=== PATIENT | male | born 1945 | race Two or more races ===

== ENCOUNTER 2017-06-19 08:33 | Inpatient (IN) | payer OTHER ==
[~2017-06-19] VITALS: Ht 172.7 cm; Wt 70.9 kg
[2017-06-19] VITALS (16 sets, daily range): BP systolic 132–161; BP diastolic 54–93
--- NOTE | 2017-06-19 08:38 | NUR ---
BIBRA FROM HOME DT SHORTNESS OF BREATH. PATIENT RECEIVED ON BIPAP SATING 95%. PATIENT UNABLE TO TOLERATE ROOM AIR. PATIENT IS AWAKE, HOWEVER APPEARS WEAK AND IN MILD DISTRESS. PT IS AFEBRILE. GOWNED PATIENT AND CONNECTED PT TO TELE MONITOR. IV- LHAND 20 NOTED INTACT AND PATENT. MD JUAREZ PENDING
--- NOTE | 2017-06-19 08:40 | NUR ---
MD CONCEPCION AT BEDSIDE
[2017-06-19] MEDS ORDERED: FUROSEMIDE 40 MG/4 ML VIAL ONE (08:48)
[2017-06-19] MEDS ORDERED: NITROGLYCERIN PACKET 1 GM PACKET ONE (08:48)
[2017-06-19] MEDS ORDERED: ASPIRIN 325 MG TABLET ONE (08:49)
[2017-06-19] MEDS ORDERED: FUROSEMIDE 40 MG/4 ML VIAL IV ONE (09:00)
[2017-06-19] MEDS ORDERED: IPRATROPIUM NEB FS 0.5 MG/2.5 ML AMPUL.NEB NEB ONE (09:00)
[2017-06-19] MEDS ORDERED: NITROGLYCERIN PACKET 1 GM PACKET TD ONE (09:00)
[2017-06-19] MEDS ORDERED: ASPIRIN 325 MG TABLET PO ONE (09:00)
[2017-06-19] MEDS ORDERED: ALBUTEROL FS 2.5 MG/3 ML VIAL.NEB NEB ONE (09:00)
--- NOTE | 2017-06-19 09:05 | NUR ---
PT REC'D ON CPAP MASK 15L. SOB AND RESP DISTRESS NOTED. PT IS DISORIENTED. PT PLACED ON BIPAP PER MD REQUEST. VENT PLUGGED INTO RED OUTLET. ALARMS ARE SET AND AUDIBLE. PRERNAU BAG BEDSIDE. WILL CONTINUE TO MONITOR Addendum: 06/19/17 at 0907 by GEOVANY JACKSON RT Amended: Links added.
[2017-06-19 09:16] LABS: BASOPHILS % (AUTO) 0.1 % (0.0-2.0); EOSINOPHILS # (AUTO) 0.5 /CMM (0.0-0.7); EOSINOPHILS % (AUTO) 4.1 % (0.0-6.0); HEMATOCRIT 27 % (39-51); HEMOGLOBIN 8.8 g/dL (13.5-17.5); LYMPHOCYTES # (AUTO) 0.6 /CMM (0.8-4.8); MEAN CORPUSCULAR HEMOGLOBIN 30 PG (26.0-33.0); MEAN CORPUSCULAR HGB CONC 33 g/dl (31.0-36.0); MEAN CORPUSCULAR VOLUME 93 fL (80-96); MONOCYTES # (AUTO) 0.8 /CMM (0.1-1.30); NEUTROPHILS # (AUTO) 10.9 /CMM (1.8-8.9); NEUTROPHILS % (AUTO) 84.8 % (43.0-81.0); PLATELET COUNT (AUTO) 193 /CMM (150-450); RDW COEFFICIENT OF VARIATION 16.6 (11.5-15.0); RED BLOOD CELL COUNT(AUTO) 2.91 MIL/uL (4.5-6.0); WHITE BLOOD COUNT (AUTO) 12.9 K/uL (4.3-11.0)
[2017-06-19 09:29] LABS: TROPONIN I 0.138 ng/mL (0.00-0.056)
[2017-06-19] MEDS ORDERED: IPRATROPIUM NEB FS 0.5 MG/2.5 ML AMPUL.NEB ONE (09:29)
[2017-06-19] MEDS ORDERED: ALBUTEROL FS 2.5 MG/3 ML VIAL.NEB ONE (09:29)
[2017-06-19 09:32] LABS: INR 0.96 (0.87-1.13)
[2017-06-19 09:38] LABS: ALANINE AMINOTRANSFERASE 18 U/L (12-78); ALKALINE PHOSPHATASE 54 U/L (46-116); ASPARTATE AMINOTRANSFERASE 16 U/L (15-37); BILIRUBIN,DIRECT 0.2 mg/dL (0.0-0.2); BILIRUBIN,TOTAL 0.8 mg/dL (0.2-1.0); CALCIUM, SERUM 8.6 mg/dL (8.5-10.1); CARBON DIOXIDE 27 mmol/L (21-32); CHLORIDE 103 mmol/L (98-107); CREATININE 4.2 mg/dL (0.6-1.3); GLUCOSE 129 mg/dL (74-106); SODIUM SERUM 139 mmol/L (136-145); TOTAL PROTEIN, SERUM 6.9 g/dL (6.4-8.2); UREA NITROGEN, BLOOD 42 mg/dL (7-18)
[2017-06-19 09:41] LABS: POTASSIUM 2.5 mmol/L (3.5-5.1)
[2017-06-19 10:17] LABS: ABG BASE EXCESS 1.8 mmol/L; ABG PH 7.395 (7.350-7.450); ABG PO2 77.6 mmHg (75.0-100.0); AaDO2 155.9 mmHg; COHb 1.6 % (0.5-1.5); MetHb 0.1 % (0.0-1.5); O2Hb 91.4 % (94.0-97.0); SITE, ABG Right Radial; VENT MODE, BG Bipap 15/5 40% BR 12
--- NOTE | 2017-06-19 10:21 | NUR ---
Patient is resting comfortably in bed with eyes closed. Easily aroused. VSS
[2017-06-19 10:32] LABS: B-TYPE NATRIURETIC PEPTIDE 29862 PG/ML (0-125)
[2017-06-19] MEDS ORDERED: ISOS60TA4 PO (10:48)
[2017-06-19] MEDS ORDERED: FAMO20TA8 PO (10:48)
[2017-06-19] MEDS ORDERED: NIFE90TA2 PO (10:48)
[2017-06-19] MEDS ORDERED: FURO40TA5 PO (10:48)
[2017-06-19] MEDS ORDERED: CLON0.3T PO (10:48)
[2017-06-19] MEDS ORDERED: ROSU5TAB PO (10:48)
[2017-06-19] MEDS ORDERED: GABA-532 PO (10:48)
[2017-06-19] MEDS ORDERED: POTA10TA PO (10:48)
[2017-06-19] MEDS ORDERED: BENZ-13 PO (10:48)
[2017-06-19] MEDS ORDERED: CHOL50004 PO (10:48)
[2017-06-19] MEDS ORDERED: SPIR25TA4 PO (10:48)
[2017-06-19] MEDS ORDERED: ACET-73 PO (10:48)
[2017-06-19] MEDS ORDERED: ASPI-1169 PO (10:48)
[2017-06-19] MEDS ORDERED: METO25TA6 PO (10:48)
[2017-06-19] MEDS ORDERED: TERA2CAP4 PO (10:48)
[2017-06-19] MEDS: POTASSIUM CL. PREMIX PERIPHER. 50 ML IV SCH ×4 (10:50→16:01)
--- NOTE | 2017-06-19 11:13 | NUR ---
RN NOTES ADMITTED A 72 Y/O M FROM ER WITH DX OF RESPIRATORY FAILURE, TRANSPORTED VIA STRETCHER ACCOMPANIED BY RN AND TECH. PLACED PT ON O2@4LPM VIA NC. PT BREATHING APPEARS LABORED. HOB KEPT ELVATED. S/P IV LASIX, FC INSERTED TO MONITOR URINE OUTPUT. BODY CHECK DONE NOTED MULTIPLE SKIN RASHES ON UPPER AND LOWER EXTREMITIES, ABDOMEN AND BACK AREA. PHOTO TAKEN AND FILED IN CHART. PT VERBALIZED HE'S FEELING ITCHY. AT BEDSIDE, PER NERVE PROBLEMS IS CAUSING THE RASHES. WILL AWARE DR JAY ABOUT SKIN RASH. PT DENIES PAIN AT THIS TIME. ORIENTED TO UNIT AND CALL LIGHT USE, SAFETY MAINTAINED, CALL LIGHT WITHIN REACH WILL CONT TO MONITOR
--- NOTE | 2017-06-19 11:15 | NUR ---
REPORT GIVEN TO GOMEZ DUENAS FOR ICU 252.
--- NOTE | 2017-06-19 11:24 | NUR ---
EMMA EPRP CALLED AND WILL HAVE EMMA KELLER CALL DR WALKER BACK
--- NOTE | 2017-06-19 12:30 | NUR ---
RN NOTES DR PERSON AT BEDSIDE, PT WAS SEEN AND EVALUATED. AT BEDSIDE, DISCUSSED PLAN OF CARE. PER PT HAS SLEEP APNEA, PT NEEDS CPAP AT NIGHT. PER OKAY FOR CPAP HS
[2017-06-19] MEDS ORDERED: FUROSEMIDE 40 MG/4 ML VIAL IV SCH (13:00)
[2017-06-19] MEDS ORDERED: ACETAMINOPHEN 325 MG TABLET PO PRN (13:00)
[2017-06-19] MEDS ORDERED: ONDANSETRON HCL/PF 4 MG/2 ML VIAL IVP PRN (13:00)
[2017-06-19] MEDS ORDERED: Z GUARD REMEDY 2 OZ OINT TP PRN (13:00)
[2017-06-19] MEDS: NIFEdipine XL (30MG) 30 MG TAB PO SCH (13:41)
[2017-06-19] MEDS: ENOXAPARIN SODIUM 30 MG/0.3 ML DISP.SYRIN SQ SCH (13:41)
[2017-06-19] MEDS: ISOSORBIDE MONONITRATE (30MG) 30 MG TAB.SR.24H PO SCH (13:41)
[2017-06-19] MEDS: CLONIDINE HCL 0.1 MG TABLET PO SCH ×2 (13:42→17:06)
[2017-06-19] MEDS: HYDROCORTISONE 1% CREAM 28.35 GM TUBE TP SCH ×2 (16:01→17:06)
--- NOTE | 2017-06-19 16:10 | NUR ---
RN NOTES PT C/O ITCHING, NAVIN PIERRE AT BEDSIDE, SKIN SCRAPING DONE. PT PLACED ON ISOLATION R/O SCABIES
[2017-06-19] MEDS: POTASSIUM CHLORIDE 20 MEQ TAB.PRT.SR PO SCH ×4 (17:05→20:59)
[2017-06-19] MEDS: GABAPENTIN 100 MG CAPSULE PO SCH (17:05)
[2017-06-19] MEDS: FUROSEMIDE 100 MG/10 ML VIAL IV SCH ×2 (17:10→21:00)
[2017-06-19] MEDS: METOPROLOL TARTRATE 25 MG TABLET PO SCH (17:16)
[2017-06-19 18:11] LABS: THYROID STIMULATING HORMONE 0.059 uIU/mL (0.358-3.74)
--- NOTE | 2017-06-19 18:36 | NUR ---
RN NOTES PT TRANSFERRED TO [facility] FLOOR 105-1, REPORT GIVEN TO GIA DUENAS. PT VS STABLE, ON CONTACT ISOLATION FOR SCABIES.
--- NOTE | 2017-06-19 18:46 | NUR ---
GAMAL/PIG MACHINE OPERATOR HELPER NOTES RECEIVED PT FROM ICU, DX. RESPIRATORY FAILURE WITH ACUTE SYSTOLIC HEART FAILURE, AT BEDSIDE. BY DR. NAVIN JAY. AAO X 3, ON 4L O2 NC, NO SOB, RESPIRATION UNLABORED, TELEMETRY READS SR HR 64WITH BBB, DENIES ANY CHEST PAIN/DISCOMFORT. PATIENT NOTED TO HAVE RASHES BUT REFUSE BODY EVAL. PER ICU NURSE RASHES NOTED TO RT ARM, LEFT ABD, L BACK AND L THIGH AND IS ITCHING, ON HYDROCORTISONE CREAM. RT HAND G20 AND LEFT HAND G20 IV ACCESS, FLUSHES WELL, BOTH SITE CLEAR. ON KOSHER SOFT DIET, VS TAKEN WNL. UNIT ORIENTATION DONE AND USE OF CALL LIGHT, BED LOW LOCKED, SR UP X2, CONTACT ISOLATION PRECAUTION OBSERVED FOR POSSIBLE SCABIES, SKIN SCRAPINGS DONE BY DR.T CINDY JAY EARLIER. MADE COMFORTABLE, WILL ENDORSE TO NEXT SHIFT FOR JONATAN.
[2017-06-19 19:03] LABS: CALCIUM, SERUM 8.5 mg/dL (8.5-10.1); CARBON DIOXIDE 28 mmol/L (21-32); CHLORIDE 104 mmol/L (98-107); CREATININE 4.4 mg/dL (0.6-1.3); GLUCOSE 167 mg/dL (74-106); POTASSIUM 3.2 mmol/L (3.5-5.1); SODIUM SERUM 140 mmol/L (136-145); UREA NITROGEN, BLOOD 50 mg/dL (7-18)
--- NOTE | 2017-06-19 21:00 | NUR ---
RN NOTE GAVE PT LIPITOR PER ORDERS AND WAS NOTIFIED BY AFTER GIVING MEDICATION THAT PT HAS ALLERGY TO LIPITOR AND IS SUPPOSE TO TAKE CRESTOR. HAS MEDICATION ON HAND WILL SEND TO PHARMACY AND NOTIFY THEM IN THE AM. PT CHART UPDATE WITH LIPITOR ALLERGY.
[2017-06-19] MEDS: TERAZOSIN HCL 5 MG CAPSULE PO SCH (21:09)
[2017-06-19] MEDS ORDERED: PERMETHRIN 5% CRM 60 GM TUBE TP ONE ×2 (21:30→22:18)
[2017-06-19] MEDS ORDERED: ATORVASTATIN 10 MG TABLET PO SCH (22:00)
[2017-06-19 22:40] LABS: MAGNESIUM 2.4 mg/dL (1.8-2.4); PHOSPHORUS 4.4 mg/dL (2.5-4.9)
--- NOTE | 2017-06-19 23:30 | NUR ---
RN NOTE ELIMITE CREAM PLACED ON PT AND WILL NOTIFY AM RN TO GIVE BATH AT 1130 TO WASH OFF ELIMITE CREAM.
[2017-06-20] VITALS (7 sets, daily range): BP systolic 127–158; BP diastolic 57–74
--- NOTE | 2017-06-20 | NUR ---
YULISSA NOTE RECEIVED ORDERS FROM PAZ MARTIN TO PLACE SAMSON BATH. READBACK ORDERS PERFORMED AND WILL PLACE IN ORDERS. Addendum: 06/20/17 at 0445 by MARYJANE REY RN TIME WAS @ 1100 06/19/2017. Addendum: 06/20/17 at 0447 by MARYJANE REY RN TIME IS 2300 AND NOT 1100.
--- NOTE | 2017-06-20 | NUR ---
RN NOTE RECEIVED ORDERS FROM PAZ ROMO TO PLACE PT ON NOC CPAP AND TO GIVE RESTORIL 15MG ON TIME PO PER FAMILY REQUEST. READBACK ORDERS PERFORMED AND WILL PUT IN ORDERS.
--- NOTE | 2017-06-20 00:19 | NUR ---
pt was placed on CPAP of 10 PER MDS ORDERS, tolerated well. Addendum: 06/20/17 at 0020 by AMANDO NUNEZ RT Amended: Links added.
[2017-06-20] MEDS ORDERED: ALPR0.5T PO (00:33)
[2017-06-20] MEDS ORDERED: TEMAZEPAM 15 MG CAPSULE ONE (00:37)
[2017-06-20] MEDS ORDERED: TEMAZEPAM 15 MG CAPSULE PO ONE (01:00)
[2017-06-20] MEDS: FUROSEMIDE 100 MG/10 ML VIAL IV SCH ×4 (01:15→18:30)
[2017-06-20 07:01] LABS: BASOPHILS % (AUTO) 0.6 % (0.0-2.0); EOSINOPHILS # (AUTO) 0.6 /CMM (0.0-0.7); EOSINOPHILS % (AUTO) 7.2 % (0.0-6.0); HEMATOCRIT 24 % (39-51); LYMPHOCYTES # (AUTO) 1.1 /CMM (0.8-4.8); LYMPHOCYTES % (AUTO) 14.6 % (20.0-44.0); MEAN CORPUSCULAR HEMOGLOBIN 30 PG (26.0-33.0); MEAN CORPUSCULAR HGB CONC 33 g/dl (31.0-36.0); MEAN CORPUSCULAR VOLUME 92 fL (80-96); MONOCYTES # (AUTO) 0.8 /CMM (0.1-1.30); NEUTROPHILS # (AUTO) 5.1 /CMM (1.8-8.9); NEUTROPHILS % (AUTO) 66.6 % (43.0-81.0); PLATELET COUNT (AUTO) 169 /CMM (150-450); RDW COEFFICIENT OF VARIATION 16.3 (11.5-15.0); RED BLOOD CELL COUNT(AUTO) 2.63 MIL/uL (4.5-6.0); WHITE BLOOD COUNT (AUTO) 7.6 K/uL (4.3-11.0)
--- NOTE | 2017-06-20 07:03 | NUR ---
RN NOTE PT REMAINS IN NO ACUTE DISTRESS IN BED. PT DID NOT HAVE ANY SIGNIFICANT CHANGE IN CONDITION DURING SHIFT. ALL NEEDS MET, ALL ORDERS TYRONE OUT. WILL ENDORSE CARE TO AM RN FOR CONTINUITY OF CARE. Addendum: 06/20/17 at 1932 by ANDREW EDCKER RN RN NOTE 1830 LASIX WAS NOT ADMINISTERED BECAUSE PREVIOUS DOSE WAS ADMINISTERED LATE, AROUND 1600, SPOKE TO PHARMACY TO CHANGE THE LAST 3RD DOSE TO 1999. WILL ENDORSE TO SUPERVISOR LONG GOODS.
[2017-06-20 07:13] LABS: TROPONIN I 0.324 ng/mL (0.00-0.056)
[2017-06-20 07:23] LABS: ALANINE AMINOTRANSFERASE 22 U/L (12-78); ALBUMIN 2.7 g/dL (3.4-5.0); ALKALINE PHOSPHATASE 49 U/L (46-116); ASPARTATE AMINOTRANSFERASE 12 U/L (15-37); BILIRUBIN,TOTAL 0.6 mg/dL (0.2-1.0); CALCIUM, SERUM 8.5 mg/dL (8.5-10.1); CARBON DIOXIDE 29 mmol/L (21-32); CHLORIDE 107 mmol/L (98-107); CREATININE 4.6 mg/dL (0.6-1.3); GLUCOSE 133 mg/dL (74-106); MAGNESIUM 2.2 mg/dL (1.8-2.4); PHOSPHORUS 3.7 mg/dL (2.5-4.9); POTASSIUM 3.8 mmol/L (3.5-5.1); SODIUM SERUM 143 mmol/L (136-145); TOTAL PROTEIN, SERUM 6.2 g/dL (6.4-8.2); UREA NITROGEN, BLOOD 53 mg/dL (7-18)
[2017-06-20 07:33] LABS: CHOLESTEROL 102 mg/dL (<200); HDL CHOLESTEROL 45 mg/dL (40-60); LDL 52 mg/dL (0-99); THYROID STIMULATING HORMONE 0.043 uIU/mL (0.358-3.74); TRIGLYCERIDES 29 mg/dL (30-150)
[2017-06-20] MEDS: FAMOTIDINE (20 MG) 20 MG TABLET PO SCH (09:10)
[2017-06-20] MEDS: ASPIRIN 81 MG TAB.CHEW PO SCH (09:10)
[2017-06-20] MEDS: SPIRONOLACTONE 25 MG TABLET PO SCH (09:10)
[2017-06-20] MEDS: CLONIDINE HCL 0.1 MG TABLET PO SCH ×2 (09:11→16:22)
[2017-06-20] MEDS: NIFEdipine XL (30MG) 30 MG TAB PO SCH (09:11)
[2017-06-20] MEDS: ISOSORBIDE MONONITRATE (30MG) 30 MG TAB.SR.24H PO SCH (09:11)
[2017-06-20] MEDS: METOPROLOL TARTRATE 25 MG TABLET PO SCH ×2 (09:14→16:22)
[2017-06-20] MEDS: ENOXAPARIN SODIUM 30 MG/0.3 ML DISP.SYRIN SQ SCH (09:14)
[2017-06-20] MEDS: HYDROCORTISONE 1% CREAM 28.35 GM TUBE TP SCH ×2 (12:33→16:25)
[2017-06-20] MEDS ORDERED: FLUOCINONIDE 0.05% CREAM 60 GM TUBE TP SCH (16:00)
[2017-06-20] MEDS: FLUOCINONIDE 0.05% CREAM 15 GM TUBE TP SCH (17:00)
[2017-06-20 17:23] LABS: APPEARANCE,URINE CLOUDY (CLEAR); BILIRUBIN,URINE NEGATIVE (NEGATIVE); BLOOD, URINE 3+ Ery/uL (NEGATIVE); COLOR,URINE YELLOW (YELLOW); KETONES,URINE NEGATIVE (NEGATIVE); LEUKOCYTE ESTERASE ,URINE 2+ (NEGATIVE); NITRITE, URINE NEGATIVE (NEGATIVE); PROTEIN,URINE 1+ mg/dl (NEGATIVE); UGLUCOSE NEGATIVE (NEGATIVE); UROBILINOGEN,URINE 0.2 EU/dL (0.2)
[2017-06-20 17:33] LABS: CREATININE, URINE 30.4 MG/DL (30.0-125.0); URINE TOTAL PROTEIN 74.6 mg/dL (0-11.9)
[2017-06-20 17:50] LABS: BACTERIA,URINE Moderate /HPF (None Seen); RBC,URINE 21-50 /HPF (0-2); SQUAMOUS EPITHELIAL CELL,UR Moderate /HPF (None Seen); WBC,URINE 21-50 /HPF (0-3)
--- NOTE | 2017-06-20 19:00 | NUR ---
RN NOTE 1830 LASIX WAS NOT ADMINISTERED BECAUSE PREVIOUS DOSE WAS ADMINISTERED LATE, AROUND 1600, SPOKE TO PHARMACY TO CHANGE THE LAST 3RD DOSE TO 1999. WILL ENDORSE TO MANAGER CATEGORY.
[2017-06-20] MEDS: GABAPENTIN 100 MG CAPSULE PO SCH (19:09)
--- NOTE | 2017-06-20 19:30 | NUR ---
ORAL AND MAXILLOFACIAL SURGERY RESIDENT INITIAL NOTES RECEIVED PATIENT AWAKE A/OX4, ABLE TO MAKE NEEDS KNOWN. AT BEDSIDE. EDUCATED REGARDING USE OF ISOLATION PRECAUTIONS, VERBALIZED UNDERSTANDING. PATIENT DENIES PAIN OR DISCOMFORT AT THIS TIME. DENIES SOB. RESPIRATIONS EVEN AND UNLABORED WITH 4LPMO2 VIA NC. ON TELE MONITOR SR WITH PVC, BBB, INVERTED TWAVES. SKIN WARM AND DRY TO TOUCH. F/C PATENT AND INTACT. SIDE RAILS UP AND LOCKED. BED KEPT AT LOWEST POSITION. CALL LIGHT KEPT WITHIN EASY REACH. WILL CONTINUE TO MONITOR.
--- NOTE | 2017-06-20 19:47 | NUR ---
PATIENT C/O NOT HAVING A BOWEL MOVEMENT SINCE SATURDAY. INFORMED DR. JAY WITH NEW ORDERS FOR SENAKOT 2 TABS PO HS, DULCOLAX 10MG RI DAILY PRN. NOTED AND CARRIED OUT.
[2017-06-20] MEDS ORDERED: BISACODYL SUPP (10 MG) 10 MG/SUPP.RECT SUPP.RECT RC PRN (20:00)
[2017-06-20] MEDS ORDERED: FUROSEMIDE 100 MG/10 ML VIAL IV ONE (20:00)
[2017-06-20 20:12] LABS: EOSINOPHIL,URINE Few
[2017-06-20] MEDS: TERAZOSIN HCL 5 MG CAPSULE PO SCH (21:04)
[2017-06-20] MEDS ORDERED: SENNOSIDES 8.6 MG TABLET PO SCH (22:00)
[2017-06-20] MEDS ORDERED: ROSUVASTATIN 5 MG PO SCH (22:00)
[2017-06-20] MEDS ORDERED: ALPRAZOLAM 0.25 MG TABLET PO PRN (22:00)
--- NOTE | 2017-06-20 22:10 | NUR ---
COSTUME DRAPER NOTES RT AT BEDSIDE. PATIENT PLACED ON CPAP, XANAX GIVEN PER PATIENT REQUEST. WILL CONTINUE TO MONITOR.
--- NOTE | 2017-06-20 23:35 | NUR ---
SMELTER LINER NOTES PATIENT REQUEST TO HAVE CPAP REMOVED, STATES HE CANT SLEEP AT THIS TIME, UNCOMFORTABLE. PLACED BACK ON 3LPMO2 VIA NC. WILL CONTINUE TO MONITOR.
--- NOTE | 2017-06-21 | NUR ---
PATIENT AND REFUSED MIDNIGHT VITAL SIGNS, PATIENT WANTS TO GET SOME REST. EXPLAINED THE IMPORTANCE OF CHECKING VITAL SIGNS. PATIENT STILL REFUSED. PATIENT IN NO APPARENT DISTRESS. WILL CONTINUE TO MONITOR.
[2017-06-21 04:00] VITALS: BP 150/76
--- NOTE | 2017-06-21 07:25 | NUR ---
RN NOTES: PATIENT RESTING IN BED. NONLABORED BREATHING ON 2L NASAL CANNULA. DENIES PAIN. NO SOB NOTED. PATIENT AOX3. IV SITES PATENT AND INTACT. BED IN LOWEST LOCKED POSITION. CALL LIGHT WITHIN REACH. WILL CONTINUE TO MONITOR
[2017-06-21] MEDS: FUROSEMIDE 100 MG/10 ML VIAL IV SCH ×3 (07:31→15:25)
[2017-06-21 08:00] VITALS: BP 152/82
[2017-06-21 08:05] LABS: BASOPHILS % (AUTO) 0.5 % (0.0-2.0); EOSINOPHILS # (AUTO) 0.7 /CMM (0.0-0.7); EOSINOPHILS % (AUTO) 9.1 % (0.0-6.0); HEMATOCRIT 26 % (39-51); LYMPHOCYTES # (AUTO) 1.1 /CMM (0.8-4.8); LYMPHOCYTES % (AUTO) 15.3 % (20.0-44.0); MEAN CORPUSCULAR HEMOGLOBIN 31 PG (26.0-33.0); MEAN CORPUSCULAR HGB CONC 34 g/dl (31.0-36.0); MEAN CORPUSCULAR VOLUME 90 fL (80-96); MONOCYTES # (AUTO) 0.8 /CMM (0.1-1.30); MONOCYTES % (AUTO) 10.4 % (2.0-12.0); NEUTROPHILS # (AUTO) 4.7 /CMM (1.8-8.9); NEUTROPHILS % (AUTO) 64.7 % (43.0-81.0); PLATELET COUNT (AUTO) 163 /CMM (150-450); RDW COEFFICIENT OF VARIATION 15.6 (11.5-15.0); RED BLOOD CELL COUNT(AUTO) 2.92 MIL/uL (4.5-6.0); WHITE BLOOD COUNT (AUTO) 7.3 K/uL (4.3-11.0)
[2017-06-21 08:38] LABS: ALANINE AMINOTRANSFERASE 15 U/L (12-78); ALBUMIN 2.8 g/dL (3.4-5.0); ALKALINE PHOSPHATASE 49 U/L (46-116); ASPARTATE AMINOTRANSFERASE 10 U/L (15-37); BILIRUBIN,TOTAL 0.5 mg/dL (0.2-1.0); CALCIUM, SERUM 8.8 mg/dL (8.5-10.1); CARBON DIOXIDE 30 mmol/L (21-32); CHLORIDE 108 mmol/L (98-107); CREATININE 4.4 mg/dL (0.6-1.3); GLUCOSE 95 mg/dL (74-106); MAGNESIUM 2.2 mg/dL (1.8-2.4); PHOSPHORUS 4.2 mg/dL (2.5-4.9); POTASSIUM 3.4 mmol/L (3.5-5.1); SODIUM SERUM 147 mmol/L (136-145); TOTAL PROTEIN, SERUM 6.6 g/dL (6.4-8.2); UREA NITROGEN, BLOOD 52 mg/dL (7-18)
[2017-06-21 08:44] LABS: CREATINE KINASE, TOTAL 25 U/L (39-308)
[2017-06-21] MEDS: ASPIRIN 81 MG TAB.CHEW PO SCH (09:04)
[2017-06-21] MEDS: ISOSORBIDE MONONITRATE (30MG) 30 MG TAB.SR.24H PO SCH (09:05)
[2017-06-21] MEDS: SPIRONOLACTONE 25 MG TABLET PO SCH (09:06)
[2017-06-21] MEDS: METOPROLOL TARTRATE 25 MG TABLET PO SCH (09:06)
[2017-06-21] MEDS: NIFEdipine XL (30MG) 30 MG TAB PO SCH (09:07)
[2017-06-21] MEDS: FAMOTIDINE (20 MG) 20 MG TABLET PO SCH (09:08)
[2017-06-21] MEDS: ENOXAPARIN SODIUM 30 MG/0.3 ML DISP.SYRIN SQ SCH (09:12)
[2017-06-21 09:15] LABS: IRON, SERUM 33 ug/dl (50-175); TOTAL IRON BINDING CAPACITY 254 ug/dl (250-450)
--- NOTE | 2017-06-21 09:20 | NUR ---
WOUND CARE CONSULT: PT PRESENTS WITH RESOLVING RASH TO LEFT ARM AND SOME SCRATCH DE LA O ON BACK AND BUTTOCKS. RECOMMENDATIONS MADE FOR SKIN PROTECTION. PT ABLE TO TURN AND REPOSITION IN BED. CURRENT JUD SCORE IS 18. PT ON ISOFLEX LOW AIRLOSS BED. WILL SEE PRN. Addendum: 06/21/17 at 0922 by JOSIAH EL WNDNU DEFER TO MD FOR RASH.
[2017-06-21] MEDS ORDERED: POTASSIUM CHLORIDE 20 MEQ TAB.PRT.SR PO ONE (09:30)
[2017-06-21] MEDS: HYDROCORTISONE 1% CREAM 28.35 GM TUBE TP SCH (11:21)
[2017-06-21] MEDS: FLUOCINONIDE 0.05% CREAM 15 GM TUBE TP SCH (11:21)
[2017-06-21 11:24] VITALS: BP 154/69
[2017-06-21] MEDS: CLONIDINE HCL 0.1 MG TABLET PO SCH (11:24)
[2017-06-21 12:23] LABS: ABG BASE EXCESS 3.5 mmol/L; ABG OXYGEN SATURATION 91.6 % (92.0-98.5); ABG PH 7.433 (7.350-7.450); ABG PO2 69.3 mmHg (75.0-100.0); AaDO2 115.8 mmHg; COHb 1.2 % (0.5-1.5); MetHb 0.3 % (0.0-1.5); O2Hb 90.2 % (94.0-97.0); SITE, ABG Right Radial; VENT MODE, BG NASAL CANNULA
[2017-06-21] MEDS ORDERED: SOD FERRIC GLUC 125 MG in IV NS 0.9% 100 ML IV SCH (14:00)
--- NOTE | 2017-06-21 15:28 | NUR ---
RN NOTES: DR JAY ORDERED THE PATIENT TO BE DISCHARGED
--- NOTE | 2017-06-21 16:15 | NUR ---
RN NOTES: PATIENT DISCHARGED HOME PER DR NAVIN MANCILLA ORDERS. PATIENT AOX3. UPON BEING INFORMED OF LEAVING, CUETO CATHETER WAS TAKING OUT PER DR JAY'S ORDERS. PATIENT ABLE TO URINATE. VS WNL. NONLABORED BREATHING NOTED ON ROOM AIR. SPO2 AT 92-94 ON ROOM AIR. DURING SHIFT, PATIENT GIVEN SUPPOSITORY, ABLE TO HAVE A BM. PATIENT BELONGINGS GIVEN TO PATIENT. IV LINES REMOVED. PATIENT EDUCATED ON EXIST CARE. PATIENT REFUSED VACCINES WELL SKIN PICTURES STATING THAT HE HAS TO GET HOME BEFORE 5, FOR CHRISTIAN REASONS. PATIENT REFUSED FERRLECIT, H&H DISCUSSED WITH PATIENT AND BLU. VERBALIZE UNDERSTANDING OF BENEFITS AND RISKS, HOWEVER STILL REFUSED FERRECLIT. PATIENT STATED FEELING BETTER REGARDING THE ITCHING ON HIS EXTREMITIES. NO SKIN TEARS NOTED. NO BLEEDING. SIGNS OF IMPROVMENT NOTED ON SKIN. PATIENT AND LEFT BEFORE MED RECON LIST IS DONE. DISCUSSED WITH THEM TO FOLLOW UP WITH DR SUNG, INFO PROVIDED, DR NAVIN JAY INFORMED OF PATIENT'S IMMEDIATE WISH TO LEAVE WITHOUT THE LIST OF HOME MEDICATIONS. PATIENT AND ENCOURAGED TO WAIT. HOWEVER,STATED THAT THEY WERE IN A HURRY AND THAT THEY ARE AWARE OF THE HOME MEDICATIONS. UPON LEAVING. DR JAY BROUGHT A PRESCRIPTION FOR THE PATIENT. CONTACTED SECURITY HOWEVER PATIENT AND ALREADY LEFT VIA PRIVATE CAR. CONTACTED PROVIDED NUMBER ON FACE SHEET X5 BUT UNABLE TO LEAVE MESSAGE. PRECRPTION ENDORSED TO CHARGE NURSE SHANNEN WHO WILL ENDORSE TO AIRCRAFT PAINTER NURSE.
--- NOTE | 2017-06-21 16:15 | NUR ---
MS RN NOTE RECEIVED PATIENT FROM [facility] DUENAS . PER DR NAVIN MCDOWELL DISCHARGE HOME, DISCHARGE INSTRUCTING GIVEN ,HL REMOVED, NO BLEEDING, NO S\S INFECTION NOTED , PRESSURE DRESSING APPLIED, PATIENT AND HIS RUSHING TO GO HOME DONT WANT TO WAIT TILL DR NAVIN MCDOWELL WILL GIVE PX ,REWED MEDS THAT HAVING AT HOME ,INSTRUCTED HOW TO TAKE AND POSSIBLE SIDE EFFECTS , INSTRUCTED TO FOLLOW UP WITH PRIMARY CARE DOCTOR AND FOLLOW UP WITH DR SUNG MANAGER FILM,WILL BE GIVEN BY DR HOLDEN .BELONGING SIGNED , TAKEN TO LOBBY WITH STABLE CONDITION ON W\C WITH Addendum: 06/21/17 at 1712 by DOROTHEA BARRETT RN NAVIN MCDOWELL DNP GAVE PX TO TAKE HOME TO ELEAZAR DUENAS , BUT PATIENT LEFT THE HOSPITAL ,PLACED A CALL TO BY E[facility] AND LEFT A MESSAGE ABOUT PX TO DAMPER WORKER FROM HOSPITAL
[2017-06-21] MEDS ORDERED: CEPH-570 PO (16:30)
--- NOTE | 2017-06-21 17:30 | NUR ---
MS RN NOTE CALLED AGAIN TO TO INFORM THAT NAVIN MCDOWELL DNP GAVE PX TO MICROECONOMICS PROFESSOR, BUT UNABLE TO LEAVE A MESSAGE PHONE IS RINGING
[2017-06-22 11:23] LABS: PTH, INTACT 59 pg/mL (15-65)
[2017-06-26 10:13] LABS: *SPE A/G RATIO 1.4 (0.7-1.7); *SPE ALBUMIN 3.2 g/dL (2.9-4.4); *SPE ALPHA-1-GLOBULIN 0.3 g/dL (0.0-0.4); *SPE ALPHA-2-GLOBULIN 0.6 g/dL (0.4-1.0); *SPE BETA GLOBULIN 0.7 g/dL (0.7-1.3); *SPE GLOBULIN, TOTAL 2.3 g/dL (2.2-3.9); *SPE M-SPIKE Not Observed g/dL (Not Observed); *SPEGAMMA GLOBULIN 0.8 g/dL (0.4-1.8)
== END 2017-06-21 16:40 | disposition home or self-care (01) | DRG 280 ==
LOC: ER 08:34 → ICU 11:16 → TELE-TD 18:28 → TELE1 06-20 11:15 → MEDSG1 06-21 07:01
PROVIDERS: ADMIT Nurse Practitioner Acute Care; ATTEND Nurse Practitioner Acute Care
PROC: 5A09457 Assistance with Respiratory Ventilation, 24-96 Consecutive Hours, Continuous Positive Airway Pressure (ICD-10-PCS; principal; 2017-06-20)
DX: I13.0 Hypertensive heart and chronic kidney disease with heart failure and stage 1 through stage 4 chronic kidney disease, or unspecified chronic kidney disease (principal); I21.A1 Myocardial infarction type 2; N17.0 Acute kidney failure with tubular necrosis; J96.01 Acute respiratory failure with hypoxia; I50.33 Acute on chronic diastolic (congestive) heart failure; I69.951 Hemiplegia and hemiparesis following unspecified cerebrovascular disease affecting right dominant side; N18.4 Chronic kidney disease, stage 4 (severe); J44.1 Chronic obstructive pulmonary disease with (acute) exacerbation; J44.0 Chronic obstructive pulmonary disease with (acute) lower respiratory infection; N39.0 Urinary tract infection, site not specified; I11.0 Hypertensive heart disease with heart failure; Z88.5 Allergy status to narcotic agent; Z79.82 Long term (current) use of aspirin; D63.8 Anemia in other chronic diseases classified elsewhere; E03.9 Hypothyroidism, unspecified; F17.200 Nicotine dependence, unspecified, uncomplicated; E87.6 Hypokalemia; E78.5 Hyperlipidemia, unspecified; G47.33 Obstructive sleep apnea (adult) (pediatric); I25.2 Old myocardial infarction; Z91.19 Patient's noncompliance with other medical treatment and regimen; Z85.51 Personal history of malignant neoplasm of bladder; Z79.899 Other long term (current) drug therapy; N28.1 Cyst of kidney, acquired
CPT/HCPCS: 36415; 36600; 71010-TC; 76770-TC; 80048-TC; 80053-TC; 80061-TC; 80076-TC; 81000-TC; 82306; 82550-TC; 82570-TC; 82728-TC; 82803-TC; 83540-TC; 83735-TC; 83880; 83970; 84100-TC; 84155; 84155-TC; 84165; 84300-TC; 84439-TC; 84443-TC; 84484-TC; 85025-TC; 85730-TC; 87081-TC; 87086-TC; 87186-TC; 93307-TC; 94799-TC; A4606; J1650; J1940; J2916; J3480; J7030; Z7610

== ENCOUNTER 2017-10-13 09:38 | Inpatient (IN) | payer MEDICARE, BC ==
[~2017-10-13] VITALS: Ht 177.8 cm; Wt 72.6 kg
[~2017-10-13 09:38] MED LIST: ACET-73 PO; ALPR0.5T PO; ASPI-1169 PO; BENZ-13 PO; CEPH-570 PO; CHOL50004 PO; CLON0.3T PO; FAMO20TA8 PO; FURO40TA5 PO; GABA-532 PO; ISOS60TA4 PO; METO25TA6 PO; NIFE90TA2 PO; POTA10TA PO; ROSU5TAB PO; SPIR25TA6 PO; TERA2CAP4 PO
--- NOTE | 2017-10-13 09:45 | NUR ---
BBRA60 FROM HOME FOR SOB STARTED 30 MIN AGO, BS-147. PER EMS, PT WAS HYPERTENSIVE IN THE FIELD 215/110, 2 NITRO GIVEN BY EMS. PER EMS PT'S SPO2 IN FIELD WAS 89% ON RA, PT WAS PLACED ON 15L/M NR MEDICAL ATTENDANT AND SPO2 98%. PT LUNG SOUNDS DIMINISHED UPON AUSCULATION. SKIN NOTED TO BE DRY, PALE AND DUSKY. PT IS AAOX4. PT ABLE TO SPEAK 4-6 WORD SENTENCES. PT PLACED ON MONITOR AND POX, SPO2 98% ON 15L/M NR. PT SAFETY AND COMFORT MEASURES IN PLACE.
--- NOTE | 2017-10-13 09:47 | NUR ---
emt bedside for ekg
--- NOTE | 2017-10-13 09:48 | NUR ---
BEDSIDE FOR EVAL
--- NOTE | 2017-10-13 09:52 | NUR ---
BLOOD SPECIMEN SENT TO LAB
[2017-10-13] MEDS ORDERED: methylPREDNISolone SOD SUCC 125 MG/2ML VIAL ONE (09:56)
[2017-10-13] MEDS ORDERED: ASPIRIN 325 MG TABLET ONE (09:56)
[2017-10-13] MEDS ORDERED: IPRATROPIUM NEB FS 0.5 MG/2.5 ML AMPUL.NEB NEB ONE (10:00)
[2017-10-13] MEDS ORDERED: ASPIRIN 325 MG TABLET PO ONE (10:00)
[2017-10-13] MEDS ORDERED: methylPREDNISolone SOD SUCC 125 MG/2ML VIAL IV ONE (10:00)
[2017-10-13] MEDS ORDERED: ALBUTEROL FS 2.5 MG/3 ML VIAL.NEB CONTNEB ONE (10:00)
[2017-10-13] MEDS ORDERED: ALBUTEROL FS 2.5 MG/3 ML VIAL.NEB ONE (10:11)
[2017-10-13] MEDS ORDERED: IPRATROPIUM NEB FS 0.5 MG/2.5 ML AMPUL.NEB ONE (10:11)
[2017-10-13 10:15] LABS: CALCIUM, SERUM 8.9 mg/dL (8.5-10.1); CARBON DIOXIDE 28 mmol/L (21-32); CHLORIDE 103 mmol/L (98-107); CREATININE 4.5 mg/dL (0.6-1.3); GLUCOSE 167 mg/dL (74-106); POTASSIUM 3.5 mmol/L (3.5-5.1); SODIUM SERUM 141 mmol/L (136-145); UREA NITROGEN, BLOOD 46 mg/dL (7-18)
[2017-10-13 10:16] LABS: BASOPHILS # (AUTO) 0.1 /CMM (0.0-0.2); BASOPHILS % (AUTO) 0.8 % (0.0-2.0); HEMATOCRIT 33 % (39-51); HEMOGLOBIN 11.1 g/dL (13.5-17.5); LYMPHOCYTES # (AUTO) 2.6 /CMM (0.8-4.8); LYMPHOCYTES % (AUTO) 24.4 % (20.0-44.0); MEAN CORPUSCULAR HGB CONC 34 g/dl (31.0-36.0); MEAN CORPUSCULAR VOLUME 92 fL (80-96); MONOCYTES # (AUTO) 0.9 /CMM (0.1-1.30); MONOCYTES % (AUTO) 8.2 % (2.0-12.0); NEUTROPHILS # (AUTO) 6.5 /CMM (1.8-8.9); NEUTROPHILS % (AUTO) 62.6 % (43.0-81.0); PLATELET COUNT (AUTO) 171 /CMM (150-450); RDW COEFFICIENT OF VARIATION 16.3 (11.5-15.0); RED BLOOD CELL COUNT(AUTO) 3.58 MIL/uL (4.5-6.0); WHITE BLOOD COUNT (AUTO) 10.5 K/uL (4.3-11.0)
[2017-10-13 10:19] LABS: INR 0.9 (0.87-1.13)
[2017-10-13 10:23] LABS: TROPONIN I 0.027 ng/mL (0.00-0.056)
[2017-10-13 10:30] LABS: ALANINE AMINOTRANSFERASE 19 U/L (12-78); ALBUMIN 3.5 g/dL (3.4-5.0); ALKALINE PHOSPHATASE 52 U/L (46-116); ASPARTATE AMINOTRANSFERASE 12 U/L (15-37); B-TYPE NATRIURETIC PEPTIDE 21688 PG/ML (0-125); BILIRUBIN,DIRECT 0.2 mg/dL (0.0-0.2); BILIRUBIN,TOTAL 0.8 mg/dL (0.2-1.0); TOTAL PROTEIN, SERUM 7.4 g/dL (6.4-8.2)
[2017-10-13] MEDS ORDERED: FUROSEMIDE 40 MG/4 ML VIAL IV ONE (11:00)
[2017-10-13] MEDS ORDERED: TERA1CAP4 PO (11:12)
[2017-10-13] MEDS ORDERED: FUROSEMIDE 40 MG/4 ML VIAL ONE (11:22)
--- NOTE | 2017-10-13 11:53 | NUR ---
TELE [id number] NILTON
--- NOTE | 2017-10-13 12:07 | NUR ---
REPORT GIVEN TO EDWINA CALLAWAY FOR JONATAN.
--- NOTE | 2017-10-13 13:00 | NUR ---
TELE/RN OPENING NOTE PATIENT IS RECEIVED ON A GURNEY FROM ED. PATIENT ALERT AND ORIENTED X4. DENIES SOB. PATIENT ON OXYGEN AT 3L/MIN VIA NC. DENIES PAIN. PATIENT IN NO APPARENT DISTRESS. ORIENTATION TO ROOM/UNIT IS GIVEN AND THE PATIENT VERBALIZED UNDERSTANDING. BED LOW AND LOCKED. SIDE RAILS UP X2. CALL LIGHT WITHIN REACH. WILL CONTINUE TO MONITOR.
[2017-10-13] MEDS ORDERED: ALBUTEROL FS 2.5 MG/3 ML VIAL.NEB NEB PRN (13:30)
[2017-10-13] MEDS ORDERED: ACETAMINOPHEN 325 MG TABLET PO PRN (13:30)
[2017-10-13] MEDS ORDERED: MAG HYDROX/AL HYDROX/SIMETH 30 ML UDC PO PRN (13:30)
[2017-10-13] MEDS ORDERED: ONDANSETRON HCL/PF 4 MG/2 ML VIAL IVP PRN (13:30)
[2017-10-13] MEDS ORDERED: IPRATROPIUM NEB FS 0.5 MG/2.5 ML AMPUL.NEB NEB PRN (13:30)
[2017-10-13] MEDS ORDERED: MAGNESIUM HYDROXIDE 30 ML UDC PO PRN (13:30)
[2017-10-13] MEDS ORDERED: ZOLPIDEM TARTRATE 5 MG TABLET PO PRN (13:30)
[2017-10-13] MEDS ORDERED: HYDROCODONE/APAP 5/325MG 1 EACH TABLET PO PRN (13:30)
[2017-10-13] MEDS ORDERED: PANTOPRAZOLE 40 MG VIAL IV SCH (13:30)
[2017-10-13] MEDS ORDERED: Z GUARD REMEDY 2 OZ OINT TP PRN (13:30)
--- NOTE | 2017-10-13 13:30 | NUR ---
TELE/RN NOTE PER "WE ARE TRYING VEGAN DIET AT HOME." PATIENT AND THE ARE MADE AWARE THAT THE PATIENT IS ON CARDIAC DIET AT THE HOSPITAL. PATIENT AND AGREED FOR THE CARDIAC DIET AND SAID " IT`S OK, NO NEED FOR VEGAN HERE, HE IS IN THE HOSPITAL AND IT`S A HOSPITAL DIET."
--- NOTE | 2017-10-13 14:05 | NUR ---
TELE/RN NOTE PATIENT REFUSED DUE PROTONIX DESPITE EXPLAINING RISKS AND BENEFITS X3.
[2017-10-13] MEDS: IPRATROPIUM NEB FS 0.5 MG/2.5 ML AMPUL.NEB NEB SCH ×3 (14:33→22:43)
[2017-10-13] MEDS: FUROSEMIDE 40 MG TABLET PO SCH (16:51)
[2017-10-13] MEDS: METOPROLOL TARTRATE 25 MG TABLET PO SCH (16:52)
--- NOTE | 2017-10-13 17:04 | NUR ---
TELE/RN NOTE LIGHT EQUIPMENT OPERATOR SHAZIA NORTHCUAL IS MADE AWARE OF ELEVATION OF TROPONIN I (AT 1555 TROPONIN I 0.092). PER LIGHT EQUIPMENT OPERATOR HE WILL CONTACT DR GERMAIN FOR CONSULT. PATIENT ALERT AND ORIENTED X4. RESPIRATION REGULAR AND UNLABORED. DENIES SOB, DENIES PAIN. PATIENT IN NO APPARENT DISTRESS. PATIENT IS ON TELE MONITORING SHOWING SR 65. WILL CONTINUE TO MONITOR.
[2017-10-13] MEDS: CLONIDINE HCL 0.1 MG TABLET PO SCH (18:12)
--- NOTE | 2017-10-13 18:47 | NUR ---
TELE/RN CLOSING NOTE PATIENT ALERT AND ORIENTED X4. DENIES SOB. RESPIRATION REGULAR AND UNLABORED. DENIES PAIN. PATIENT ON TELE MONITOR AND SR. CONTINENT ON BOWEL AND BLADDER. BED LOW AND LOCKED. SIDE RAILS UP X2. CALL LIGHT WITHIN REACH. WILL ENDORSE TO PLASMA PROCESSOR.
--- NOTE | 2017-10-13 19:15 | NUR ---
RN INITIAL NOTES: RECEIVED REPORT FROM CM RN, PT IN BED, AWAKE, A/O X4, ON 2L VIA NC PT DENIES ANY SOB RESPIRATION EVEN AND UNLABORED. LEFT AC IV ACCESS PATENT AND FLUSHING WELL, ON HL. AT BED SIDE. URINAL WITHIN REACH. PT ON TELE MONITORING SINUS RHYTHM WITH OCCASIONAL PAC HR 63. PT FOR CONSULT WITH NURSE EMERGENCY DR SUNG IN AM, WILL BE PLACED NPO P MN IN CASE PROCEDURES OR TEST WILL BE ORDER BY CARDIO. SAFETY PRECAUTIONS FOR FALL INITIATED CALL LIGHT IN REACH, WILL CONTINUE MONITOR.
[2017-10-13 20:00] VITALS: BP 179/77
[2017-10-13 20:27] VITALS: BP 156/93
[2017-10-13 21:00] VITALS: BP 154/85
[2017-10-13] MEDS: TERAZOSIN HCL 1 MG CAPSULE PO SCH (21:05)
--- NOTE | 2017-10-13 22:58 | NUR ---
TROPONIN 0.105: LIZ KELLER SNOWMOBILE MECHANIC CURRENTLY IN THE UNIT DOING HIS ROUNDS, RELAYED RESULT OF TROPONIN 0.105, PREVIOUS RESULT DURING THE DAY WAS 0.092, INFORMED MD PT WILL HAVE CARDIO CONSULT IN AM WITH DR SUNG, NO NEW ORDERS RECEIVED
[2017-10-13] MEDS: ALPRAZOLAM 0.5 MG TABLET PO SCH (23:07)
[2017-10-13] MEDS: HEPARIN SODIUM, PORCINE 5000 UNITS/1 ML VIAL SQ SCH (23:08)
--- NOTE | 2017-10-13 23:16 | NUR ---
rn notes: reminded pt regarding nothing to eat or drink after midnight due to cardio consultation in am, pt agree
[2017-10-14] VITALS (7 sets, daily range): BP systolic 148–178; BP diastolic 74–100
[2017-10-14] MEDS: IPRATROPIUM NEB FS 0.5 MG/2.5 ML AMPUL.NEB NEB SCH ×6 (02:49→23:26)
--- NOTE | 2017-10-14 06:55 | NUR ---
rn closing notes: pt in bed, awake, remains a/o x3 on 2l o2 via nc, respiration even and unlabored, iv access remains patent and flushing well, on hl. remains on sinus rhythm with occasional pac and pvc hr 62. pt on npo for cardio consult today in case body shop technician would order test or procedures requiring fasting. vs remains stable, needs attended. safety precautions for fall remains engaged, call light in reach, will endorse to day rn for anne.
--- NOTE | 2017-10-14 07:50 | NUR ---
MANAGER STORAGE OPENING NOTE PATIENT IS ALERT AND ORIENTED X4. NO PAIN AT THIS TIME. NO SOB OR DISTRESS NOTED. CALL LIGHT WITHIN REACH. SAFETY MEASURES IMPLEMENTED. ABLE TO COMMUNICATE NEEDS. IV INTACT AND PATENT NO REDNESS OR SWELLING NOTED. TELE MONITOR-SR 60S. WILL CONTINUE TO MONITOR THROUGHOUT SHIFT
[2017-10-14 07:59] LABS: BASOPHILS % (AUTO) 0.2 % (0.0-2.0); EOSINOPHILS % (AUTO) 0.4 % (0.0-6.0); HEMATOCRIT 31 % (39-51); HEMOGLOBIN 10.5 g/dL (13.5-17.5); LYMPHOCYTES # (AUTO) 1.1 /CMM (0.8-4.8); LYMPHOCYTES % (AUTO) 9.7 % (20.0-44.0); MEAN CORPUSCULAR HGB CONC 34 g/dl (31.0-36.0); MEAN CORPUSCULAR VOLUME 92 fL (80-96); MONOCYTES # (AUTO) 0.9 /CMM (0.1-1.30); MONOCYTES % (AUTO) 7.9 % (2.0-12.0); NEUTROPHILS # (AUTO) 9.3 /CMM (1.8-8.9); NEUTROPHILS % (AUTO) 81.8 % (43.0-81.0); PLATELET COUNT (AUTO) 136 /CMM (150-450); RED BLOOD CELL COUNT(AUTO) 3.31 MIL/uL (4.5-6.0); WHITE BLOOD COUNT (AUTO) 11.3 K/uL (4.3-11.0)
[2017-10-14 08:22] LABS: CHOLESTEROL 194 mg/dL (<200); HDL CHOLESTEROL 65 mg/dL (40-60); LDL 127 mg/dL (0-99); THYROID STIMULATING HORMONE 0.518 uIU/mL (0.358-3.74); TRIGLYCERIDES 44 mg/dL (30-150)
[2017-10-14 08:25] LABS: CALCIUM, SERUM 8.7 mg/dL (8.5-10.1); CARBON DIOXIDE 28 mmol/L (21-32); CHLORIDE 103 mmol/L (98-107); CREATININE 4.4 mg/dL (0.6-1.3); GLUCOSE 96 mg/dL (74-106); MAGNESIUM 2.8 mg/dL (1.8-2.4); PHOSPHORUS 4.5 mg/dL (2.5-4.9); POTASSIUM 3.3 mmol/L (3.5-5.1); SODIUM SERUM 142 mmol/L (136-145); UREA NITROGEN, BLOOD 57 mg/dL (7-18)
[2017-10-14 08:50] LABS: B-TYPE NATRIURETIC PEPTIDE 73813 PG/ML (0-125)
[2017-10-14] MEDS: METOPROLOL TARTRATE 25 MG TABLET PO SCH ×2 (09:00→16:43)
[2017-10-14] MEDS: FUROSEMIDE 40 MG TABLET PO SCH ×2 (09:15→16:59)
[2017-10-14] MEDS: ASPIRIN 81 MG TAB.CHEW PO SCH (09:15)
[2017-10-14] MEDS: PANTOPRAZOLE 40 MG TABLET.DR PO SCH (09:15)
[2017-10-14] MEDS: ISOSORBIDE MONONITRATE (30MG) 30 MG TAB.SR.24H PO SCH (09:16)
[2017-10-14] MEDS: NIFEdipine XL (30MG) 30 MG TAB PO SCH (09:16)
[2017-10-14] MEDS: CLONIDINE HCL 0.1 MG TABLET PO SCH ×2 (09:17→16:59)
[2017-10-14] MEDS: HEPARIN SODIUM, PORCINE 5000 UNITS/1 ML VIAL SQ SCH ×2 (09:27→21:26)
[2017-10-14] MEDS ORDERED: HEPARIN SODIUM, PORCINE 5000 UNITS/1 ML VIAL SQ SCH (09:30)
[2017-10-14] MEDS: POTASSIUM CHLORIDE 20 MEQ TAB.PRT.SR PO SCH ×2 (09:51→10:56)
[2017-10-14] MEDS: SPIRONOLACTONE 25 MG TABLET PO SCH (09:51)
--- NOTE | 2017-10-14 12:00 | NUR ---
PHYTOPATHOLOGIST NOTE PATIENTS POTASSIUM-3.3. REPLACED WITH 20 MEQ. WILL CONTINUE TO MONITOR
--- NOTE | 2017-10-14 12:30 | NUR ---
ABRASIVE GRINDER NOTE PER PATIENT HAS ALLERGY TO HYDRALAZINE. ALLERGY DOCUMENTED AND INFORMED NAVIN PHARMACY AND DR. SUNG WELL.
[2017-10-14] MEDS ORDERED: hydrALAZINE HCL 50 MG TABLET PO SCH (13:00)
[2017-10-14] MEDS ORDERED: SOD FERRIC GLUC 125 MG in IV NS 0.9% 100 ML IV SCH (14:00)
[2017-10-14] MEDS ORDERED: PARO10TA86 PO (15:23)
[2017-10-14] MEDS ORDERED: PAROXETINE HCL 10 MG TABLET PO SCH (16:00)
--- NOTE | 2017-10-14 17:00 | NUR ---
TYPIST NOTE PATIENT LEFT AC IV INFILTRATED. NEW IV STARTED ON RIGHT FOREARM 22G INTACT AND PATENT NO REDNESS OR SWELLING NOTED.
--- NOTE | 2017-10-14 18:46 | NUR ---
FLIGHT INFORMATION EXPEDITER CLOSING NOTE RESTING COMFORTABLY AT THIS TIME. NO SOB OR DISTRESS NOTED. CALL LIGHT WITHIN REACH AT ALL TIMES. SAFETY MEASURES IMPLEMENTED. ALL DUE MEDICATIONS GIVEN ORDERED. ALL NURSING CARE NEEDS ATTENDED TO NEEDED. IV INTACT AND PATENT NO REDNESS OR SWELLING NOTED. ON 2L/MIN OF OXYGEN VIA NASAL CANNULA. WILL ENDORSE TO MACHINE FILLER SERVICER NURSE FOR JONAATN
--- NOTE | 2017-10-14 19:30 | NUR ---
RN NOTED RECEIVED PT AWAKE, ALERT AND ORIENTED X3, SITTING AT THE EDGE OF THE BED WITH O2 INHALATION AT 2LPM VIA NC AND TOLERATED WELL. PT HAS HEATING PAD ON HIS RIGHT THIGH AND COMPLAINING OF 10/10 PAIN ON HIS RIGHT UPPER LEG RADIATING TO HIS LOWER BACK, TYLENOL WAS OFFERED ORDERED PT REFUSED, WILL PAGED THE DOCTOR REGARDING THIS. IV ACCESS ON RIGHT FORE ARM INTACT. SAFETY MEASURES AND FALL PRECAUTION OBSERVED. PLAN OF CARE DISCUSSED WITH PT AND AT BEDSIDE, AND VERBALIZED UNDERSTANDING. WILL CONTINUE TO MONITOR PT.
--- NOTE | 2017-10-14 20:30 | NUR ---
RN NOTES SEEN BY JUSTO CARDOZA NP WITH ORDER STOOL FOR OB AND EGD BECAUSE OF H&H TRENDING DOWN. PT AND AT BEDSIDE AWARE.
--- NOTE | 2017-10-14 20:40 | NUR ---
RN NOTES SPOKE TO DR CHEATHAM, NOTIFIED HIM OF PT COMPLAINING OF 10/10 PAIN ON HIS RIGHT THIGH RADIATING TO LOWER BACK AND ELEVATED BP. DR CHEATHAM WILL COME TO SEE THE PT. WILL CONTINUE TO MONITOR.
[2017-10-14] MEDS: ALPRAZOLAM 0.5 MG TABLET PO SCH (21:26)
[2017-10-14] MEDS: TERAZOSIN HCL 1 MG CAPSULE PO SCH (21:26)
[2017-10-14] MEDS: GABAPENTIN 300 MG CAPSULE PO SCH (22:25)
--- NOTE | 2017-10-14 22:25 | NUR ---
RN NOTES PT WAS SEEN AND EXAMINED BY DR CHEATHAM, STILL COMPLAINING OF PAIN ON RIGHT LOWER BACK TO HIS RIGHT UPPER LEG. NEW ORDER RECEIVED , GABAPENTIN 300MG CAP PO TID TO BE STARTED NOW. PT AND AWARE. NOTED AND CARRIED OUT. WILL CONTINUE TO MONITOR PT.
--- NOTE | 2017-10-14 23:30 | NUR ---
RN NOTES AT BEDSIDE REFUSED FOR THE BP TO BE RECHECKED AND BREATHING TREATMENT TO BE GIVEN BECAUSE THE PT IS SLEEPING ALREADY. RISK AND BENEFITS WERE EXPLAINED BUT STRONGLY REFUSED BECAUSE PT IS RESTING ALREADY. WILL CONTINUE TO MONITOR.
[2017-10-15 02:30] VITALS: BP 193/100
[2017-10-15] MEDS ORDERED: CLONIDINE HCL 0.1 MG TABLET PO ONE (02:30)
--- NOTE | 2017-10-15 02:30 | NUR ---
RN NOTES PT AWAKE AT THIS TIME, BP CHECKED 193/100 HR 63. DENIES NAUSEA AND VOMITING, DIZZINESS OR HEADACHE. DR CHEATHAM NOTIFIED WITH ORDER TO GIVE CLONIDINE 0.1MG TAB PO X1 NOW. NOTED AND CARRIED OUT. WILL CONTINUE TO MONITOR PT.
[2017-10-15] MEDS: IPRATROPIUM NEB FS 0.5 MG/2.5 ML AMPUL.NEB NEB SCH ×3 (03:26→11:23)
[2017-10-15 03:30] VITALS: BP 147/79
--- NOTE | 2017-10-15 03:30 | NUR ---
RN NOTES PT SLEEPING COMFORTABLY IN BED, BP RECHECKED 147/79, HR 52, RR 18, O2SAT 97% AT 3LPM O2 VIA NC. WILL CONTINUE TO MONITOR PT.
--- NOTE | 2017-10-15 07:30 | NUR ---
RN NOTES PT SLEPT WELL OVERNIGHT. PAIN ON RIGHT THIGH AT TOLERABLE LEVEL. BP KEPT WNL. TELEMONITOR READS SINUS BRADYCARDIA WITH HEART RATE AT 57. ALL NEEDS ATTENDED. ENDORSED TO MORNING RN FOR CONTINUITY OF CARE.
[2017-10-15 07:37] LABS: BASOPHILS % (AUTO) 0.2 % (0.0-2.0); EOSINOPHILS % (AUTO) 3.1 % (0.0-6.0); HEMATOCRIT 31 % (39-51); HEMOGLOBIN 10.4 g/dL (13.5-17.5); LYMPHOCYTES # (AUTO) 1.6 /CMM (0.8-4.8); LYMPHOCYTES % (AUTO) 15.2 % (20.0-44.0); MEAN CORPUSCULAR HGB CONC 33 g/dl (31.0-36.0); MEAN CORPUSCULAR VOLUME 93 fL (80-96); MONOCYTES # (AUTO) 0.8 /CMM (0.1-1.30); MONOCYTES % (AUTO) 7.9 % (2.0-12.0); NEUTROPHILS # (AUTO) 7.7 /CMM (1.8-8.9); NEUTROPHILS % (AUTO) 73.6 % (43.0-81.0); PLATELET COUNT (AUTO) 158 /CMM (150-450); RDW COEFFICIENT OF VARIATION 17.1 (11.5-15.0); RED BLOOD CELL COUNT(AUTO) 3.37 MIL/uL (4.5-6.0); WHITE BLOOD COUNT (AUTO) 10.5 K/uL (4.3-11.0)
[2017-10-15 07:54] LABS: ALANINE AMINOTRANSFERASE 19 U/L (12-78); ALBUMIN 3.3 g/dL (3.4-5.0); ALKALINE PHOSPHATASE 43 U/L (46-116); ASPARTATE AMINOTRANSFERASE 13 U/L (15-37); BILIRUBIN,TOTAL 0.7 mg/dL (0.2-1.0); CALCIUM, SERUM 8.9 mg/dL (8.5-10.1); CARBON DIOXIDE 28 mmol/L (21-32); CHLORIDE 103 mmol/L (98-107); CREATININE 4.3 mg/dL (0.6-1.3); GLUCOSE 98 mg/dL (74-106); MAGNESIUM 2.7 mg/dL (1.8-2.4); PHOSPHORUS 3.4 mg/dL (2.5-4.9); SODIUM SERUM 141 mmol/L (136-145); TOTAL PROTEIN, SERUM 6.9 g/dL (6.4-8.2); UREA NITROGEN, BLOOD 61 mg/dL (7-18)
[2017-10-15 08:00] VITALS: BP 180/94
[2017-10-15 08:08] LABS: TROPONIN I 0.042 ng/mL (0.00-0.056)
[2017-10-15] MEDS: PANTOPRAZOLE 40 MG TABLET.DR PO SCH (08:45)
[2017-10-15] MEDS: GABAPENTIN 300 MG CAPSULE PO SCH (08:46)
[2017-10-15] MEDS: FUROSEMIDE 40 MG TABLET PO SCH (08:46)
[2017-10-15] MEDS: NIFEdipine XL (30MG) 30 MG TAB PO SCH (08:46)
[2017-10-15] MEDS: ASPIRIN 81 MG TAB.CHEW PO SCH (08:47)
[2017-10-15] MEDS: ISOSORBIDE MONONITRATE (30MG) 30 MG TAB.SR.24H PO SCH (08:47)
[2017-10-15] MEDS: SPIRONOLACTONE 25 MG TABLET PO SCH (08:47)
[2017-10-15] MEDS: CLONIDINE HCL 0.1 MG TABLET PO SCH (08:48)
[2017-10-15] MEDS: HEPARIN SODIUM, PORCINE 5000 UNITS/1 ML VIAL SQ SCH (08:49)
[2017-10-15] MEDS: METOPROLOL TARTRATE 25 MG TABLET PO SCH (09:00)
[2017-10-15] MEDS ORDERED: PAROXETINE HCL 20 MG TABLET PO SCH (09:00)
[2017-10-15 10:00] VITALS: BP 152/77
--- NOTE | 2017-10-15 11:24 | NUR ---
RN MS NOTES PT IN BED, ASLEEP, EASILY AROUSABLE, NOT IN DISTRESS, BREATHING PATTERN NORMAL, REFUSING BREATHING TREATMENT AT THIS TIME, PT ABLE TO WALK WITH PHYSICAL THERAPY TODAY, USING A WALKER, TOLERATED WELL, KEPT BODYWORK THERAPIST BED.
--- NOTE | 2017-10-15 14:58 | NUR ---
RN MS NOTES PT IN BED, AWAKE, ALERT AND ORIENTED, NOT IN DISTRESS, PT SEEN BY MELA HAND MOLDER AND CASTER, PT AND FAMILY WOULD LIKE TO GET DISCHARGED TODAY, DISCHARGE ORDER GIVEN, PT TO FOLLOW UP WITH HIS PRIMARY CARE PHYSICIAN AND EQUIPMENT ENGINEER, VERBALIZED UNDERSTANDING, DISCHARGE AND MEDICATION INSTRUCTIONS PROVIDED TO PT, VERBALIZED UNDERSTANDING, BELONGINGS ACCOUNTED FOR, ASSISTED TO WHEELCHAIR, ASSISTED BY CALLISTHENICS INSTRUCTOR TO HOSPITAL LOBBY, LEFT WITH FAMILY MEMBER IN STABLE CONDITION.
[2017-11-29] MEDS ORDERED: CEPH-569 PO (10:54)
== END 2017-10-15 14:45 | disposition home or self-care (01) | DRG 280 ==
LOC: ER 09:39 → TELE 12:16 → MED 10-15 09:02
PROVIDERS: ADMIT Hospitalist; ATTEND Hospitalist
DX: I11.0 Hypertensive heart disease with heart failure (principal); N17.0 Acute kidney failure with tubular necrosis; I21.A1 Myocardial infarction type 2; J96.90 Respiratory failure, unspecified, unspecified whether with hypoxia or hypercapnia; I21.4 Non-ST elevation (NSTEMI) myocardial infarction; N18.4 Chronic kidney disease, stage 4 (severe); I69.351 Hemiplegia and hemiparesis following cerebral infarction affecting right dominant side; J44.1 Chronic obstructive pulmonary disease with (acute) exacerbation; I13.0 Hypertensive heart and chronic kidney disease with heart failure and stage 1 through stage 4 chronic kidney disease, or unspecified chronic kidney disease; I50.33 Acute on chronic diastolic (congestive) heart failure; Z87.891 Personal history of nicotine dependence; Z99.81 Dependence on supplemental oxygen; Z88.5 Allergy status to narcotic agent; Z88.8 Allergy status to other drugs, medicaments and biological substances; Z79.82 Long term (current) use of aspirin; Z79.899 Other long term (current) drug therapy; D63.8 Anemia in other chronic diseases classified elsewhere; E78.5 Hyperlipidemia, unspecified; E87.6 Hypokalemia; G89.29 Other chronic pain; I16.0 Hypertensive urgency; D50.9 Iron deficiency anemia, unspecified; N40.0 Benign prostatic hyperplasia without lower urinary tract symptoms; F41.9 Anxiety disorder, unspecified; I25.2 Old myocardial infarction; I25.10 Atherosclerotic heart disease of native coronary artery without angina pectoris; Z85.51 Personal history of malignant neoplasm of bladder
CPT/HCPCS: 36415; 71045-TC; 73502; 80048-TC; 80053-TC; 80061-TC; 80076-TC; 83735-TC; 83880; 84100-TC; 84443-TC; 84484-TC; 85025-TC; 85730-TC; 87081-TC; 94799-TC; J1644; J1940; J2916; J2930; J7030; Z7610

== ENCOUNTER 2017-11-27 07:58 | Inpatient (IN) | payer MEDICARE, BC ==
[~2017-11-27] VITALS: Ht 170.2 cm; Wt 67.1 kg
[~2017-11-27 07:58] MED LIST changes: -ACET-73 PO; -BENZ-13 PO; -CEPH-570 PO; -CHOL50004 PO; -FAMO20TA8 PO; -GABA-532 PO; +PARO10TA86 PO; -POTA10TA PO; -ROSU5TAB PO; +TERA1CAP4 PO; -TERA2CAP4 PO
--- NOTE | 2017-11-27 08:05 | NUR ---
[id number] FROM HOME: C/O ABD PAIN, SOB, HYPOXIA. NITRO SPRAY x 9MG, ALBUTEROL x 5MG GIVEN IN FIELD BY EMS. ARRIVED ON SIMPLE MASK WITH 12 L OXYGEN. A/OX 4, BREATHING EVEN, BUT TACHYPNIC. IV ESTABLISHED IN FIELD ON LAC, 18G. NO DISTRESS NOTED, SAFETY AND COMFORT MEASURES IN PLACE. AWAITING MD ORDERS.
[2017-11-27] MEDS ORDERED: IPRATROPIUM NEB FS 0.5 MG/2.5 ML AMPUL.NEB ONE (08:10)
[2017-11-27] MEDS ORDERED: ALBUTEROL FS 2.5 MG/3 ML VIAL.NEB ONE (08:10)
[2017-11-27] MEDS ORDERED: methylPREDNISolone SOD SUCC 125 MG/2ML VIAL ONE (08:15)
--- NOTE | 2017-11-27 08:20 | NUR ---
PATIENT MEDICATED PER MD ORDERS, RT AT BEDSIDE FOR BREATHING TX.
--- NOTE | 2017-11-27 08:25 | NUR ---
OCCUPATIONAL HEALTH SPECIALIST AT BEDSIDE FOR BLOOD DRAW.
[2017-11-27] MEDS ORDERED: IPRATROPIUM NEB FS 0.5 MG/2.5 ML AMPUL.NEB NEB ONE (08:30)
[2017-11-27] MEDS ORDERED: ALBUTEROL FS 2.5 MG/3 ML VIAL.NEB NEB ONE (08:30)
[2017-11-27] MEDS ORDERED: methylPREDNISolone SOD SUCC 125 MG/2ML VIAL IV ONE (08:30)
[2017-11-27 08:43] LABS: BASOPHILS % (AUTO) 0.2 % (0.0-2.0); EOSINOPHILS % (AUTO) 1.5 % (0.0-6.0); HEMATOCRIT 31 % (39-51); HEMOGLOBIN 10.4 g/dL (13.5-17.5); LYMPHOCYTES # (AUTO) 1.4 /CMM (0.8-4.8); LYMPHOCYTES % (AUTO) 9.4 % (20.0-44.0); MEAN CORPUSCULAR HGB CONC 34 g/dl (31.0-36.0); MEAN CORPUSCULAR VOLUME 93 fL (80-96); MONOCYTES # (AUTO) 0.7 /CMM (0.1-1.30); MONOCYTES % (AUTO) 4.8 % (2.0-12.0); NEUTROPHILS # (AUTO) 12.8 /CMM (1.8-8.9); NEUTROPHILS % (AUTO) 84.1 % (43.0-81.0); PLATELET COUNT (AUTO) 175 /CMM (150-450); RDW COEFFICIENT OF VARIATION 15.2 (11.5-15.0); RED BLOOD CELL COUNT(AUTO) 3.31 MIL/uL (4.5-6.0); WHITE BLOOD COUNT (AUTO) 15.2 K/uL (4.3-11.0)
[2017-11-27 09:05] LABS: INR 0.92 (0.87-1.13)
[2017-11-27 09:15] LABS: TROPONIN I 0.025 ng/mL (0.00-0.056)
[2017-11-27 09:18] LABS: ALANINE AMINOTRANSFERASE 14 U/L (12-78); ALBUMIN 3.4 g/dL (3.4-5.0); ALKALINE PHOSPHATASE 47 U/L (46-116); ASPARTATE AMINOTRANSFERASE 15 U/L (15-37); B-TYPE NATRIURETIC PEPTIDE 25257 PG/ML (0-125); BILIRUBIN,DIRECT 0.2 mg/dL (0.0-0.2); BILIRUBIN,TOTAL 0.6 mg/dL (0.2-1.0); CALCIUM, SERUM 8.5 mg/dL (8.5-10.1); CARBON DIOXIDE 26 mmol/L (21-32); CHLORIDE 104 mmol/L (98-107); CREATININE 4.3 mg/dL (0.6-1.3); GLUCOSE 148 mg/dL (74-106); POTASSIUM 3.4 mmol/L (3.5-5.1); SODIUM SERUM 142 mmol/L (136-145); TOTAL PROTEIN, SERUM 7.3 g/dL (6.4-8.2); UREA NITROGEN, BLOOD 49 mg/dL (7-18)
--- NOTE | 2017-11-27 09:25 | NUR ---
URINE OBTAINED AND SENT TO LAB.
[2017-11-27] MEDS ORDERED: FUROSEMIDE 20 MG/2 ML VIAL IV ONE (09:30)
[2017-11-27] MEDS ORDERED: CEFEPIME 1 GM in IV D5W 50 ML IV ONE (09:30)
[2017-11-27] MEDS ORDERED: VANCOMYCIN 1 GM in IV D5W 250 ML IV ONE (09:30)
[2017-11-27] MEDS ORDERED: FUROSEMIDE 20 MG/2 ML VIAL ONE (09:31)
[2017-11-27 09:47] LABS: APPEARANCE,URINE CLOUDY (CLEAR); BILIRUBIN,URINE NEGATIVE (NEGATIVE); BLOOD, URINE TRACE-INTA Ery/uL (NEGATIVE); COLOR,URINE YELLOW (YELLOW); KETONES,URINE NEGATIVE (NEGATIVE); LEUKOCYTE ESTERASE ,URINE 2+ (NEGATIVE); NITRITE, URINE NEGATIVE (NEGATIVE); PH,URINE 6.5 (5.0-8.0); PROTEIN,URINE 2+ mg/dl (NEGATIVE); UGLUCOSE NEGATIVE (NEGATIVE); UROBILINOGEN,URINE 0.2 EU/dL (0.2)
[2017-11-27 09:50] LABS: BACTERIA,URINE Few /HPF (None Seen); SQUAMOUS EPITHELIAL CELL,UR Few /HPF (None Seen); WBC,URINE 81-100 /HPF (0-3)
--- NOTE | 2017-11-27 10:05 | NUR ---
SIMPLE MASK REMOVED, PLACED ON 3L OXYGEN VIA NC.
--- NOTE | 2017-11-27 11:00 | NUR ---
REPORT GIVEN TO DINA DUENAS FOR JONATAN UPON ADMISSION.
--- NOTE | 2017-11-27 11:15 | NUR ---
PATIENT TRANSPORTED TO [facility] VIA ACLS PROTOCOL. RNDINA TO PROVIDE JONATAN.
--- NOTE | 2017-11-27 11:20 | NUR ---
ARMOR SENIOR SERGEANTDRY MOLDER NOTE RECEIVED REPORT FROM DELON ASHTON RN. PATIENT SENT UP FROM EMERGENCY ROOM VIA GURNEY IN STABLE CONDITION WITH AT BEDSIDE. ALERT AND ORIENTED x4, ABLE TO COMMUNICATE NEEDS. NO PAIN AT THIS TIME. NO SOB OR DISTRESS NOTED, CURRENTLY ON 2L/MIN OF OXYGEN VIA NASAL CANNULA TOLERATING WELL AT 95%. HOME MEDICATIONS AT BEDSIDE AND TO BE SENT TO PHARMACY. MED RECON DONE. PATIENT IS FULL CODE, ALLERGIES TO OPIOIDS, ATORVASTATIN, AND HYDRALAZINE. CARDIAC-KOSHER DIET. IV ON LEFT AC INTACT AND PATENT NO REDNESS OR SWELLING NOTED. AWAITING MD ORDERS AT THIS TIME. WILL CONTINUE TO MONITOR FOR CARE THROUGHOUT SHIFT
[2017-11-27] MEDS ORDERED: Z GUARD REMEDY 2 OZ OINT TP PRN (11:30)
[2017-11-27] MEDS ORDERED: MAGNESIUM HYDROXIDE 30 ML UDC PO PRN (11:30)
[2017-11-27] MEDS ORDERED: MORPHINE SULFATE INJ 2 MG/ML DISP.SYRIN IV PRN (11:30)
[2017-11-27] MEDS ORDERED: ZOLPIDEM TARTRATE 5 MG TABLET PO PRN (11:30)
[2017-11-27] MEDS ORDERED: ACETAMINOPHEN 325 MG TABLET PO PRN (11:30)
[2017-11-27] MEDS ORDERED: ONDANSETRON HCL/PF 4 MG/2 ML VIAL IVP PRN (11:30)
[2017-11-27] MEDS ORDERED: HYDROCODONE/APAP 5/325MG 1 EACH TABLET PO PRN (11:30)
[2017-11-27] MEDS ORDERED: MAG HYDROX/AL HYDROX/SIMETH 30 ML UDC PO PRN (11:30)
[2017-11-27 12:00] VITALS: BP 147/70
[2017-11-27] MEDS ORDERED: ISOSORBIDE MONONITRATE 60 MG TAB.SR.24H PO SCH (12:00)
[2017-11-27] MEDS: SPIRONOLACTONE 25 MG TABLET PO SCH (12:08)
[2017-11-27] MEDS: CLONIDINE HCL 0.1 MG TABLET PO SCH ×2 (12:11→16:46)
--- NOTE | 2017-11-27 13:00 | NUR ---
SHUTTLE VENEERING SUPERVISOR NOTE NOTIFIED DR. BOYLE ABOUT PATIENT'S POTASSIUM-3.4 AWAITING FOR MD ORDER TO REPLACE
--- NOTE | 2017-11-27 13:01 | NUR ---
SUPERVISOR METALIZING NOTE RECEIVED CALL BACK FROM DR. BOYLE FOR POTASSIUM ORDER. POTASSIUM 40 MEQ PO x1 NOW. ORDERS NOTED AND CARRIED OUT.
--- NOTE | 2017-11-27 13:02 | NUR ---
LIDAR TECHNICIAN NOTE INFORMED DR. BOYLE ON PATIENT'S TROPONIN LEVEL 0.100 NO NEW ORDERS AT THIS TIME.
[2017-11-27] MEDS: CEFTRIAXONE 1 G in IV NS 0.9% 50 ML IV SCH (13:32)
[2017-11-27] MEDS ORDERED: POTASSIUM CHLORIDE 20 MEQ TAB.PRT.SR PO ONE (14:00)
--- NOTE | 2017-11-27 14:00 | NUR ---
[place]I PRESS OPERATOR NOTE POTASSIUM SUPPLEMENT GIVEN TO REPLACE K+-3.4
[2017-11-27 16:00] VITALS: BP 121/73
[2017-11-27] MEDS: FUROSEMIDE 40 MG/4 ML VIAL IV SCH (16:50)
[2017-11-27] MEDS: METOPROLOL TARTRATE 25 MG TABLET PO SCH (16:50)
--- NOTE | 2017-11-27 18:41 | NUR ---
CLINICAL SERVICES CONSULTANT CLOSING NOTE PATIENT IS ALERT AND ORIENTED x4. NO PAIN AT THIS TIME. NO SOB OR DISTRESS NOTED. ON 2L/MIN OF OXYGEN VIA NASAL CANNULA TOLERATING WELL AT 95%. ALL DUE MEDICATIONS GIVEN ORDERED. ALL NURSING CARE NEEDS ATTENDED TO NEEDED. ABLE TO COMMUNICATE NEEDS. IV INTACT AND PATENT NO REDNESS OR SWELLING NOTED. LABS IN THE MORNING. MD AWARE ABOUT PATIENTS TROPONIN LEVEL NO ORDERS AT THIS TIME. TELE MONITOR- SR 60S. WILL ENDORSE TO PRACTICE COORDINATOR NURSE FOR JONATAN
--- NOTE | 2017-11-27 19:20 | NUR ---
RAILROAD CAR PAINTER OPENING NOTE RECEIVED PATIENT IN BED, ALERT ORIENTED X4, ON 3L O2 VIA NC, TOLERATING WELL, IN NO APPARENT DISTRESS OR DISCOMFORT AT THIS TIME. RESPIRATIONS EVEN AND UNLABORED, DENIES SOB AND CHEST PAIN. PATIENT IS ABLE TO VERBALIZE NEEDS. USES URINAL FOR ELIMINATION, AMBULATORY. LAC 18G WITH FLUIDS RUNNING AT 3ML/HR TO KEEP THE LINE OPEN. ALL NEEDS ATTENDED, KEPT COMFORTABLE, AT BEDSIDE. SAFETY MEASURES IN PLACE, BED IN LOW LOCKED POSITION, SIDE RAILS UPX2, CALL LIGHT WITHIN EASY REACH. WILL CONTINUE TO MONITOR.
[2017-11-27 20:00] VITALS: BP 143/76
[2017-11-27] MEDS: TERAZOSIN HCL 1 MG CAPSULE PO SCH (21:36)
[2017-11-27] MEDS: ALPRAZOLAM 0.5 MG TABLET PO SCH (21:36)
[2017-11-27] MEDS: ALBUTEROL FS 2.5 MG/0.5 ML VIAL.NEB NEB PRN (23:44)
[2017-11-28] VITALS (20 sets, daily range): BP systolic 130–186; BP diastolic 53–103
[2017-11-28] MEDS: ALBUTEROL FS 2.5 MG/0.5 ML VIAL.NEB NEB PRN (01:49)
--- NOTE | 2017-11-28 01:55 | NUR ---
PATIENTS REPORTED THAT PATIENT IS IN THE BATHROOM AND HAVING ABDOMINAL PAIN AND NAUSEA. PATIENT WAS ON THE TOILET HAVING DIFFICULTY BREATHING AND HAS BEEN COUGHING TRYING TO VOMIT. PATIENT APPEARED VERY ANXIOUS, PERSPIRING, WAS ASSISTED BACK TO BED, RECONNECTED NC ON 3L O2. ENCOURAGED TO RELAX AND TAKE DEEP BREATHS, VITALS SIGNS TAKEN IMMEDIATELY. O2 SATURATION WAS AT 97%, BP ELEVATED AT 197/96, HR 105. PATIENT REPORTED PAIN AROUND THE ABDOMEN AND STOMACH AREA 10/10. STATED THAT IS THE SAME PAIN HE HAD BEFORE THEY CAME TO ER, AND SHE SAID HE HAS STOMACH ULCERS, ACID REFLUX PROBLEMS AND PAIN LIKE THIS OFTEN OCCURS WHICH IS RELIEVED WITH PEPCID. IMMEDIATELY PAGED THE ONCALL DOCTOR TO OBTAIN ORDER FOR PRN ANTIHYPERTENSIVE MEDICATION, PAIN MEDICATION. MEANWHILE WHILE WAITING FOR CALL BACK, ADMINISTERED ZOFRAN 4MG IVP PRN DOSE TO AID WITH NAUSEA. AND MAALOX 30ML PO TO AID WITH ACID REFLUX. WILL CONTINUE TO MONITOR AND CARRY OUT DOCTORS ORDER.
[2017-11-28] MEDS ORDERED: MORPHINE SULFATE INJ 2 MG/ML DISP.SYRIN ONE (02:07)
--- NOTE | 2017-11-28 02:14 | NUR ---
PT PLACED ON 100% NRB MASK DUE TO PAIN ON ABDOMEN AREA AND ANXIETY. GIVEN PRN HHN TREATMENT. SNOW PLOW OPERATOR ARE WORKING ON PT. Addendum: 11/28/17 at 0216 by LISA PISANO RT Amended: Links added.
--- NOTE | 2017-11-28 02:20 | NUR ---
SPOKE TO DR. NAVIN JAY, RECEIVED TELEPHONE ORDER FOR METOPROLOL SUCCINATE 50MG PO X1 NOW, CLONIDINE 0.1MG PO Q6HR PRN FOR BP OVER 170MMHG. MORPHINE 2MG Q4HRS PRN. MD MADE AWARE THAT PATIENT'S MEDICAL RECORD SAYS HE IS ALLERGIC TO OPIOIDS-MORPHINE, BUT PATIENT AND THE STATED HE IS NOT ALLERGIC TO MORPHINE AND HAS NEVER BEEN. PER DR'S ORDER MEDICATIONS ARE TO BE ADMINISTERED NEEDED. WILL CARRY OUT ORDERS AND CONTINUE TO MONITOR.
[2017-11-28] MEDS: CLONIDINE HCL 0.1 MG TABLET PO PRN ×2 (02:30→12:33)
[2017-11-28] MEDS ORDERED: METOPROLOL SUCCINATE 50 MG TAB.SR.24H PO ONE (02:30)
[2017-11-28] MEDS ORDERED: MORPHINE SULFATE INJ 2 MG/ML DISP.SYRIN IV PRN (02:30)
--- NOTE | 2017-11-28 02:45 | NUR ---
ORDERED MEDICATIONS ADMINISTERED FOR BP AND PAIN. PATIENT RECEIVED PRN BREATHING TX, CURRENTLY ON SIMPLE MASK RECEIVING 10L O2 TO BE TITRATED DOWN. REASSESSED, PATIENT IS STILL BREATHING WITH ACCESSORY MUSCLES, REPORTS SOB, PAIN HAS DECREASED FROM 10/10 TO 8/10. VITAL SIGNS: BP IS NOW 202/112, HR 90, O2 SAT 100%, RR: 26. HEART RATE ON REAM CUTTER IS AT SINUS RHYTHM. AT BEDSIDE MONITORING THE PATIENT AT THIS TIME.
[2017-11-28] MEDS ORDERED: LORAZEPAM INJ 2 MG/ML VIAL IV ONE (03:00)
--- NOTE | 2017-11-28 03:00 | NUR ---
PATIENT'S CONDITION HAS REMAINED WITHOUT SIGNIFICANT CHANGE. APPEARS VERY ANXIOUS WITH HEAVY BREATHS USING ABDOMINAL ACCESSORY MUSCLES. CONTACTED DR. JAY AGAIN TO OBTAIN MEDICATION FOR ANXIETY. ATIVAN 1MG IVP X1 NOW ORDERED. MEDICATION WAS ADMINISTERED IMMEDIATELY UPON VERIFICATION FROM THE PHARMACY. VITAL SIGNS ARE NOW BP: 189/88, HR: 90, O2 SAT 95% VIA SIMPLE MASK 7L/MIN O2 FLOW. RR: 27.
--- NOTE | 2017-11-28 03:15 | NUR ---
PATIENT APPEARS LESS ANXIOUS BUT IS SLIGHTLY LETHARGIC, REPORTS IMPROVEMENT IN PAIN RATING IT 7/10 AT THIS TIME. REPORTS IMPROVEMENT IN SOB. RESPIRATIONS REMAIN LABORED, USING ACCESSORY MUSCLES. BP 189/85 HR 86 O2 SAT 95% ON 7L VIA SM, RR 26. WILL CONTINUE TO MONITOR
--- NOTE | 2017-11-28 03:45 | NUR ---
BP: 196/103 HR: 84 O2 SAT 96% ON 7L VIA SM, RR:28 . PATIENT IS AWAKE SLIGHTLY LETHARGIC, RESPIRATIONS LABORED WITH ACCESSORY MUSCLE USE. REPORTS PAIN HAS NOT IMPROVED AND IS STILL AT 7/10. ORDER PLACED FOR ABGS, RESPIRATIONS AND BREATHING PATTERN HAS NOT BEEN IMPROVING. VITAL SIGNS REMAIN ABNORMAL
[2017-11-28 04:02] LABS: ABG BASE EXCESS -1.8 mmol/L; ABG PCO2 61.6 mmHg (35.0-45.0); ABG PH 7.247 (7.350-7.450); ABG PO2 74.6 mmHg (75.0-100.0); AaDO2 431.1 mmHg; COHb 0.9 % (0.5-1.5); MetHb 0.1 % (0.0-1.5); O2Hb 89.1 % (94.0-97.0); SITE, ABG Right Radial; VENT MODE, BG SM
--- NOTE | 2017-11-28 04:10 | NUR ---
ORDER FOR EKG PATIENT REPORTS PAIN AROUND THE CHEST AREA. RADIATING FROM STOMACH AND ABDOMINAL PAIN.
--- NOTE | 2017-11-28 04:12 | NUR ---
ABG RESULTS AVAILABLE: pCO2 61.6, pO2: 74.6, O2 SAT: 90, ABG pH 7.247. RESULTS WAS SENT TO DR. JAY. ORDER RECEIVED TO TRANSFER PATIENT TO ICU AND PLACE HIM ON BIPAP. WILL PREPARE THE PATIENT AND CARRY OUT ORDERS IMMEDIATELY.
--- NOTE | 2017-11-28 04:20 | NUR ---
CHARGE NURSE CONTACTED ICU FOR PATIENT TRANSFER, AWAITING FOR AVAILABLE BED.
--- NOTE | 2017-11-28 04:45 | NUR ---
PATIENT IS BEING TRANSFERRED TO ICU FLOOR ROOM 257. WILL PREPARE THE PATIENT FOR TRANSFER AND CONTINUE TO MONITOR.
--- NOTE | 2017-11-28 05:15 | NUR ---
ELECTRIC POWER LINE REPAIRERVP PRODUCT MANAGEMENT NOTES. PATIENT IS TRANSFERRED TO ICU FOLLOWING ACLS PROTOCOL WITH THE ASSISTANCE OF EVER DUENAS AND AVEL C[place]. REPORT GIVEN TO CONTENT ADMINISTRATOR APRIL AT BEDSIDE. PATIENT'S CONDITIONED REMAINED THE SAME UPON THE TRANSFER. S/S IS CONSISTENT WITH RESP DISTRESS. RESPIRATIONS LABORED WITH THE RATE OF 27-18/MIN, BP: 188/96, HR 81M O2 SAT 94% ON 7L O2 VIA SM . PATIENT IS AWAKE BUT SLIGHTLY LETHARGIC, ORIENTED X3-4. HAS DIFFICULTY TALKING DUE TO SOB. STATES PAIN HAS IMPROVED SLIGHTLY IN THE ABDOMINAL AREA 12/01. PATIENT IS DIAPHORETIC. LAC 18G IVC SL, PATENT AND INTACT, ALL THE BELONGINGS WAS CHECKED WITH THE AND TRANSFERRED WITH THE PATIENT.
--- NOTE | 2017-11-28 05:18 | NUR ---
PT REC'D FROM . PT DIAPHORETIC AND SHOWED SIGNS OF RESP DISTRESS. PT PLACED ON BIPAP PER MD REQUEST AND ABG RESULT TAKEN FROM . PT PLACED ON NOTED BIPAP SETTINGS CHARTED. MEPILEX PLACED BETWEEN MASK AND PT'S FACE, NO SKIN TEAR NOTED. BIPAP PLUGGED INTO RED OUTLET. ALARMS ARE SET AND AUDIBLE. WILL CONTINUE TO MONITOR. Addendum: 11/28/17 at 0521 by GEOVANY JACKSON RT Amended: Links added.
--- NOTE | 2017-11-28 05:50 | NUR ---
RN NOTES RECEIVED TRANSFER PT FROM [facility], ALERT ORIENTED X 2-3, DIAPHORETIC , RESP DISTRESS NOTED. DENIES PAIN AT THIS TIME. BIPAP MASK PLACED BY GEOVANY SANTOYO MD ORDERED. AFEBRILE. BLOOD PRESSURE STILL HIGH WITH SBP 180'S RECHECKED 3 X SBP 145, PT SLEEPING AT THIS TIME. TEMP 97.2 RESP 22 SATURATION 93%. KEPT PT CLEAN AND COMFORTABLE IN BED. AT BEDSIDE. WILL MONITORED PATIENT CLOSELY.
[2017-11-28 06:02] LABS: ABG OXYGEN SATURATION 87.9 % (92.0-98.5); ABG PCO2 44.1 mmHg (35.0-45.0); ABG PH 7.347 (7.350-7.450); ABG PO2 60.4 mmHg (75.0-100.0); AaDO2 101.7 mmHg; COHb 1.1 % (0.5-1.5); MetHb 0.1 % (0.0-1.5); O2Hb 86.8 % (94.0-97.0); SITE, ABG Right Radial; VENT MODE, BG Bipap 15/5 30% BR16
--- NOTE | 2017-11-28 06:26 | NUR ---
RN NOTES PT ASLEEP AT THIS TIME. WITH BIPAP MASK ON,LATEST ABG DONE AT BEDSIDE BY RT GEOVANY pH - 7.34 pCO2 44.1 pO2 60.4 HCO3 23.6. PT SLEEPING AT THIS TIME WITHOUT RESP DISTRESS. KEPT CLEAN AND DRY AND COMFORTABLE IN BED. WILL ENDORSED CONTINUITY OF CARE TO AM NURSE.
--- NOTE | 2017-11-28 07:30 | NUR ---
RN NOTE RECEIVED PT ON BIPAP, SLEEPY, AT BEDSIDE, IV IN PLACE, REFUSED MORNING LAB DRAW, STATING THAT THE PT NEEDS TO REST, WILL ATTEMPT LATER TO DRAW BLOOD. DENIES PAIN. WILL MONITOR PT CLOSELY, CALL LIGHT WITHIN REACH. BED IN LOCKED AND LOW POSITION.
--- NOTE | 2017-11-28 07:42 | NUR ---
RT NOTE: PT TAKEN OFF BIPAP, PLACED ON 2 LNC. VITALS STABLE NO DISTRESS NOTED AT THIS TIME. NURSE NOTIFIED.
[2017-11-28] MEDS: ASPIRIN 81 MG TAB.CHEW PO SCH (08:10)
[2017-11-28] MEDS: CLONIDINE HCL 0.1 MG TABLET PO SCH ×2 (08:11→16:00)
[2017-11-28] MEDS: ISOSORBIDE MONONITRATE (30MG) 30 MG TAB.SR.24H PO SCH (08:11)
[2017-11-28] MEDS: SPIRONOLACTONE 25 MG TABLET PO SCH (08:11)
[2017-11-28] MEDS: NIFEdipine XL (30MG) 30 MG TAB PO SCH (08:12)
[2017-11-28] MEDS: FUROSEMIDE 40 MG/4 ML VIAL IV SCH ×2 (08:12→16:00)
[2017-11-28] MEDS: METOPROLOL TARTRATE 25 MG TABLET PO SCH ×2 (08:17→16:00)
[2017-11-28 08:27] LABS: BASOPHILS % (AUTO) 0.1 % (0.0-2.0); EOSINOPHILS % (AUTO) 0.2 % (0.0-6.0); HEMATOCRIT 29 % (39-51); HEMOGLOBIN 9.7 g/dL (13.5-17.5); LYMPHOCYTES # (AUTO) 0.7 /CMM (0.8-4.8); MEAN CORPUSCULAR HGB CONC 34 g/dl (31.0-36.0); MEAN CORPUSCULAR VOLUME 93 fL (80-96); MONOCYTES # (AUTO) 1.2 /CMM (0.1-1.30); MONOCYTES % (AUTO) 8.1 % (2.0-12.0); NEUTROPHILS # (AUTO) 12.5 /CMM (1.8-8.9); NEUTROPHILS % (AUTO) 86.6 % (43.0-81.0); PLATELET COUNT (AUTO) 130 /CMM (150-450); RDW COEFFICIENT OF VARIATION 15.4 (11.5-15.0); RED BLOOD CELL COUNT(AUTO) 3.08 MIL/uL (4.5-6.0); WHITE BLOOD COUNT (AUTO) 14.4 K/uL (4.3-11.0)
--- NOTE | 2017-11-28 08:30 | NUR ---
RN NOTE PT REFUSED MORNING DOSE OF LOPRESSOR 12.5 MG. NOTIFIED.
[2017-11-28 08:46] LABS: CALCIUM, SERUM 8.2 mg/dL (8.5-10.1); CARBON DIOXIDE 26 mmol/L (21-32); CHLORIDE 103 mmol/L (98-107); CREATININE 5.1 mg/dL (0.6-1.3); GLUCOSE 94 mg/dL (74-106); MAGNESIUM 2.8 mg/dL (1.8-2.4); PHOSPHORUS 4.7 mg/dL (2.5-4.9); POTASSIUM 4.8 mmol/L (3.5-5.1); SODIUM SERUM 138 mmol/L (136-145); UREA NITROGEN, BLOOD 64 mg/dL (7-18)
[2017-11-28] MEDS ORDERED: hydrALAZINE HCL IV 20 MG VIAL IV PRN (09:00)
--- NOTE | 2017-11-28 09:27 | NUR ---
RN NOTE HOME MEDICINES BROUGHT BY PT TO HOSPITAL ARE GIVEN TO PT'S PER HER REQUEST AND SENT HOME.
[2017-11-28] MEDS ORDERED: MORPHINE SULFATE INJ 4 MG/ML DISP.SYRIN IV PRN (09:40)
[2017-11-28] MEDS: PAROXETINE HCL 10 MG TABLET PO SCH (09:47)
[2017-11-28 11:31] LABS: ABG BASE EXCESS -0.9 mmol/L; ABG OXYGEN SATURATION 94.1 % (92.0-98.5); ABG PCO2 43.6 mmHg (35.0-45.0); ABG PH 7.367 (7.350-7.450); ABG PO2 83.1 mmHg (75.0-100.0); AaDO2 65.1 mmHg; COHb 0.8 % (0.5-1.5); MetHb 0.1 % (0.0-1.5); O2Hb 93.3 % (94.0-97.0); SITE, ABG Left Brachial; VENT MODE, BG Nasal Cannula
[2017-11-28] MEDS: CEFTRIAXONE 1 G in IV NS 0.9% 50 ML IV SCH (12:33)
[2017-11-28] MEDS ORDERED: EPOETIN ALFA (10,000 UNIT) 10,000 UNIT/ML VIAL IV ONE (15:00)
--- NOTE | 2017-11-28 18:15 | NUR ---
RN NOTE TRANSFERRED PT TO TELEMETRY IN ROOM 114-2, PT STABLE. VS STABLE.
--- NOTE | 2017-11-28 20:00 | NUR ---
RN INITIAL NOTES RECEIVED PT IN BED. PT IS A&OX4. AT THE BEDSIDE.
[2017-11-28] MEDS: ALPRAZOLAM 0.5 MG TABLET PO SCH (21:46)
[2017-11-28] MEDS: TERAZOSIN HCL 1 MG CAPSULE PO SCH (21:47)
[2017-11-29] VITALS: BP 140/70
[2017-11-29 04:00] VITALS: BP 140/70
--- NOTE | 2017-11-29 06:18 | NUR ---
RN CLOSING NOTE RECEIVED ASLEEP, AT BEDSIDE, IV IN PLACE, REFUSED VS 000- AND 0400, STATING THAT THE PT NEEDS TO REST, DENIES PAIN. WILL MONITOR PT CLOSELY, CALL LIGHT WITHIN REACH. BED IN LOCKED AND LOW POSITION. WILL ENDORSE TO AM RN
--- NOTE | 2017-11-29 07:45 | NUR ---
RN NOTE RECEIVED PATIENT AWAKE IN BED WITH AT BEDSIDE. ALERT AND ORIENTED X3, HE IS ABLE TO MAKE THINGS KNOWN AND VERBALIZE NEEDS. PATIENT DENIES PAIN AT THIS TIME. BREATHING EVEN AND UNLABORED WITH NO DISTRESS NOTED. ON PERFORMANCE MANAGER SINUS CHERY HR OF 57. PATIENT HAS URINAL AT BEDSIDE. ALL SAFETY MEASURES DONE. BED LOW AND LOCKED POSITIONED. PLACED CALL LIGHT WITHIN REACH. WILL CONTINUE TO MONITOR
[2017-11-29 08:00] VITALS: BP_SYST 156; BP_SYST 168; BP_DIAS 77; BP_DIAS 81
[2017-11-29] MEDS: ISOSORBIDE MONONITRATE (30MG) 30 MG TAB.SR.24H PO SCH (08:25)
[2017-11-29] MEDS: NIFEdipine XL (30MG) 30 MG TAB PO SCH (08:25)
[2017-11-29] MEDS: FUROSEMIDE 40 MG/4 ML VIAL IV SCH (08:27)
[2017-11-29] MEDS: ASPIRIN 81 MG TAB.CHEW PO SCH (08:27)
[2017-11-29] MEDS: CLONIDINE HCL 0.1 MG TABLET PO SCH (08:27)
[2017-11-29] MEDS: SPIRONOLACTONE 25 MG TABLET PO SCH (08:27)
[2017-11-29] MEDS: PAROXETINE HCL 10 MG TABLET PO SCH (08:27)
[2017-11-29] MEDS: METOPROLOL TARTRATE 25 MG TABLET PO SCH (09:00)
[2017-11-29] MEDS ORDERED: CEPH-569 PO (10:54)
[2017-11-29 12:00] VITALS: BP 156/65
[2017-11-29] MEDS: CEFTRIAXONE 1 G in IV NS 0.9% 50 ML IV SCH (12:34)
--- NOTE | 2017-11-29 13:40 | NUR ---
RN NOTE 72 YEAR OLD MALE DISCHARGED TO HOME IN STABLE CONDITION. COMPLIANT WITH MEDICATIONS COOPERATIVE WITH TREATMENT PLANS. IF SYMPTOMS WORSENS INSTRUCTED PATIENT TO GO TO CLOSET ER. MEDICAL TREATMENT PLANS DEFERRED FOR CONTINUAL MONITORING. EDUCATED PATIENT ABOUT AFTER CARE PLAN AND COPIES PROVIDED. RETURNED PERSONAL BELONGINGS TO PATIENT. MEDICATION RECONCILED. PATIENT SIGNED DISCHARGE PAPERWORK. IV REMOVED CATHETER INTACT. PATIENT LEFT THE UNIT AT 1340 VIA PRIVATE CAR WITH HIS BLU MARIE.
== END 2017-11-29 13:37 | disposition home or self-care (01) | DRG 291 ==
LOC: ER 07:59 → TELE 10:55 → ICU 11-28 04:58 → TELE1 11-28 18:09 → MEDSG1 11-29 09:47
PROVIDERS: ADMIT Internal Medicine; ATTEND Internal Medicine
PROC: 5A09357 Assistance with Respiratory Ventilation, Less than 24 Consecutive Hours, Continuous Positive Airway Pressure (ICD-10-PCS; principal; 2017-11-28)
DX: I13.0 Hypertensive heart and chronic kidney disease with heart failure and stage 1 through stage 4 chronic kidney disease, or unspecified chronic kidney disease (principal); J96.01 Acute respiratory failure with hypoxia; J96.02 Acute respiratory failure with hypercapnia; I50.33 Acute on chronic diastolic (congestive) heart failure; N17.9 Acute kidney failure, unspecified; N18.4 Chronic kidney disease, stage 4 (severe); I69.354 Hemiplegia and hemiparesis following cerebral infarction affecting left non-dominant side; N39.0 Urinary tract infection, site not specified; I16.0 Hypertensive urgency; E78.5 Hyperlipidemia, unspecified; J44.9 Chronic obstructive pulmonary disease, unspecified; Z85.51 Personal history of malignant neoplasm of bladder; N40.0 Benign prostatic hyperplasia without lower urinary tract symptoms; Z88.5 Allergy status to narcotic agent; Z88.8 Allergy status to other drugs, medicaments and biological substances; Z79.82 Long term (current) use of aspirin; Z79.899 Other long term (current) drug therapy; I25.2 Old myocardial infarction; I25.10 Atherosclerotic heart disease of native coronary artery without angina pectoris; D63.8 Anemia in other chronic diseases classified elsewhere; B95.2 Enterococcus as the cause of diseases classified elsewhere; Z87.891 Personal history of nicotine dependence
CPT/HCPCS: 36415; 36600; 71045-TC; 80048-TC; 80076-TC; 81000-TC; 82803-TC; 82962-TC; 83605-TC; 83690-TC; 83735-TC; 83880; 84100-TC; 84484-TC; 85025-TC; 85730-TC; 87040-TC; 87081-TC; 87086-TC; 87186-TC; 94660; 94799-TC; 97116-TC; 97530-TC; A4216; A4606; J0692; J0696; J0885; J1940; J2060; J2270; J2405; J2930; J3370; J7050; J7060; Z7610

== ENCOUNTER 2017-12-02 12:51 | Outpatient (CLI) | payer MEDICARE, BC ==
[~2017-12-02 12:51] MED LIST changes: +CEPH-569 PO
[2017-12-02 12:58] VITALS: BP 100/53
== END 2017-12-02 23:59 | disposition home or self-care (01) ==
LOC: MSC 12:51
PROVIDERS: ATTEND Internal Medicine
DX: I13.0 Hypertensive heart and chronic kidney disease with heart failure and stage 1 through stage 4 chronic kidney disease, or unspecified chronic kidney disease (principal); N18.4 Chronic kidney disease, stage 4 (severe); I50.32 Chronic diastolic (congestive) heart failure; N39.0 Urinary tract infection, site not specified; B95.2 Enterococcus as the cause of diseases classified elsewhere; J44.9 Chronic obstructive pulmonary disease, unspecified; N40.0 Benign prostatic hyperplasia without lower urinary tract symptoms; D64.9 Anemia, unspecified; I69.351 Hemiplegia and hemiparesis following cerebral infarction affecting right dominant side; E78.5 Hyperlipidemia, unspecified; Z85.51 Personal history of malignant neoplasm of bladder; Z88.8 Allergy status to other drugs, medicaments and biological substances

== ENCOUNTER 2017-12-26 15:55 | Outpatient (CLI) | payer MEDICARE, BC ==
[~2017-12-26 15:55] MED LIST changes: +SPIR25TA4 PO; -SPIR25TA6 PO
[2017-12-26 17:29] LABS: BASOPHILS % (AUTO) 0.5 % (0.0-2.0); EOSINOPHILS % (AUTO) 2.5 % (0.0-6.0); HEMATOCRIT 33 % (39-51); HEMOGLOBIN 10.9 g/dL (13.5-17.5); LYMPHOCYTES # (AUTO) 1.3 /CMM (0.8-4.8); LYMPHOCYTES % (AUTO) 16.2 % (20.0-44.0); MEAN CORPUSCULAR HEMOGLOBIN 31 PG (26.0-33.0); MEAN CORPUSCULAR HGB CONC 33 g/dl (31.0-36.0); MEAN CORPUSCULAR VOLUME 94 fL (80-96); MONOCYTES # (AUTO) 0.9 /CMM (0.1-1.30); MONOCYTES % (AUTO) 10.9 % (2.0-12.0); NEUTROPHILS # (AUTO) 5.5 /CMM (1.8-8.9); NEUTROPHILS % (AUTO) 69.9 % (43.0-81.0); PLATELET COUNT (AUTO) 154 /CMM (150-450); RDW COEFFICIENT OF VARIATION 15.2 (11.5-15.0); RED BLOOD CELL COUNT(AUTO) 3.49 MIL/uL (4.5-6.0); WHITE BLOOD COUNT (AUTO) 7.9 K/uL (4.3-11.0)
[2017-12-26 17:54] LABS: ALANINE AMINOTRANSFERASE 11 U/L (12-78); ALBUMIN 3.4 g/dL (3.4-5.0); ALKALINE PHOSPHATASE 52 U/L (46-116); ASPARTATE AMINOTRANSFERASE 9 U/L (15-37); BILIRUBIN,DIRECT 0.1 mg/dL (0.0-0.2); BILIRUBIN,TOTAL 0.5 mg/dL (0.2-1.0); CALCIUM, SERUM 8.4 mg/dL (8.5-10.1); CARBON DIOXIDE 28 mmol/L (21-32); CHLORIDE 102 mmol/L (98-107); CREATININE 4.3 mg/dL (0.6-1.3); GLUCOSE 112 mg/dL (74-106); POTASSIUM 3.8 mmol/L (3.5-5.1); SODIUM SERUM 139 mmol/L (136-145); TOTAL PROTEIN, SERUM 7.1 g/dL (6.4-8.2); UREA NITROGEN, BLOOD 55 mg/dL (7-18)
[2017-12-26 17:56] LABS: IRON, SERUM 67 ug/dl (50-175); TOTAL IRON BINDING CAPACITY 272 ug/dl (250-450)
[2017-12-26 18:10] LABS: CHOLESTEROL 176 mg/dL (<200); FREE T4 (FREE THYROXINE) 0.87 ng/dL (0.76-1.46); HDL CHOLESTEROL 69 mg/dL (40-60); LDL 101 mg/dL (0-99); THYROID STIMULATING HORMONE 0.653 uIU/mL (0.358-3.74); TRIGLYCERIDES 45 mg/dL (30-150)
[2017-12-26 18:37] LABS: FERRITIN 87 ng/mL (8-388)
== END 2017-12-26 23:59 | disposition home or self-care (01) ==
LOC: LAB 15:55
PROVIDERS: ATTEND Internal Medicine
DX: Z00.01 Encounter for general adult medical examination with abnormal findings (principal); D64.9 Anemia, unspecified; E78.5 Hyperlipidemia, unspecified; N39.0 Urinary tract infection, site not specified
CPT/HCPCS: 36415; 80048-TC; 80061-TC; 80076-TC; 82728-TC; 83540-TC; 84439-TC; 84443-TC; 85025-TC

== ENCOUNTER 2017-12-31 13:14 | Outpatient (CLI) | payer MEDICARE, BC ==
[~2017-12-31 13:14] MED LIST changes: -SPIR25TA4 PO; +SPIR25TA6 PO
[2017-12-31 13:29] VITALS: BP 114/69
== END 2017-12-31 23:59 | disposition home or self-care (01) ==
LOC: MSC 13:14
PROVIDERS: ATTEND Internal Medicine
DX: Z09 Encounter for follow-up examination after completed treatment for conditions other than malignant neoplasm (principal); I13.0 Hypertensive heart and chronic kidney disease with heart failure and stage 1 through stage 4 chronic kidney disease, or unspecified chronic kidney disease; N18.4 Chronic kidney disease, stage 4 (severe); I50.32 Chronic diastolic (congestive) heart failure; Z87.891 Personal history of nicotine dependence; J44.9 Chronic obstructive pulmonary disease, unspecified; I69.351 Hemiplegia and hemiparesis following cerebral infarction affecting right dominant side; Z85.51 Personal history of malignant neoplasm of bladder; E78.5 Hyperlipidemia, unspecified; N40.0 Benign prostatic hyperplasia without lower urinary tract symptoms; D64.9 Anemia, unspecified

== ENCOUNTER 2018-02-06 11:17 | Outpatient (CLI) | payer MEDICARE, BC ==
[2018-02-06 12:35] LABS: APPEARANCE,URINE CLEAR (CLEAR); BILIRUBIN,URINE NEGATIVE (NEGATIVE); BLOOD, URINE TRACE-INTA Ery/uL (NEGATIVE); COLOR,URINE YELLOW (YELLOW); KETONES,URINE NEGATIVE (NEGATIVE); LEUKOCYTE ESTERASE ,URINE NEGATIVE (NEGATIVE); NITRITE, URINE NEGATIVE (NEGATIVE); PROTEIN,URINE 2+ mg/dl (NEGATIVE); UGLUCOSE NEGATIVE (NEGATIVE); UROBILINOGEN,URINE 0.2 EU/dL (0.2)
[2018-02-06 12:37] LABS: BASOPHILS # (AUTO) 0.1 /CMM (0.0-0.2); BASOPHILS % (AUTO) 0.7 % (0.0-2.0); EOSINOPHILS % (AUTO) 5.6 % (0.0-6.0); HEMATOCRIT 39 % (39-51); HEMOGLOBIN 12.5 g/dL (13.5-17.5); LYMPHOCYTES # (AUTO) 1.1 /CMM (0.8-4.8); LYMPHOCYTES % (AUTO) 14.4 % (20.0-44.0); MEAN CORPUSCULAR HEMOGLOBIN 30 PG (26.0-33.0); MEAN CORPUSCULAR HGB CONC 32 g/dl (31.0-36.0); MEAN CORPUSCULAR VOLUME 92 fL (80-96); MONOCYTES # (AUTO) 0.7 /CMM (0.1-1.30); MONOCYTES % (AUTO) 8.8 % (2.0-12.0); NEUTROPHILS # (AUTO) 5.6 /CMM (1.8-8.9); NEUTROPHILS % (AUTO) 70.5 % (43.0-81.0); PLATELET COUNT (AUTO) 150 /CMM (150-450); RED BLOOD CELL COUNT(AUTO) 4.19 MIL/uL (4.5-6.0)
[2018-02-06 12:56] LABS: ALANINE AMINOTRANSFERASE 15 U/L (12-78); ALBUMIN 3.4 g/dL (3.4-5.0); ALKALINE PHOSPHATASE 51 U/L (46-116); ASPARTATE AMINOTRANSFERASE 13 U/L (15-37); BILIRUBIN,TOTAL 0.6 mg/dL (0.2-1.0); CALCIUM, SERUM 8.5 mg/dL (8.5-10.1); CARBON DIOXIDE 30 mmol/L (21-32); CHLORIDE 102 mmol/L (98-107); GLUCOSE 101 mg/dL (74-106); SODIUM SERUM 139 mmol/L (136-145); TOTAL PROTEIN, SERUM 7.1 g/dL (6.4-8.2); UREA NITROGEN, BLOOD 38 mg/dL (7-18)
[2018-02-06 13:08] LABS: C-REACTIVE PROTEIN 0.4 mg/dL (0.0-0.9); CHOLESTEROL 175 mg/dL (<200); FREE T4 (FREE THYROXINE) 0.85 ng/dL (0.76-1.46); HDL CHOLESTEROL 69 mg/dL (40-60); LDL 97 mg/dL (0-99); PROSTATE SPECIFIC ANTIGEN SCR 0.94 ng/mL (0.00-4.00); TRIGLYCERIDES 68 mg/dL (30-150)
[2018-02-06 13:09] LABS: IRON, SERUM 79 ug/dl (50-175); TOTAL IRON BINDING CAPACITY 325 ug/dl (250-450)
[2018-02-06 13:23] LABS: BACTERIA,URINE None seen /HPF (None Seen); SQUAMOUS EPITHELIAL CELL,UR 0-2 /HPF (None Seen); WBC,URINE 0-2 /HPF (0-3)
[2018-02-07 08:14] LABS: *TESTOSTERONE, SERUM 911 ng/dL (264-916); HOMOCYSTEINE, PLASMA 19.6 umol/L (0.0-15.0); T3, FREE 2.4 pg/mL (2.0-4.4)
[2018-02-09 14:10] LABS: *TESTOSTERONE, FREE (DIRECT) 9.5 pg/mL (6.6-18.1)
== END 2018-02-06 23:59 | disposition home or self-care (01) ==
LOC: LAB 11:17
PROVIDERS: ATTEND Internal Medicine
DX: E11.9 Type 2 diabetes mellitus without complications (principal); I13.0 Hypertensive heart and chronic kidney disease with heart failure and stage 1 through stage 4 chronic kidney disease, or unspecified chronic kidney disease; N18.9 Chronic kidney disease, unspecified; I50.9 Heart failure, unspecified; E78.5 Hyperlipidemia, unspecified; D64.9 Anemia, unspecified; N39.0 Urinary tract infection, site not specified; J44.9 Chronic obstructive pulmonary disease, unspecified; N40.0 Benign prostatic hyperplasia without lower urinary tract symptoms; F41.9 Anxiety disorder, unspecified
CPT/HCPCS: 36415; 80053-TC; 80061-TC; 81000-TC; 82306; 83090; 83540-TC; 84153-TC; 84402; 84403; 84439-TC; 84443-TC; 84481; 85025-TC; 85652-TC; 86140-TC; 86431-TC; 87086-TC

== ENCOUNTER 2018-03-25 14:17 | Outpatient (CLI) | payer MEDICARE, BC ==
[2018-03-25 14:47] LABS: BASOPHILS % (AUTO) 0.2 % (0.0-2.0); EOSINOPHILS % (AUTO) 4.2 % (0.0-6.0); HEMATOCRIT 32 % (39-51); HEMOGLOBIN 10.7 g/dL (13.5-17.5); LYMPHOCYTES # (AUTO) 1.4 /CMM (0.8-4.8); MEAN CORPUSCULAR HGB CONC 33 g/dl (31.0-36.0); MEAN CORPUSCULAR VOLUME 91 fL (80-96); MONOCYTES # (AUTO) 0.8 /CMM (0.1-1.30); MONOCYTES % (AUTO) 10.4 % (2.0-12.0); NEUTROPHILS # (AUTO) 5.4 /CMM (1.8-8.9); NEUTROPHILS % (AUTO) 68.2 % (43.0-81.0); PLATELET COUNT (AUTO) 166 /CMM (150-450); RDW COEFFICIENT OF VARIATION 16.1 (11.5-15.0); RED BLOOD CELL COUNT(AUTO) 3.56 MIL/uL (4.5-6.0); WHITE BLOOD COUNT (AUTO) 7.9 K/uL (4.3-11.0)
[2018-03-25 15:05] LABS: ALANINE AMINOTRANSFERASE 13 U/L (12-78); ALBUMIN 3.3 g/dL (3.4-5.0); ALKALINE PHOSPHATASE 54 U/L (46-116); ASPARTATE AMINOTRANSFERASE 11 U/L (15-37); BILIRUBIN,TOTAL 0.5 mg/dL (0.2-1.0); CALCIUM, SERUM 8.6 mg/dL (8.5-10.1); CARBON DIOXIDE 29 mmol/L (21-32); CHLORIDE 102 mmol/L (98-107); CREATININE 4.1 mg/dL (0.6-1.3); GLUCOSE 110 mg/dL (74-106); POTASSIUM 3.5 mmol/L (3.5-5.1); SODIUM SERUM 140 mmol/L (136-145); TOTAL PROTEIN, SERUM 6.7 g/dL (6.4-8.2); UREA NITROGEN, BLOOD 42 mg/dL (7-18)
== END 2018-03-25 23:59 | disposition home or self-care (01) ==
LOC: LAB 14:17
PROVIDERS: ATTEND Internal Medicine
DX: I13.0 Hypertensive heart and chronic kidney disease with heart failure and stage 1 through stage 4 chronic kidney disease, or unspecified chronic kidney disease (principal); N18.9 Chronic kidney disease, unspecified; I50.9 Heart failure, unspecified; J44.9 Chronic obstructive pulmonary disease, unspecified; M19.90 Unspecified osteoarthritis, unspecified site; F41.9 Anxiety disorder, unspecified; F32.9 Major depressive disorder, single episode, unspecified; Z85.51 Personal history of malignant neoplasm of bladder
CPT/HCPCS: 36415; 80053-TC; 85025-TC

== ENCOUNTER 2018-07-16 11:23 | Outpatient (CLI) | payer BC, MEDICARE ==
[~2018-07-16 11:23] MED LIST changes: +CARV6.25 PO; -CEPH-569 PO; +ISOS40TA16 PO; -ISOS60TA4 PO; -METO25TA6 PO; +NITR0.4T48 SL; +ROSU5TAB PO
[2018-07-16 12:04] LABS: BASOPHILS # (AUTO) 0.1 /CMM (0.0-0.2); BASOPHILS % (AUTO) 0.7 % (0.0-2.0); EOSINOPHILS % (AUTO) 2.1 % (0.0-6.0); HEMATOCRIT 35 % (39-51); HEMOGLOBIN 11.6 g/dL (13.5-17.5); LYMPHOCYTES % (AUTO) 11.1 % (20.0-44.0); MEAN CORPUSCULAR HGB CONC 33 g/dl (31.0-36.0); MEAN CORPUSCULAR VOLUME 89 fL (80-96); MONOCYTES # (AUTO) 1.1 /CMM (0.1-1.30); MONOCYTES % (AUTO) 12.8 % (2.0-12.0); NEUTROPHILS # (AUTO) 6.5 /CMM (1.8-8.9); NEUTROPHILS % (AUTO) 73.3 % (43.0-81.0); PLATELET COUNT (AUTO) 167 /CMM (150-450); RED BLOOD CELL COUNT(AUTO) 3.95 MIL/uL (4.5-6.0); WHITE BLOOD COUNT (AUTO) 8.9 K/uL (4.3-11.0)
[2018-07-16 12:13] LABS: APPEARANCE,URINE SL CLOUDY (CLEAR); BILIRUBIN,URINE NEGATIVE (NEGATIVE); BLOOD, URINE 1+ Ery/uL (NEGATIVE); COLOR,URINE YELLOW (YELLOW); KETONES,URINE NEGATIVE (NEGATIVE); LEUKOCYTE ESTERASE ,URINE 1+ (NEGATIVE); NITRITE, URINE NEGATIVE (NEGATIVE); PROTEIN,URINE 2+ mg/dl (NEGATIVE); UGLUCOSE NEGATIVE (NEGATIVE); UROBILINOGEN,URINE 0.2 EU/dL (0.2)
[2018-07-16 12:16] LABS: BACTERIA,URINE Few /HPF (None Seen); MUCUS,URINE Few /LPF (None Seen); SQUAMOUS EPITHELIAL CELL,UR 0-2 /HPF (None Seen); URINE AMORPHOUS URATE Few /HPF (None Seen); WBC,URINE 21-50 /HPF (0-3)
[2018-07-16 12:20] LABS: ALANINE AMINOTRANSFERASE 15 U/L (12-78); ALBUMIN 3.3 g/dL (3.4-5.0); ALKALINE PHOSPHATASE 50 U/L (46-116); ASPARTATE AMINOTRANSFERASE 14 U/L (15-37); BILIRUBIN,TOTAL 0.6 mg/dL (0.2-1.0); CALCIUM, SERUM 8.7 mg/dL (8.5-10.1); CARBON DIOXIDE 26 mmol/L (21-32); CHLORIDE 103 mmol/L (98-107); CREATININE 4.7 mg/dL (0.6-1.3); GLUCOSE 107 mg/dL (74-106); SODIUM SERUM 143 mmol/L (136-145); TOTAL PROTEIN, SERUM 6.9 g/dL (6.4-8.2); UREA NITROGEN, BLOOD 61 mg/dL (7-18)
[2018-07-16 12:27] LABS: IRON, SERUM 34 ug/dl (50-175); TOTAL IRON BINDING CAPACITY 336 ug/dl (250-450)
[2018-07-16 12:34] LABS: FERRITIN 84 ng/mL (8-388); THYROID STIMULATING HORMONE 0.982 uIU/mL (0.358-3.74)
[2018-07-16 14:51] LABS: POTASSIUM 2.8 mmol/L (3.5-5.1)
[2018-07-17 08:10] LABS: T3, FREE 2.2 pg/mL (2.0-4.4)
== END 2018-07-16 23:59 | disposition home or self-care (01) ==
LOC: LAB 11:23
PROVIDERS: ATTEND Internal Medicine
DX: I12.9 Hypertensive chronic kidney disease with stage 1 through stage 4 chronic kidney disease, or unspecified chronic kidney disease (principal); N18.9 Chronic kidney disease, unspecified; D64.9 Anemia, unspecified; E78.00 Pure hypercholesterolemia, unspecified
CPT/HCPCS: 36415; 80053-TC; 81000-TC; 82306; 82728-TC; 83540-TC; 84439-TC; 84443-TC; 84481; 85025-TC; 86800; 87086-TC; 87186-TC

== ENCOUNTER 2018-07-24 20:06 | Inpatient (IN) | payer BC, MEDICARE, MEDICAID ==
[2018-07-24] VITALS (7 sets, daily range): BP systolic 161–230; BP diastolic 63–110
[~2018-07-24] VITALS: Ht 172.7 cm; Wt 61.7 kg
--- NOTE | 2018-07-24 20:06 | NUR ---
PT BIB HIS WITH A C/O SOB, TACHYPNEIC, RETRACTIONS NOTED. LUNG SOUNDS DIMINISHED WITH BILATERAL WHEEZES.
[2018-07-24] MEDS ORDERED: MORPHINE SULFATE INJ 2 MG/ML DISP.SYRIN ONE (20:11)
[2018-07-24] MEDS ORDERED: ONDANSETRON HCL/PF 4 MG/2 ML VIAL ONE (20:11)
[2018-07-24] MEDS ORDERED: NTG 50 MG/D5W250 ML BOTTL 250 ML IV STA (20:12)
[2018-07-24] MEDS ORDERED: NTG 50 MG/D5W250 ML BOTTL 250 ML IV ONE (20:12)
--- NOTE | 2018-07-24 20:16 | NUR ---
PT IS ON BIPAP WITH THE FOLLOWING SETTINGS: 20/5, RT18, FIO2 100%.
--- NOTE | 2018-07-24 20:16 | NUR ---
2ND NITRO GIVEN 227/141.
[2018-07-24] MEDS ORDERED: Magnesium 1GM/D5W 100ML PREMIX 200 ML IV ONE (20:24)
[2018-07-24 20:25] LABS: BASOPHILS # (AUTO) 0.1 /CMM (0.0-0.2); BASOPHILS % (AUTO) 0.9 % (0.0-2.0); EOSINOPHILS % (AUTO) 3.5 % (0.0-6.0); HEMATOCRIT 39 % (39-51); HEMOGLOBIN 12.5 g/dL (13.5-17.5); LYMPHOCYTES # (AUTO) 3.1 /CMM (0.8-4.8); LYMPHOCYTES % (AUTO) 20.4 % (20.0-44.0); MEAN CORPUSCULAR HGB CONC 33 g/dl (31.0-36.0); MEAN CORPUSCULAR VOLUME 89 fL (80-96); MONOCYTES # (AUTO) 2.1 /CMM (0.1-1.30); MONOCYTES % (AUTO) 13.9 % (2.0-12.0); NEUTROPHILS # (AUTO) 9.4 /CMM (1.8-8.9); NEUTROPHILS % (AUTO) 61.3 % (43.0-81.0); PLATELET COUNT (AUTO) 267 /CMM (150-450); RED BLOOD CELL COUNT(AUTO) 4.32 MIL/uL (4.5-6.0); WHITE BLOOD COUNT (AUTO) 15.3 K/uL (4.3-11.0)
[2018-07-24] MEDS ORDERED: ALBUTEROL FS 2.5 MG/3 ML VIAL.NEB NEB ONE (20:30)
[2018-07-24] MEDS ORDERED: MORPHINE SULFATE INJ 2 MG/ML DISP.SYRIN IV ONE (20:30)
[2018-07-24] MEDS ORDERED: FUROSEMIDE 40 MG/4 ML VIAL IV ONE (20:30)
[2018-07-24] MEDS ORDERED: NITROGLYCERIN 0.4 MG/TAB BOTTLE SL ONE (20:30)
[2018-07-24] MEDS ORDERED: ALBUTEROL FS 2.5 MG/3 ML VIAL.NEB CONTNEB ONE (20:30)
[2018-07-24] MEDS ORDERED: ONDANSETRON HCL/PF 4 MG/2 ML VIAL IVP ONE (20:30)
[2018-07-24 20:31] LABS: CALCIUM, SERUM 9.4 mg/dL (8.5-10.1); CARBON DIOXIDE 25 mmol/L (21-32); CHLORIDE 100 mmol/L (98-107); CREATININE 4.8 mg/dL (0.6-1.3); GLUCOSE 146 mg/dL (74-106); SODIUM SERUM 140 mmol/L (136-145); UREA NITROGEN, BLOOD 66 mg/dL (7-18)
[2018-07-24 20:33] LABS: POTASSIUM 2.8 mmol/L (3.5-5.1)
[2018-07-24] MEDS ORDERED: FUROSEMIDE 20 MG/2 ML VIAL ONE (20:35)
[2018-07-24] MEDS ORDERED: FUROSEMIDE 40 MG/4 ML VIAL ONE (20:35)
--- NOTE | 2018-07-24 20:38 | NUR ---
PT'S PMD IS TAMAR. DR. TARIQ IS AWARE.
--- NOTE | 2018-07-24 20:39 | NUR ---
PT'S TRANSITION SOCIAL WORKER IS DR. CLARKE, [facility] [place]. MAIN NUMBER IS: Addendum: 07/24/18 at 2042 by [email or web address] [facility] [place]
[2018-07-24 20:45] LABS: ALANINE AMINOTRANSFERASE 20 U/L (12-78); ALBUMIN 3.9 g/dL (3.4-5.0); ALKALINE PHOSPHATASE 60 U/L (46-116); ASPARTATE AMINOTRANSFERASE 18 U/L (15-37); B-TYPE NATRIURETIC PEPTIDE 15503 PG/ML (0-125); BILIRUBIN,DIRECT 0.2 mg/dL (0.0-0.2); BILIRUBIN,TOTAL 0.6 mg/dL (0.2-1.0); TOTAL PROTEIN, SERUM 8.4 g/dL (6.4-8.2)
[2018-07-24 20:53] LABS: MAGNESIUM 2.6 mg/dL (1.8-2.4); PHOSPHORUS 5.1 mg/dL (2.5-4.9)
[2018-07-24] MEDS: Magnesium 1GM/D5W 100ML PREMIX 100 ML IV SCH ×2 (20:57→21:30)
[2018-07-24 20:58] LABS: ABG BASE EXCESS -3.1 mmol/L; ABG OXYGEN SATURATION 97.3 % (92.0-98.5); ABG PCO2 50.1 mmHg (35.0-45.0); ABG PH 7.292 (7.350-7.450); ABG PO2 117.3 mmHg (75.0-100.0); AaDO2 545.6 mmHg; COHb 0.7 % (0.5-1.5); MetHb 0.4 % (0.0-1.5); O2Hb 96.2 % (94.0-97.0); PEEP,BG 5 cm H2O; SITE, ABG Right Femoral; VENT MODE, BG BIPAP
[2018-07-24] MEDS ORDERED: POTASSIUM CL. PREMIX PERIPHER. 200 ML ONE (21:03)
[2018-07-24] MEDS: POTASSIUM CL. PREMIX PERIPHER. 50 ML IV SCH ×3 (21:15→23:00)
--- NOTE | 2018-07-24 21:20 | NUR ---
ICU 253 ADM DX HTN CRISIS, CHF
[2018-07-24] MEDS ORDERED: CARV6.25 PO (21:30)
--- NOTE | 2018-07-24 21:30 | NUR ---
REPORT GIVEN TO YULISSA PAREKH FOR JONATAN
--- NOTE | 2018-07-24 21:40 | NUR ---
NTG DRIP AT 120MCG/MIN BP OF 177/91 H 66.
--- NOTE | 2018-07-24 21:45 | NUR ---
PT TRANSFERRED TO ICU VIA ACLS PROTOCOL
--- NOTE | 2018-07-24 22:00 | NUR ---
SOLAR DESIGN ENGINEER RCCecily PT FROM ER W/DX CHF EXACERBATION. PT A/O x4. NSR ON MONITOR. ELEVATED BP WITH NITRO DRIP AT 120 MCG/MIN. ON BIPAPL PT REQUESTING TO BE REMOVED FROM BIPAP; EXPLAINED TO PT THE NEED FOR BIPAP AT THIS TIME. PT AGREED. AT BEDSIDE STATING SHE WILL STAY ALL NIGHT; EXPLAINED TO VISITORS POLICY; AGREED TO STAY IN WAITING ROOM.
[2018-07-24] MEDS ORDERED: BUMETANIDE INJ 6 MG in IV NS 0.9% 36 ML IV ONE (23:00)
[2018-07-24] MEDS ORDERED: Z GUARD REMEDY 2 OZ OINT TP PRN (23:00)
[2018-07-24] MEDS: NIFEdipine XL (30MG) 30 MG TAB PO SCH ×2 (23:00→23:31)
[2018-07-24] MEDS ORDERED: ZOLPIDEM TARTRATE 5 MG TABLET PO PRN (23:00)
[2018-07-24] MEDS ORDERED: ENOXAPARIN SODIUM 40 MG/0.4 ML DISP.SYRIN SQ SCH (23:00)
[2018-07-24] MEDS ORDERED: PRAVASTATIN SODIUM 20 MG TABLET PO SCH (23:00)
[2018-07-24] MEDS ORDERED: BUMETANIDE INJ 0.25 MG/ML VIAL ONE ×2 (23:20)
[2018-07-24] MEDS: NTG 50 MG/D5W250 ML BOTTL 250 ML IV PRN (23:27)
[2018-07-24] MEDS: CLONIDINE HCL 0.1 MG TABLET PO SCH (23:31)
[2018-07-24] MEDS: ALPRAZOLAM 0.5 MG TABLET PO SCH (23:40)
[2018-07-24] MEDS: TERAZOSIN HCL 1 MG CAPSULE PO SCH (23:40)
[2018-07-25] VITALS (96 sets, daily range): BP systolic 105–200; BP diastolic 54–124
--- NOTE | 2018-07-25 | NUR ---
MANAGER DIESEL PT DECLINED SCDs.
[2018-07-25] MEDS: POTASSIUM CL. PREMIX PERIPHER. 50 ML IV SCH ×5 (00:03→15:01)
[2018-07-25] MEDS ORDERED: POTASSIUM CHLORIDE 20 MEQ TAB.PRT.SR PO ONE (02:30)
[2018-07-25] MEDS ORDERED: NTG 50 MG/D5W250 ML BOTTL 250 ML IV ONE (02:56)
[2018-07-25] MEDS: NTG 50 MG/D5W250 ML BOTTL 250 ML IV PRN ×2 (03:03→08:36)
[2018-07-25 05:15] LABS: CARBON DIOXIDE 26 mmol/L (21-32); CHLORIDE 100 mmol/L (98-107); GLUCOSE 116 mg/dL (74-106); SODIUM SERUM 138 mmol/L (136-145); UREA NITROGEN, BLOOD 67 mg/dL (7-18)
[2018-07-25 05:16] LABS: ALANINE AMINOTRANSFERASE 15 U/L (12-78); ALBUMIN 2.8 g/dL (3.4-5.0); ALKALINE PHOSPHATASE 34 U/L (46-116); ASPARTATE AMINOTRANSFERASE 15 U/L (15-37); BILIRUBIN,TOTAL 0.5 mg/dL (0.2-1.0); PHOSPHORUS 5.2 mg/dL (2.5-4.9); TOTAL PROTEIN, SERUM 5.7 g/dL (6.4-8.2)
[2018-07-25 05:18] LABS: CHOLESTEROL 154 mg/dL (<200); HDL CHOLESTEROL 55 mg/dL (40-60); LDL 97 mg/dL (0-99); THYROID STIMULATING HORMONE 1.172 uIU/mL (0.358-3.74); TRIGLYCERIDES 37 mg/dL (30-150)
[2018-07-25 05:26] LABS: BASOPHILS # (AUTO) 0.1 /CMM (0.0-0.2); BASOPHILS % (AUTO) 0.7 % (0.0-2.0)
[2018-07-25 05:39] LABS: EOSINOPHILS % (AUTO) 2.2 % (0.0-6.0); HEMATOCRIT 27 % (39-51); HEMOGLOBIN 9.1 g/dL (13.5-17.5); LYMPHOCYTES # (AUTO) 1.1 /CMM (0.8-4.8); LYMPHOCYTES % (AUTO) 12.3 % (20.0-44.0); MEAN CORPUSCULAR HGB CONC 33 g/dl (31.0-36.0); MEAN CORPUSCULAR VOLUME 88 fL (80-96); MONOCYTES # (AUTO) 1.3 /CMM (0.1-1.30); MONOCYTES % (AUTO) 13.5 % (2.0-12.0); NEUTROPHILS # (AUTO) 6.6 /CMM (1.8-8.9); NEUTROPHILS % (AUTO) 71.3 % (43.0-81.0); PLATELET COUNT (AUTO) 161 /CMM (150-450); RED BLOOD CELL COUNT(AUTO) 3.12 MIL/uL (4.5-6.0); WHITE BLOOD COUNT (AUTO) 9.3 K/uL (4.3-11.0)
[2018-07-25 05:43] LABS: IRON, SERUM 42 ug/dl (50-175); TOTAL IRON BINDING CAPACITY 284 ug/dl (250-450)
--- NOTE | 2018-07-25 06:53 | NUR ---
MANAGER CONSTRUCTION COMPLIANT WITH VISITING POLICY; STAYED IN WAITING ROOM OCCASIONALLY CALLING FOR UPDATES. PER PT HAS A UTI AND WAS RECEIVING ANTIBIOTIC; PER Radha JAY SEND URINE SPECIMEN TO LAB. PT REMAINS ON NITRO DRIP AT 160 MCG/MIN. CONTINUE TO MONITOR.
--- NOTE | 2018-07-25 07:30 | NUR ---
CORPORATE JOB TITLES: pt.is A/Ox3, no pain, on Bipap, FiO2 50% now, O2sat. over 96%, will get ABG, SR/SB 55-60, on Nitro gtt, 180 mcg/m now/continue titrate, SBP 184 now, was in room/updated with all above, pt.needs HD?, see new orders
--- NOTE | 2018-07-25 08:00 | NUR ---
PIECE HAND: PIVLs are good by report, blood return+ now
--- NOTE | 2018-07-25 08:05 | NUR ---
CORSETS SALESPERSON: urine culture by microbiol.order is in process by PC data
--- NOTE | 2018-07-25 08:42 | NUR ---
MATRIX INSPECTOR: notified pharmacy re Lipitor pt. allergy, Atorvastatin is in eMAR, meds change is done, Nitro gtt is 200mcg/min now/max, SBP still 170-180, pharmacy confirmed: can go up to 400mcg/min/need MD order, message for is sent, charge nurse notified. Pt. is in room, updated with pt.current condition, VS, orders, meds, POC
[2018-07-25] MEDS ORDERED: MINOXIDIL (10MG) 10 MG TABLET PO SCH (09:00)
[2018-07-25] MEDS ORDERED: PRAVASTATIN SODIUM 20 MG TABLET PO SCH (09:00)
[2018-07-25] MEDS ORDERED: ATORVASTATIN 10 MG TABLET PO SCH (09:00)
[2018-07-25] MEDS ORDERED: NITROPRUSSIDE SODIUM 50 MG in IV D5W 250 ML IV PRN (09:05)
--- NOTE | 2018-07-25 09:10 | NUR ---
RT REMOVED PT ON BIPAP AFTER ABG DRAWN, PLACED ON NC 4L TOSIN WELL
--- NOTE | 2018-07-25 09:15 | NUR ---
PET HANDLER: ordered: d/c Nitroglycerine gtt, start Nipride gtt, continue PO BP meds
[2018-07-25] MEDS: CLONIDINE HCL 0.1 MG TABLET PO SCH ×2 (09:16→16:45)
[2018-07-25] MEDS: ASPIRIN 81 MG TAB.CHEW PO SCH (09:16)
[2018-07-25] MEDS: PAROXETINE HCL 10 MG TABLET PO SCH (09:16)
[2018-07-25] MEDS: SPIRONOLACTONE 25 MG TABLET PO SCH (09:16)
--- NOTE | 2018-07-25 09:30 | NUR ---
HORTICULTURAL SPECIALTY GROWER FIELD: is in room, updated with pt.current VS, history, drips, I/O, meds, labs, O2sat.on 4L n/c, waiting ABG
--- NOTE | 2018-07-25 09:30 | NUR ---
TILE LAYER DRAINAGE: pharmacy will call to switch Nipride gtt(unavailable now) for Cardene gtt, see new orders
[2018-07-25] MEDS: NICARDIPINE IN NACL, ISO-OSM 200 ML IV PRN ×4 (09:44→19:47)
[2018-07-25 09:59] LABS: ABG BASE EXCESS -1.6 mmol/L; ABG OXYGEN SATURATION 97.7 % (92.0-98.5); ABG PCO2 44.9 mmHg (35.0-45.0); ABG PH 7.348 (7.350-7.450); ABG PO2 133.6 mmHg (75.0-100.0); AaDO2 172.4 mmHg; COHb 0.4 % (0.5-1.5); MetHb 0.5 % (0.0-1.5); O2Hb 96.8 % (94.0-97.0); SITE, ABG Left Radial; VENT MODE, BG BIPAP 20/5 50%02
--- NOTE | 2018-07-25 10:00 | NUR ---
LICENSED EMBALMER SUPERVISOR: called pharmacy to get Procardia, Minoxidil for Pyxis
--- NOTE | 2018-07-25 10:15 | NUR ---
HEALTH CLINICIAN: pt. is asking for all meds information, for diagnosis, prognosis, asking meds to thin sputum, said: pt. is started ampicillin d/t UTI, got detailed information re meds, orders, labs, orders, recommended to speak with MDs regarding Dx, prognosis, will ask for sputum thinner meds, will speak with re ampicillin to continue
--- NOTE | 2018-07-25 10:40 | NUR ---
ASSEMBLER RUBBER FOOTWEAR: is in room, updated with pt.current condition, VS, Cardene gtt, I/O, orders, labs, meds, ordered: 40 meq K+ IV/4 bags, pt. stated before: pt.is getting Ampicillin 1 cap 4 times per day (dose?) for UTI, urine culture sample was sent
[2018-07-25] MEDS: NIFEdipine XL (30MG) 30 MG TAB PO SCH (11:07)
[2018-07-25] MEDS: MINOXIDIL (2.5MG) 2.5 MG TABLET PO SCH (11:55)
--- NOTE | 2018-07-25 12:15 | NUR ---
DIGITAL ENGINEER: SR, BP 125/60 now, continue Cardene gtt 3 mg/h, ABG repeated/ updated, pt.feels better, PT was in room/hold evaluation
[2018-07-25 12:22] LABS: ABG OXYGEN SATURATION 91.8 % (92.0-98.5); ABG PCO2 46.3 mmHg (35.0-45.0); ABG PH 7.362 (7.350-7.450); ABG PO2 66.5 mmHg (75.0-100.0); COHb 1.2 % (0.5-1.5); MetHb 0.3 % (0.0-1.5); O2Hb 90.4 % (94.0-97.0); SITE, ABG Right Radial; VENT MODE, BG 4L NC
--- NOTE | 2018-07-25 14:30 | NUR ---
HEALTH COUNSELOR: got info from pt., pt.had urine culture on 07/16: Enterococcus, but started Ampicillin 500mg qid yesterday only 1 pill, waiting new SO urine culture result, sent message for to update
--- NOTE | 2018-07-25 14:36 | NUR ---
ANTIQUE CLOCK REPAIRER: ordered: continue home meds Ampicillin
[2018-07-25] MEDS: GUAIFENESIN LA 600 MG TABLET.SA PO SCH ×2 (15:01→21:08)
[2018-07-25] MEDS ORDERED: AMPI500C11 PO (15:34)
--- NOTE | 2018-07-25 16:30 | NUR ---
WASTEWATER PROJECT ENGINEER: SBP up to 150-155 now, continue titrate Cardene gtt, charge nurse and pharmacy are updated, pt.feels some burning sensation around PIVL, pt.refused for PICC, ok for midline
[2018-07-25] MEDS: AMPICILLIN 500 MG PO SCH ×2 (17:35→21:09)
[2018-07-25] MEDS: CARVEDILOL 6.25 MG TABLET PO SCH (17:35)
[2018-07-25 18:19] LABS: APPEARANCE,URINE SL CLOUDY (CLEAR); BILIRUBIN,URINE NEGATIVE (NEGATIVE); BLOOD, URINE 2+ Ery/uL (NEGATIVE); COLOR,URINE YELLOW (YELLOW); KETONES,URINE NEGATIVE (NEGATIVE); LEUKOCYTE ESTERASE ,URINE 1+ (NEGATIVE); NITRITE, URINE NEGATIVE (NEGATIVE); PROTEIN,URINE 2+ mg/dl (NEGATIVE); UGLUCOSE NEGATIVE (NEGATIVE); UROBILINOGEN,URINE 0.2 EU/dL (0.2)
--- NOTE | 2018-07-25 18:30 | NUR ---
CARBIDE TOOL DIE MAKER: pt. got again by me and charge nurse detailed report re pt.current status, meds, labs, orders, CXR, Cardene gtt, POC, nurse Dx, got MDs information to speak re Diagnosis, Prognosis, POC. pt. got Clonidine, Coreg, SBP is still 152-155, DBP 66-76, continue Cardene gtt 12.5 mg/h now, charge nurse updated, sent urine culture sample again follow new order, but PC shows "in process"
[2018-07-25 18:34] LABS: BACTERIA,URINE None seen /HPF (None Seen); CALCIUM OXALATE CRYSTALS,UR Rare /HPF (None Seen); SQUAMOUS EPITHELIAL CELL,UR Rare /HPF (None Seen)
--- NOTE | 2018-07-25 19:30 | NUR ---
IUC RN: RECEIVED PT A/O X 3. ON 4L 02 VIA NC WT NO ACUTE DISTRESS. NO C/O PAIN OR EVIDENCE OF DISCOMFORT. SR-SB ON DIRECTOR INDUSTRIAL MUSEUM WT OCCASIONAL PACs AND PVCs. NATHALIE MIDLINE INFUSING CARDENE DRIP AT 10 MG/HR FOR HYPERTENSION WT NO S/S OF IV INFILTRATION. AFEBRILE. F/C PATENT AND INTACT DRAINING YELLOW URINE TO GRAVITY. HOB AT 35 DEGREES. SAFETY PRECAUTION NOTED. CALL LIGHT KEPT WITHIN REACH.
[2018-07-25] MEDS: TERAZOSIN HCL 1 MG CAPSULE PO SCH (21:08)
[2018-07-25] MEDS: PRAVASTATIN SODIUM 20 MG TABLET PO SCH (21:08)
[2018-07-25] MEDS: ALPRAZOLAM 0.5 MG TABLET PO SCH (21:08)
[2018-07-25] MEDS ORDERED: ALPRAZOLAM 0.5 MG TABLET PO SCH (22:00)
[2018-07-25] MEDS ORDERED: TERAZOSIN HCL 1 MG CAPSULE PO SCH (22:00)
--- NOTE | 2018-07-25 23:15 | NUR ---
HANDLE FINISHER: XAVIER JACKSON HELD AT THIS TIME FOR SBP LESS THAN 110. WILL CONTINUE TO MONITOR.
[2018-07-26] VITALS (44 sets, daily range): BP systolic 101–195; BP diastolic 44–90
[2018-07-26 04:36] LABS: BASOPHILS # (AUTO) 0.1 /CMM (0.0-0.2); BASOPHILS % (AUTO) 0.7 % (0.0-2.0); EOSINOPHILS % (AUTO) 3.5 % (0.0-6.0); HEMATOCRIT 27 % (39-51); HEMOGLOBIN 8.9 g/dL (13.5-17.5); LYMPHOCYTES # (AUTO) 1.1 /CMM (0.8-4.8); LYMPHOCYTES % (AUTO) 13.9 % (20.0-44.0); MEAN CORPUSCULAR HGB CONC 33 g/dl (31.0-36.0); MEAN CORPUSCULAR VOLUME 88 fL (80-96); MONOCYTES # (AUTO) 1.1 /CMM (0.1-1.30); MONOCYTES % (AUTO) 14.6 % (2.0-12.0); NEUTROPHILS # (AUTO) 5.1 /CMM (1.8-8.9); NEUTROPHILS % (AUTO) 67.3 % (43.0-81.0); PLATELET COUNT (AUTO) 146 /CMM (150-450); RED BLOOD CELL COUNT(AUTO) 3.03 MIL/uL (4.5-6.0); WHITE BLOOD COUNT (AUTO) 7.6 K/uL (4.3-11.0)
[2018-07-26 04:53] LABS: ALANINE AMINOTRANSFERASE 17 U/L (12-78); ALBUMIN 2.7 g/dL (3.4-5.0); ALKALINE PHOSPHATASE 34 U/L (46-116); ASPARTATE AMINOTRANSFERASE 13 U/L (15-37); BILIRUBIN,TOTAL 0.6 mg/dL (0.2-1.0); CALCIUM, SERUM 7.8 mg/dL (8.5-10.1); CARBON DIOXIDE 26 mmol/L (21-32); CHLORIDE 100 mmol/L (98-107); CREATININE 5.2 mg/dL (0.6-1.3); GLUCOSE 103 mg/dL (74-106); MAGNESIUM 2.8 mg/dL (1.8-2.4); PHOSPHORUS 6.2 mg/dL (2.5-4.9); POTASSIUM 3.2 mmol/L (3.5-5.1); SODIUM SERUM 137 mmol/L (136-145); TOTAL PROTEIN, SERUM 5.7 g/dL (6.4-8.2); UREA NITROGEN, BLOOD 66 mg/dL (7-18)
--- NOTE | 2018-07-26 06:15 | NUR ---
THERAPIST SPEECH: PT DESATURATED WT 02 SAT. AT 88% WHILE IN DEEP SLEEP. PLACED ON 5L 02 VIA NC WT BUBBLE HUMIDIFIER. TOLERATED WELL AND 02 SAT GOES BACK TO 92% AND ABOVE PARTICULARLY WHEN WIDE AWAKE. REMAINED A/O X 3. REFUSED BED BATH. PARTIAL LINENS CHANGED. ALL NEEDS MET. WILL ENDORSE TO DAY SHIFT FOR CONTINUITY OF CARE.
--- NOTE | 2018-07-26 07:45 | NUR ---
SEMI AUTOMATIC SEWING MACHINE OPERATOR: pt.is A/Ox3, no pain, no c/o, O2sat. is over 96% on 4 L n/c, SR, SBP is around 140 now, Cardene gtt is off, K 3.3/will s/w , , are in room, updated, see new orders
[2018-07-26] MEDS ORDERED: POTASSIUM CHLORIDE 20 MEQ TAB.PRT.SR PO ONE (08:00)
--- NOTE | 2018-07-26 08:29 | NUR ---
STRUCTURER: little pain sensation with L.f/a PIVL NS flushing, no skin redness, no edema, removed PIVL, is in room, updated with all above, ordered: Tessalon and verify with pt.pharmacy and [facility] pharmacy Procrit order, ok for tele transfer
[2018-07-26] MEDS: NIFEdipine XL (30MG) 30 MG TAB PO SCH (08:47)
[2018-07-26] MEDS: GUAIFENESIN LA 600 MG TABLET.SA PO SCH ×2 (08:47→20:47)
[2018-07-26] MEDS: SPIRONOLACTONE 25 MG TABLET PO SCH (08:48)
[2018-07-26] MEDS: AMPICILLIN 500 MG PO SCH ×4 (08:48→20:47)
[2018-07-26] MEDS: CLONIDINE HCL 0.1 MG TABLET PO SCH ×2 (08:48→17:03)
[2018-07-26] MEDS: ASPIRIN 81 MG TAB.CHEW PO SCH (08:48)
[2018-07-26] MEDS: PAROXETINE HCL 10 MG TABLET PO SCH (08:48)
[2018-07-26] MEDS: MINOXIDIL (2.5MG) 2.5 MG TABLET PO SCH (08:49)
--- NOTE | 2018-07-26 09:45 | NUR ---
EQUINE INTERNSHIP: notified pharmacy to get Metolazone for pyxis
--- NOTE | 2018-07-26 10:01 | NUR ---
DOOR TECHNICIAN: pt. got [facility] pharmacy fax #, full report is given for YULISSA Worley
--- NOTE | 2018-07-26 10:10 | NUR ---
LENS EDGER: pt.used bedside commode (refuse for bedpan), desaturated to 88-90%, feels same anxiety, SR, RR 24-26, SBP up to 170, placed on O2mask
--- NOTE | 2018-07-26 10:26 | NUR ---
LSW: pt.is rest now, no SOB, O2sat. 98-100 on 5L O2 n/c, SR, SBP 136, ok for transfer
--- NOTE | 2018-07-26 10:45 | NUR ---
MAT PACKER NOTES PT ARRIVED ONTO THE UNIT VIA HOSPITAL BED @1045 ACCOMPANIED BY FAMILY. PT TRANSPORTED VIA ACLS PROTOCOL. PT ON 4L O2 VIA NASAL CANNULA. PT HAS A LEFT UPPER ARM MIDLINE, AND A LEFT FOREARM #18 IV, BOTH INTACT AND PATENT. PT HAS A CUETO CATHETER DRAINING WELL. PT HAS RIGHT SIDED WEAKNESS PT STATES FROM PREVIOUS CVA. PT CURRENTLY TELE MONITORED AT NSR W/PACS RATE IN THE 60S. PT VITAL SIGNS STABLE AND WITHIN NORMAL LIMITS. SAFETY PRECAUTIONS IN PLACE, BED IN LOWEST LOCKED POSITION, X2 SIDE RAILS UP AND CALL LIGHT WITHIN REACH. WILL CONTINUE TO MONITOR.
[2018-07-26] MEDS: METOLAZONE 2.5 MG TABLET PO SCH (11:15)
[2018-07-26] MEDS ORDERED: EPOE1VIA12 SQ (12:39)
[2018-07-26] MEDS: BENZONATATE 100 MG CAPSULE PO PRN (13:10)
[2018-07-26] MEDS ORDERED: ALBU2.5V38 NEB (13:21)
[2018-07-26] MEDS: ALBUTEROL FS 2.5 MG/3 ML VIAL.NEB NEB PRN ×3 (13:47→18:58)
--- NOTE | 2018-07-26 16:05 | NUR ---
RT PT ASSESSED WITH CLEAR BREATHE SOUNDS. SpO2 AT 95%, PT STATES HE FEELS OK AT THIS TIME. RN NOTIFIED AND AWARE.
[2018-07-26] MEDS: CARVEDILOL 6.25 MG TABLET PO SCH (17:03)
--- NOTE | 2018-07-26 19:00 | NUR ---
RT NOTES RT CALLED TO BEDSIDE TO CHECK PT FOR DESATTING. PT ON SIMPLE MASK AT 5L WITH 88-90% SATURATION. AT 1900 RAPID RESPONSE CALLED AND ARRIVED AT 1905. RNS JORGE NEIL, EVGENY GUAJARDO LIA AND RTS KAREN GOEL JILLIAN, MARCUS PRESENT BEDSIDE. PT SWITCHED TO NON REBREATHER AT 15L; O2 AT 94% SATURATION. ABG WAS DRAWN AT 1915. 192 PT TRANSFERRED TO ICU VIA ACLS PROTOCOL ROOM 257.
--- NOTE | 2018-07-26 19:05 | NUR ---
RT RT CALLED TO BEDSIDE FOR HHN PRN TX FOR SOB. TX STOPPED MID WAY PER ORDER. Addendum: 07/26/18 at 2056 by WEN FRANKLIN RT Amended: Links added.
[2018-07-26 19:24] LABS: ABG BASE EXCESS -5.9 mmol/L; ABG OXYGEN SATURATION 93.7 % (92.0-98.5); ABG PCO2 66.4 mmHg (35.0-45.0); ABG PH 7.165 (7.350-7.450); ABG PO2 92.5 mmHg (75.0-100.0); AaDO2 554.1 mmHg; COHb 0.7 % (0.5-1.5); MetHb 0.7 % (0.0-1.5); O2Hb 92.4 % (94.0-97.0); SITE, ABG Left Radial; VENT MODE, BG NON REBREATHER
--- NOTE | 2018-07-26 19:56 | NUR ---
MARINE FISHERIES TECHNICIAN NOTES AT 1840 PT IN BED SITTING ON THE BED; SPOUSE APPROACHED RN TO CHECK PT. RN CAME IN AND ASSESS. OXYGEN AT 5L VIA SIMPLE MASK WITH 90-92% SATURATION. SPOUSE CLAIMED RESIDENT NOT BREATHING WELL AND RT WAS PAGED AT THIS TIME, RT ARRIVED AT 1845 AND GAVE ORDERED BREATHING TREATMENT. PAGED DR ESPINOSA AT 1850; CALLED BACK AT 1705. MD MADE AWARE OF THE PT'S CURRENT VITALS AND ECG TRACING WITH NORMAL SINUS RHYTHYM AT 90S. ADVISED TO STOP BREATHING TREATMENT; RN OFFERED TO HAVE ANTIANXIETY MEDICATION, DECLINED RECOMMENDATION. AT 1900 RAPID RESPONSE CALLED AND ARRIVED AT 1905. RNS JORGE NEIL, EVGENY GUAJARDO, AMANDO PABON AND RTS KHRIS JONES MARCUS, STEELE PRESENT BEDSIDE. SWITCH TO NON REBREATHER AT 15L; O2 AT 93% SATURATION. CHECKED BS AT 191 RESULTED 158 AND ABG WAS DRAWN AT 191. 1920 PT TRANSFERRED TO ICU VIA ACLS PROTOCOL ROOM 257, TELEMONITOR NORMAL SINUS RHYTHYM. 1929 REPORT GIVEN TO ED WHARF OPERATOR. ALL BELONGINGS, MEDS SENT WITH THE PT DURING TRIP TRANSFER. 1936 FAMILY WENT TO ICU.
--- NOTE | 2018-07-26 20:09 | NUR ---
STEPDOWN NURSE NOTES RECEIVED PT FROM ICU NURSE. PT A/O X 4 , LETHARGIC. ON BIPAP SATURATING 100%. ON TELE MONITOR SR WITH BBB AND PAC. CUETO CATH DRAINING YELLOW URINE. WITH IV ACCESS NATHALIE MIDLINE AND LFA G18 , PATENT AND INTACT. WILL MONITOR PT CLOSELY.
--- NOTE | 2018-07-26 20:17 | NUR ---
EMT DISPATCHER NOTES PO MEDS NOT GIVEN. PT LETHARGIC, ON BIPAP ASPIRATION RISK. WILL MONITOR PT CLOSELY.
[2018-07-26] MEDS: PRAVASTATIN SODIUM 20 MG TABLET PO SCH (21:13)
[2018-07-26] MEDS: TERAZOSIN HCL 1 MG CAPSULE PO SCH (21:13)
[2018-07-26] MEDS: ALPRAZOLAM 0.5 MG TABLET PO SCH (21:13)
--- NOTE | 2018-07-26 22:00 | NUR ---
VOCATIONAL REHABILITATION SUPERVISOR NOTES PAGED DATABASE ADMINISTRATION ASSOCIATE OF BP 166/92. PER DR JAY. NO NEW ORDERS, UPDATE HIM IF THE BP IS ABOVE 170 SYSTOLIC
[2018-07-27] VITALS (33 sets, daily range): BP systolic 117–169; BP diastolic 53–92
--- NOTE | 2018-07-27 00:05 | NUR ---
LOADING MACHINE ADJUSTER NOTES PT REFUSING REPOSITIONING AND BEDBATH. PER PT HE JUST HAD IT A DAY AGO.
[2018-07-27 01:54] LABS: ABG BASE EXCESS -3.4 mmol/L; ABG OXYGEN SATURATION 94.1 % (92.0-98.5); ABG PCO2 40.5 mmHg (35.0-45.0); ABG PH 7.351 (7.350-7.450); ABG PO2 81.9 mmHg (75.0-100.0); COHb 0.7 % (0.5-1.5); MetHb 0.5 % (0.0-1.5); SITE, ABG Right Brachial
[2018-07-27] MEDS: ACETAMINOPHEN 325 MG TABLET PO PRN (02:13)
[2018-07-27] MEDS: ALBUTEROL FS 2.5 MG/3 ML VIAL.NEB NEB PRN (03:40)
[2018-07-27 04:37] LABS: BASOPHILS % (AUTO) 0.3 % (0.0-2.0); EOSINOPHILS % (AUTO) 1.5 % (0.0-6.0); HEMATOCRIT 28 % (39-51); HEMOGLOBIN 9.3 g/dL (13.5-17.5); LYMPHOCYTES # (AUTO) 0.7 /CMM (0.8-4.8); LYMPHOCYTES % (AUTO) 6.8 % (20.0-44.0); MEAN CORPUSCULAR HGB CONC 34 g/dl (31.0-36.0); MEAN CORPUSCULAR VOLUME 88 fL (80-96); MONOCYTES # (AUTO) 1.1 /CMM (0.1-1.30); MONOCYTES % (AUTO) 10.8 % (2.0-12.0); NEUTROPHILS # (AUTO) 7.8 /CMM (1.8-8.9); NEUTROPHILS % (AUTO) 80.6 % (43.0-81.0); PLATELET COUNT (AUTO) 151 /CMM (150-450); RED BLOOD CELL COUNT(AUTO) 3.11 MIL/uL (4.5-6.0); WHITE BLOOD COUNT (AUTO) 9.7 K/uL (4.3-11.0)
[2018-07-27 04:44] LABS: CALCIUM, SERUM 8.2 mg/dL (8.5-10.1); CARBON DIOXIDE 25 mmol/L (21-32); CHLORIDE 101 mmol/L (98-107); CREATININE 5.8 mg/dL (0.6-1.3); GLUCOSE 108 mg/dL (74-106); POTASSIUM 3.1 mmol/L (3.5-5.1); SODIUM SERUM 138 mmol/L (136-145); UREA NITROGEN, BLOOD 73 mg/dL (7-18)
[2018-07-27 04:46] LABS: IRON, SERUM 29 ug/dl (50-175); TOTAL IRON BINDING CAPACITY 312 ug/dl (250-450)
[2018-07-27 04:58] LABS: FERRITIN 74 ng/mL (8-388)
[2018-07-27] MEDS: GUAIFENESIN LA 600 MG TABLET.SA PO SCH ×2 (07:26→20:15)
--- NOTE | 2018-07-27 07:47 | NUR ---
SUPERVISOR OF GUIDANCE AND TESTING INITIAL NOTES: RECEIVED PT FROM NIGHTSHIFT NURSE IN STABLE CONDITION. PT IS A/O X4. NO SOB OR ACUTE SIGNS OF DISTRESS NOTED. BREATHING IS EVEN AND UNLABORED. PT ON BIPAP 18/5 WITH A RATE OF 16 AND AN FIO2 OF 50% AND A CURRENT 02 SAT OF 96%. HE DENIES ANY PAIN AT THIS TIME. CUETO CATHETER NOTED TO BE INTACT AND DRAINING. LEFT UPPER ARM MIDLINE AND LEFT FA PERIPHERAL IVS NOTED TO BE PATENT AND INTACT. NO REDNESS OR SIGNS OF INFILTRATION NOTED. BED IN LOW LOCKED POSITION, SIDE RIALS UP X2, CALL LIGHT WITHIN REACH. WILL CONTINUE TO MONITOR
--- NOTE | 2018-07-27 07:56 | NUR ---
BIPAP REMOVED BY RT. PT PLACED ON NC @4L/MIN. PT CURRENTLY SATING AT 94%. ABGS ORDERED PER PROTOCOL
[2018-07-27] MEDS: MINOXIDIL (2.5MG) 2.5 MG TABLET PO SCH (08:18)
[2018-07-27] MEDS: ASPIRIN 81 MG TAB.CHEW PO SCH (08:18)
[2018-07-27] MEDS: PAROXETINE HCL 10 MG TABLET PO SCH (08:18)
[2018-07-27] MEDS: NIFEdipine XL (30MG) 30 MG TAB PO SCH (08:18)
[2018-07-27] MEDS: CLONIDINE HCL 0.1 MG TABLET PO SCH ×2 (08:18→16:56)
[2018-07-27] MEDS: SPIRONOLACTONE 25 MG TABLET PO SCH (08:19)
--- NOTE | 2018-07-27 08:40 | NUR ---
PT PLACED BACK ON BIPAP (18/5, R 16, F1O2 40%) HE BEGAN TO DESAT TO MID 80S ON 4L VIA NC.
[2018-07-27] MEDS ORDERED: POTASSIUM CHLORIDE 10 MEQ TABLET.SA PO ONE ×2 (09:30→10:30)
--- NOTE | 2018-07-27 09:49 | NUR ---
PT'S AMPICILLIN DOSE DELIVERED FROM PHARMACIST. AWAITING METOLAZONE DOSE TO BE DELIVERED WELL.
[2018-07-27] MEDS: AMPICILLIN 500 MG PO SCH ×4 (10:30→20:15)
[2018-07-27 11:43] LABS: ABG BASE EXCESS -4.2 mmol/L; ABG OXYGEN SATURATION 91.3 % (92.0-98.5); ABG PCO2 37.6 mmHg (35.0-45.0); ABG PO2 67.7 mmHg (75.0-100.0); AaDO2 174.3 mmHg; COHb 0.8 % (0.5-1.5); MetHb 0.8 % (0.0-1.5); O2Hb 89.8 % (94.0-97.0); SITE, ABG Right Radial; VENT MODE, BG ST 18/5 40% rr 16
[2018-07-27] MEDS: METOLAZONE 2.5 MG TABLET PO SCH (11:50)
[2018-07-27] MEDS: BENZONATATE 100 MG CAPSULE PO PRN (11:51)
--- NOTE | 2018-07-27 12:00 | NUR ---
DIRECTORY CLERK NOTES: ABG RESULTS RESULTS OF 1200 ABG RESULTS RELAYED TO DR. PERSON. PER MD "HAVE RT TITRATE FIO2 AND REMAIN PT ON BIPAP". RT MADE AWARE. FIO2 TITRATED TO 75%.
[2018-07-27] MEDS: BENZONATATE 100 MG CAPSULE PO SCH ×2 (12:21→16:57)
[2018-07-27] MEDS: ONDANSETRON HCL/PF 4 MG/2 ML VIAL IVP PRN (12:41)
[2018-07-27] MEDS ORDERED: BUMETANIDE INJ 4 MG in IV D5W 24 ML IV ONE (13:00)
[2018-07-27] MEDS: IPRATROPIUM NEB FS 0.5 MG/2.5 ML AMPUL.NEB NEB SCH ×4 (13:25→22:42)
[2018-07-27] MEDS ORDERED: FEE PK DOSING 1 MIN EA MC ONE (13:25)
[2018-07-27 13:42] LABS: ABG BASE EXCESS -6.7 mmol/L; ABG OXYGEN SATURATION 98.5 % (92.0-98.5); ABG PCO2 37.4 mmHg (35.0-45.0); ABG PH 7.319 (7.350-7.450); ABG PO2 179.1 mmHg (75.0-100.0); AaDO2 496.5 mmHg; COHb 0.5 % (0.5-1.5); MetHb 0.6 % (0.0-1.5); O2Hb 97.4 % (94.0-97.0); SITE, ABG Left Radial; VENT MODE, BG ST 22/8 100% RR 16
[2018-07-27] MEDS: CARVEDILOL 6.25 MG TABLET PO SCH (17:02)
--- NOTE | 2018-07-27 18:45 | NUR ---
SAFETY SUPERVISOR CLOSING NOTES PT REMAINS STABLE ON BIPAP (12/02, RATE 16, FI02 75%). HE IS CURRENTLY SATING AT 98%. NO SOB OR ACUTE SIGNS OF DISTRESS NOTED. BP STABLE AT THIS TIME. AM AND PRN CARE PROVIDED. PT REPOSITIONED DIRECTED. SAFETY MEASURES IN PLACE. CUETO CATHETER REMAINS PATENT AND INTACT. PT HAD A TOTAL OF 1200CC URINE OUTPUT. SAFETY MEASURES REMAIN IN PLACE. WILL ENDORSE TO NIGHTSHIFT RN FOR JONATAN
--- NOTE | 2018-07-27 20:00 | NUR ---
ANNUAL CAMPAIGN MANAGER - NOTES - PT ON BIPAP (12/02, RATE 16, FI02 75%). HE IS CURRENTLY SATING AT 98%. NO SOB OR ACUTE SIGNS OF DISTRESS NOTED. PT IS AWAKE ALERT BP STABLE AT THIS TIME. PT REPOSITIONED DIRECTED. SAFETY MEASURES IN PLACE. CUETO CATHETER REMAINS PATENT AND INTACT WITH ADEQUATE URINE OUTPUT. SAFETY MEASURES REMAIN IN PLACE. PT AT BEDSIDE UPDATED ON PLAN OF CARE. WILL ENDORSE TO NIGHTSHIFT RN FOR JONATAN
[2018-07-27] MEDS: PRAVASTATIN SODIUM 20 MG TABLET PO SCH (21:13)
[2018-07-27] MEDS: TERAZOSIN HCL 1 MG CAPSULE PO SCH (21:13)
[2018-07-27] MEDS: ALPRAZOLAM 0.5 MG TABLET PO PRN (21:19)
[2018-07-28] VITALS (36 sets, daily range): BP systolic 96–139; BP diastolic 40–82
[2018-07-28] MEDS: IPRATROPIUM NEB FS 0.5 MG/2.5 ML AMPUL.NEB NEB SCH ×6 (03:08→23:18)
[2018-07-28 04:43] LABS: BASOPHILS % (AUTO) 0.5 % (0.0-2.0); EOSINOPHILS % (AUTO) 0.3 % (0.0-6.0); HEMATOCRIT 27 % (39-51); HEMOGLOBIN 8.9 g/dL (13.5-17.5); LYMPHOCYTES # (AUTO) 0.3 /CMM (0.8-4.8); LYMPHOCYTES % (AUTO) 3.8 % (20.0-44.0); MEAN CORPUSCULAR HGB CONC 33 g/dl (31.0-36.0); MEAN CORPUSCULAR VOLUME 89 fL (80-96); MONOCYTES # (AUTO) 1.1 /CMM (0.1-1.30); NEUTROPHILS # (AUTO) 5.9 /CMM (1.8-8.9); NEUTROPHILS % (AUTO) 80.4 % (43.0-81.0); PLATELET COUNT (AUTO) 134 /CMM (150-450); WHITE BLOOD COUNT (AUTO) 7.4 K/uL (4.3-11.0)
[2018-07-28 04:54] LABS: ALANINE AMINOTRANSFERASE 15 U/L (12-78); ALBUMIN 2.8 g/dL (3.4-5.0); ALKALINE PHOSPHATASE 30 U/L (46-116); ASPARTATE AMINOTRANSFERASE 16 U/L (15-37); BILIRUBIN,TOTAL 0.6 mg/dL (0.2-1.0); CARBON DIOXIDE 22 mmol/L (21-32); CHLORIDE 100 mmol/L (98-107); CREATININE 6.5 mg/dL (0.6-1.3); GLUCOSE 103 mg/dL (74-106); MAGNESIUM 2.8 mg/dL (1.8-2.4); PHOSPHORUS 6.9 mg/dL (2.5-4.9); POTASSIUM 3.2 mmol/L (3.5-5.1); SODIUM SERUM 137 mmol/L (136-145); TOTAL PROTEIN, SERUM 6.1 g/dL (6.4-8.2)
[2018-07-28 05:08] LABS: UREA NITROGEN, BLOOD 86 mg/dL (7-18)
[2018-07-28] MEDS: ACETAMINOPHEN 325 MG TABLET PO PRN ×2 (05:45→15:57)
--- NOTE | 2018-07-28 07:00 | NUR ---
RN NOTES RECEIVED PT ON BED , LETHARGIC, EASY TO AROUSE , ON BIPAP , O2 SAT 99%, TOLERATING CURRENT BIPAP SETTING WELL, ON TELE SR WITH PVC'S , HR IN 60'S , CUETO DRINING TO GRAVITY , L UPPER ARM MIDLINE AND L AC IV SITE G 18 CLEAN ,DRY INTACT, SR UP x3, CALL LIGHT WITHIN EASY REACH, BED LOCKED AND IN LOWEST POSITION, CONTINUE TO MONITOR .
[2018-07-28] MEDS: AMPICILLIN 500 MG PO SCH ×4 (08:08→21:27)
[2018-07-28] MEDS: GUAIFENESIN LA 600 MG TABLET.SA PO SCH ×2 (08:08→21:27)
[2018-07-28] MEDS: ASPIRIN 81 MG TAB.CHEW PO SCH (08:09)
[2018-07-28] MEDS: PAROXETINE HCL 10 MG TABLET PO SCH (08:09)
[2018-07-28] MEDS: SPIRONOLACTONE 25 MG TABLET PO SCH (08:09)
[2018-07-28] MEDS: BENZONATATE 100 MG CAPSULE PO SCH ×3 (08:10→16:00)
[2018-07-28] MEDS: METOLAZONE 2.5 MG TABLET PO SCH (08:11)
[2018-07-28] MEDS: MINOXIDIL (2.5MG) 2.5 MG TABLET PO SCH (08:13)
[2018-07-28] MEDS: NIFEdipine XL (30MG) 30 MG TAB PO SCH (08:13)
[2018-07-28] MEDS: CLONIDINE HCL 0.1 MG TABLET PO SCH ×2 (08:23→16:01)
--- NOTE | 2018-07-28 08:30 | NUR ---
RN NOTES DR SUNG AT THE BEDSIDE SPEAKING TO PT AND HIS REGARDING HD CATH INSERTION AND HEMODIALYSIS .
[2018-07-28 09:16] LABS: ABG BASE EXCESS -5.8 mmol/L; ABG PCO2 38.4 mmHg (35.0-45.0); ABG PH 7.328 (7.350-7.450); COHb 0.5 % (0.5-1.5); MetHb 0.5 % (0.0-1.5); SITE, ABG Left Radial; VENT MODE, BG BIPAP 22/8 75%
--- NOTE | 2018-07-28 09:45 | NUR ---
RN NOTES DR PERSON NOTIFIED , REGARDING ABG RESULTS , NEW ORDER RECEIVED . CONTINUE TO MONITOR .
--- NOTE | 2018-07-28 10:00 | NUR ---
RN NOTES PT AND FAMILY REFUSED AM CARE .
[2018-07-28] MEDS ORDERED: BUMETANIDE INJ 6 MG in IV D5W 36 ML IV ONE (10:30)
--- NOTE | 2018-07-28 11:00 | NUR ---
RN NOTES DR CRYSTAL AT THE BEDSIDE, EXPLAINED RISK OF WAITING TO PT AND HIS REGARDING HEMODIALYSIS.
--- NOTE | 2018-07-28 11:00 | NUR ---
RN NOTES PATIENT STATED, HE WANTS HIS TO SIGN CONSENT FOR HD CATH PLACEMENT. PT IS A/OX4 AND PT REFUSED TO SIGN THE CONSENT .
--- NOTE | 2018-07-28 11:00 | NUR ---
RN NOTES PT AND FAMILY REFUSED AM CARE .
--- NOTE | 2018-07-28 11:30 | NUR ---
RN NOTES DR CRYSTAL NOTIFED REGARDING K =3.2, NO NEW ORDER RECEIVED , CONTINUE TO MONITOR .
--- NOTE | 2018-07-28 11:37 | NUR ---
RT RECD PT ON BIPAP BAG AND MASK AT HOB, TX GIVEN TOSIN ORDERED SETTINGS ABG DRAWN DECREASED 02 50% TOSIN WELL
--- NOTE | 2018-07-28 12:00 | NUR ---
RN NOTES DR ESPINOSA AT THE BEDSIDE EXPLAINING TO PT REGARDING HOW IMPORTANT IS TO GET HD DONE SOON POSSIBLE.
--- NOTE | 2018-07-28 14:43 | NUR ---
RN NOTES PT AND FAMILY STILL REFUSING HYGIENE CARE .
--- NOTE | 2018-07-28 16:00 | NUR ---
RN NOTES T=100.8 AXILLARY, DR ESPINOSA NOTIFIED , TYLENOL 650 PO GIVEN x1, CONTINUE TO MONITOR .
--- NOTE | 2018-07-28 16:00 | NUR ---
RN NOTES PT'S STATING THAT NO PHYSICIAN HAS TALKED TO HER ABOUT HEMODIALYSIS AND HD CATH INSERTION. SHE REFUSED TO SIGN CONSENT, SHE ALSO WANTS DR ESPINOSA TO START THE PATIENT ON IV ABX BECAUSE, SHE THINKS THERE IS SOMETHING WRONG WITH THE PATIENT'S LUNG . DR ESPINOSA PAGED AND NOTIFED .
--- NOTE | 2018-07-28 16:30 | NUR ---
RN NOTES DR ESPINOSA CALLED BACK AND SPOKE TO PATIENT'S SON ON THE PHONE . STILL REFUSED TO SIGN THE CONSENT FOR HD CATH PLACEMENT . SHE WANTS MD TO START IV ABX FOR THE PATIENT'S LUNG PROBLEM .
--- NOTE | 2018-07-28 18:00 | NUR ---
RN NOTES PT STABLE, STILL ON BIPAP, STILL REFUSING TO SIGN THE CONSENT FOR HD CATH PLACEMENT . WILL ENDOSE TO EQUIPMENT SALES SPECIALIST NURSE FOR CONTINUITY OF CARE .
[2018-07-28] MEDS: CARVEDILOL 6.25 MG TABLET PO SCH (18:09)
[2018-07-28 19:04] LABS: APPEARANCE,URINE SL CLOUDY (CLEAR); BILIRUBIN,URINE NEGATIVE (NEGATIVE); BLOOD, URINE 2+ Ery/uL (NEGATIVE); COLOR,URINE YELLOW (YELLOW); KETONES,URINE NEGATIVE (NEGATIVE); LEUKOCYTE ESTERASE ,URINE 1+ (NEGATIVE); NITRITE, URINE NEGATIVE (NEGATIVE); PH,URINE 5.5 (5.0-8.0); PROTEIN,URINE 1+ mg/dl (NEGATIVE); UGLUCOSE NEGATIVE (NEGATIVE); UROBILINOGEN,URINE 0.2 EU/dL (0.2)
[2018-07-28 19:17] LABS: BACTERIA,URINE Few /HPF (None Seen); SQUAMOUS EPITHELIAL CELL,UR Rare /HPF (None Seen)
--- NOTE | 2018-07-28 20:00 | NUR ---
APPLICATION DEFENSE MANAGER - NOTES - PT ON BIPAP (12/02, RATE 16, FI02 50%). HE IS CURRENTLY SATING AT 95%. NO SOB OR ACUTE SIGNS OF DISTRESS NOTED. PT IS AWAKE ALERT BP STABLE AT THIS TIME. PT REPOSITIONED DIRECTED. SAFETY MEASURES IN PLACE. CUETO CATHETER REMAINS PATENT AND INTACT WITH ADEQUATE URINE OUTPUT. SAFETY MEASURES REMAIN IN PLACE. PT AT BEDSIDE UPDATED ON PLAN OF CARE. WILL CONTINUE TO MONITOR
--- NOTE | 2018-07-28 20:57 | NUR ---
PT RECEIVED ON BIPAP AWAKE AND ALERT. PT TOLERATING SETTINGS. MEPILEX IN PLACE AROUND THE BRIDGE OF THE NOSE. SKIN INTACT. BIPAP ALARMS SET AND AUDIBLE. WILL CONTINUE TO MONITOR. Addendum: 07/28/18 at 2057 by TOÑO MA RT Amended: Links added.
--- NOTE | 2018-07-28 21:00 | NUR ---
pt says the pt does not eat bread because he is intolerant to gluten
[2018-07-28] MEDS: TERAZOSIN HCL 1 MG CAPSULE PO SCH (21:27)
[2018-07-28] MEDS: PRAVASTATIN SODIUM 20 MG TABLET PO SCH (21:28)
[2018-07-28] MEDS: ALPRAZOLAM 0.5 MG TABLET PO PRN (21:51)
--- NOTE | 2018-07-28 22:37 | NUR ---
RIGHT FEMORAL HD CATHETER PLACED BY NAVIN JAY, 13 FR 24 CM HD CATHETER WITH PIGTAIL, TOLERATED WELL, VSS, NO BLEEDING
[2018-07-29] VITALS (60 sets, daily range): BP systolic 86–164; BP diastolic 42–90
[2018-07-29] MEDS: IPRATROPIUM NEB FS 0.5 MG/2.5 ML AMPUL.NEB NEB SCH ×6 (03:13→23:27)
[2018-07-29 04:46] LABS: BASOPHILS % (AUTO) 0.4 % (0.0-2.0); EOSINOPHILS % (AUTO) 0.1 % (0.0-6.0); HEMATOCRIT 27 % (39-51); HEMOGLOBIN 8.8 g/dL (13.5-17.5); LYMPHOCYTES # (AUTO) 0.3 /CMM (0.8-4.8); LYMPHOCYTES % (AUTO) 4.9 % (20.0-44.0); MEAN CORPUSCULAR HGB CONC 33 g/dl (31.0-36.0); MEAN CORPUSCULAR VOLUME 88 fL (80-96); MONOCYTES # (AUTO) 0.9 /CMM (0.1-1.30); MONOCYTES % (AUTO) 13.8 % (2.0-12.0); NEUTROPHILS # (AUTO) 5.4 /CMM (1.8-8.9); NEUTROPHILS % (AUTO) 80.8 % (43.0-81.0); PLATELET COUNT (AUTO) 126 /CMM (150-450); RED BLOOD CELL COUNT(AUTO) 3.02 MIL/uL (4.5-6.0); WHITE BLOOD COUNT (AUTO) 6.7 K/uL (4.3-11.0)
[2018-07-29 05:04] LABS: CALCIUM, SERUM 7.8 mg/dL (8.5-10.1); CARBON DIOXIDE 23 mmol/L (21-32); CHLORIDE 96 mmol/L (98-107); GLUCOSE 102 mg/dL (74-106); SODIUM SERUM 134 mmol/L (136-145)
[2018-07-29 05:14] LABS: UREA NITROGEN, BLOOD 109 mg/dL (7-18)
[2018-07-29 05:15] LABS: CREATININE 7.8 mg/dL (0.6-1.3)
--- NOTE | 2018-07-29 08:00 | NUR ---
PT SEEN BY DR SUNG. NO NEW ORDERS.
--- NOTE | 2018-07-29 08:00 | NUR ---
Dr Baum is here to see pt. updated on labs, no replacement. will correct by hd.
--- NOTE | 2018-07-29 08:15 | NUR ---
DR CRYSTAL PAGED TO REPORT LABS AND TO FOLLOW UP [place] HD ORDERS AND SCHEDULE.
--- NOTE | 2018-07-29 08:32 | NUR ---
AT 0705 PT NOTED TO BE IN A FIB HR 99-125. DR SUNG NOTIFIED. NO NEW ORDERS.
[2018-07-29] MEDS: ACETAMINOPHEN 325 MG TABLET PO PRN (09:22)
[2018-07-29] MEDS: SPIRONOLACTONE 25 MG TABLET PO SCH (09:23)
[2018-07-29] MEDS: PAROXETINE HCL 10 MG TABLET PO SCH (09:23)
[2018-07-29] MEDS: GUAIFENESIN LA 600 MG TABLET.SA PO SCH ×2 (09:23→20:20)
[2018-07-29] MEDS: ASPIRIN 81 MG TAB.CHEW PO SCH (09:23)
[2018-07-29] MEDS: BENZONATATE 100 MG CAPSULE PO SCH ×3 (09:27→17:44)
[2018-07-29] MEDS: AMPICILLIN 500 MG PO SCH ×4 (09:29→20:21)
--- NOTE | 2018-07-29 10:20 | NUR ---
HD initiated first time. bp meds held ok by Dr Corrales.
[2018-07-29] MEDS: MINOXIDIL (2.5MG) 2.5 MG TABLET PO SCH (12:58)
[2018-07-29] MEDS: NIFEdipine XL (30MG) 30 MG TAB PO SCH (12:58)
[2018-07-29] MEDS: METOLAZONE 2.5 MG TABLET PO SCH (12:59)
[2018-07-29] MEDS: CLONIDINE HCL 0.1 MG TABLET PO SCH ×2 (12:59→17:43)
[2018-07-29] MEDS ORDERED: EPOETIN ALFA (4000 UNIT) 4,000 UNIT/ML VIAL IV ONE (15:00)
[2018-07-29] MEDS: SOD FERRIC GLUC 125 MG in IV NS 0.9% 100 ML IV SCH (15:15)
[2018-07-29] MEDS: CARVEDILOL 6.25 MG TABLET PO SCH (17:44)
--- NOTE | 2018-07-29 18:05 | NUR ---
RT END OF THE SHIFT REPORT; PT. 73 Y OLD MALE REC. @0700 AM ON BIPAP WITH NOTED SETTINGS (IPAP/EPAP 22/8, BUR 16, FIO2 50%, PS 14) WITH NOTED SETTINGS, ALARMS ARE SET. BIPAP ON RED OUTLET, AMBU BAG AT THE BEDSIDE. EQUAL CHEST RISE NOTED. PT. AWAKE, AND RESPONSIVE, PT. TOSIN. WELL AND B/S BILATERALLY RALES, TX'S GIVEN Q4 INLINE AND TOSIN. WELL NO ADVERSE REACTION NOTED. CONTINUE TO MONITOR AND REPORT WILL PASS TO PM SHIFT. PT. OFF BIPAP FOR EATING @1240, AND TIME OFF BIPAP WAS GIVEN UNTIL @ 1400 T/O DAY TOSIN. WELL AND NO DISTRESS NOTED . Addendum: 07/29/18 at 1811 by ROMANA COON RT Amended: Links added.
--- NOTE | 2018-07-29 18:45 | NUR ---
pt sat 90-92% on curet bipap settings. diminished breath sounds on the left. Dr Vincent notified ok to get cxr and abg.
--- NOTE | 2018-07-29 19:31 | NUR ---
FRONT DESK. INITIAL ASSESSMENT. RECEIVED THE PT REST ON THE BED. AWAKE, ALERT, FOLLOW COMMANDS. 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 BIPAP ON. SETTINGS 22/8,RATE 16,FIO2 50%. SAT 98%. NO ACUTE DISTRESS NOTED. IV LT UPPER ARM PICC LINE, RT FEMORAL HD CATH. SALINE LOCK. FC PATENT. HOB ELEVATED. WILL CONTINUE TO MONITOR VITALS.
[2018-07-29 19:32] LABS: ABG OXYGEN SATURATION 62.3 % (92.0-98.5); ABG PCO2 43.9 mmHg (35.0-45.0); ABG PH 7.349 (7.350-7.450); ABG PO2 36.5 mmHg (75.0-100.0); AaDO2 270.6 mmHg; COHb 0.6 % (0.5-1.5); MetHb 0.7 % (0.0-1.5); O2Hb 61.5 % (94.0-97.0); SITE, ABG Right Radial
--- NOTE | 2018-07-29 20:06 | NUR ---
SCREEDMAN. ABG RESULT DR PERSON MADE AWARE. NO ACUTE DISTRESS NOTED. RESPIRATORY RATE IS 16. WILL CONTINUE TO MONITOR VITALS.
--- NOTE | 2018-07-29 21:39 | NUR ---
PT RECEIVED ON BIPAP AWAKE AND ALERT. PT TOLERATING SETTINGS 22/8, R 16, 50%. MEPILEX IN PLACE AROUND THE BRIDGE OF THE NOSE. BIPAP ALARMS SET AND AUDIBLE. WILL CONTINUE TO MONITOR. Addendum: 07/29/18 at 2140 by TOÑO MA RT Amended: Links added.
[2018-07-29] MEDS: TERAZOSIN HCL 1 MG CAPSULE PO SCH (22:05)
[2018-07-29] MEDS: PRAVASTATIN SODIUM 20 MG TABLET PO SCH ×2 (22:06→22:13)
--- NOTE | 2018-07-29 22:15 | NUR ---
WATER FABRICATOR OPERATOR. TAB PRAVACHOL PULLED OUT FROM [employer]. SCAND AND OPEN THE MEDS. REFUSED. TAB DISPOSED IN A PROPER CONTAINER.
[2018-07-29] MEDS: ALPRAZOLAM 0.5 MG TABLET PO PRN (22:21)
--- NOTE | 2018-07-29 23:41 | NUR ---
FIO2 INCREASED TO 60%. NOTIFIED YULISSA BARNES.
[2018-07-30] VITALS (64 sets, daily range): BP systolic 83–160; BP diastolic 48–99
--- NOTE | 2018-07-30 00:12 | NUR ---
VETERANS' COUNSELOR. SAT 88. OXYGEN 60%. INCREASED. WILL CONTINUE TO MONITOR
[2018-07-30] MEDS: IPRATROPIUM NEB FS 0.5 MG/2.5 ML AMPUL.NEB NEB SCH ×6 (03:18→23:17)
--- NOTE | 2018-07-30 03:50 | NUR ---
ENGINEERING SUPERVISOR. AM CARE,GIVEN. PT SLEPT WELL DURING SHIFT. REMAINING SAME BIPAP SETTING TOLERATED WELL. SAT 94%, NO ACUTE DISTRESS NOTED. DRUM SPRAYER SHOWING AFIB. RATE IS CONTROLLED, HOB ELEVATED. FC PATENT. TURN AND REPOSITION Q2H. WILL CONTINUE TO MONITOR VITALS.
[2018-07-30 04:23] LABS: BASOPHILS % (AUTO) 0.4 % (0.0-2.0); EOSINOPHILS % (AUTO) 0.1 % (0.0-6.0); HEMATOCRIT 27 % (39-51); HEMOGLOBIN 9.1 g/dL (13.5-17.5); LYMPHOCYTES # (AUTO) 0.6 /CMM (0.8-4.8); LYMPHOCYTES % (AUTO) 10.4 % (20.0-44.0); MEAN CORPUSCULAR HGB CONC 34 g/dl (31.0-36.0); MEAN CORPUSCULAR VOLUME 88 fL (80-96); MONOCYTES # (AUTO) 0.8 /CMM (0.1-1.30); MONOCYTES % (AUTO) 15.2 % (2.0-12.0); NEUTROPHILS % (AUTO) 73.9 % (43.0-81.0); PLATELET COUNT (AUTO) 124 /CMM (150-450); RED BLOOD CELL COUNT(AUTO) 3.09 MIL/uL (4.5-6.0); WHITE BLOOD COUNT (AUTO) 5.4 K/uL (4.3-11.0)
[2018-07-30 04:39] LABS: ALANINE AMINOTRANSFERASE 18 U/L (12-78); ALBUMIN 2.8 g/dL (3.4-5.0); ALKALINE PHOSPHATASE 31 U/L (46-116); ASPARTATE AMINOTRANSFERASE 27 U/L (15-37); BILIRUBIN,TOTAL 0.5 mg/dL (0.2-1.0); CARBON DIOXIDE 24 mmol/L (21-32); CHLORIDE 95 mmol/L (98-107); CREATININE 6.8 mg/dL (0.6-1.3); GLUCOSE 104 mg/dL (74-106); MAGNESIUM 2.7 mg/dL (1.8-2.4); PHOSPHORUS 7.3 mg/dL (2.5-4.9); SODIUM SERUM 134 mmol/L (136-145); TOTAL PROTEIN, SERUM 6.2 g/dL (6.4-8.2); UREA NITROGEN, BLOOD 98 mg/dL (7-18)
[2018-07-30 05:27] LABS: LYMPHOCYTES % (MANUAL) 10 % (16-48); MONOCYTES % (MANUAL) 17 % (0-11.0); NEUTROPHILS % (MANUAL) 73 (42-76)
[2018-07-30] MEDS: ACETAMINOPHEN 325 MG TABLET PO PRN (06:04)
--- NOTE | 2018-07-30 06:47 | NUR ---
POCKET MAKER. PT HAS FEVER 100.5. AT 0600. TYLENOL GIVEN PO PER ORDERED.
--- NOTE | 2018-07-30 06:48 | NUR ---
COLLEGE OR UNIVERSITY DEPARTMENT HEAD. MORNING BLOOD PRESSURE MEDS PT REFUSED.
--- NOTE | 2018-07-30 08:15 | NUR ---
BP meds held, pt's at bedside states "do not give bp medication due to low bp"
[2018-07-30] MEDS: NIFEdipine XL (30MG) 30 MG TAB PO SCH (09:00)
[2018-07-30] MEDS: MINOXIDIL (2.5MG) 2.5 MG TABLET PO SCH (09:00)
[2018-07-30] MEDS: CLONIDINE HCL 0.1 MG TABLET PO SCH ×2 (09:00→18:08)
[2018-07-30] MEDS: METOLAZONE 2.5 MG TABLET PO SCH (09:00)
[2018-07-30] MEDS: SEVELAMER CARBONATE 0.8 GM POWD.PACK GT SCH ×3 (09:52→18:04)
[2018-07-30] MEDS: SPIRONOLACTONE 25 MG TABLET PO SCH (09:53)
[2018-07-30] MEDS: BENZONATATE 100 MG CAPSULE PO SCH ×3 (09:53→18:05)
[2018-07-30] MEDS: GUAIFENESIN LA 600 MG TABLET.SA PO SCH ×2 (09:53→21:01)
[2018-07-30] MEDS: PAROXETINE HCL 10 MG TABLET PO SCH (09:53)
[2018-07-30] MEDS: ASPIRIN 81 MG TAB.CHEW PO SCH (09:53)
[2018-07-30] MEDS: PIPERACILLIN /TAZOBACTAM 2.25 G in IV D5W 50 ML IV SCH ×2 (09:54→18:05)
--- NOTE | 2018-07-30 10:00 | NUR ---
RT PER DR RAZA BONILLA CANCELLED
[2018-07-30] MEDS: methylPREDNISolone SOD SUCC 125 MG/2ML VIAL IV SCH ×2 (12:18→18:06)
--- NOTE | 2018-07-30 15:00 | NUR ---
HD in progress. vss. no change to bipap settings sat 95%.
--- NOTE | 2018-07-30 17:00 | NUR ---
HD completed vss. 2500 ml off.
[2018-07-30] MEDS: CARVEDILOL 6.25 MG TABLET PO SCH (18:05)
[2018-07-30] MEDS: SOD FERRIC GLUC 125 MG in IV NS 0.9% 100 ML IV SCH (18:40)
--- NOTE | 2018-07-30 19:00 | NUR ---
Pt off bipap for dinner, was not able to do abg prior to taking pt off the bipap. Dr Vincent notified. on to skip abg. new orders for bipap overnight paced in [employer]. RT and RN notified.
--- NOTE | 2018-07-30 19:00 | NUR ---
RECEIVED PT IN NO ACUTE DISTRESS IN BED. PT IS A/O X 4 AND ABLE TO MAKE NEEDS KNOWN. PT IS ON O2 VIA NC @ 8LPM AND TOLERATING WELL. PT HAS NOC BIPAP WITH SETTING @ 22/8, RATE 16 FIO2 50%. PT IS ON TELE WITH CONTROLLED AFIB ON THE MONITOR. PT NOT C/O ANY SOB, DIFFICULTY BREATHING OR PAIN AT THIS TIME. PT HAS F/C THAT IS CLEAN DRY INTACT AND PATENT WITH YELLOW URINE DRAINING. PT HAS NATHALIE MIDLINE THAT IS CLEAN DRY INACT AND PATENT WITH NS @ TKO. PT HAS LFA 18G THAT IS CLEAN DRY INTACT AND PATENT WITH SALINE LOCK. BED IN LOW LOCK POSITION WITH RIALS UP X 2. CALL LIGHT WITHIN REACH AND ALL SAFETY MEASURES ENSURED AND CARRIED OUT. WILL CONTINUE TO MONITOR PT.
--- NOTE | 2018-07-30 19:30 | NUR ---
NOTIFIED BY MIKEL DUENAS THAT DR PERSON CHANGED BIPAP SETTING OVERNIGHT AND ABG IN AM.
[2018-07-30] MEDS: TERAZOSIN HCL 1 MG CAPSULE PO SCH (21:01)
[2018-07-30] MEDS: ALPRAZOLAM 0.5 MG TABLET PO PRN (22:12)
--- NOTE | 2018-07-30 22:30 | NUR ---
PT PLACED ON BIPAP WITH NEW SETTING 15/5 RATE 16 FIO2 50%. PT TOLERATING WELL.
[2018-07-31] VITALS (32 sets, daily range): BP systolic 96–175; BP diastolic 22–117
[2018-07-31] MEDS: PIPERACILLIN /TAZOBACTAM 2.25 G in IV D5W 50 ML IV SCH ×3 (01:13→10:19)
[2018-07-31] MEDS: IPRATROPIUM NEB FS 0.5 MG/2.5 ML AMPUL.NEB NEB SCH ×6 (03:30→23:12)
[2018-07-31 06:14] LABS: BASOPHILS % (AUTO) 0.6 % (0.0-2.0); HEMATOCRIT 28 % (39-51); HEMOGLOBIN 9.5 g/dL (13.5-17.5); LYMPHOCYTES # (AUTO) 0.3 /CMM (0.8-4.8); LYMPHOCYTES % (AUTO) 9.3 % (20.0-44.0); MEAN CORPUSCULAR HGB CONC 34 g/dl (31.0-36.0); MEAN CORPUSCULAR VOLUME 87 fL (80-96); MONOCYTES # (AUTO) 0.3 /CMM (0.1-1.30); MONOCYTES % (AUTO) 9.8 % (2.0-12.0); NEUTROPHILS # (AUTO) 2.7 /CMM (1.8-8.9); NEUTROPHILS % (AUTO) 80.3 % (43.0-81.0); PLATELET COUNT (AUTO) 121 /CMM (150-450); WHITE BLOOD COUNT (AUTO) 3.4 K/uL (4.3-11.0)
[2018-07-31 06:59] LABS: ALANINE AMINOTRANSFERASE 19 U/L (12-78); ALBUMIN 2.6 g/dL (3.4-5.0); ALKALINE PHOSPHATASE 35 U/L (46-116); ASPARTATE AMINOTRANSFERASE 29 U/L (15-37); BILIRUBIN,TOTAL 0.6 mg/dL (0.2-1.0); CALCIUM, SERUM 8.2 mg/dL (8.5-10.1); CARBON DIOXIDE 29 mmol/L (21-32); CHLORIDE 97 mmol/L (98-107); CREATININE 5.4 mg/dL (0.6-1.3); GLUCOSE 171 mg/dL (74-106); MAGNESIUM 2.7 mg/dL (1.8-2.4); PHOSPHORUS 4.6 mg/dL (2.5-4.9); POTASSIUM 3.3 mmol/L (3.5-5.1); SODIUM SERUM 135 mmol/L (136-145); TOTAL PROTEIN, SERUM 6.4 g/dL (6.4-8.2); UREA NITROGEN, BLOOD 72 mg/dL (7-18)
--- NOTE | 2018-07-31 07:36 | NUR ---
PT REMAINS IN NO ACUTE DISTRESS IN BED. PT DID NOT HAVE ANY SIGNIFICANT CHANGES IN CONDITION DURING SHIFT. ALL NEEDS MET, ALL ORDERS CARRIED OUT. WILL ENDORSE CARE TO AM RN FOR CONTINUITY OF CARE.
[2018-07-31] MEDS: SEVELAMER CARBONATE 0.8 GM POWD.PACK GT SCH ×3 (07:47→17:05)
[2018-07-31] MEDS: PANTOPRAZOLE 40 MG TABLET.DR PO SCH (07:48)
[2018-07-31 08:28] LABS: ABG BASE EXCESS -1.5 mmol/L; ABG OXYGEN SATURATION 90.7 % (92.0-98.5); ABG PCO2 37.1 mmHg (35.0-45.0); ABG PH 7.407 (7.350-7.450); ABG PO2 65.3 mmHg (75.0-100.0); AaDO2 206.1 mmHg; COHb 0.6 % (0.5-1.5); MetHb 0.2 % (0.0-1.5); SITE, ABG Left Radial; VENT MODE, BG Nasal Cannula
[2018-07-31] MEDS: CLONIDINE HCL 0.1 MG TABLET PO SCH ×2 (10:12→17:04)
[2018-07-31] MEDS: SPIRONOLACTONE 25 MG TABLET PO SCH (10:13)
[2018-07-31] MEDS: GUAIFENESIN LA 600 MG TABLET.SA PO SCH ×2 (10:13→20:25)
[2018-07-31] MEDS: PAROXETINE HCL 10 MG TABLET PO SCH (10:14)
[2018-07-31] MEDS: BENZONATATE 100 MG CAPSULE PO SCH ×3 (10:14→17:05)
[2018-07-31] MEDS: ASPIRIN 81 MG TAB.CHEW PO SCH (10:14)
[2018-07-31] MEDS: MINOXIDIL (2.5MG) 2.5 MG TABLET PO SCH (10:15)
[2018-07-31] MEDS: NIFEdipine XL (30MG) 30 MG TAB PO SCH (10:16)
[2018-07-31] MEDS: METOLAZONE 2.5 MG TABLET PO SCH (10:17)
[2018-07-31] MEDS: methylPREDNISolone SOD SUCC 125 MG/2ML VIAL IV SCH ×2 (10:19→17:07)
[2018-07-31] MEDS: DOCUSATE SODIUM 100 MG CAPSULE PO SCH ×2 (12:58→17:04)
[2018-07-31] MEDS: SOD FERRIC GLUC 125 MG in IV NS 0.9% 100 ML IV SCH (15:28)
--- NOTE | 2018-07-31 18:31 | NUR ---
pt recieved awake and alert, somewhat sob just off bipap on 8 l nc/pt 02 sat 96% on this/pt seems to have a bit of drama with who tends to conrtradict pt requests when she is here/ pt otherwise had day of no drama, dialysis was done at 1336 and output 2500cc/ pt states stokes was emptied byt several times today/but outputr my shift that i witnessed was 300cc/pt intake good, pt c/o abd constipation/colace given as ordered and pt attempted to void but unsuccessfull so far/pt otherwise cooperative/denies palpitations though has freq pac/pvcs/and 02 now at 5lnc/advised pt will exercise him once he tolerates low 02 dose/mw
[2018-07-31] MEDS: CARVEDILOL 6.25 MG TABLET PO SCH (18:38)
[2018-07-31] MEDS: ALBUTEROL FS 2.5 MG/3 ML VIAL.NEB NEB PRN (20:21)
--- NOTE | 2018-07-31 20:21 | NUR ---
RT PT PLACED ON BIPAP DUE TO IWB. BIPAP SETTING NOTED. PT TOLERATING SETTING WELL. WORK OF BREATHING IMPROVED. WILL CONTINUE TO MONITOR. RN AWARE. Addendum: 07/31/18 at 2025 by ALBARO PIERCE RT Amended: Links added.
[2018-07-31] MEDS: ALPRAZOLAM 0.5 MG TABLET PO PRN (20:25)
--- NOTE | 2018-07-31 20:30 | NUR ---
RN NOTES PATIENT IS AWAKE ALERT ORIENTED X 4 VERBALIZED NEEDS. DENIES PAIN. ON O2 5LPM VIA NC SATURATION 94%. NO APPARENT RES[IRATORY DISTRESS. S/P HD TODAY PER PREV. NURSE AND TOLERATED WELL/. IV SITE ON NATHALIE MIDLINE WITH NS TKP/ WITH CUETO CATH DRAINED WITH YELLOW CLEAR COLOR URINE. KEPT OFF FROM THE FLOOR. 2014 FAMILY CAME AND REQUESTED TO PLACED THE BIPAP TO PATIENT RT AWARE EXPLAINED ABOUT THE BENEFITS OF BIPAP AND TIME FOR WEANING OFF FROM BIPA PT. AND FAMILY AWARE. KEPT PT CLEAN AND DRY. CALL LIGHT KEPT WITHIN EASY REACH. WILL CONTINUE TO MONITOR.
[2018-07-31] MEDS: PRAVASTATIN SODIUM 20 MG TABLET PO SCH (21:30)
[2018-07-31] MEDS: TERAZOSIN HCL 1 MG CAPSULE PO SCH (21:30)
[2018-08-01] VITALS (37 sets, daily range): BP systolic 96–190; BP diastolic 47–106
[2018-08-01] MEDS: PIPERACILLIN /TAZOBACTAM 2.25 G in IV D5W 50 ML IV SCH ×3 (01:49→18:05)
[2018-08-01] MEDS: IPRATROPIUM NEB FS 0.5 MG/2.5 ML AMPUL.NEB NEB SCH ×6 (02:56→23:13)
[2018-08-01 04:54] LABS: BASOPHILS % (AUTO) 0.1 % (0.0-2.0); HEMATOCRIT 30 % (39-51); LYMPHOCYTES # (AUTO) 0.5 /CMM (0.8-4.8); LYMPHOCYTES % (AUTO) 5.8 % (20.0-44.0); MEAN CORPUSCULAR HGB CONC 34 g/dl (31.0-36.0); MEAN CORPUSCULAR VOLUME 88 fL (80-96); MONOCYTES # (AUTO) 0.7 /CMM (0.1-1.30); MONOCYTES % (AUTO) 8.8 % (2.0-12.0); NEUTROPHILS # (AUTO) 6.8 /CMM (1.8-8.9); NEUTROPHILS % (AUTO) 85.3 % (43.0-81.0); PLATELET COUNT (AUTO) 134 /CMM (150-450); RED BLOOD CELL COUNT(AUTO) 3.39 MIL/uL (4.5-6.0)
[2018-08-01 05:04] LABS: CALCIUM, SERUM 8.6 mg/dL (8.5-10.1); CARBON DIOXIDE 29 mmol/L (21-32); CHLORIDE 101 mmol/L (98-107); CREATININE 4.8 mg/dL (0.6-1.3); GLUCOSE 136 mg/dL (74-106); POTASSIUM 3.7 mmol/L (3.5-5.1); SODIUM SERUM 140 mmol/L (136-145); UREA NITROGEN, BLOOD 60 mg/dL (7-18)
--- NOTE | 2018-08-01 07:24 | NUR ---
RN NOTES PATIENT REMAINED STABLE AND ASLEEP WELL . BIPAP TOLERATED WELL STARTED AT 2030 UNTIL 6 AM PER PT REQUEST WELL. NO SIGNIFICANT CHANGE OF CONDITION THROUGHOUT THE SHIFT. PT NOW IS ON O2 5LPM VIA NC SATURATION 98%. PT IS WORRIED THAT HE COULDN'T URINATE. EDUCATE PATIENT REGARDING DIALYSIS. IV SITE INTACT AND PATENT. KEPT PT CLEAN AND COMFORTABLE IN BED. ENDORSED CONTINUITY OF CARE TO AM NURSE.
--- NOTE | 2018-08-01 07:30 | NUR ---
INITIAL RECEIVED PT IN NO ACUTE DISTRESS IN BED. PT IS A/O X 4 AND ABLE TO MAKE NEEDS KNOWN. PT IS ON O2 VIA NC @ 5LPM AND TOLERATING WELL. PT OFF BIPAP WITH SETTING @ 22/8, RATE 16 FIO2 50%. PT IS ON TELE WITH CONTROLLED AFIB ON THE MONITOR. PT NO C/O ANY SOB OR DIFFICULTY BREATHING OR PAIN AT THIS TIME. PT HAS F/C THAT IS CLEAN DRY INTACT AND PATENT WITH YELLOW URINE DRAINING. PT HAS NATHALIE MIDLINE THAT IS CLEAN DRY INTACT AND PATENT WITH NS @ TKO. PT HAS LFA 18G THAT IS CLEAN DRY INTACT AND PATENT WITH SALINE LOCK. BED IN LOW LOCK POSITION WITH RIALS UP X 2. CALL LIGHT WITHIN REACH AND ALL SAFETY MEASURES ENSURED AND CARRIED OUT. WILL CONTINUE TO MONITOR PT.
[2018-08-01] MEDS: PANTOPRAZOLE 40 MG TABLET.DR PO SCH (07:41)
[2018-08-01] MEDS: SEVELAMER CARBONATE 0.8 GM POWD.PACK GT SCH ×3 (07:41→18:04)
[2018-08-01] MEDS: CLONIDINE HCL 0.1 MG TABLET PO SCH ×2 (07:51→17:09)
[2018-08-01] MEDS: methylPREDNISolone SOD SUCC 125 MG/2ML VIAL IV SCH ×2 (08:51→17:09)
[2018-08-01] MEDS: METOLAZONE 2.5 MG TABLET PO SCH (08:52)
[2018-08-01] MEDS: DOCUSATE SODIUM 100 MG CAPSULE PO SCH ×2 (08:53→17:09)
[2018-08-01] MEDS: NIFEdipine XL (30MG) 30 MG TAB PO SCH (08:53)
[2018-08-01] MEDS: BENZONATATE 100 MG CAPSULE PO SCH ×3 (08:53→17:09)
[2018-08-01] MEDS: GUAIFENESIN LA 600 MG TABLET.SA PO SCH ×2 (08:53→21:06)
[2018-08-01] MEDS: PAROXETINE HCL 10 MG TABLET PO SCH (08:54)
[2018-08-01] MEDS: MINOXIDIL (2.5MG) 2.5 MG TABLET PO SCH (08:54)
[2018-08-01] MEDS: SPIRONOLACTONE 25 MG TABLET PO SCH (08:59)
[2018-08-01] MEDS: ASPIRIN 81 MG TAB.CHEW PO SCH (09:54)
[2018-08-01] MEDS: SOD FERRIC GLUC 125 MG in IV NS 0.9% 100 ML IV SCH (14:35)
[2018-08-01] MEDS: CARVEDILOL 6.25 MG TABLET PO SCH (18:05)
--- NOTE | 2018-08-01 18:14 | NUR ---
ENDING PT REMAINS IN NO ACUTE DISTRESS IN BED. PT DID NOT HAVE ANY SIGNIFICANT CHANGES IN CONDITION DURING SHIFT. ALL NEEDS MET, ALL ORDERS CARRIED OUT. PT HAD HD TODAY 2500 ML OUT SPOUSE AND FAMILY AT BEDSIDE ALL DAY. ACTIVE RANGE OF MOTION DONE TO UPPER AND LOWER EXTREMITIES. PT ABLE UPON COMMAND TO MOVE LEGS AND ARMS WILL ENDORSE CARE TO PM RN FOR CONTINUITY OF CARE.
--- NOTE | 2018-08-01 19:30 | NUR ---
ICU/RN RECEIVED PT AWAKE,ALERT ORIENTED X3.DENIES PAIN OR DISCOMFORT.SAT.=96% ON 6LNC.DENIES SHORTNESS OF BREATH.MONITOR SHOWS AFIB,CONTROLLED RATE.
[2018-08-01] MEDS: TERAZOSIN HCL 1 MG CAPSULE PO SCH (21:06)
[2018-08-01] MEDS: ALPRAZOLAM 0.5 MG TABLET PO PRN (21:14)
[2018-08-01] MEDS: PRAVASTATIN SODIUM 20 MG TABLET PO SCH (21:18)
--- NOTE | 2018-08-01 21:25 | NUR ---
ICU/RN PLACED ON BIPAP AFTER GIVING MEDS PER PT'S REQUEST.BIPAP AT 50%,RATE 16,15/8 W/ SAT OF 96%.
[2018-08-02] VITALS (31 sets, daily range): BP systolic 93–146; BP diastolic 34–92
--- NOTE | 2018-08-02 01:00 | NUR ---
ICU/RN ATTEMPTED TO DISCONNECT SELF FROM BIPAP-FIXED.SLEEPING INTERMITTENTLY.
[2018-08-02] MEDS: PIPERACILLIN /TAZOBACTAM 2.25 G in IV D5W 50 ML IV SCH ×3 (01:53→17:00)
[2018-08-02] MEDS: IPRATROPIUM NEB FS 0.5 MG/2.5 ML AMPUL.NEB NEB SCH ×6 (02:53→23:20)
[2018-08-02 04:43] LABS: CALCIUM, SERUM 8.1 mg/dL (8.5-10.1); CARBON DIOXIDE 29 mmol/L (21-32); CHLORIDE 98 mmol/L (98-107); CREATININE 4.7 mg/dL (0.6-1.3); GLUCOSE 125 mg/dL (74-106); POTASSIUM 3.6 mmol/L (3.5-5.1); SODIUM SERUM 135 mmol/L (136-145); UREA NITROGEN, BLOOD 52 mg/dL (7-18)
--- NOTE | 2018-08-02 05:42 | NUR ---
ICU/RN. ATTEMPTED TO GET OUT OF BED,SAT ON SIDE OF BED X FEW SECONDS THEN PUT BACK TO BED. OFFERED BED BATH BUT STATES"I DON'T NEED ONE."SLEPT WELL FROM 0200 TO PRESENT.MONITOR SHOWS A-FIB CONTROLLED VENTRICULAR RESPONSE.
--- NOTE | 2018-08-02 05:45 | NUR ---
RT END OF THE SHIFT REPORT; PT. 73 Y OLD MALE REC. @1934 PM ON O2 VIA NASAL CANULA 3L/MIN @2124 PM PT, PLACED ON BIPAP PER REQUEST, FACE MASK BIPAP PLACED ON WITH NOTED SETTINGS, ALARMS ARE SET. BIPAP PLUGGED INTO RED OUTLET, AMBU BAG AT THE BEDSIDE. EQUAL CHEST RISE NOTED. PT. AWAKE AND RESPONSIVE, TOSIN. WELL INLINE TX'S GIVEN Q4 AND NO ADVERSE REACTION NOTED. PT. TOSIN. WELL AND B/S BILATERALLY RALES./DIM. CONTINUE TO MONITOR AND REPORT WILL PASS TO AM SHIFT. PT. SLEEPING AT THE MOMENT. Addendum: 08/02/18 at 0548 by ROMANA COON RT Amended: Links added.
--- NOTE | 2018-08-02 06:54 | NUR ---
ICU/RN VITAL SIGNS STABLE.REMAINS IN A-FIB.CONTINUES TO SLEEP.
--- NOTE | 2018-08-02 07:30 | NUR ---
RECEIVED PATIENT SLEEPING AWAKE TO NAME. ON BIPAP PER ORDERED SETTINGS AND SATURATING 100%. NO SOB, DIFFICULTY BREATHING NOTED. PATIENT DENIES PAIN. ALL NEEDS IN REACH. IV SITE C/D/I/P AND HD CATH SITE C/D/I. SAFETY, SKIN, ASPIRATION PRECAUTIONS IN PLACE AND WILL MONITOR. TELE CONTROLLED AFIB
[2018-08-02] MEDS: ASPIRIN 81 MG TAB.CHEW PO SCH (08:25)
[2018-08-02] MEDS: SEVELAMER CARBONATE 0.8 GM POWD.PACK GT SCH ×3 (08:25→17:00)
[2018-08-02] MEDS: PANTOPRAZOLE 40 MG TABLET.DR PO SCH (08:25)
[2018-08-02] MEDS: SPIRONOLACTONE 25 MG TABLET PO SCH (08:27)
[2018-08-02] MEDS: GUAIFENESIN LA 600 MG TABLET.SA PO SCH ×2 (08:27→21:00)
[2018-08-02] MEDS: PAROXETINE HCL 10 MG TABLET PO SCH (08:27)
[2018-08-02] MEDS: methylPREDNISolone SOD SUCC 125 MG/2ML VIAL IV SCH ×2 (08:40→16:11)
[2018-08-02] MEDS: DOCUSATE SODIUM 100 MG CAPSULE PO SCH ×2 (08:41→16:11)
[2018-08-02] MEDS: METOLAZONE 2.5 MG TABLET PO SCH (08:41)
[2018-08-02] MEDS: BENZONATATE 100 MG CAPSULE PO SCH ×3 (08:42→16:11)
[2018-08-02] MEDS: NIFEdipine XL (30MG) 30 MG TAB PO SCH (09:00)
[2018-08-02] MEDS: CLONIDINE HCL 0.1 MG TABLET PO SCH ×2 (09:00→17:01)
--- NOTE | 2018-08-02 09:10 | NUR ---
HD NURSE BILL AT BEDSIDE.
[2018-08-02] MEDS: MINOXIDIL (2.5MG) 2.5 MG TABLET PO SCH (12:54)
--- NOTE | 2018-08-02 13:04 | NUR ---
HD COMPLETED 2500ML OUT. PATIENT TOLERATED WELL. RESTING NO COMPLICATIONS.
[2018-08-02] MEDS: SOD FERRIC GLUC 125 MG in IV NS 0.9% 100 ML IV SCH (13:23)
--- NOTE | 2018-08-02 14:40 | NUR ---
NON ADMIN PROCARDIA. PATIENT BP DROPPED MORE THAN 30 POINTS SYSTOLIC AFTER ADMIN OF 1 BP MED.
[2018-08-02] MEDS: CARVEDILOL 6.25 MG TABLET PO SCH (17:02)
--- NOTE | 2018-08-02 18:48 | NUR ---
ALL DUE MEDS GIVEN AND ALL NEEDS MET. VSS. FAMILY AT BEDSIDE. PATIENT DENIES PAIN, NO SOB, DIFFICULTY BREATHING. TOLERATING NASAL CANNULA. SAFETY, SKIN, ASPIRATION PRECAUTIONS IN PLACE
--- NOTE | 2018-08-02 19:18 | NUR ---
CURATOR OF MANUSCRIPTS. INITIAL ASSESSMENT, RECEIVED THE PT REST ON THE BED. AWAKE, ALERT, FOLLOW COMMANDS. CHIP LOFT WORKER SHOWING AFIB. CONTROLLED.OXYGEN 4LVIA NASAL CANNULA. SAT 98%. NO ACUTE DISTRESS NOTED. IV RT FEMORAL HD CATH,LT UPPER ARM MID LINE. FC PATENT. HOB ELEVATED. WILL CONTINUE TO MONITOR VITALS.
--- NOTE | 2018-08-02 20:22 | NUR ---
RECEIVED PT ON NC 4L, AWAKE ALERT NO DISTRESS. PT TRANSFERRED TO 101. PT HAS NOC BIPAP ORDER. WILL CONTINUE TO MONITOR.
--- NOTE | 2018-08-02 20:29 | NUR ---
ROLL CUTTING OPERATOR. TRANSFER THE PT TO ROOM 101 .GAMAL.REPORT GIVEN TO AFSHAN. PT IS STABLE. OXYGEN 4L VIA NASAL CANNULA. SAT 97%. NO ACUTE DISTRESS NOTED.
--- NOTE | 2018-08-02 20:33 | NUR ---
GAMAL/WASTE RECLAIMER PT RECEIVED FROM ICU GAMAL TRANSFER. PT IS ALERT X3. WITH N/C SATURATION IS 95%, DENIES SOB CURRENTLY. PT PLACED ON MONITOR, DUE TO GAMAL STATUS. F/C IN PLACE DESPITE PT HAVING HD TODAY AND REMOVING 2.5 LITERS OF. CALL LIGHT WITHIN REACH, ORT TO ROOM, CALL LIGHT AND VISITING HOURS.
--- NOTE | 2018-08-02 21:20 | NUR ---
GAMAL/TRUCK AND TRANSPORT MECHANIC PT'S REFUSED TO LET WHO IS THE PT RECEIVE MUCINEX DUE TO UNABLE TO GIVEN TESOLIN PEARLS AT THE SAME TIME. EXPLAINED THAT THIS IS SCHEDULED AT 09,13,17. ALSO AT THIS TIME DID NOT GIVEN 2100 DOSE OF HYTRIN DUE TO LO0W BP OF 93/56. AND REFUSED TO ALLOW PRAVACOL. DID REQUEST THAT HAVE XANAX PM DOSE DUE TO PT GOING TO BE ON PM BIPAP. WILL CONTINUE TO MONITOR THIS PT.
[2018-08-02] MEDS: ALPRAZOLAM 0.5 MG TABLET PO PRN (21:43)
[2018-08-02] MEDS: TERAZOSIN HCL 1 MG CAPSULE PO SCH (21:44)
[2018-08-02] MEDS: PRAVASTATIN SODIUM 20 MG TABLET PO SCH (21:45)
--- NOTE | 2018-08-02 22:10 | NUR ---
GAMAL/SHIRT FOLDER RT PLACED THE NOCTURNAL BIPAP ON THIS PT. WILL CONTINUE TO MONITOR THIS PT AND HIS SATURATION.
--- NOTE | 2018-08-02 22:17 | NUR ---
RT PT PLACED ON NO BiPAP, ALARMS ARE SET AND AUDIBLE WITH BVM BY BEDSIDE. BiPAP IS PLUGGED INTO RED OUTLET. SKIN ON BRIDGE OF NOSE HAS NO REDNESS AND IS INTACT. MEPILEX ON BRIDGE OF NOSE FOR SKIN PROTECTION. NO RESPIRATORY DISTRESS NOTED AT THIS TIME. Addendum: 08/02/18 at 2221 by KEE ORONA RT Amended: Links added.
--- NOTE | 2018-08-02 22:55 | NUR ---
GAMAL/CREW TEAM MEMBER HAD HOUSE SUP. TARIQ TALK TO THE ABOUT NOT STAYING OVER NIGHT, HOWEVER HOUSE SUP SAID THAT IT'S OK BUT SHOULD THE INTERFERE WITH ANY TO CALL SECURITY. CHARGE NURSE AWARE OF THE OUTCOME.
[2018-08-03] VITALS (7 sets, daily range): BP systolic 90–161; BP diastolic 47–88
[2018-08-03] MEDS: PIPERACILLIN /TAZOBACTAM 2.25 G in IV D5W 50 ML IV SCH ×3 (01:45→17:09)
[2018-08-03] MEDS: IPRATROPIUM NEB FS 0.5 MG/2.5 ML AMPUL.NEB NEB SCH ×6 (03:29→23:30)
--- NOTE | 2018-08-03 06:15 | NUR ---
PT TAKEN OFF BIPAP. PLACED ON 4L NC. RN AFSHAN NOTIFIED.
[2018-08-03] MEDS: PANTOPRAZOLE 40 MG TABLET.DR PO SCH (06:36)
--- NOTE | 2018-08-03 06:36 | NUR ---
GAMAL/VACUUM CLEANER REPAIR PERSON PT TAKEN OFF BIPAP TO N/C, STILL AT BEDSIDE.
[2018-08-03] MEDS ORDERED: HOME MED MISCELLANEOUS PO SCH (08:00)
[2018-08-03 08:08] LABS: BASOPHILS % (AUTO) 0.2 % (0.0-2.0); HEMATOCRIT 36 % (39-51); HEMOGLOBIN 11.6 g/dL (13.5-17.5); LYMPHOCYTES # (AUTO) 0.8 /CMM (0.8-4.8); LYMPHOCYTES % (AUTO) 12.2 % (20.0-44.0); MEAN CORPUSCULAR HGB CONC 33 g/dl (31.0-36.0); MEAN CORPUSCULAR VOLUME 89 fL (80-96); MONOCYTES % (AUTO) 15.9 % (2.0-12.0); NEUTROPHILS # (AUTO) 4.7 /CMM (1.8-8.9); NEUTROPHILS % (AUTO) 71.7 % (43.0-81.0); PLATELET COUNT (AUTO) 138 /CMM (150-450); WHITE BLOOD COUNT (AUTO) 6.6 K/uL (4.3-11.0)
[2018-08-03 08:32] LABS: IRON, SERUM 45 ug/dl (50-175); TOTAL IRON BINDING CAPACITY 237 ug/dl (250-450)
[2018-08-03 08:36] LABS: CALCIUM, SERUM 8.8 mg/dL (8.5-10.1); CARBON DIOXIDE 27 mmol/L (21-32); CHLORIDE 96 mmol/L (98-107); CREATININE 5.1 mg/dL (0.6-1.3); GLUCOSE 110 mg/dL (74-106); MAGNESIUM 2.7 mg/dL (1.8-2.4); PHOSPHORUS 6.5 mg/dL (2.5-4.9); POTASSIUM 3.7 mmol/L (3.5-5.1); SODIUM SERUM 137 mmol/L (136-145); UREA NITROGEN, BLOOD 56 mg/dL (7-18)
--- NOTE | 2018-08-03 09:00 | NUR ---
HD in progress bp med held disused with DR Antoni davis to hold bp meds for now will discuss with Emergency Room Specialist on the case to review BP meds.
[2018-08-03 09:37] LABS: FERRITIN 1322 ng/mL (8-388)
[2018-08-03] MEDS: methylPREDNISolone SOD SUCC 125 MG/2ML VIAL IV SCH ×2 (09:59→17:09)
[2018-08-03] MEDS: BENZONATATE 100 MG CAPSULE PO SCH ×3 (10:00→17:09)
[2018-08-03] MEDS: GUAIFENESIN LA 600 MG TABLET.SA PO SCH ×2 (10:00→20:17)
[2018-08-03] MEDS: SPIRONOLACTONE 25 MG TABLET PO SCH (10:00)
[2018-08-03] MEDS: SEVELAMER CARBONATE 0.8 GM POWD.PACK GT SCH ×3 (10:00→17:09)
[2018-08-03] MEDS: DOCUSATE SODIUM 100 MG CAPSULE PO SCH ×2 (10:01→17:09)
[2018-08-03] MEDS: PAROXETINE HCL 10 MG TABLET PO SCH (10:01)
[2018-08-03] MEDS: ASPIRIN 81 MG TAB.CHEW PO SCH (10:01)
[2018-08-03] MEDS: METOLAZONE 2.5 MG TABLET PO SCH (16:32)
[2018-08-03] MEDS: NIFEdipine XL (30MG) 30 MG TAB PO SCH (16:34)
--- NOTE | 2018-08-03 16:35 | NUR ---
RN NOTES RECEIVED REPORT FROM YULISSA BERUMEN. PT REMAINS A/OX3. ON 02 VIA AK. HOB ELEVATED. NO RESPIRATORY DISTRESS NOTED. NO SIGNS OF PAIN NOTED. IV LINES IN PLACE. PT COMFORTABLE. AT BEDSIDE. WILL CONTINUE TO MONITOR.
[2018-08-03] MEDS: CARVEDILOL 6.25 MG TABLET PO SCH (17:11)
--- NOTE | 2018-08-03 18:30 | NUR ---
RN CLOSING NOTES NO SIGNIFICANT CHANGE NOTED. NO RESPIRATORY DISTRESS NOTED. KEPT COMFORTABLE. KEPT CLEAN AND DRY. ALL NEEDS ATTENDED AND MET. CALL LIGHT WITHIN REACH. WILL ENDORSE FOR CONTINUITY OF CARE.
[2018-08-03] MEDS: ALPRAZOLAM 0.5 MG TABLET PO PRN (20:20)
[2018-08-03] MEDS: ONDANSETRON HCL/PF 4 MG/2 ML VIAL IVP PRN (21:56)
[2018-08-03] MEDS: TERAZOSIN HCL 1 MG CAPSULE PO SCH (22:00)
[2018-08-03] MEDS: PRAVASTATIN SODIUM 20 MG TABLET PO SCH (22:00)
--- NOTE | 2018-08-03 22:00 | NUR ---
RN NOTE PATIENT IS ALERT/ORIENTED X3, IS BY BEDSIDE, REFUSED HYTRIN 1 MG AND PRAVASTATIN 20MG, EXPLAINED ALL RISKS AND BENEFITS, STILL REFUSED, CHARGE NURSE IS AWARE
--- NOTE | 2018-08-03 22:05 | NUR ---
RN NOTE PATIENT STATED THAT HE HAS BACK PAIN 04/02, SH[place], PAIN DOES NOT RADIATE, NOTHING HELPS TO RELIVE IT, IS BY BEDSIDE, NOTIFIED ROXANA AHMADI IMMEDIATELY, MIKE AHMADI GAVE AN ORDER TO GIVE MORPHINE 2MG IV Q 4 HOURS, ORDER WAS CARRIED OUT, REQUESTED TO SEE ROXANA MCKEON NOW, CHARGE NURSE IS BY BEDSIDE, CALLED AND NOTIFIED ROXANA MCKEON THAT PATIENT'S WANTS TO SEE HIM TO DISCUSS PATIENT'S CONDITION, ROXANA AHMADI CAME TO THE PATIENT'S ROOM WITHIN 5 MINUTES, ROXANA AHMADI IS BY BEDSIDE, PAIN IS NOT RELIEVED, ROXANA MCKEON GAVE AN ORDER OF DILAUDID 1 MG IV PUSH Q 6 HOURS, ORDER CARRIED OUT, AND CT SCAN OF THE ABDOMEN AND PELVIC STAT, TOOK PATIENT FOR CT SCAN WITH CHARGE NURSE AND ACCOUNT PROCESSOR, TOLERATED CT SCAN WELL, NO PAIN OR DISCOMFORT AFTER DILAUDID 1MG IV PUSH, AWAITING FOR THE RESULTS OF THE CT SCAN OF THE ABDOMEN, WILL NOTIFY BRDIGETTE MCKEON SOON RESULT IS AVAILABLE Addendum: 08/03/18 at 2332 by NATHANAEL FERRARA RN VITAL SIGNS STABLE
[2018-08-03] MEDS: MORPHINE SULFATE INJ 2 MG/ML DISP.SYRIN IV PRN (22:15)
[2018-08-03] MEDS: HYDROMORPHONE 1 MG/1 ML DISP.SYRIN IV PRN (22:31)
--- NOTE | 2018-08-03 23:30 | NUR ---
RN NOTE CALLED CT SCAN, RESULT WILL BE READY WITHIN 1 HOUR, AWAITING FOR THE RESULT
[2018-08-04] VITALS: BP 101/59
[2018-08-04] MEDS: IPRATROPIUM NEB FS 0.5 MG/2.5 ML AMPUL.NEB NEB SCH ×7 (00:17→23:15)
--- NOTE | 2018-08-04 00:30 | NUR ---
RN NOTE RECEIVED ABD/PELVIC CT SCAN RESULT, NOTIFIED ROXANA MCKEON, NEW ORDER IS GIVEN AND CARRIED OUT, IS AWARE, CHARGE NURSE IS AWARE Addendum: 08/04/18 at 0557 by NATHANAEL FERRARA RN REQUESTED TO INSERT SUPPOS. DULCOLAX LATER IN THE MORNING BECAUSE PATIENT SLEEPS COMFORTABLY, WILL OFFER IT LATER
[2018-08-04] MEDS: PIPERACILLIN /TAZOBACTAM 2.25 G in IV D5W 50 ML IV SCH ×3 (02:37→17:08)
[2018-08-04 04:00] VITALS: BP 133/90
[2018-08-04] MEDS: BISACODYL SUPP (10 MG) 10 MG/SUPP.RECT SUPP.RECT RC PRN (06:11)
--- NOTE | 2018-08-04 06:24 | NUR ---
RN NOTE PATIENT SLEPT WELL, PAIN IS WELL MANAGED WITH PAIN MEDICATION, IS BY BEDSIDE, DULCOLAX SUPPOS. WAS ADMNISTERED, AWAITING FOR BOWEL MOVEMENT, WILL ENDORSE TO AM NURSE TO FOLLOW UP, ALL SAFETY MEASURES TAKEN, WILL PROVIDE BEDSIDE REPORT TO AM NURSE
--- NOTE | 2018-08-04 07:00 | NUR ---
FOLDING MACHINE OPERATOR OPENING NOTES RECEIVED PT LYING ON BED WITH BIPAP.ON TELE HR IS 90'S WITH A FIB AND WITH PVC.NO SOB AND ACUTE DISTRESS NOTED.ON FC IS IN PLACE.HD IS ONGOING.MID LINE IS ON LEFT ARM AND HD CATH IS IN RIGHT FEMORAL,SITE IS CLEAN DRY AND INTACT.NO INFILTRATION NOTED.FAMILY IS AT BED SIDE.SAFETY IS MAINTAINED AT ALL TIMES.BED IS IN LOW POSITION AND LOCKED.CALL LIGHT IS WITHIN REACH.WILL CONTINUE TO MONITOR THE PT CLOSELY.
[2018-08-04 08:00] VITALS: BP 157/87
[2018-08-04] MEDS: HYDROMORPHONE 1 MG/1 ML DISP.SYRIN IV PRN ×2 (08:19→20:22)
[2018-08-04 08:35] LABS: CALCIUM, SERUM 9.1 mg/dL (8.5-10.1); CARBON DIOXIDE 29 mmol/L (21-32); CHLORIDE 93 mmol/L (98-107); CREATININE 3.1 mg/dL (0.6-1.3); GLUCOSE 108 mg/dL (74-106); MAGNESIUM 2.4 mg/dL (1.8-2.4); POTASSIUM 4.1 mmol/L (3.5-5.1); SODIUM SERUM 135 mmol/L (136-145); UREA NITROGEN, BLOOD 31 mg/dL (7-18)
[2018-08-04] MEDS: DOCUSATE SODIUM 100 MG CAPSULE PO SCH ×2 (09:00→09:35)
[2018-08-04 09:07] LABS: BASOPHILS # (AUTO) 0.1 /CMM (0.0-0.2); BASOPHILS % (AUTO) 0.8 % (0.0-2.0); HEMATOCRIT 44 % (39-51); HEMOGLOBIN 14.3 g/dL (13.5-17.5); LYMPHOCYTES # (AUTO) 0.9 /CMM (0.8-4.8); LYMPHOCYTES % (AUTO) 6.1 % (20.0-44.0); MEAN CORPUSCULAR HGB CONC 33 g/dl (31.0-36.0); MEAN CORPUSCULAR VOLUME 89 fL (80-96); MONOCYTES # (AUTO) 1.6 /CMM (0.1-1.30); MONOCYTES % (AUTO) 11.6 % (2.0-12.0); NEUTROPHILS # (AUTO) 11.4 /CMM (1.8-8.9); NEUTROPHILS % (AUTO) 81.5 % (43.0-81.0); PLATELET COUNT (AUTO) 244 /CMM (150-450); RED BLOOD CELL COUNT(AUTO) 4.91 MIL/uL (4.5-6.0)
[2018-08-04] MEDS: GUAIFENESIN LA 600 MG TABLET.SA PO SCH ×2 (09:35→20:24)
[2018-08-04] MEDS: BENZONATATE 100 MG CAPSULE PO SCH ×4 (09:35→17:07)
[2018-08-04] MEDS: METOLAZONE 2.5 MG TABLET PO SCH (09:35)
[2018-08-04] MEDS: NIFEdipine XL (30MG) 30 MG TAB PO SCH (09:35)
[2018-08-04] MEDS: PAROXETINE HCL 10 MG TABLET PO SCH (09:35)
[2018-08-04] MEDS: SPIRONOLACTONE 25 MG TABLET PO SCH (09:35)
[2018-08-04] MEDS: ASPIRIN 81 MG TAB.CHEW PO SCH (09:36)
[2018-08-04] MEDS: methylPREDNISolone SOD SUCC 125 MG/2ML VIAL IV SCH (09:36)
[2018-08-04] MEDS: SEVELAMER CARBONATE 0.8 GM POWD.PACK GT SCH ×4 (09:36→18:00)
[2018-08-04] MEDS: PANTOPRAZOLE 40 MG TABLET.DR PO SCH (09:36)
[2018-08-04 12:00] VITALS: BP 150/87
[2018-08-04] MEDS: NA PHOS,M-B/NA PHOS,DI-BA 1 EA ENEMA RC PRN (12:07)
[2018-08-04] MEDS: SENNOSIDES/DOCUSATE SODIUM 1 TAB TABLET PO SCH (12:20)
--- NOTE | 2018-08-04 14:17 | NUR ---
NECK BAND MAKER NOTES PT IS SLEEPING ON BED.PT REFUSED AFTERNOON MEDS.OFFERED X3,STILL REFUSED.FAMILY IS AT BEDSIDE.
--- NOTE | 2018-08-04 14:26 | NUR ---
RT PATIENTS AT BEDSIDE REFUSED HHN TX STATING PATIENT WANTS TO SLEEP. NO SOB NOTED
--- NOTE | 2018-08-04 14:45 | NUR ---
ASSEMBLY LEAD PERSON NOTES PT REPORT GIVEN TO YULISSA LATHAM FOR JONATAN.
[2018-08-04 16:00] VITALS: BP 150/87
[2018-08-04] MEDS: CARVEDILOL 6.25 MG TABLET PO SCH (17:07)
--- NOTE | 2018-08-04 18:43 | NUR ---
BOTTLE HOP CLOSING NOTES PT IN BED AWAKE AND RESTING AT MODERATE HIGH BACKREST POSITION WITH AT BEDSIDE. A/O X 3, SAME ABLE TO VERBALIZED NEED. ON 02 VIA N/C @ 4LPM, TOLERATING WELL WITH NO ACUTE RESPIRATORY DISTRESS NOTED. ON TELE-MONITORING WITH CURRENT READING OF A-FIB AND OCCASIONAL PVC'S, HR ON THE 90'S, NO C/O CARDIAC DISTRESS VOICED. CUETO IN PLACE, DRAINING SMALL AMOUNT OF CLOUDY YELLOW URINE OUTPUT TO BEDSIDE URINARY BAG. S/P HD TODAY, NO DELAYED ADVERSE REACTIONS NOTED. HD CATH ON RIGHT FEMORAL SITE IN PLACE WITH DRESSING C/D/I. MIDLINE ON NATHALIE INTACT AND PATENT. SAFETY MEASURES MAINTAINED @ ALL TIMES. BED IN LOW POSITION AND LOCKED. CALL LIGHT IS WITHIN REACH. ALL NEEDS AND CARE ATTENDED WELL. WILL ENDORSE TO SPACE ENGINEER NURSE FOR JONATAN. .
[2018-08-04 20:00] VITALS: BP 151/70
--- NOTE | 2018-08-04 20:00 | NUR ---
OPERATIONS ADMINISTRATOR OPENING NOTES RECEIVED REPORT FROM AM RN. PATIENT A/A/O X3, ABLE TO MAKE NEEDS KNOWN. BREATHING EVEN & UNLABORED W/ BIPAP ON. SATING WELL @ 100%. DENIES ANY SOB OR DIFFICULTY BREATHING. ON TELE W/ A-FIB & OCCASIONAL PVCS, HR 91. LEFT UPPER ARM MIDLINE INTACT & PATENT W/ DRESSING CDI, SALINE LOCKED. RIGHT FEMORAL HD CATH IN PLACE W/ NO REDNESS OR SWELLING NOTED. C/O OF GENERALIZED PAIN, PAIN MED TO BE GIVEN. SAFETY MEASURES IN PLACE W/ SIDE RAILS UP & BED ALARM ON. INSTRUCTED TO USE CALL LIGHT FOR ASSISTANCE. @ BEDSIDE. WILL CONTINUE TO MONITOR.
[2018-08-04] MEDS: ALPRAZOLAM 0.5 MG TABLET PO PRN (20:39)
[2018-08-04] MEDS: PRAVASTATIN SODIUM 20 MG TABLET PO SCH (22:00)
[2018-08-04] MEDS: TERAZOSIN HCL 1 MG CAPSULE PO SCH (22:00)
[2018-08-05] VITALS (7 sets, daily range): BP systolic 114–152; BP diastolic 69–84
[2018-08-05] MEDS: PIPERACILLIN /TAZOBACTAM 2.25 G in IV D5W 50 ML IV SCH ×3 (02:41→17:23)
[2018-08-05] MEDS: IPRATROPIUM NEB FS 0.5 MG/2.5 ML AMPUL.NEB NEB SCH ×6 (04:17→23:34)
[2018-08-05] MEDS: PANTOPRAZOLE 40 MG TABLET.DR PO SCH (06:59)
[2018-08-05 07:22] LABS: BASOPHILS # (AUTO) 0.1 /CMM (0.0-0.2); BASOPHILS % (AUTO) 0.5 % (0.0-2.0); EOSINOPHILS % (AUTO) 0.1 % (0.0-6.0); HEMATOCRIT 41 % (39-51); HEMOGLOBIN 13.6 g/dL (13.5-17.5); LYMPHOCYTES # (AUTO) 1.4 /CMM (0.8-4.8); LYMPHOCYTES % (AUTO) 8.1 % (20.0-44.0); MEAN CORPUSCULAR HGB CONC 33 g/dl (31.0-36.0); MEAN CORPUSCULAR VOLUME 88 fL (80-96); NEUTROPHILS # (AUTO) 13.4 /CMM (1.8-8.9); NEUTROPHILS % (AUTO) 79.3 % (43.0-81.0); PLATELET COUNT (AUTO) 251 /CMM (150-450); RED BLOOD CELL COUNT(AUTO) 4.72 MIL/uL (4.5-6.0); WHITE BLOOD COUNT (AUTO) 16.9 K/uL (4.3-11.0)
[2018-08-05 07:35] LABS: CALCIUM, SERUM 8.6 mg/dL (8.5-10.1); CARBON DIOXIDE 26 mmol/L (21-32); CHLORIDE 92 mmol/L (98-107); CREATININE 6.4 mg/dL (0.6-1.3); GLUCOSE 112 mg/dL (74-106); MAGNESIUM 2.9 mg/dL (1.8-2.4); POTASSIUM 3.9 mmol/L (3.5-5.1); SODIUM SERUM 136 mmol/L (136-145); UREA NITROGEN, BLOOD 65 mg/dL (7-18)
[2018-08-05 08:05] LABS: PHOSPHORUS 10.2 mg/dL (2.5-4.9)
--- NOTE | 2018-08-05 08:16 | NUR ---
CRITICAL LAB RECEIVED, PT.'S PHOSPHOROUS LEVELS ARE 10.2 HIGH. MD WAS NOTIFIED, AND NEW ORDERS WERE CHANGED TO PT. MEDICATION.
[2018-08-05] MEDS: PAROXETINE HCL 10 MG TABLET PO SCH (08:48)
[2018-08-05] MEDS: METOLAZONE 2.5 MG TABLET PO SCH (08:49)
--- NOTE | 2018-08-05 08:50 | NUR ---
RN NOTES PT.'S , REQUESTED TO HAVE MD CHANGE DIURETIC TO LASIX, REFUSED PT. TO TAKE SOLU-MEDROL, AND PAXIL. HD IS SCHEDULED FOR PT. TODAY, STATED THAT SHE DOES NOT WAMT PT. TO RECEIVE HEMODIALYSIS TODAY. PT.'S ALSO STATED THAT SHE HAS NOT SEEN A DOCTOR SINCE SHE WAS IN THE ER.
[2018-08-05] MEDS: ASPIRIN 81 MG TAB.CHEW PO SCH (08:54)
[2018-08-05] MEDS: GUAIFENESIN LA 600 MG TABLET.SA PO SCH ×3 (08:54→21:23)
[2018-08-05] MEDS: BENZONATATE 100 MG CAPSULE PO SCH ×3 (08:55→16:35)
[2018-08-05] MEDS: SPIRONOLACTONE 25 MG TABLET PO SCH (08:55)
[2018-08-05] MEDS: SENNOSIDES/DOCUSATE SODIUM 1 TAB TABLET PO SCH (08:55)
[2018-08-05] MEDS: NIFEdipine XL (30MG) 30 MG TAB PO SCH (09:00)
[2018-08-05] MEDS ORDERED: methylPREDNISolone SOD SUCC 125 MG/2ML VIAL IV SCH (09:00)
--- NOTE | 2018-08-05 10:33 | NUR ---
PT. WAS SEEN AND EXAMINED BY DR. CHEATHAM, AND DR. SUNG. PT. CONDITION WAS DISCUSSED AND NEW ORDERS WERE GIVEN TO REMOVE CUETO CATHETER, STOP SOLU MEDROL, ZAROXOLYN, PHYSICAL THERAPY EVALUATION, AND PT. NEEDS INCENTIVE SPIROMETER FOR RESPIRATORY THERAPY.
--- NOTE | 2018-08-05 10:57 | NUR ---
RN NOTES PT.'S STATED THAT SHE DOES NOT WANT PT. TO RECEIVE DIALYSIS TODAY BECAUSE HE NEEDS HIS STRENGTH. PT. WAS EXPLAINED THE RISKS, AND BENEFITS OF HEMODIALYSIS, PT.'S VERBALIZED UNDERSTANDING, AND DISAGREED WITH HAVING HD TODAY.
--- NOTE | 2018-08-05 11:00 | NUR ---
GAVE NEW ORDER TO COLLECT STOOL TO R/O C.DIFF. PT. WAS PLACED ON CONTACT ISOLATION. FIRST STOOL TODAY WAS FORMED AND COULD NOT BE COLLECTED.
--- NOTE | 2018-08-05 11:40 | NUR ---
CUETO CATHETER WAS REMOVED WITHOUT COMPLICATIONS. REMOVED 100 CC OF TEA COLORED, CLEAR URINE FROM CUETO CATHETER.
[2018-08-05] MEDS: PROCARDIA PO SCH (12:14)
[2018-08-05] MEDS: SEVELAMER CARBONATE 0.8 GM POWD.PACK GT SCH ×2 (13:17→18:00)
--- NOTE | 2018-08-05 14:05 | NUR ---
PT. IS BEING SEEN, AND EVALUATED FOR PHYSICAL THERAPY.
--- NOTE | 2018-08-05 14:06 | NUR ---
RN OPENING NOTES RECEIVED PT. IN BED SLEEPING, EASY TO AWAKE. PT. IS A&OX3. PT. IS ON TELE MONITOR READING, ATRIAL FIBRILLATION AT 92 BPM. BREATHING UNLABORED ON OXYGEN AT 4L/MIN VIA NASAL CANNULA.NO S/S OF ACUTE DISTRESS. IV FLUIDS RUNNING VIA LEFT UPPER ARM MIDLINE AT 3L/MIN TKO. BED IS IN LOWEST, AND LOCKED POSITION. 2 SIDE RAILS UP. INSTRUCTED PT. TO USE CALL LIGHT FOR ASSISTANCE. ALL NEEDS MET. WILL CONTINUE TO ASSESS AND MONITOR. Addendum: 08/05/18 at 1409 by ISI MCCARTY RN OPENING NOTE TIME CORRECTION FOR 8232
--- NOTE | 2018-08-05 14:10 | NUR ---
DEMONSTRATED TO PT. HOW TO USE INCENTIVE SPIROMETER. PT. WAS ABLE TO SHOW RETURN DEMONSTRATION ON TEACHING, AND VERBALIZED UNDERSTANDING.
--- NOTE | 2018-08-05 16:28 | NUR ---
DISCUSSED WITH MD ABOUT PT.'S ABDOMINAL PAIN, AND SYMPTOMS OF BURNING. PER MD NEW ORDERS WILL BE ADDED TO MEDICATION CHART LIST TO ADDRESS ABDOMINAL PAIN. PER MD PT. NEEDS TO HAVE STOOL COLLECTED FOR C.DIFF.
[2018-08-05] MEDS: SUCRALFATE 1 G TABLET PO SCH ×2 (17:22→21:23)
[2018-08-05] MEDS: CARVEDILOL 6.25 MG TABLET PO SCH (17:37)
[2018-08-05] MEDS: HYDROMORPHONE 1 MG/1 ML DISP.SYRIN IV PRN (17:46)
--- NOTE | 2018-08-05 17:57 | NUR ---
PER ID BROOM BUILDER. BLADDER SCAN PT. [id number], STRAIGHT CATHETERIZE IF BLADDER SCAN SHOWS >300 CC OF URINE.
--- NOTE | 2018-08-05 18:19 | NUR ---
PER DIALYSIS NURSE, PT. REFUSED DIALYSIS TODAY. LABOR EXPEDITER IS AWARE PT. WILL NOT RECEIVE DIALYSIS TODAY.
--- NOTE | 2018-08-05 19:15 | NUR ---
TELE/RN INITIAL NOTES RECEIVED PT IN BED, A/OX3. ON 4L O2 VIA NC, NO SOB NOTED. AFIB HR 90S ON TELE. AT BEDSIDE. WITH INTACT AND PATENT NATHALIE MIDLINE. (R) REMORAL HD CATH INTACT. HOB ELEVATED. SAFETY MEASURES IN PLACED. CALL LIGHT WITHIN EASY REACH. WILL CONT TO MONITOR
--- NOTE | 2018-08-05 19:35 | NUR ---
RN CLOSING NOTES PT. IS IN BED A&OX3, PT.'S IS AT BEDSIDE. PT. IS ON TELE MONITOR READING, ATRIAL FIBRILLATION. BREATHING UNLABORED ON OXYGEN AT 4L/MIN VIA NASAL CANNULA.NO S/S OF ACUTE DISTRESS. IV ACCESS IS INTACT AND PATENT. BED IS IN LOWEST, AND LOCKED POSITION. 2 SIDE RAILS UP. INSTRUCTED PT. TO USE CALL LIGHT FOR ASSISTANCE. ALL NEEDS MET. ENDORSED REPORT TO NURSE.
--- NOTE | 2018-08-05 20:08 | NUR ---
PT REFUSING BIPAP AT THIS TIME Addendum: 08/06/18 at 0348 by SHAUNNA PARKS RT Amended: Links added.
--- NOTE | 2018-08-05 20:30 | NUR ---
RN NOTES BLADDER SCAN DONE, URINE=52MLS. WILL CONT TO MONITOR
[2018-08-05] MEDS: PRAVASTATIN SODIUM 20 MG TABLET PO SCH ×2 (21:23→21:46)
[2018-08-05] MEDS: TERAZOSIN HCL 1 MG CAPSULE PO SCH (21:23)
[2018-08-05] MEDS: MORPHINE SULFATE INJ 2 MG/ML DISP.SYRIN IV PRN (21:37)
[2018-08-05] MEDS: ALPRAZOLAM 0.5 MG TABLET PO PRN (21:37)
[2018-08-06] VITALS: BP 150/67
[2018-08-06] MEDS: PIPERACILLIN /TAZOBACTAM 2.25 G in IV D5W 50 ML IV SCH (01:01)
[2018-08-06] MEDS: HYDROMORPHONE 1 MG/1 ML DISP.SYRIN IV PRN ×2 (01:32→07:44)
[2018-08-06] MEDS: IPRATROPIUM NEB FS 0.5 MG/2.5 ML AMPUL.NEB NEB SCH ×6 (03:34→22:59)
[2018-08-06 04:00] VITALS: BP 119/105
--- NOTE | 2018-08-06 04:45 | NUR ---
RN NOTES BLADDER SCAN DONE WITH 54ML URINE. WILL CONT TO MONITOR
[2018-08-06] MEDS: SUCRALFATE 1 G TABLET PO SCH ×5 (06:31→22:09)
[2018-08-06] MEDS: PANTOPRAZOLE 40 MG TABLET.DR PO SCH (06:31)
--- NOTE | 2018-08-06 06:49 | NUR ---
RN NOTES PT IN STABLE CONDITION. NO ACUTE CHANGES THROUGHOUT SHIFT. AT BEDSIDE. SAFETY MEASURES OBSERVED AT ALL TIMES. ENDORSED TO AM SHIFT RN FOR JONATAN
--- NOTE | 2018-08-06 07:00 | NUR ---
BUFFET RUNNER OPENING NOTES RECIEVED BEDSIDE REPORT FROM [facility]. PATIENT SLEEPING NO SIGNS OR SYMPTOMS OF RESPIRATORY DISTRESS ON 4 LTRS NASAL CANNULA NO ACUTE PAIN NOTED AT THIS TIME. AT BEDSIDE STATING THAT HER JUST NEEDS TO SLEEP AND IS REFUSING HD TODAY BECAUSE HIS STOMACH IS IN PAIN . WILL SPEAK WITH MD NATHALIE GARY # 18 SALINE LOACJ Addendum: 08/06/18 at 0756 by GERALDINE ORONA RN CONT MIDLINE SALINE LOCK FLUSHED AND PATENT. SKIN INTACT SAFETY PRECAUTIONS IN PLACE CALL LIGHT WITHIN REACH. BED IN LOW POSITION WILL CONT TO MONITOR.
[2018-08-06] MEDS: SEVELAMER CARBONATE 0.8 GM POWD.PACK GT SCH ×3 (07:44→17:14)
[2018-08-06 08:00] VITALS: BP 135/112
--- NOTE | 2018-08-06 08:07 | NUR ---
FIO2 DECREASED FROM 4 LPM O2 FLOW TO 2 LPM O2 FLOW. SPO2 POST CHANGES IS 99% - 100% PARVEEN SOUNDS CLEAR BILATERAL. Addendum: 08/06/18 at 0808 by NADIA GO RT Amended: Links added.
--- NOTE | 2018-08-06 08:55 | NUR ---
INTERNAL GRINDER SET UP OPERATOR NOTES REFUSED ALL MORNING MEDS FOR PATIENT
[2018-08-06 09:49] LABS: BASOPHILS # (AUTO) 0.1 /CMM (0.0-0.2); EOSINOPHILS % (AUTO) 0.7 % (0.0-6.0); HEMATOCRIT 42 % (39-51); HEMOGLOBIN 13.7 g/dL (13.5-17.5); LYMPHOCYTES # (AUTO) 0.7 /CMM (0.8-4.8); LYMPHOCYTES % (AUTO) 5.7 % (20.0-44.0); MEAN CORPUSCULAR HGB CONC 32 g/dl (31.0-36.0); MEAN CORPUSCULAR VOLUME 88 fL (80-96); MONOCYTES # (AUTO) 1.7 /CMM (0.1-1.30); MONOCYTES % (AUTO) 13.4 % (2.0-12.0); NEUTROPHILS # (AUTO) 10.1 /CMM (1.8-8.9); NEUTROPHILS % (AUTO) 79.2 % (43.0-81.0); PLATELET COUNT (AUTO) 236 /CMM (150-450); WHITE BLOOD COUNT (AUTO) 12.8 K/uL (4.3-11.0)
[2018-08-06 10:01] LABS: CALCIUM, SERUM 7.9 mg/dL (8.5-10.1); CARBON DIOXIDE 25 mmol/L (21-32); CHLORIDE 88 mmol/L (98-107); GLUCOSE 108 mg/dL (74-106); SODIUM SERUM 133 mmol/L (136-145)
[2018-08-06 10:08] LABS: CREATININE 8.8 mg/dL (0.6-1.3); UREA NITROGEN, BLOOD 94 mg/dL (7-18)
--- NOTE | 2018-08-06 10:30 | NUR ---
RN MS NOTES DR HOLLINS TO SEE PATIENT PER CONSULT. FAMILY STATED THEY SPOKE WITH MD. PATIENT TOOK AM MEDS REFUSING PATIENT FOR DIALYSIS
[2018-08-06] MEDS: PAROXETINE HCL 10 MG TABLET PO SCH (10:51)
[2018-08-06] MEDS: SENNOSIDES/DOCUSATE SODIUM 1 TAB TABLET PO SCH (10:51)
[2018-08-06] MEDS: GUAIFENESIN LA 600 MG TABLET.SA PO SCH ×2 (10:51→22:09)
[2018-08-06] MEDS: PROCARDIA PO SCH (10:52)
[2018-08-06] MEDS: BENZONATATE 100 MG CAPSULE PO SCH ×4 (10:53→17:14)
[2018-08-06] MEDS: SPIRONOLACTONE 25 MG TABLET PO SCH (10:56)
--- NOTE | 2018-08-06 11:50 | NUR ---
RN MS NOTES CLAIMS PATIENT IS HAVING BAD PAIN IN ABDOMEN BROUGHT MEDS IN AND PATIENT ASLEEP WITH NO S/S OF PAIN.
[2018-08-06] MEDS ORDERED: HYDROMORPHONE 1 MG/1 ML DISP.SYRIN IV PRN (12:00)
--- NOTE | 2018-08-06 12:30 | NUR ---
RN MS NOTES APPROACHED ME IN [place] AND SAID TO GIVEN STOMACH MEDS NOW THAT PATIENT IS SCREAMING IN PAIN. OBTAINED MEDS AND WENT TO ROOM WOKE PATIENT FROM A CALM SLEEP. ASKED PT IF HE WAS HAVING SO MUCH PAIN WHY HE DID NOT SAY ANYTHING TO MD. 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 HD NURSE ENTERED ROOM AND REFUSED AGAIN FOR HD STATED PT NEEDS TO SLEEP CURRENT BUN [address] ERIC ABAD.
[2018-08-06] MEDS: ONDANSETRON HCL/PF 4 MG/2 ML VIAL IVP PRN (13:18)
[2018-08-06 16:00] VITALS: BP_SYST 134; BP_SYST 139; BP_DIAS 86
--- NOTE | 2018-08-06 16:12 | NUR ---
RN MS NOTES BLADDER SCAN DONE 119 ML TOTAL NOT VALIDATED FOR [facility]O CATH
--- NOTE | 2018-08-06 16:14 | NUR ---
RN MS NOTES SON AT BEDSIDE NOT HAPPY WITH CARE STATES AFTER DILAUDID WEARS OFF THAT HE WANTS TO TAKE PATIENT AMA
[2018-08-06] MEDS: CARVEDILOL 6.25 MG TABLET PO SCH (17:14)
--- NOTE | 2018-08-06 18:19 | NUR ---
DR. CHEATHAM NOTIFIED REGARDING AMA.AND SON SIGNED AMA,DR. REYES NOTIFIED ALSO.,NURSING SUP NOTIFIED.PER SON WILL BRING PATIENT TO [facility] OR [facility].
--- NOTE | 2018-08-06 18:35 | NUR ---
RN MS NOTES PATIENTS SON CHERELLE SIGNED PAPERS FOR PATIENT TO LEAVE AMA. MIDLINE REMOVED WITH CATH INTACT. HD FEMORAL CATH LEFT IN APPROVED BY MD. SON WAITING FOR FATHER TO BE MORE ALERT AND WILL LEAVE ESCORTED BY STAFF. SON WANTS TO TAKE FATHER TO ANOTHER FACILITY TO OBTAIN CARE.
--- NOTE | 2018-08-06 19:25 | NUR ---
RN MS CLOSING NOTES REPORT GIVEN TO NOC PATIENT AND FAMILY LEAVING AMA. ALL DISCHARGE PAPERS AND FORMS SIGNED. PATIENT REFUSED PHOTOS. ENDORSED TPO NOC
[2018-08-06 20:00] VITALS: BP 146/76
--- NOTE | 2018-08-06 20:04 | NUR ---
SITE LEASING AGENT OPENING NOTES RECEIVED REPORT FROM GERALDINE DUENAS. PATIENT A/A/O X3, ABLE TO MAKE NEEDS KNOWN. BREATHING EVEN & UNLABORED TOLERATING O2 @ 4LPM VIA NC. DENIES ANY SOB OR DIFFICULTY BREATHING. RADIAL PULSES PRESENT. LEFT UPPER ARM MIDLINE DC'D. RIGHT FEMORAL HD CATH IN PLACE W/ NO REDNESS OR SWELLING NOTED. DENIES ANY PAIN OR DISCOMFORT @ THIS TIME. SAFETY MEASURES IN PLACE W/ SIDE RAILS UP & BED ALARM ON. INSTRUCTED TO USE CALL LIGHT FOR ASSISTANCE. @ BEDSIDE. AWAITING DISCHARGE.
[2018-08-06 20:44] VITALS: BP 146/76
[2018-08-06] MEDS: PRAVASTATIN SODIUM 20 MG TABLET PO SCH (22:00)
[2018-08-06] MEDS: TERAZOSIN HCL 1 MG CAPSULE PO SCH (22:09)
[2018-08-06] MEDS: ALPRAZOLAM 0.5 MG TABLET PO PRN (22:57)
--- NOTE | 2018-08-06 23:09 | NUR ---
PER PATIENT'S FAMILY REQUEST, SHE REQUESTED FOR HIM TO BE OFF BIPAP TONIGHT AND LEFT ON NASAL CANNULA. PATIENT IS COMFORTABLE WITH NO RESP DISTRESS. RN WAS NOTIFIED.
[2018-08-07] MEDS: IPRATROPIUM NEB FS 0.5 MG/2.5 ML AMPUL.NEB NEB SCH ×2 (02:35→07:35)
[2018-08-07] MEDS: NA PHOS,M-B/NA PHOS,DI-BA 1 EA ENEMA RC PRN (04:05)
[2018-08-07] MEDS: BISACODYL SUPP (10 MG) 10 MG/SUPP.RECT SUPP.RECT RC PRN (04:15)
[2018-08-07] MEDS: ONDANSETRON HCL/PF 4 MG/2 ML VIAL IVP PRN (04:42)
--- NOTE | 2018-08-07 06:08 | NUR ---
RN NOTES PATIENT HAD X1 BROWN EMESIS. ZOFRAN 4MG IV GIVEN. REFUSED VS TO BE TAKEN BECAUSE PATIENT JUST WANTS TO SLEEP. WILL CONTINUE TO MONITOR.
[2018-08-07 08:00] VITALS: BP 140/80
[2018-08-07] MEDS: SEVELAMER CARBONATE 0.8 GM POWD.PACK GT SCH (08:00)
[2018-08-07] MEDS: SENNOSIDES/DOCUSATE SODIUM 1 TAB TABLET PO SCH (09:00)
[2018-08-07] MEDS: GUAIFENESIN LA 600 MG TABLET.SA PO SCH (09:00)
[2018-08-07] MEDS: BENZONATATE 100 MG CAPSULE PO SCH (09:00)
[2018-08-07] MEDS: PAROXETINE HCL 10 MG TABLET PO SCH (09:00)
[2018-08-07] MEDS: PROCARDIA PO SCH (09:00)
[2018-08-07] MEDS: SPIRONOLACTONE 25 MG TABLET PO SCH (09:00)
--- NOTE | 2018-08-07 09:00 | NUR ---
RN NOTES PATIENT REFUSED TO TAKE SCHEDULED MEDICINE. OFFERED 3X BUT ONLY AGREED TO TAKE PROTONIX AND CARAFATE. RISK AND BENEFITS EXPLAINED.
[2018-08-07] MEDS: PANTOPRAZOLE 40 MG TABLET.DR PO SCH (09:53)
[2018-08-07] MEDS: SUCRALFATE 1 G TABLET PO SCH (09:53)
[2018-08-07] MEDS ORDERED: POLYETHYLENE GLYCOL 3350 17 GM POWD.PACK PO PRN (10:00)
--- NOTE | 2018-08-07 10:30 | NUR ---
RN NOTES SON (CHERELLE) AT BEDSIDE. HAS VERBALIZED ON WANTING PATIENT TO BE DISCHARGED. HE ASKED FOR PAPER TO BE SIGNED AND HAS VERBALIZED THAT HE IS JUST CONFIRMING WITH THE TRANSPORT TEAM IF THEY ARE ON THEIR WAY TO ASSEMBLY MACHINE SET UP MECHANIC PATIENT (TRANSPORT TEAM SET UP BY THE SON). OFFERED CASE MANAGEMENT TEAM BUR REFUSED. DR CHEATHAM- WHO IS AT THE UNIT AT THIS TIME IS INFORMED.
--- NOTE | 2018-08-07 10:53 | NUR ---
RN NOTES RECEIVED PATIENT IN BED, MOANS UNABLE TO ASSESS LOC AT THIS TIME WILL DOLATER WHEN THE PATIENT WAKES UP ( AT BEDSIDE REQUESTING TO LET HIM SLEEP MORE) BREATHING EVEN & UNLABORED, O2 @ 4LPM VIA NC. SATURATION AT 965 AT THIS TIME. RADIAL PULSES PRESENT. IV LINE ON THE R FA G20: IN PLACE AND INTACT, SALINE LOCKED. SAFETY MEASURES IN PLACE W/ SIDE RAILS UP & BED ALARM ON. INSTRUCTED TO USE CALL LIGHT FOR ASSISTANCE. @ BEDSIDE. SHEET STAINED WITH VOMITUS FROM LAST NIGHT. OFFERED TO HAVE IT CHANGE BUT REFUSE " I AM NOT CONFERN ABOUT THAT AT THIS TIME", WILL CONTINUE TO MONITOR PATIENT
--- NOTE | 2018-08-07 10:58 | NUR ---
RN NOTES PATIENT LEFT AMA, FORMED SIGNED BY SON (CHERELLE). NO PICTURES TAKEN- SKIN IS INTACT. ALL BELONGING ACCOUNTED AND WAS TAKEN BY THE SON TO HOME. DISCHARGE AND MEDICATION INSTRUCTIO WAS REFUSED BY THE SON " WE ARE LEAVING RIGHT NOW". IV LINE AND ID BAND REMOVED. HOSPITAL PACKET HANDED TO SON. PATIENT LEFT VIA GURNEY ACCOMPANIED BY SON, AND 2 EMT. Addendum: 08/07/18 at 1145 by GISSEL NOLASCO RN REFUSED CUETO CATHETER TO BE REMOVED
== END 2018-08-07 10:58 | disposition left against medical advice (07) | DRG 871 ==
LOC: ER 20:08 → ICU 21:27 → TELE 07-26 10:35 → ICU 07-26 19:20 → TELE-TD 08-02 19:55 → TELE1 08-03 10:30 → MEDSG1 08-06 10:14
PROVIDERS: ADMIT Nurse Practitioner Acute Care; ATTEND Nurse Practitioner Acute Care
PROC: 5A09557 Assistance with Respiratory Ventilation, Greater than 96 Consecutive Hours, Continuous Positive Airway Pressure (ICD-10-PCS; principal; 2018-07-24)
PROC: 05H633Z Insertion of Infusion Device into Left Subclavian Vein, Percutaneous Approach (ICD-10-PCS; 2018-07-25)
PROC: B547ZZA Ultrasonography of Left Subclavian Vein, Guidance (ICD-10-PCS; 2018-07-25)
PROC: 06HM33Z Insertion of Infusion Device into Right Femoral Vein, Percutaneous Approach (ICD-10-PCS; 2018-07-28)
PROC: B54BZZA Ultrasonography of Right Lower Extremity Veins, Guidance (ICD-10-PCS; 2018-07-28)
DX: A41.9 Sepsis, unspecified organism (principal); I50.43 Acute on chronic combined systolic (congestive) and diastolic (congestive) heart failure; J96.02 Acute respiratory failure with hypercapnia; J96.01 Acute respiratory failure with hypoxia; N17.0 Acute kidney failure with tubular necrosis; N18.6 End stage renal disease; J18.9 Pneumonia, unspecified organism; I21.A1 Myocardial infarction type 2; I42.9 Cardiomyopathy, unspecified; I13.2 Hypertensive heart and chronic kidney disease with heart failure and with stage 5 chronic kidney disease, or end stage renal disease; N39.0 Urinary tract infection, site not specified; E44.0 Moderate protein-calorie malnutrition; I69.354 Hemiplegia and hemiparesis following cerebral infarction affecting left non-dominant side; B19.10 Unspecified viral hepatitis B without hepatic coma; E66.2 Morbid (severe) obesity with alveolar hypoventilation; R64 Cachexia; N40.0 Benign prostatic hyperplasia without lower urinary tract symptoms; I16.0 Hypertensive urgency; B96.20 Unspecified Escherichia coli [E. coli] as the cause of diseases classified elsewhere; I48.91 Unspecified atrial fibrillation; I25.10 Atherosclerotic heart disease of native coronary artery without angina pectoris; E87.6 Hypokalemia; I25.2 Old myocardial infarction; Z87.891 Personal history of nicotine dependence; Z99.2 Dependence on renal dialysis; Z85.51 Personal history of malignant neoplasm of bladder; Z79.899 Other long term (current) drug therapy; Z79.82 Long term (current) use of aspirin; Z88.8 Allergy status to other drugs, medicaments and biological substances; F43.9 Reaction to severe stress, unspecified; F41.9 Anxiety disorder, unspecified; I11.0 Hypertensive heart disease with heart failure; J44.9 Chronic obstructive pulmonary disease, unspecified; B95.2 Enterococcus as the cause of diseases classified elsewhere; D35.01 Benign neoplasm of right adrenal gland; D35.02 Benign neoplasm of left adrenal gland; D64.9 Anemia, unspecified; T38.0X5A Adverse effect of glucocorticoids and synthetic analogues, initial encounter; Y92.9 Unspecified place or not applicable; K59.00 Constipation, unspecified
CPT/HCPCS: 36415; 36569; 36600; 71045-TC; 80048-TC; 80053-TC; 80061-TC; 80076-TC; 81000-TC; 82728-TC; 82803-TC; 82962-TC; 83540-TC; 83735-TC; 83880; 84100-TC; 84443-TC; 84484-TC; 84520-TC; 85025-TC; 85730-TC; 86704; 86705; 86706; 86803; 87040-TC; 87081-TC; 87086-TC; 87186-TC; 87340; 90935-TC; 94660; 94760-TC; 94761-TC; 94762-TC; 94799-TC; 97530-TC; A4216; A6402; C1750; C1751; G0378; J0885; J1170; J1940; J2270; J2405; J2543; J2916; J2930; J3475; J3480; J3490; J7030; J7050; J7060

== ENCOUNTER 2018-11-19 08:23 | Inpatient (IN) | payer BC, MEDICAID ==
[~2018-11-19] VITALS: Ht 172.7 cm; Wt 72.1 kg
[2018-11-19] VITALS (29 sets, daily range): BP systolic 101–157; BP diastolic 54–131
[~2018-11-19 08:23] MED LIST changes: +ALBU2.5V38 NEB; +AMPI500C11 PO; +EPOE1VIA12 SQ; -ISOS40TA16 PO
--- NOTE | 2018-11-19 08:29 | NUR ---
PATIENT CALLED TO TRIAGE, NOT HERE YET PER ENRIQUE IN ADMITTING
--- NOTE | 2018-11-19 08:31 | NUR ---
IPAP 18, EPAP 5, RATE 12, O2 100%, BIB RA 60 FROM HOME,WORSENING SOB, BP 200/102 ,NTG SPRAY X 3, ON CPAP UPON ARRIVAL, PER EMS REPORT PT O2 SATURATION RA WAS 60'S, EMS PLACED PT ON CPAP AND O2 SATURATION WENT UP TO 78%, TO ER BED 8, DR BERNSTEIN AT BEDSIDE, HOOKED TO MONITOR, RT AT BEDSIDE, HOOKED PT TO BIPAP MACHINE W SETTINGS OF CHANGED TO GOWN, IV PERIPHERAL LINE STARTED AT RFA 20G. Addendum: 11/19/18 at 0901 by CINDA BIB RA 60 FROM HOME,WORSENING SOB, BP 200/102 ,NTG SPRAY X 3, ON CPAP UPON ARRIVAL, PER EMS REPORT PT O2 SATURATION RA WAS 60'S, EMS PLACED PT ON CPAP AND O2 SATURATION WENT UP TO 78%, TO ER BED 8, DR BERNSTEIN AT BEDSIDE, HOOKED TO MONITOR, RT AT BEDSIDE , HOOKED PT TO BIPAP MACHINE W SETTINGS OF IPAP 18, EPAP 5, RATE 12, O2 100%, CHANGED TO GOWN, IV PERIPHERAL LINE STARTED AT RFA 20G.
[2018-11-19] MEDS ORDERED: NTG 50 MG/D5W250 ML BOTTL 250 ML IV ONE ×2 (08:32→09:00)
--- NOTE | 2018-11-19 08:40 | NUR ---
PT. PLACED INTO BIPAP ORDER DUE TO INCREASE WOB. PARAMETERS BELOW PER DR. BERNSTEIN: IPAP 18 EPAP 5 RATE 12 FIO2 100% BREATH SOUNDS FINE RALES AND CRACKLES BILATERAL. NERIS @ BEDSIDE. Addendum: 11/19/18 at 0857 by NADIA GO RT Amended: Links added.
[2018-11-19] MEDS ORDERED: LORAZEPAM INJ 2 MG/ML VIAL ONE ×2 (08:45→09:09)
[2018-11-19] MEDS ORDERED: LORAZEPAM INJ 2 MG/ML VIAL IV ONE ×2 (09:00→09:30)
[2018-11-19] MEDS ORDERED: FUROSEMIDE 40 MG/4 ML VIAL IV ONE (09:00)
[2018-11-19] MEDS ORDERED: ENALAPRILAT INJ (1.25 MG/ML) 1.25 MG/ML VIAL IV PRN (09:00)
[2018-11-19 09:01] LABS: HEMOGLOBIN 10.9 g/dL (13.5-17.5); RED BLOOD CELL COUNT(AUTO) 3.56 MIL/uL (4.5-6.0); WHITE BLOOD COUNT (AUTO) 9.5 K/uL (4.3-11.0)
[2018-11-19 09:02] LABS: BASOPHILS # (AUTO) 0.1 /CMM (0.0-0.2); BASOPHILS % (AUTO) 0.7 % (0.0-2.0); EOSINOPHILS % (AUTO) 1.8 % (0.0-6.0); HEMATOCRIT 34 % (39-51); LYMPHOCYTES # (AUTO) 1.2 /CMM (0.8-4.8); LYMPHOCYTES % (AUTO) 13.1 % (20.0-44.0); MEAN CORPUSCULAR HGB CONC 32 g/dl (31.0-36.0); MEAN CORPUSCULAR VOLUME 96 fL (80-96); MONOCYTES # (AUTO) 1.1 /CMM (0.1-1.30); MONOCYTES % (AUTO) 11.3 % (2.0-12.0); NEUTROPHILS # (AUTO) 6.9 /CMM (1.8-8.9); NEUTROPHILS % (AUTO) 73.1 % (43.0-81.0); PLATELET COUNT (AUTO) 132 /CMM (150-450)
[2018-11-19] MEDS ORDERED: ENALAPRILAT INJ (1.25 MG/ML) 1.25 MG/ML VIAL IV ONE (09:04)
[2018-11-19] MEDS ORDERED: FUROSEMIDE 40 MG/4 ML VIAL ONE (09:04)
[2018-11-19 09:23] LABS: CALCIUM, SERUM 8.7 mg/dL (8.5-10.1); CARBON DIOXIDE 25 mmol/L (21-32); CHLORIDE 101 mmol/L (98-107); CREATININE 5.3 mg/dL (0.6-1.3); GLUCOSE 164 mg/dL (74-106); POTASSIUM 3.7 mmol/L (3.5-5.1); SODIUM SERUM 139 mmol/L (136-145); UREA NITROGEN, BLOOD 77 mg/dL (7-18)
[2018-11-19 09:24] LABS: ALANINE AMINOTRANSFERASE 29 U/L (12-78); ALBUMIN 3.3 g/dL (3.4-5.0); ALKALINE PHOSPHATASE 68 U/L (46-116); ASPARTATE AMINOTRANSFERASE 18 U/L (15-37); B-TYPE NATRIURETIC PEPTIDE 25121 PG/ML (0-125); BILIRUBIN,DIRECT 0.2 mg/dL (0.0-0.2); BILIRUBIN,TOTAL 0.7 mg/dL (0.2-1.0); TOTAL PROTEIN, SERUM 7.7 g/dL (6.4-8.2)
[2018-11-19] MEDS ORDERED: PIPERACILLIN /TAZOBACTAM 3.375 G in IV D5W 50 ML IV ONE (09:30)
[2018-11-19] MEDS ORDERED: VANCOMYCIN 1 GM in IV D5W 250 ML IV ONE (09:30)
[2018-11-19] MEDS ORDERED: HYDR-4076 PO (09:34)
[2018-11-19] MEDS ORDERED: CEFU500T66 PO (09:34)
[2018-11-19] MEDS ORDERED: IPRA12.9 IH (09:34)
[2018-11-19] MEDS ORDERED: TERA1CAP11 PO (09:34)
[2018-11-19] MEDS ORDERED: UMEC1BLS IH (09:34)
[2018-11-19] MEDS ORDERED: CLON0.2T PO (09:52)
[2018-11-19] MEDS ORDERED: ALBU18HF2 IH (09:53)
[2018-11-19] MEDS ORDERED: FOLI0.8T2 PO (10:05)
[2018-11-19] MEDS ORDERED: ISOS60TA4 PO (10:05)
--- NOTE | 2018-11-19 10:21 | NUR ---
REPORT GIVEN TO DWAYNE DUENAS OF ICU
[2018-11-19 10:31] LABS: APPEARANCE,URINE Slightly Cloudy (CLEAR); BILIRUBIN,URINE Negative (NEGATIVE); BLOOD, URINE Moderate Ery/uL (NEGATIVE); COLOR,URINE Yellow (YELLOW); KETONES,URINE Negative (NEGATIVE); LEUKOCYTE ESTERASE ,URINE Small (NEGATIVE); NITRITE, URINE Negative (NEGATIVE); PH,URINE 6.5 (5.0-8.0); PROTEIN,URINE >=300 mg/dl (NEGATIVE); UGLUCOSE Negative (NEGATIVE); UROBILINOGEN,URINE 0.2 EU/dL (0.2)
[2018-11-19 10:42] LABS: BACTERIA,URINE Few /HPF (None Seen); SQUAMOUS EPITHELIAL CELL,UR Few /HPF (None Seen); WBC,URINE 81-100 /HPF (0-3)
--- NOTE | 2018-11-19 11:05 | NUR ---
pt transferred from er#8 to icu 261 with same bipap machine with no changes on parameters. bipap machine plugged into red outlet with hiltong @ bedside. Addendum: 11/19/18 at 1111 by NADIA GO RT Amended: Links added.
--- NOTE | 2018-11-19 11:10 | NUR ---
MIXER BLENDERSHOOTER'S HELPER NOTES RECEIVED PT FROM ER TO BE ADMITTED UNDER DR. JAY FOR RESPIRATORY FAILURE. MD AT BEDSIDE. PT PLACED ON BIPAP IN ER DUE TO INCREASE WOB. CURRENT BIPAP SETTINGS: IPAP 18 EPAP 5 RATE 12 FIO2 100% PT TOLERATING SETTING WELL AND SATING AT 100%. NO SOB OR ACUTE SIGNS OF DISTRESS NOTED. BREATHING IS EVEN AND UNLABORED. PT NOTED TO BE AFIB ON THE TELE MONITOR WITH A HR OF 79. HE DENIES ANY CHEST PAIN OR PALPITATIONS. PT NOTED TO BE LETHARGIC, BUT ABLE TO FOLLOW SIMPLE COMMANDS AND COMMUNICATE NEEDS. CUETO CATHETER PLACED IN ER NOTED WITH 150 CC OF CLOUDY YELLOW URINE. PERIPHERAL IVS NOTED TO PT'S LEFT AND RIGHT RA. BOTH 20G. PT CURRENTLY RECEIVING VANCO WHICH WAS STARTED IN ER AND NITRO DRIP WHICH WILL BE TITRATED OFF. PT ORIENTED TO ROOM AND USE OF CALL LIGHT. BELONGINGS [id number]. PT'S WATCH TAKEN BY PT'S . SIGNED BELONGS FORM. BED IN LOW LOCKED POSITION, SIDE RAILS UP X2, CALL LIGHT WITHIN REACH. WILL AWAIT FOR FURTHER MD ORDERS AND BEGIN ADMISSION PROCESS
--- NOTE | 2018-11-19 11:23 | NUR ---
VANCOMYCIN 1G IV END TIME: 1205
[2018-11-19] MEDS ORDERED: MORPHINE SULFATE INJ 2 MG/ML DISP.SYRIN IV PRN (12:00)
[2018-11-19] MEDS ORDERED: Z GUARD REMEDY 2 OZ OINT TP PRN (12:00)
[2018-11-19] MEDS ORDERED: ACETAMINOPHEN 325 MG TABLET PO PRN (12:00)
[2018-11-19] MEDS ORDERED: ONDANSETRON HCL/PF 4 MG/2 ML VIAL IVP PRN (12:00)
[2018-11-19] MEDS ORDERED: BUMETANIDE INJ 6 MG in IV NS 0.9% 36 ML IV ONE (12:00)
[2018-11-19] MEDS ORDERED: HEPARIN INFUSION/D5W 500 ML IV PRN (12:00)
[2018-11-19 13:19] LABS: ABG BASE EXCESS -2.6 mmol/L; ABG OXYGEN SATURATION 96.8 % (92.0-98.5); ABG PCO2 42.9 mmHg (35.0-45.0); ABG PH 7.347 (7.350-7.450); ABG PO2 106.7 mmHg (75.0-100.0); AaDO2 563.4 mmHg; COHb 0.5 % (0.5-1.5); MetHb 0.4 % (0.0-1.5); O2Hb 95.9 % (94.0-97.0); SITE, ABG Right Brachial; VENT MODE, BG IPAP 18 / EPAP 5
--- NOTE | 2018-11-19 13:50 | NUR ---
COUTIERIER NOTES: HEPARIN INFUSION PER DR JAY, PT TO BE STARED ON HEPARIN DRIP DUE NON ACS DUE TO "ATRIAL FIBRILLATION RELATION". PT'S REFUSING ADMINISTRATION OF DRIP. REFUSAL CONFIRMED WITH PATIENT. DR JAY MADE AWARE OF OT'S REFUSAL. TELEPHONE ORDER OBTAINED TO D/C MANUEL. STATES THAT HE WILL TALK TO PT'S FAMILY AT A LATER TIME
[2018-11-19] MEDS: CEFTRIAXONE 1 G in IV D5W 50 ML IV SCH (15:46)
[2018-11-19] MEDS: ALBUTEROL HALF STRENGTH 1.25 MG/3 ML VIAL.NEB NEB SCH ×2 (15:58→19:37)
[2018-11-19] MEDS: IPRATROPIUM NEB FS 0.5 MG/2.5 ML AMPUL.NEB NEB SCH ×2 (15:58→19:37)
[2018-11-19] MEDS: methylPREDNISolone SOD SUCC 125 MG/2ML VIAL IV SCH (17:09)
--- NOTE | 2018-11-19 19:00 | NUR ---
RAG CUTTING MACHINE FEEDER CLOSING NOTES PT REMAINS STABLE AND TOLERATING BIPAP SETTINGS WELL. INVASIVE LINES REMAIN PATENT AND INTACT.PT CURRENTLY RECEIVING HD. AT BEDSIDE AND REFUSING HD TREATMENT YELLING "TURN THAT MACHINE OFF, HE DOES NOT NEED IT, ONLY KEEP HIM ON FOR 1.5HR". SECURITY CALLED TO ESCORT OFF UNIT. DR REYES NOTIFIED AND STATES THAT PT MAY RECEIVE HD FOR 2HRS. TELEPHONE ORDERS ALSO OBTAINED FOR TPA 2MG TO DECLOT PT'S HD CATH. SAFETY MEASURES REMAIN IN PLACE. WILL ENDORSE TO NIGHTSHIFT RN FOR JONATAN
[2018-11-19] MEDS ORDERED: ALTEPLASE CATHFLO 2 MG/VIAL XX ONE (19:30)
--- NOTE | 2018-11-19 19:43 | NUR ---
RT NOTE PATIENT RECEIVED AWAKE/ALERT ON BIPAP MACHINE. BIPAP PLUGGED TO RED OUTLET. ALARMS ON AND AUDIBLE. MASK SECURED. TX GIVEN, NO ADVERSE REACTIONS NOTED. AMBU BAG @ BEDSIDE. NO DISTRESS NOTED. WILL CONTINUE TO MONITOR T/O SHIFT. Addendum: 11/19/18 at 1944 by QUIANA SETH RT Amended: Links added.
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
--- NOTE | 2018-11-19 20:39 | NUR ---
ICU/DISTANCE EDUCATION COORDINATOR ALSO MADE AWARE OF HOSPITAL POLICY ABOUT NO OVER NIGHT STAYING WITH THE PT AND CAN COME EVERY HOUR ON THE HOUR FOR 10 MINUTES. PER ICU POLICY AND THAT PT IS IN A CRITICAL CARE SETTINGS WITH MORE 1 TO 1 CARE AND NURSE ATTENTION TO PT WELL PT BEING ON THE MONITOR. WAS TOLD SHE COULD STAY IN THE WAITING ROOM. DR JAY IS NOT GIVING ANY ORDERS FOR A OVER NIGHT STAYING PRIVILEGES. SECURITY IS ALERTED ABOUT THIS SITUATION, WHICH THEN SECURITY RUBIA WAS PRESENT WHILE EVERYTHING WAS BEING SAID TO AND WILL BE PRESENT IF NEEDED FOR NURSE SUPPORT.
[2018-11-19] MEDS ORDERED: CLONIDINE HCL 0.2 MG TABLET PO SCH (21:00)
[2018-11-19] MEDS: CLONIDINE HCL 0.1 MG TABLET PO SCH (21:00)
[2018-11-19] MEDS: LORAZEPAM INJ 2 MG/ML VIAL IV PRN (21:40)
[2018-11-19] MEDS: TERAZOSIN HCL 1 MG CAPSULE PO SCH (22:00)
[2018-11-19] MEDS: SIMVASTATIN 40 MG TABLET PO SCH (22:00)
--- NOTE | 2018-11-19 22:25 | NUR ---
ICU/TRANSPORTATION ECONOMICS TEACHER PT IS CURRENTLY NPO DUE TO BIPAP. PT'S 2100 & 2200 MEDICATIONS OF CATAPRES0.1MG, HYTRIN 1MG, ZOCAR 40MG ALL HELD AT THIS TIME. CURRENTLY BLOOD PRESSURE IS 127/56 WITH HEART RATE OF 90'S. WILL CONTINUE TO MONITOR THIS PT AND HIS BLOOD PRESSURE. ALSO PT HAD RECEIVED ATIVAN 1MG IVP BY CHARGE NURSE WHO WAS NOTIFIED ABOUT PT'S REQUEST TO SLEEP AND MEDICATION TO AID IN THIS. WILL CONTINUE TO CLOSELY MONITOR THIS PT AND HIS BLOOD PRESSURE WELL HIS SATURATION WHILE ON BIPAP. NO ACUTE DISTRESS SEEN AT THIS TIME.
[2018-11-20] VITALS (36 sets, daily range): BP systolic 123–189; BP diastolic 57–111
[2018-11-20] MEDS: IPRATROPIUM NEB FS 0.5 MG/2.5 ML AMPUL.NEB NEB SCH ×4 (01:37→19:29)
[2018-11-20] MEDS: ALBUTEROL HALF STRENGTH 1.25 MG/3 ML VIAL.NEB NEB SCH ×4 (01:37→19:29)
--- NOTE | 2018-11-20 01:37 | NUR ---
RT NOTE PATIENT FIO2 DECREASED TO 90%. PATIENT STABLE, NO DISTRESS NOTED. SP02 @ 100%, HR 97. MASK SECURED. ALARMS ON AND AUDIBLE. NURSE, AFSHAN, NOTIFIED AND IS AWARE. WILL CONTINUE TO MONITOR.
--- NOTE | 2018-11-20 03:03 | NUR ---
RT NOTE PATIENT AWAKE/ALERT. PATIENT REMOVED FROM BIPAP AT THIS TIME. PLACED PATIENT ON SIMPLE MASK @ 8LPM. SPO2 @ 98%, HR 103. NO DISTRESS NOTED. NURSE, AFSHAN, NOTIFIED AND IS AWARE. WILL MONITOR.
--- NOTE | 2018-11-20 04:49 | NUR ---
RT NOTE PATIENT PLACED BACK ON BIPAP WITH CURRENT BIPAP SETTINGS. FI02 @ 90%. MASK SECURED WITH MEPILEX. NO DISTRESS NOTED. ALARMS ON AND AUDIBLE. PATIENT STABLE AT THIS TIME.
[2018-11-20 05:02] LABS: BASOPHILS % (AUTO) 0.3 % (0.0-2.0); EOSINOPHILS % (AUTO) 0.1 % (0.0-6.0); HEMATOCRIT 32 % (39-51); HEMOGLOBIN 10.7 g/dL (13.5-17.5); LYMPHOCYTES # (AUTO) 0.1 /CMM (0.8-4.8); LYMPHOCYTES % (AUTO) 1.7 % (20.0-44.0); MEAN CORPUSCULAR HGB CONC 34 g/dl (31.0-36.0); MEAN CORPUSCULAR VOLUME 94 fL (80-96); MONOCYTES # (AUTO) 0.2 /CMM (0.1-1.30); NEUTROPHILS # (AUTO) 7.7 /CMM (1.8-8.9); NEUTROPHILS % (AUTO) 95.9 % (43.0-81.0); PLATELET COUNT (AUTO) 92 /CMM (150-450); WHITE BLOOD COUNT (AUTO) 8.1 K/uL (4.3-11.0)
[2018-11-20 05:22] LABS: ALANINE AMINOTRANSFERASE 24 U/L (12-78); ALBUMIN 2.8 g/dL (3.4-5.0); ALKALINE PHOSPHATASE 53 U/L (46-116); ASPARTATE AMINOTRANSFERASE 18 U/L (15-37); BILIRUBIN,TOTAL 0.6 mg/dL (0.2-1.0); CALCIUM, SERUM 8.5 mg/dL (8.5-10.1); CARBON DIOXIDE 25 mmol/L (21-32); CHLORIDE 103 mmol/L (98-107); CREATININE 5.3 mg/dL (0.6-1.3); GLUCOSE 121 mg/dL (74-106); MAGNESIUM 2.4 mg/dL (1.8-2.4); PHOSPHORUS 6.3 mg/dL (2.5-4.9); POTASSIUM 3.5 mmol/L (3.5-5.1); SODIUM SERUM 142 mmol/L (136-145); TOTAL PROTEIN, SERUM 6.5 g/dL (6.4-8.2); UREA NITROGEN, BLOOD 66 mg/dL (7-18)
[2018-11-20 05:33] LABS: CHOLESTEROL 188 mg/dL (<200); HDL CHOLESTEROL 46 mg/dL (40-60); LDL 130 mg/dL (0-99); THYROID STIMULATING HORMONE 0.463 uIU/mL (0.358-3.74); TRIGLYCERIDES 55 mg/dL (30-150)
--- NOTE | 2018-11-20 06:10 | NUR ---
ICU/PHOTO EDITOR PT REFUSED HD, PT EXPLAINED WHY THIS WAS IMPORTANT HOWEVER PT REFUSED. CHARGE NURSE AWARE OF THIS.
--- NOTE | 2018-11-20 07:45 | NUR ---
ICU/HYDRAULIC TESTER RECEIVED REPORT FROM NIGHT NURSE. SEE FLOWSHEET FOR ASSESSMENT ALONG WITH SKIN ISSUES AND EACH INTERVENTIONS TO THESE. PT WAS WAS TUNED AND REPOSITIONED FOR COMFORT AND CARE. NO ACUTE DISTRESS SEEN AT THIS TIME. WILL CONTINUE TO MONITOR THIS PT. PT IS CURRENTLY ON BIPAP, SATURATION IS 99%.
--- NOTE | 2018-11-20 07:45 | NUR ---
RT NOTE: PLACED PT ON 8 L/M VIA O2 SIMPLE MASK. PT TOSIN WELL. NO ACUTE SOB NOTED @ THIS TIME. SPO2 96% HR 95. RN AFSHAN NOTIFIED AND AWARE. WILL CONTINUE TO MONITOR CLOSELY.
[2018-11-20 08:20] LABS: LYMPHOCYTES % (MANUAL) 2 % (16-48); MONOCYTES % (MANUAL) 2 % (0-11.0); NEUTROPHILS % (MANUAL) 96 (42-76)
--- NOTE | 2018-11-20 08:30 | NUR ---
ICU/AUTOMOTIVE LUBE TECHNICIAN ABG DONE WHILE OFF BIPAP AND ON SIMPLE MASK [address] PERSON AWARE WITH NO NEW ORDERS WILL CONTINUE TO CLOSELY MONITOR THIS PT.
[2018-11-20] MEDS: methylPREDNISolone SOD SUCC 125 MG/2ML VIAL IV SCH ×2 (08:48→16:53)
[2018-11-20 08:52] LABS: ABG BASE EXCESS -1.9 mmol/L; ABG OXYGEN SATURATION 93.5 % (92.0-98.5); ABG PCO2 37.1 mmHg (35.0-45.0); ABG PH 7.401 (7.350-7.450); ABG PO2 73.6 mmHg (75.0-100.0); AaDO2 241.2 mmHg; COHb 0.6 % (0.5-1.5); MetHb 0.2 % (0.0-1.5); O2Hb 92.8 % (94.0-97.0); SITE, ABG Left Brachial; VENT MODE, BG O2 SIMPLE MASK @ 8 L/M
--- NOTE | 2018-11-20 09:00 | NUR ---
ICU/SCHOOL HEALTH ASSISTANT ULTRASOUND DONE OF THE HEART SHOWS EJ OF 45%. THIS WAS PLACED INTO PT'S CHART.
--- NOTE | 2018-11-20 09:30 | NUR ---
ICU/FURNACE OPERATOR PT'S AT BEDSIDE AND HASN'T LEFT. PT'S WANTS TO KNOW WHEN THE DR'S WILL COME TO SEE HER AND TALK TO HER. MANY CALLED HAVE BEEN PLACED TO NEPHROLOGY. CHARGE NURSE MADE AWARE OF THE MANY ISSUES WITH FAMILY
--- NOTE | 2018-11-20 11:00 | NUR ---
ICU/CARBURETOR MECHANIC PRIMARY MD TO SEE FAMILY AND ANSWER QUESTIONS. THEN ASKED ABOUT HD, FAMILY SAID THAT THEY NOW WANT IT. EXPLAIN THAT I HAVE CALLED AND TEXT MD STILL AWAITING CALL BACK. MD TO TEXT AND CALL TO GET HD HERE.
[2018-11-20] MEDS: ISOSORBIDE MONONITRATE (30MG) 30 MG TAB.SR.24H PO SCH (11:12)
[2018-11-20] MEDS: ASPIRIN 81 MG TAB.CHEW PO SCH (11:12)
[2018-11-20] MEDS: PAROXETINE HCL 10 MG TABLET PO SCH (11:12)
[2018-11-20] MEDS: CLONIDINE HCL 0.1 MG TABLET PO SCH ×2 (11:13→21:11)
[2018-11-20] MEDS: NIFEdipine XL (30MG) 30 MG TAB PO SCH (11:13)
[2018-11-20] MEDS: CARVEDILOL 12.5 MG TABLET PO SCH (11:21)
--- NOTE | 2018-11-20 12:00 | NUR ---
ICU/PRINT BINDING WORKER HD WAS STATED, IS HAPPY WITH SITUATION. WILL CONTINUE TO MONITOR THIS PT AND HD.
--- NOTE | 2018-11-20 13:00 | NUR ---
ICU/TOOL PROGRAMMER ATIVAN 1MG GIVEN TO PT BY CHARGE NURSE, WHO WAS NOTIFIED ABOUT PT WAS AGITATED. WILL CONTINUE TO MONITOR THIS PT.
--- NOTE | 2018-11-20 13:00 | NUR ---
ENDORSED REPORT FROM AFSAHN DUENAS FOR CONTINUITY OF CARE. PT REMAINS IN NO ACUTE DISTRESS IN BED. PT TOLERATING SIMPLE MASK WELL. ALL VITALS WNL. WILL CONTINUE TO MONITOR PT.
[2018-11-20] MEDS: LORAZEPAM INJ 2 MG/ML VIAL IV PRN (13:22)
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
[2018-11-20] MEDS: CEFTRIAXONE 1 G in IV D5W 50 ML IV SCH (16:53)
--- NOTE | 2018-11-20 17:25 | NUR ---
RT NOTE: RECEIVED PT ON ORDERED NOTED BIPAP SETTINGS 18/5 BUR 12 @ 90% FIO2. PLACED PT ON 8 L/M VIA SIMPLE O2 MASK. ABG DONE ON OXYGEN WITH NO CRITICAL VALUES NOTED. MD SHOWN. RN NOTIFIED. TXS GIVEN ORDERED WITH NO ADVERSE REACTIONS NOTED. EMERGENCY EQUIPMENT @ BEDSIDE. @ BEDSIDE.
[2018-11-20] MEDS: GUAIFENESIN/D-METHORPHAN HB 5 ML UDC PO PRN (21:10)
[2018-11-20] MEDS: TERAZOSIN HCL 1 MG CAPSULE PO SCH (21:10)
[2018-11-20] MEDS: SIMVASTATIN 40 MG TABLET PO SCH (21:11)
--- NOTE | 2018-11-20 22:16 | NUR ---
RT NOTE PATIENT RECEIVED AWAKE/ALERT ON NASAL CANNULA. AT THIS TIME @2215 PATIENT PLACED ON BIPAP. BIPAP PLUGGED TO RED OUTLET. ALARMS ON AND AUDIBLE. MASK SECURED AND WITH MEPILEX . AMBU BAG @ BEDSIDE. NO DISTRESS NOTED. WILL CONTINUE TO MONITOR T/O SHIFT. Addendum: 11/20/18 at 8 by WEN FRANKLIN RT Amended: Links added.
[2018-11-21] VITALS (18 sets, daily range): BP systolic 129–151; BP diastolic 67–100
[2018-11-21] MEDS: ALBUTEROL HALF STRENGTH 1.25 MG/3 ML VIAL.NEB NEB SCH ×4 (01:35→20:24)
[2018-11-21] MEDS: IPRATROPIUM NEB FS 0.5 MG/2.5 ML AMPUL.NEB NEB SCH ×4 (01:35→20:24)
--- NOTE | 2018-11-21 07:00 | NUR ---
PT REMAINS IN NO ACUTE DISTRESS IN BED. PT DID NOT HAVE ANY SIGNIFICANT CHANGE IN CONDITION DURING SHIFT. ALL NEEDS MET, ALL ORDERS CARRIED OUT. PT TOLERATED NOC BIPAP WELL. PT NOW ON SIMPLE MASK AND TOLERATING WELL. WILL ENDORSE CARE TO AM RN FOR CONTINUITY OF CARE.
--- NOTE | 2018-11-21 07:51 | NUR ---
RT NOTE PT FOUND OFF BIPAP ON SIMPLE MASK. PT GIVEN BREATHING TX AND PLACED ON NC @ 3L POST TREATMENT. NO DISTRESS NOTED. PT AWAKE AND ALERT. RN NOTIFIED. Addendum: 11/21/18 at 0752 by ANNIA WALKER RT Amended: Links added.
[2018-11-21] MEDS: PAROXETINE HCL 10 MG TABLET PO SCH (08:21)
[2018-11-21] MEDS: ASPIRIN 81 MG TAB.CHEW PO SCH (08:21)
[2018-11-21] MEDS: methylPREDNISolone SOD SUCC 125 MG/2ML VIAL IV SCH ×2 (08:21→16:58)
[2018-11-21] MEDS: ISOSORBIDE MONONITRATE (30MG) 30 MG TAB.SR.24H PO SCH (08:22)
[2018-11-21] MEDS: NIFEdipine XL (30MG) 30 MG TAB PO SCH (08:22)
[2018-11-21] MEDS: CLONIDINE HCL 0.1 MG TABLET PO SCH ×2 (08:22→21:16)
[2018-11-21] MEDS: CARVEDILOL 12.5 MG TABLET PO SCH (08:23)
[2018-11-21] MEDS: GUAIFENESIN/D-METHORPHAN HB 5 ML UDC PO PRN (10:09)
[2018-11-21] MEDS: SENNOSIDES/DOCUSATE SODIUM 1 TAB TABLET PO SCH (12:16)
--- NOTE | 2018-11-21 16:30 | NUR ---
RN NOTES RECEIVED PATIENT FROM ICU. PATIENT A/ O X3, ABLE TO MAKE NEEDS KNOWN. ON NASAL CANNULA AT 3 LPM, SATING WELL. PATIENT ATTACHED TO THE MONITOR. VITAL SIGNS TAKEN AND NOTED. ORIENTED TO THE FLOOR AND USE OF CALL LIGHT. WILL CONTINUE TO MONITOR
--- NOTE | 2018-11-21 16:30 | NUR ---
RN NOTES ENDORSED PATIENT FOR CONTINUITY OF CARE. NOT ON ANY FORM OF DISTRESS. NO ACUTE CHANGES WITHIN THE SHIFT. ALL NURSING NEEDS ATTENDED AND MET. SAFETY MEASURES IN PLACE AT ALL TIMES. Addendum: 11/21/18 at 1928 by GISSEL NOLASCO RN RN CLOSING NOTES
[2018-11-21] MEDS: CEFTRIAXONE 1 G in IV D5W 50 ML IV SCH (16:58)
[2018-11-21] MEDS ORDERED: IV NS 0.9% 250 ML IV ONE (17:00)
--- NOTE | 2018-11-21 18:00 | NUR ---
RN NOTES PAGED DR. MARION TO INFORM 'S REQUEST TO PUT PATIENT ON CONTINUOUS PULSE OXIMETRY, BUT PER MD THERE IS NO NEED FOR SUCH RIGHT NOW SINCE PATIENT IS SATING WELL AND NOT ON ANY FORM OF DISTRESS
--- NOTE | 2018-11-21 19:53 | NUR ---
RN GAMAL INITIAL NOTE RECEIVED PT ON NC @ 4 L/P, AOX3, DENIES ANY PAIN, AT BEDSIDE, VERY DEMANDING PER AM RN, ALL NEEDS MET AT THIS TIME, WITH NOC BIPAP ,RR 12 FIO2 80%, AFIB W RVR ON MONITOR, HD CATH RT UPPER CHEST WALL, RFA#20G, LFA# 20G PATENT, WELL SECURED, WILL CONT' TO MONITOR.
--- NOTE | 2018-11-21 21:03 | NUR ---
RT NOTE PATIENT RECEIVED AWAKE/ALERT ON 3L NASAL CANNULA W/ HUMIDIFIER. TX GIVEN, NO ADVERSE REACTIONS NOTED. PATIENT REQUESTED TO BE PLACED ON BIPAP @ 2200. NURSE, MEERA, AWARE. PATIENT STABLE AT THIS TIME. WILL MONITOR.
[2018-11-21] MEDS: SIMVASTATIN 40 MG TABLET PO SCH (21:15)
[2018-11-21] MEDS: TERAZOSIN HCL 1 MG CAPSULE PO SCH (21:16)
--- NOTE | 2018-11-21 22:40 | NUR ---
RT NOTE PLACED PATIENT ON BIPAP AT THIS TIME. MASK SECURED. DECREASED FIO2 TO 40%. SP02 @ 100%, HR 75. NO DISTRESS NOTED AT THIS TIME. NURSE, MEERA, AWARE. WILL MONITOR. Addendum: 11/22/18 at 0004 by QUIAAN SETH RT Amended: Links added.
[2018-11-22] VITALS: BP 135/79
[2018-11-22] MEDS: IPRATROPIUM NEB FS 0.5 MG/2.5 ML AMPUL.NEB NEB SCH ×3 (02:00→13:22)
[2018-11-22] MEDS: ALBUTEROL HALF STRENGTH 1.25 MG/3 ML VIAL.NEB NEB SCH ×3 (02:00→13:22)
[2018-11-22 04:00] VITALS: BP 121/75
--- NOTE | 2018-11-22 06:33 | NUR ---
RN GAMAL CLOSING NOTE ENDORSED PT ON NC @ 4 L/P, AOX3, DENIES ANY PAIN, AT BEDSIDE, VERY DEMANDING PER AM RN, ALL NEEDS MET AT THIS TIME, PT IS UPSET ABOUT THE DOCTORS AND STATES "SHE WILL LEAVE AMA TODAY, WITH NOC BIPAP 18/,RR 12 FIO2 80%, AFIB W RVR ON MONITOR, HD CATH RT UPPER CHEST WALL, RFA#20G, LFA# 20G PATENT, WELL SECURED, WILL CONT' TO MONITOR,
--- NOTE | 2018-11-22 07:32 | NUR ---
RN NOTES RECEIVED PATIENT IN BED ASLEEP, BUT EASILY AWAKEN BY VERBAL STIMULI, A/OX3, ABLE TO MAKE NEEDS KNOWN. ON NASAL CANNULA AT 4 LPM, SATING WELL. NO SOB NOTED AT THIS TIME. PATIENT CONTROLLED AFIB ON THE MONITOR WITH HR ON THE 70'S. HEMODIALYSIS CATH ON THE THE RCW: IN PLACE, DRESSING ON C/D/I. IV ACCESS ON THE LFA G 20 AND RFA G 20: BOTH IN PLACE AND INTACT, PATENT ON FLUSHING, SAFETY MEASURES OBSERVED AND MAINTAINED. BED LOW AND LOCKED POSITION. CALL LIGHT PLACED WITHIN REACH, AT BEDSIDE, ENCOURAGE TO CALL FOR HELP AND ASSISTANCE, WILL CONTINUE TO MONITOR AND ANTICIPATE NEEDS
[2018-11-22 08:00] VITALS: BP 154/96
[2018-11-22] MEDS: SENNOSIDES/DOCUSATE SODIUM 1 TAB TABLET PO SCH (08:55)
[2018-11-22] MEDS: PAROXETINE HCL 10 MG TABLET PO SCH (08:55)
[2018-11-22] MEDS: ISOSORBIDE MONONITRATE (30MG) 30 MG TAB.SR.24H PO SCH (08:55)
[2018-11-22] MEDS: NIFEdipine XL (30MG) 30 MG TAB PO SCH (08:56)
[2018-11-22] MEDS: ASPIRIN 81 MG TAB.CHEW PO SCH (08:56)
[2018-11-22] MEDS: CLONIDINE HCL 0.1 MG TABLET PO SCH (08:56)
[2018-11-22 08:57] VITALS: BP 154/96
[2018-11-22] MEDS: CARVEDILOL 12.5 MG TABLET PO SCH (08:57)
[2018-11-22] MEDS: methylPREDNISolone SOD SUCC 125 MG/2ML VIAL IV SCH (08:57)
--- NOTE | 2018-11-22 11:00 | NUR ---
RN NOTES SEEN AND EXAMINED BY DR. MARION WITH ORDERS FOR DISCHARGE. PER , PREFERS TO BE DISCHARGE AFTER LUNCH
--- NOTE | 2018-11-22 14:00 | NUR ---
RN NOTES FACILITATED DISCHARGE ORDERS. ALL CONCERNS AND QUESTIONS ACCOMMODATED AND ADDRESSED APPROPRIATELY. VACCINATION HISTORY VERIFIED WITH THE PATIENT. SKIN ASSESSMENT AND PICTURES REFUSED BY THE . NO BELONGING RETURNED TO THE PATIENT SINCE ALL BELONGING DURING ADMISSIONS ARE BROUGHT HOME BY THE . ALL DISCHARGE AND MEDICATION INSTRUCTION GIVEN TO THE PATIENT AND THE . ALL DISCHARGE PAPER AND PRESCRIPTION HANDED DOWN TO THE .
--- NOTE | 2018-11-22 15:00 | NUR ---
RN NOTES PATIENT WHEELED OUT OF THE UNIT VIA WHEELCHAIR ACCOMPANIED BY THE . ID BAND AND IV LINES REMOVED.
== END 2018-11-22 15:00 | disposition home or self-care (01) | DRG 291 ==
LOC: ER 08:28 → ICU 10:02 → TELE-TD 11-21 16:27 → MEDSG1 11-22 11:27
PROVIDERS: ADMIT Nurse Practitioner Acute Care; ATTEND Internal Medicine
PROC: 5A09357 Assistance with Respiratory Ventilation, Less than 24 Consecutive Hours, Continuous Positive Airway Pressure (ICD-10-PCS; principal; 2018-11-19)
PROC: 5A1D70Z Performance of Urinary Filtration, Intermittent, Less than 6 Hours Per Day (ICD-10-PCS; 2018-11-19)
PROC: 5A1D70Z Performance of Urinary Filtration, Intermittent, Less than 6 Hours Per Day (ICD-10-PCS; 2018-11-20)
PROC: 5A1D70Z Performance of Urinary Filtration, Intermittent, Less than 6 Hours Per Day (ICD-10-PCS; 2018-11-21)
DX: I13.2 Hypertensive heart and chronic kidney disease with heart failure and with stage 5 chronic kidney disease, or end stage renal disease (principal); J96.01 Acute respiratory failure with hypoxia; I50.33 Acute on chronic diastolic (congestive) heart failure; N18.6 End stage renal disease; G93.41 Metabolic encephalopathy; E87.2 Acidosis; N39.0 Urinary tract infection, site not specified; Z99.2 Dependence on renal dialysis; I25.10 Atherosclerotic heart disease of native coronary artery without angina pectoris; F41.9 Anxiety disorder, unspecified; E78.5 Hyperlipidemia, unspecified; D69.6 Thrombocytopenia, unspecified; D63.8 Anemia in other chronic diseases classified elsewhere; Z91.19 Patient's noncompliance with other medical treatment and regimen; Z91.15 Patient's noncompliance with renal dialysis; Z91.14 Patient's other noncompliance with medication regimen; Z87.891 Personal history of nicotine dependence; Z87.11 Personal history of peptic ulcer disease; Z86.73 Personal history of transient ischemic attack (TIA), and cerebral infarction without residual deficits; Z85.51 Personal history of malignant neoplasm of bladder; Z79.899 Other long term (current) drug therapy; N40.0 Benign prostatic hyperplasia without lower urinary tract symptoms; Z88.8 Allergy status to other drugs, medicaments and biological substances; Z79.51 Long term (current) use of inhaled steroids; Z79.82 Long term (current) use of aspirin; I48.91 Unspecified atrial fibrillation; F39 Unspecified mood [affective] disorder; J40 Bronchitis, not specified as acute or chronic; I42.9 Cardiomyopathy, unspecified; J44.9 Chronic obstructive pulmonary disease, unspecified; K25.9 Gastric ulcer, unspecified as acute or chronic, without hemorrhage or perforation
CPT/HCPCS: 36415; 36600; 71045-TC; 80048-TC; 80053-TC; 80061-TC; 80076-TC; 81000-TC; 82803-TC; 83605-TC; 83735-TC; 83880; 84100-TC; 84443-TC; 84484-TC; 85025-TC; 85730-TC; 86706; 87040-TC; 87086-TC; 87340; 90935-TC; 93307-TC; 94760-TC; 94799-TC; 97116-TC; 97530-TC; A4216; G0378; J0696; J1644; J1940; J2060; J2543; J2930; J2997; J3370; J3490; J7050; J7060

== ENCOUNTER 2018-12-30 07:51 | Inpatient (IN) | payer BC, MEDICAID ==
[~2018-12-30] VITALS: Ht 172.7 cm; Wt 67.6 kg
[2018-12-30] VITALS (30 sets, daily range): BP systolic 138–185; BP diastolic 91–144
[~2018-12-30 07:51] MED LIST changes: +ALBU18HF2 IH; -ALBU2.5V38 NEB; -AMPI500C11 PO; +CEFU500T66 PO; +CLON0.2T PO; -CLON0.3T PO; -EPOE1VIA12 SQ; +FOLI0.8T2 PO; +HYDR-4076 PO; +IPRA12.9 IH; +ISOS60TA4 PO; +UMEC1BLS IH
[2018-12-30] MEDS ORDERED: PROPOFOL 100 ML ONE (08:00)
--- NOTE | 2018-12-30 08:00 | NUR ---
PATIENT INTUBATED, ET SIZE 7.5, 24 CM ON THE LIP.
--- NOTE | 2018-12-30 08:05 | NUR ---
DELROY. SOFT WRIST RESTRAINTS ATTACHED TO THE PATIENT TO PREVENT PATIENT FROM PULLING OUT THE TUBES AND LINES. RECEIVED ORDER FROM DR. TARIQ. PROPOFOL STARTED ON 2.21ML/HR, WILL TITRATE TO EFFECT.
--- NOTE | 2018-12-30 08:15 | NUR ---
NG-TUBE INSERTED FR 16. VERIFIED PLACEMENT BY 2 NURSES.
[2018-12-30] MEDS ORDERED: ALBUTEROL FS 2.5 MG/3 ML VIAL.NEB ONE (08:16)
[2018-12-30] MEDS ORDERED: IPRATROPIUM NEB FS 0.5 MG/2.5 ML AMPUL.NEB ONE (08:16)
[2018-12-30 08:18] LABS: BASOPHILS # (AUTO) 0.1 /CMM (0.0-0.2); BASOPHILS % (AUTO) 0.6 % (0.0-2.0); EOSINOPHILS % (AUTO) 3.7 % (0.0-6.0); HEMATOCRIT 35 % (39-51); HEMOGLOBIN 11.2 g/dL (13.5-17.5); LYMPHOCYTES # (AUTO) 1.4 /CMM (0.8-4.8); LYMPHOCYTES % (AUTO) 11.2 % (20.0-44.0); MEAN CORPUSCULAR HGB CONC 32 g/dl (31.0-36.0); MEAN CORPUSCULAR VOLUME 91 fL (80-96); MONOCYTES # (AUTO) 1.6 /CMM (0.1-1.30); MONOCYTES % (AUTO) 12.6 % (2.0-12.0); NEUTROPHILS # (AUTO) 9.1 /CMM (1.8-8.9); NEUTROPHILS % (AUTO) 71.9 % (43.0-81.0); PLATELET COUNT (AUTO) 72 /CMM (150-450); RED BLOOD CELL COUNT(AUTO) 3.82 MIL/uL (4.5-6.0); WHITE BLOOD COUNT (AUTO) 12.7 K/uL (4.3-11.0)
[2018-12-30 08:27] LABS: CARBON DIOXIDE 28 mmol/L (21-32); CHLORIDE 96 mmol/L (98-107); CREATININE 4.8 mg/dL (0.6-1.3); GLUCOSE 148 mg/dL (74-106); POTASSIUM 3.2 mmol/L (3.5-5.1); SODIUM SERUM 137 mmol/L (136-145); UREA NITROGEN, BLOOD 54 mg/dL (7-18)
[2018-12-30] MEDS ORDERED: PROPOFOL 10MG/ML 50ML 50 ML IV PRN (08:30)
[2018-12-30] MEDS ORDERED: IPRATROPIUM NEB FS 0.5 MG/2.5 ML AMPUL.NEB NEB ONE (08:30)
[2018-12-30] MEDS ORDERED: methylPREDNISolone SOD SUCC 125 MG/2ML VIAL IV ONE (08:30)
[2018-12-30] MEDS ORDERED: ETOMIDATE 2 MG/ML VIAL IV ONE (08:30)
[2018-12-30] MEDS ORDERED: ROCURONIUM BROMIDE 50 MG/5 ML IV ONE (08:30)
[2018-12-30] MEDS ORDERED: NITROGLYCERIN 0.4 MG/TAB BOTTLE ONE (08:30)
[2018-12-30] MEDS ORDERED: methylPREDNISolone SOD SUCC 125 MG/2ML VIAL ONE (08:30)
[2018-12-30] MEDS ORDERED: ALBUTEROL FS 2.5 MG/3 ML VIAL.NEB NEB ONE (08:30)
[2018-12-30] MEDS ORDERED: DILTIAZEM HCL 50 MG IV IV ONE (08:30)
[2018-12-30] MEDS ORDERED: DILTIAZEM HCL 50 MG IV ONE (08:31)
[2018-12-30 08:39] LABS: ALANINE AMINOTRANSFERASE 14 U/L (12-78); ALBUMIN 3.1 g/dL (3.4-5.0); ALKALINE PHOSPHATASE 75 U/L (46-116); ASPARTATE AMINOTRANSFERASE 18 U/L (15-37); BILIRUBIN,DIRECT 0.3 mg/dL (0.0-0.2); BILIRUBIN,TOTAL 1.1 mg/dL (0.2-1.0); TOTAL PROTEIN, SERUM 7.4 g/dL (6.4-8.2)
[2018-12-30 08:54] LABS: ABG BASE EXCESS -1.5 mmol/L; ABG OXYGEN SATURATION 88.2 % (92.0-98.5); ABG PCO2 53.9 mmHg (35.0-45.0); ABG PH 7.293 (7.350-7.450); ABG PO2 66.5 mmHg (75.0-100.0); AaDO2 592.6 mmHg; COHb 1.3 % (0.5-1.5); MetHb 0.8 % (0.0-1.5); O2Hb 86.3 % (94.0-97.0); SITE, ABG Left Brachial; VENT MODE, BG AC16 500 100% +5
[2018-12-30] MEDS ORDERED: VANCOMYCIN 1 GM in IV D5W 250 ML IV ONE (09:00)
[2018-12-30] MEDS ORDERED: PIPERACILLIN /TAZOBACTAM 3.375 G in IV D5W 50 ML IV ONE (09:00)
[2018-12-30] MEDS ORDERED: NITROGLYCERIN 0.4 MG/TAB BOTTLE SL ONE (09:00)
--- NOTE | 2018-12-30 09:07 | NUR ---
PANEL PAGED. AWAITING DR CHEATHAM'S CALL BACK.
[2018-12-30 09:13] LABS: LYMPHOCYTES % (MANUAL) 15 % (16-48); MONOCYTES % (MANUAL) 11 % (0-11.0); NEUTROPHILS % (MANUAL) 74 (42-76)
[2018-12-30 09:28] LABS: B-TYPE NATRIURETIC PEPTIDE 51167 PG/ML (0-125)
--- NOTE | 2018-12-30 10:54 | NUR ---
patient accepted by dr. jackson. Report given to AURORA DUENAS. Patient also seen by Dr. Corrales and Dr. Hernandez.
--- NOTE | 2018-12-30 11:45 | NUR ---
TRANSFERRED TO ROOM 259 VIA ACLS PROTOCOL, ASSISTED BY RTNikita HANKS.
[2018-12-30] MEDS ORDERED: ROCURONIUM BROMIDE 50 MG/5 ML ONE (11:49)
[2018-12-30] MEDS ORDERED: ETOMIDATE 2 MG/ML VIAL ONE (11:49)
--- NOTE | 2018-12-30 12:00 | NUR ---
GLASS INSERTER ADMITTING NOTES: Rec'd report from [facility] ADJUSTO WRITER OPERATOR - pt for transfer to ICU for Acute Respiratory Failure. Pt transferred via gurney accompanied by RN & oxygen equipment technician. Pt intubated & sedated. On MV via ETT, sating at 100%, noted bloody secretions from pt's mouth (per report pt bit his tongue while being intubated). Has NGT on R nare w/ coffee ground output - connected to low intermittent suction. On bilateral soft wrist restraints. Has 2 IV line access both patent & intact, NATHALIE G18 w/ Diprivan x 45 mcg infusing well & R AC G20, SL. Skin assessment done, photos taken & placed in the chart. at bedside & updated about pt condition. Belongings (underwear) given to the , no valuables noted. Safety precautions kept in place at all times w/ bed in lowest & locked pos. Call light placed w/in reach. Will cont to monitor & attend pt needs. 1204 Dr. Barros made aware that pt in ICU, awaiting for admission orders. Made him aware that pt's wanted to speak w/ him. Per MD will see pt in a bit. 1215 HD RN Julius came to do HD as ordered, however, strongly refuses despite of the health teaching & explanation done by the HD RN. 1233 Dr. Pacheco made aware that pt's is refusing HD procedure. Per MD, he will see pt. 1245 Dr. Pacheco at bedside, spoke w/ pt's son & , now both agreed to do HD. HD consent secured c/o pt's son & placed in the chart. 1310 Dr. Barros at bedside, updated about pt condition, spoke w/ pt's . Per , to start pt on Protonix 40mg IV BID & agreed to connect NGT to LIS. notified already Dr. Pickard re: GI consult. 1430 Pt's is upset, awaiting for GI MD. Dr. Pickard made aware - rec'd call from & updated about pt condition, per , okay w/ Nexium IV BID & will see pt tomorrow. 1700 HD procedure ended c/o Greta DUENAS. Pt tolerated procedure well. Per Greta, no output taken, +300mL. Addendum: 12/30/18 at 1841 by AURORA RYAN RN 0 Noticed 2 front loose teeth, might be causing the bleeding from pt's mouth. Dr. Barros made aware & ordered for surgicel x 1 dose. Will continue to monitor for further bleeding 1800 Dr. Barros made aware that pt was not seen by Dr. Pickard today. also informed that BP on high side (163/105, allergic to hydralazine), awaiting response.
[2018-12-30] MEDS: PROPOFOL 100 ML IV PRN ×3 (12:53→23:17)
[2018-12-30] MEDS ORDERED: ONDANSETRON HCL/PF 4 MG/2 ML VIAL IVP PRN (13:00)
[2018-12-30] MEDS ORDERED: ZOLPIDEM TARTRATE 5 MG TABLET PO PRN (13:00)
[2018-12-30] MEDS ORDERED: MAG HYDROX/AL HYDROX/SIMETH 30 ML UDC PO PRN (13:00)
[2018-12-30 15:35] LABS: ABG BASE EXCESS -1.7 mmol/L; ABG OXYGEN SATURATION 96.3 % (92.0-98.5); ABG PH 7.382 (7.350-7.450); ABG PO2 96.2 mmHg (75.0-100.0); AaDO2 432.2 mmHg; COHb 0.8 % (0.5-1.5); MetHb 0.4 % (0.0-1.5); O2Hb 95.1 % (94.0-97.0); PEEP,BG 5 cm H2O; SITE, ABG Right Brachial; VT, ABG 500 mL
[2018-12-30] MEDS: IPRATROPIUM NEB FS 0.5 MG/2.5 ML AMPUL.NEB NEB SCH ×3 (15:44→23:39)
[2018-12-30] MEDS: methylPREDNISolone SOD SUCC 125 MG/2ML VIAL IV SCH ×2 (16:05→22:04)
[2018-12-30] MEDS: NEXIUM 40 MG VIAL IV SCH (16:05)
[2018-12-30] MEDS: Z GUARD REMEDY 2 OZ OINT TP PRN (16:05)
[2018-12-30] MEDS ORDERED: CELLULOSE,OXIDIZED 1 EA PACK MC ONE (18:00)
--- NOTE | 2018-12-30 19:00 | NUR ---
CLOTH EXAMINER MACHINE NOTES RECEIVED PATIENT ORALLY INTUBATED,SEDATED ON PROPOFOL DRIP, RESPONDS TO DEEP PAIN, COUGHS WHEN SUCTIONED BUT FALLS BACK TO SEDATIVE STATE ,MAINTAINED ON BILATERAL SOFT WRIST RESTRAINTS TO PREVENT SELF EXTUBATION. ACTIVE BLEEDING NOTED ORALLY (? FROM THE TEETH/GUMS/TONGUE,NOT SURE) BUT SUCTIONING BLEED FROM THE ORAL CAVITY. OGT IS DRAINING COFFE GROUND MATERIAL WELL. PICC LINE ON NATHALIE WITH GOOD BLOOD RETURN, SHILEY CATHETER ON LEFT SUBCLAVIAN .COMFORT CARE DONE, WILL CLOSELY MONITOR BP ,MONITOR FOR SIGNS OF HYPOVOLEMIA DUE TO BLEEDING.
--- NOTE | 2018-12-30 19:40 | NUR ---
VEHICLE DETAILER NOTES NOTED HEART RATE GOING UP 120'S-130'S, AFIB, AND BP STILL ELEVATED 164/ 107. ALSO NOTED THAT STILL BLEEDING ORALLY( GUMS/ LOOSE TOOTH), WILL MONITOR CLOSELY IF HEART RATE SLOWS DOWN. JUST SUCTIONED PATIENT AND PATIENT SLIGHTLY AWAKENS AND COUGHS OUT AND SPITS OUT BLOOD FROM THE MOUTH.
--- NOTE | 2018-12-30 20:15 | NUR ---
HEART RATE STILL IN THE 130'S AND GOES UP HIGH 150'S, 2014 CONTACTED ( MRI SPECIALIST ), MESSAGE SENT TO HIM REGARDING SUSTAINING AFIB WITH RVR AND HIGH BP . 2026 ANSWERED ,ORDERED TO START CARDIZEM DRIP BUT NO BOLUS ,DID NOT ORDER ANYTHING FOR BP CONTROL.
[2018-12-30] MEDS: ALBUTEROL HALF STRENGTH 1.25 MG/3 ML VIAL.NEB NEB SCH ×2 (20:24→23:39)
[2018-12-30] MEDS: DILTIAZEM HCL IV 125 MG in IV NS 0.9% 100 ML IV PRN (20:57)
--- NOTE | 2018-12-30 21:00 | NUR ---
CARDIZEM DRIP STARTED AT 5 MG/HR, WILL TITRATE TO MAINTAIN RAT 110 AND BELOW. WILL CLOSELY MONITOR BP . PATIENT SEEMS A LITTLE MORE TACHYPNEIC RR-28-30 , PROPOFOL DRIP TITRATED CUP TO 45 MCK/KG/MIN.
--- NOTE | 2018-12-30 21:40 | NUR ---
BREATHING LABORED RR-28-30, DIAPHORETIC,SATURATING IN THE 80'S WITH FIO2 OF 60 %,. SUCTIONED , NO SECRETIONS FROM THE ET TUBE. RT MADE AWARE, FIO2 INCREASED TO 100 %. 2200 EVEN WITH FIO2 OF 100 % , O2 SATURATION VIA PULSE OX IS IN THE LOW 90'S( 92-93%). WILL LEEP FIO2 AT 100 %. PROPOFOL DRIP INCREASED TO 50 MCG/KG/MIN.
--- NOTE | 2018-12-30 22:20 | NUR ---
CONTACTED DR. BATES, MADE HIM AWARE ALSO OF THE PATIENT'S BLEEDING TO THE MOUTH SINCE AM, AND IF ITS OK TO CHECK CBC TONIGHT. 2230 DR. BATES ANSWERED AND ORDERED STAT CBC TO MARTHA DONE NOW.
[2018-12-30 22:55] LABS: BASOPHILS # (AUTO) 0.1 /CMM (0.0-0.2); BASOPHILS % (AUTO) 0.5 % (0.0-2.0); HEMATOCRIT 31 % (39-51); HEMOGLOBIN 10.2 g/dL (13.5-17.5); LYMPHOCYTES # (AUTO) 0.8 /CMM (0.8-4.8); LYMPHOCYTES % (AUTO) 7.6 % (20.0-44.0); MEAN CORPUSCULAR HGB CONC 32 g/dl (31.0-36.0); MEAN CORPUSCULAR VOLUME 89 fL (80-96); MONOCYTES # (AUTO) 0.3 /CMM (0.1-1.30); MONOCYTES % (AUTO) 2.8 % (2.0-12.0); NEUTROPHILS # (AUTO) 9.8 /CMM (1.8-8.9); NEUTROPHILS % (AUTO) 89.1 % (43.0-81.0); PLATELET COUNT (AUTO) 57 /CMM (150-450); RED BLOOD CELL COUNT(AUTO) 3.53 MIL/uL (4.5-6.0)
[2018-12-30 23:18] LABS: LYMPHOCYTES % (MANUAL) 5 % (16-48); MONOCYTES % (MANUAL) 2 % (0-11.0); NEUTROPHILS % (MANUAL) 93 (42-76)
[2018-12-31] VITALS (76 sets, daily range): BP systolic 130–180; BP diastolic 71–126
--- NOTE | 2018-12-31 00:30 | NUR ---
STILL BREATHING A LITTLE LABORED THOUGH LESS TACHYPNEIC,PATIENT EASILY WAKES UP ONCE PROPOFOL DRIP IS OFF EVEN JUST FEW MINUTES. INCREASED DRIP TO 55 MCG/KG/MIN.WILL CLOSELY MONITOR BP.
--- NOTE | 2018-12-31 02:00 | NUR ---
MUCH CALMER,LESS TACHYPNEIC AND LESS LABORED BREATHING,PPROPOFOL DRIP AT 55 MCK/KG/MIN. 'HEART RATE ALSO MORE CONTROLLED STARTED WEANING DOWN CARDIZEM DRIP, NOW DOWN TO 7 MG/HR.
[2018-12-31] MEDS: PROPOFOL 100 ML IV PRN ×5 (03:25→18:26)
[2018-12-31] MEDS: IPRATROPIUM NEB FS 0.5 MG/2.5 ML AMPUL.NEB NEB SCH ×6 (03:30→23:07)
[2018-12-31] MEDS: ALBUTEROL HALF STRENGTH 1.25 MG/3 ML VIAL.NEB NEB SCH ×6 (03:30→23:07)
--- NOTE | 2018-12-31 04:00 | NUR ---
HEART RATE NOW IN THE 90'S, CARDIZEM DRIP AT 5 MG/HR. O2 SATURATION NOW 98% , FIO2 DOWN TO 80 %. 0500 AM CARE DONE. BLEEDIMG FROM THE MOUTH STOPPED. 0600 O2 SATURATION 100% ,WEAN DOWN FIO2 TO 60 %.
[2018-12-31 04:54] LABS: BASOPHILS % (AUTO) 0.4 % (0.0-2.0); HEMATOCRIT 30 % (39-51); HEMOGLOBIN 9.7 g/dL (13.5-17.5); LYMPHOCYTES # (AUTO) 0.3 /CMM (0.8-4.8); LYMPHOCYTES % (AUTO) 4.3 % (20.0-44.0); MEAN CORPUSCULAR HGB CONC 33 g/dl (31.0-36.0); MEAN CORPUSCULAR VOLUME 90 fL (80-96); MONOCYTES # (AUTO) 0.2 /CMM (0.1-1.30); MONOCYTES % (AUTO) 2.9 % (2.0-12.0); NEUTROPHILS # (AUTO) 7.1 /CMM (1.8-8.9); NEUTROPHILS % (AUTO) 92.4 % (43.0-81.0); PLATELET COUNT (AUTO) 57 /CMM (150-450); WHITE BLOOD COUNT (AUTO) 7.7 K/uL (4.3-11.0)
[2018-12-31 05:18] LABS: CHOLESTEROL 161 mg/dL (<200); HDL CHOLESTEROL 36 mg/dL (40-60); LDL 109 mg/dL (0-99); TRIGLYCERIDES 83 mg/dL (30-150)
[2018-12-31 05:19] LABS: ALANINE AMINOTRANSFERASE 14 U/L (12-78); ALBUMIN 2.5 g/dL (3.4-5.0); ALKALINE PHOSPHATASE 56 U/L (46-116); ASPARTATE AMINOTRANSFERASE 32 U/L (15-37); BILIRUBIN,TOTAL 0.9 mg/dL (0.2-1.0); CALCIUM, SERUM 8.3 mg/dL (8.5-10.1); CARBON DIOXIDE 27 mmol/L (21-32); CHLORIDE 100 mmol/L (98-107); CREATININE 5.3 mg/dL (0.6-1.3); GLUCOSE 127 mg/dL (74-106); MAGNESIUM 2.2 mg/dL (1.8-2.4); PHOSPHORUS 6.2 mg/dL (2.5-4.9); POTASSIUM 3.5 mmol/L (3.5-5.1); SODIUM SERUM 139 mmol/L (136-145); UREA NITROGEN, BLOOD 64 mg/dL (7-18)
[2018-12-31 05:40] LABS: B-TYPE NATRIURETIC PEPTIDE 99093 PG/ML (0-125)
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
[2018-12-31] MEDS: methylPREDNISolone SOD SUCC 125 MG/2ML VIAL IV SCH ×3 (05:50→21:33)
[2018-12-31] MEDS ORDERED: ASPIRIN 325 MG TABLET NG ONE (06:30)
[2018-12-31] MEDS: NEXIUM 40 MG VIAL IV SCH ×2 (08:25→16:20)
[2018-12-31] MEDS ORDERED: NEXIUM 40 MG VIAL IV SCH (09:00)
[2018-12-31] MEDS ORDERED: BUMETANIDE INJ 4 MG in IV D5W 24 ML IV ONE (10:00)
[2018-12-31 10:47] LABS: LYMPHOCYTES % (MANUAL) 6 % (16-48); MONOCYTES % (MANUAL) 2 % (0-11.0); NEUTROPHILS % (MANUAL) 92 (42-76)
--- NOTE | 2018-12-31 10:50 | NUR ---
RN NOTES 0730-RECEIVED PATIENT FROM RN. PATIENT ON ETT, AC MODE OF VENTILATION. SEEN BY DR. SUNG. HE WAS INFORMED OF LAB RESULTS. PATIENT REMAINS ON DIPRIVAN DRIP AND CARDIZEM DRIP. PATIENT ON AFIB, TRIGGERS VENT, SATS NOTED. TITRATE PROPOFOL AND CARDIZEM DRIP NEEDED. 1030-DR RAMOS MADE ROUNDS, ASPIRATED NGT, MINIMAL DARK COLORED DRAIN NOTED, LABS REVIEWED WITH DR. RAMOS, HE ALSO SPOKE TO PATIENT .DR. 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 IFC INSERTED SAFELY, YELLOW COLORED URINE DRAINING, NO BLEED NOTED.
[2018-12-31] MEDS ORDERED: ALTEPLASE 100 MG/VIAL VIAL IV ONE (13:00)
[2018-12-31] MEDS ORDERED: ALTEPLASE CATHFLO 2 MG/VIAL XX ONE (13:30)
[2018-12-31] MEDS: DILTIAZEM HCL IV 125 MG in IV NS 0.9% 100 ML IV PRN (14:56)
[2018-12-31] MEDS: BISACODYL SUPP (10 MG) 10 MG/SUPP.RECT SUPP.RECT RC PRN (16:46)
--- NOTE | 2018-12-31 18:37 | NUR ---
rn notes 1430-patient son and in the room. they were informed of lab results, patient remains on diprivan and cardizem drips. patient safety maintained. family has questions and answered them ,they seem satisfied with the answer. 1630-Dr. Corrales was notified of trop results, family also notified.at one point, was refusing to have nexium given even after explaining to her, son intervend and medication was administered.alteplase was given to landen, dialysis nurse for declotting HD line. 1800- come and asks "honest opinion" on her 's situation, explained to her that every patient is different in response to hospitalization and treatments.
--- NOTE | 2018-12-31 18:44 | NUR ---
rn notes 1830-yunior, family preservation caseworker, informed me that per dialysis nurse, family() refused dialsyis because "the doctor did not come back ( to tell thet patient is for dialysis) as a courtesy. yunior spoke at length with her in the room.patient also refused planned GI procedure.Dr. Becerra( scheme technician) was notified of the situation.
--- NOTE | 2018-12-31 18:51 | NUR ---
rn notes 1630-DR MARION CALLED REGARDING ISSUE ON PATIENT NGT WITH DARK COLORED DRAIN. DR CAGLE ALSO NOTIFIED OF THE NGT STATUS.( AWAITING FOR H/H TO BE DONE). 1730-DR CAGLE ORDERED FOR EGD TOMORROW, SPOKE TO PATIENT AND SHE IS NOT AGREEING TO IT THIS TIME.
--- NOTE | 2018-12-31 19:00 | NUR ---
TICK SEWER NOTES RECEIVED PATIENT ORALLY INTUBATED ,SEDATED, ON AC MODE, + COUGH AND GAG, SLIGHTLY GRIMACE WHEN SUCTIONED VIA ET TUBE.NO MORE BLEEDING NOTED FROM THE MOUTH(WAS BLEEDING ORALLY YESTERDAY),OGT TO LIWS WITH DARK/COFFEGROUND MATERIAL DRAINING ONLY MODERATELY. ON CARDIZEM DRIP FOR HEART RATE CONTROL, PATIENT WITH ATRIAL FIBRILATION WITH EPISODES OF RVR. COMFORT CARE DONE, BACK/SKIN CHECKED ,TURNED TO SIDE, TOLERATED TURNING. AT BEDSIDE.
--- NOTE | 2018-12-31 19:25 | NUR ---
RN NOTES 1899-DR Nikita CRYSTAL( BENZOL OPERATOR) CALLED BACK AND INFORMED HIM OF PATIENT STATUS. HE ALSO SPOKE TO REGARDING PLAN OF CARE. EARLIER, PATIENT STARTED TO GET TACHYCARDIC WHEN PROPOFOL WAS TURNED FOR SEDATION VACATION, EXPLAINED TO THE SITUATION WHEN THE PATIENT IS GIVEN VACATION ( HR UP, GETS RESTLESS). REPORT GIVEN TO INCOMING RN FOR FURTHER CARE.
--- NOTE | 2018-12-31 19:30 | NUR ---
RN NOTES 1600-PATIENT COMES AND ASKS QUESTIONS TIME TO TIME TO THE POINT THAT SHE INTERFERES WITH THE CARE OF OTHER PATIENT. NEEDS TO EXPLAIN TO HER TIME TO TIME SAME TOPIC. ADVISED HER TO KEEP NOTE OF QUESTIONS SHE HAS TO ASK AT ONCE.
[2018-12-31] MEDS ORDERED: BUMETANIDE INJ 4 MG in IV NS 0.9% 24 ML IV ONE (20:00)
--- NOTE | 2018-12-31 21:11 | NUR ---
RT NOTE PT RCVD ORALLY INTUBATED 7.5 ETT @ 24CM AT LIPS ON MECHANICAL VENT WITH CHARTED SETTINGS. PT TOSIN TX WELL. SX DONE. VENT PLUGGED INTO RED OUTLET. ALARMS ARE ON AND AUDIBLE. AMBU BAG AT BEDSIDE. Addendum: 12/31/18 at 2112 by JAMESON PRECIADO RT Amended: Links added.
--- NOTE | 2018-12-31 22:00 | NUR ---
HEART RATE STILL HIGH,ACTIVELY TITRATING CARDIZEM DRIP . NOTED PATIENT TO EASILY AWAKENS ONCE PROPOFOL DRIP IS STOPPED EVEN JUST VERY BRIEFLY.WILL TITRATE PROPOFOL DRIP TO MAINTAIN RASS OF -3
--- NOTE | 2018-12-31 23:10 | NUR ---
FIO2 DECREASED TO 50%.
[2019-01-01] VITALS (82 sets, daily range): BP systolic 125–173; BP diastolic 70–112
[2019-01-01] MEDS: PROPOFOL 100 ML IV PRN ×7 (00:50→22:21)
[2019-01-01 00:58] LABS: BASOPHILS % (AUTO) 0.1 % (0.0-2.0); EOSINOPHILS % (AUTO) 1.5 % (0.0-6.0); HEMATOCRIT 28 % (39-51); HEMOGLOBIN 9.3 g/dL (13.5-17.5); LYMPHOCYTES # (AUTO) 1.9 /CMM (0.8-4.8); LYMPHOCYTES % (AUTO) 24.5 % (20.0-44.0); MEAN CORPUSCULAR HGB CONC 33 g/dl (31.0-36.0); MEAN CORPUSCULAR VOLUME 89 fL (80-96); MONOCYTES # (AUTO) 0.5 /CMM (0.1-1.30); MONOCYTES % (AUTO) 6.3 % (2.0-12.0); NEUTROPHILS # (AUTO) 5.1 /CMM (1.8-8.9); NEUTROPHILS % (AUTO) 67.6 % (43.0-81.0); PLATELET COUNT (AUTO) 77 /CMM (150-450); RED BLOOD CELL COUNT(AUTO) 3.15 MIL/uL (4.5-6.0); WHITE BLOOD COUNT (AUTO) 7.6 K/uL (4.3-11.0)
[2019-01-01 01:55] LABS: LYMPHOCYTES % (MANUAL) 4 % (16-48); MONOCYTES % (MANUAL) 4 % (0-11.0); NEUTROPHILS % (MANUAL) 92 (42-76)
[2019-01-01] MEDS: ALBUTEROL HALF STRENGTH 1.25 MG/3 ML VIAL.NEB NEB SCH ×6 (02:45→23:34)
[2019-01-01] MEDS: IPRATROPIUM NEB FS 0.5 MG/2.5 ML AMPUL.NEB NEB SCH ×6 (02:45→23:34)
--- NOTE | 2019-01-01 04:00 | NUR ---
REMAINS SEDATED AND ON CARDIZEM DRIP .NO BLEEDING NOTED EXCEPT COFFEGROUND MATERIAL FROM THE OGT.
[2019-01-01 04:44] LABS: BASOPHILS % (AUTO) 0.3 % (0.0-2.0); HEMATOCRIT 27 % (39-51); HEMOGLOBIN 8.9 g/dL (13.5-17.5); LYMPHOCYTES # (AUTO) 0.3 /CMM (0.8-4.8); LYMPHOCYTES % (AUTO) 3.7 % (20.0-44.0); MEAN CORPUSCULAR HGB CONC 33 g/dl (31.0-36.0); MEAN CORPUSCULAR VOLUME 89 fL (80-96); MONOCYTES # (AUTO) 0.3 /CMM (0.1-1.30); MONOCYTES % (AUTO) 4.6 % (2.0-12.0); NEUTROPHILS # (AUTO) 6.8 /CMM (1.8-8.9); NEUTROPHILS % (AUTO) 91.4 % (43.0-81.0); PLATELET COUNT (AUTO) 76 /CMM (150-450); RED BLOOD CELL COUNT(AUTO) 3.02 MIL/uL (4.5-6.0); WHITE BLOOD COUNT (AUTO) 7.5 K/uL (4.3-11.0)
[2019-01-01] MEDS: methylPREDNISolone SOD SUCC 125 MG/2ML VIAL IV SCH ×3 (05:03→23:28)
[2019-01-01 05:04] LABS: ALANINE AMINOTRANSFERASE 15 U/L (12-78); ALBUMIN 2.5 g/dL (3.4-5.0); ALKALINE PHOSPHATASE 49 U/L (46-116); ASPARTATE AMINOTRANSFERASE 29 U/L (15-37); BILIRUBIN,TOTAL 0.9 mg/dL (0.2-1.0); CARBON DIOXIDE 23 mmol/L (21-32); CHLORIDE 97 mmol/L (98-107); CREATININE 6.4 mg/dL (0.6-1.3); GLUCOSE 156 mg/dL (74-106); MAGNESIUM 2.6 mg/dL (1.8-2.4); POTASSIUM 3.7 mmol/L (3.5-5.1); SODIUM SERUM 137 mmol/L (136-145); TOTAL PROTEIN, SERUM 5.9 g/dL (6.4-8.2)
[2019-01-01 05:26] LABS: UREA NITROGEN, BLOOD 89 mg/dL (7-18)
[2019-01-01 05:44] LABS: LYMPHOCYTES % (MANUAL) 3 % (16-48); MONOCYTES % (MANUAL) 3 % (0-11.0); NEUTROPHILS % (MANUAL) 94 (42-76)
--- NOTE | 2019-01-01 07:00 | NUR ---
FOR EGD TODAY, CONSENT SIGNED BY . REPORT GIVE TO DAYSHIFT RN.REMAINS INTUBATED,SEDATED.
--- NOTE | 2019-01-01 07:10 | NUR ---
PHOTOGRAPHY SPOTTER INITIAL NOTES PT INTUBATED ON MECHANICAL VENT. VENT SETTINGS ASSESSED FRO ACCURACY. PT TOLERATING SETTINGS WELL. NO SOB OR ACUTE SIGNS OF DISTRESS NOTED. BREATHING EVEN AND UNLABORED. PT SEDATED ON DIPRIVAN DRIP AT 60MIC/KG/MIN. NASOGASTRIC TUBE CONNECTED TO LOW INTERMITTENT SUCTION. COFFEE GROUND GASTRIC CONTENTS NOTED. POSITIVE PLACEMENT ASSESSED VIA AUSCULTATION. F/C NOTED TO BE C/D/I AND DRAINING TO GRAVITY. LEFT UPPER ARM MIDLINE AND PERIPHERAL IV NOTED TO BE PATENT AND INTACT. NO REDNESS OR SIGNS OF INFILTRATION NOTED. PT ALSO RECEIVING CARDIZEM DRIP AT 5MG/HR TO MAINTAIN A HR BELOW 110./ PT CURRENTLY AFIB ON MONITOR WITH A CURRENT HR OF 101. WILL TRITIATE MEDICATION PT'S CONDITION PERMITS. BED IN LOW LOCKED PETITION, SIDE RAILS UP X2, BILATERAL SOFT WRIST RESTRAINTS NOTED FOR ADDED SAFETY. GOOD CAP REFILL AND PERIPHERAL PULSES ASSESSED. WILL CONTINUE TO MONITOR
[2019-01-01] MEDS: DILTIAZEM HCL IV 125 MG in IV NS 0.9% 100 ML IV PRN (07:58)
[2019-01-01] MEDS: NEXIUM 40 MG VIAL IV SCH ×2 (08:02→16:25)
[2019-01-01 08:36] LABS: ABG OXYGEN SATURATION 90.9 % (92.0-98.5); ABG PH 7.376 (7.350-7.450); ABG PO2 68.2 mmHg (75.0-100.0); AaDO2 247.8 mmHg; COHb 0.7 % (0.5-1.5); MetHb 0.5 % (0.0-1.5); O2Hb 89.8 % (94.0-97.0); PEEP,BG 5 cm H2O; SITE, ABG Right Brachial; VT, ABG 500 mL
--- NOTE | 2019-01-01 08:45 | NUR ---
TELEGRAPH REPEATER TECHNICIAN NOTES: EGD CANCELLATION DR CAGLE, ANESTHESIOLOGIST, AND OR TEAM AT BEDSIDE IN PREPARATION FOR EGD. AND PT'S SON AT BEDSIDE. CONSENT FOR EGD PROCEDURE OBTAINED FROM PT'S FROM PREVIOUS RN HOWEVER REFUSED TO SIGN CONSENT FOR ANESTHESIA. RISK AND BENEFITS OF PROCEDURE ALONG WITH ANESTHESIA EXPLAINED IN DETAIL BY BOTH MDs. ALSO MADE AWARE OF PT'S PERSISTENT AFIB AND NEED FOR ANTICOAGULATION THERAPY ONCE CLEARED BY EGD PROCEDURE. PT'S AND SON REFUSED PROCEDURE AFTER DISCUSSION. PER "I DON'T THINK THIS IS NECESSARY, AND THERE ARE TOO MANY RISKS. I ALSO DON'T WANT HIM TO RECEIVE ANY ANTICOAGULANTS". DR. SUNG NOTIFIED AND MADE AWARE OF PROCEDURE CANCELATION AND FAMILY WISHES
[2019-01-01] MEDS ORDERED: EPOETIN ALFA (10,000 UNIT) 10,000 UNIT/ML VIAL IV SCH (11:00)
[2019-01-01 13:23] LABS: OCCULT BLOOD STOOL NEGATIVE (NEGATIVE)
[2019-01-01] MEDS: SOD FERRIC GLUC 125 MG in IV NS 0.9% 100 ML IV SCH (13:51)
[2019-01-01] MEDS ORDERED: FUROSEMIDE 100 MG in IV NS 0.9% 90 ML IV ONE (17:30)
--- NOTE | 2019-01-01 18:50 | NUR ---
LETTERPRESS SETTER CLOSING NOTES PT REMAINS STABLE ON VENT. HE REMAINS SEDATED ON DIPRIVAN DRIP WHICH REMAINS AT 60MIC/KG/MIN. CARDIZEM DRIP TITRATED TO 4MG/HR. HE REMAINS AFIB ON THE MONITOR WITH A CURRENT HR OF 103. INVASIVE LINES REMAIN PATENT AND INTACT. PT AWAITING HD. VSS AT THIS TIME. ALL NEEDS ANTICIPATED FOR AND MET. DUE MEDS GIVEN ORDERED. PT REPOSITIONED AND TURNED PER PROTOCOL. PRN CARE RENDERED. WILL ENDORSE TO NIGHTSHIFT RN FOR JONATAN
--- NOTE | 2019-01-01 19:30 | NUR ---
RN NOTES RECEIVED PT ORALLY INTUBATED WITH ETT 7.5 AND 24 CM @ LIPLINE W/ VENT SETTING AC 18 TV 500 FIO2 50% ANS PEEP 5 TOLERATED WELL SATURATION 94%, NO ACUTE RESPIRATORY DISTRESS. PATIENT IS SEDATED WITH DIPRIVAN. AFIB CONTROLLED HR 100 ON TELE MONITOR. NGT PRESENT CONNECTED TO LIS WITH COFFEE GROUND COLOR OUTPUT. IV SITE ON RFA W/LASIX TO CONSUME, LFA W/ PROPOFOL @ 60 MCG/KG/MIN AND NATHALIE ML RUNNING W/ CARDIZEM DRIP @ 4 MG/HR. RIGHT SUBCLAVIAN HD CATH PRESENT ALL LINES C/D/I. KEPT PT CLEAN AND DRY. WILL CONTINUE TO MONITOR.
--- NOTE | 2019-01-01 20:06 | NUR ---
PT RCVD ORALLY INTUBATED WITH 7.5 ETT SECURED @ 24CM AT LIPS ON MECHANICAL VENT WITH NOTED SETTINGS. Q4 BREATHING TX GIVEN PER MD'S ORDERED. NO ADVERSE REACTION NOTED. SX DONE. VENT PLUGGED INTO RED OUTLET. ALARMS ARE ON AND AUDIBLE. AMBU BAG AT BEDSIDE.
--- NOTE | 2019-01-01 20:55 | NUR ---
RN NOTES DIALYSIS STARTED AT THIS TIME VS 98.2 RESP 19 HR 98 SATURATION 96% BP 153/ 89. PT IS SEDATED WITH DIPRIVAN AT BEDSIDE.
--- NOTE | 2019-01-01 23:20 | NUR ---
RN NOTES DIALYSIS DONE FOR 2 HOURS REQUESTED PER DIALYSIS NURSE, REMOVED 1.5 LITERS. VSS.
[2019-01-02] VITALS (83 sets, daily range): BP systolic 131–183; BP diastolic 74–130
[2019-01-02 00:57] LABS: BASOPHILS % (AUTO) 0.2 % (0.0-2.0); HEMATOCRIT 27 % (39-51); HEMOGLOBIN 9.2 g/dL (13.5-17.5); LYMPHOCYTES # (AUTO) 0.4 /CMM (0.8-4.8); LYMPHOCYTES % (AUTO) 4.8 % (20.0-44.0); MEAN CORPUSCULAR HGB CONC 34 g/dl (31.0-36.0); MEAN CORPUSCULAR VOLUME 88 fL (80-96); MONOCYTES # (AUTO) 0.5 /CMM (0.1-1.30); MONOCYTES % (AUTO) 6.1 % (2.0-12.0); NEUTROPHILS # (AUTO) 7.7 /CMM (1.8-8.9); NEUTROPHILS % (AUTO) 88.9 % (43.0-81.0); PLATELET COUNT (AUTO) 90 /CMM (150-450); RED BLOOD CELL COUNT(AUTO) 3.11 MIL/uL (4.5-6.0); WHITE BLOOD COUNT (AUTO) 8.6 K/uL (4.3-11.0)
[2019-01-02] MEDS: PROPOFOL 100 ML IV PRN ×7 (01:43→22:52)
[2019-01-02] MEDS: ALBUTEROL HALF STRENGTH 1.25 MG/3 ML VIAL.NEB NEB SCH ×6 (03:23→23:19)
[2019-01-02] MEDS: IPRATROPIUM NEB FS 0.5 MG/2.5 ML AMPUL.NEB NEB SCH ×6 (03:23→23:20)
--- NOTE | 2019-01-02 05:20 | NUR ---
RN NOTES PER RT PATIENT FIO2 TITRATE IT DOWN TO 40%. TOLERATED WELL SATURATION >92%
[2019-01-02] MEDS: methylPREDNISolone SOD SUCC 125 MG/2ML VIAL IV SCH ×3 (05:32→22:09)
--- NOTE | 2019-01-02 07:05 | NUR ---
DOCTOR PODIATRIC MEDICINE INITIAL NOTES PT INTUBATED ON MECHANICAL VENT. VENT SETTINGS ASSESSED For ACCURACY. PT TOLERATING SETTINGS WELL. NO SOB OR ACUTE SIGNS OF DISTRESS NOTED. BREATHING EVEN AND UNLABORED. PT SEDATED ON DIPRIVAN DRIP AT 60MIC/KG/MIN. NASOGASTRIC TUBE CONNECTED TO LOW INTERMITTENT SUCTION. COFFEE GROUND GASTRIC CONTENTS NOTED. POSITIVE PLACEMENT ASSESSED VIA AUSCULTATION. F/C NOTED TO BE C/D/I AND DRAINING TO GRAVITY. LEFT UPPER ARM MIDLINE AND PERIPHERAL IVs NOTED TO BE PATENT AND INTACT. NO REDNESS OR SIGNS OF INFILTRATION NOTED. PT CONTINUES TO RECIEVED CARDIZEM DRIP AT 5MG/HR TO MAINTAIN A HR BELOW 110. HE REMAINS AFIB ON MONITOR WITH A CURRENT HR OF 92. BED IN LOW LOCKED PETITION, SIDE RAILS UP X2, BILATERAL SOFT WRIST RESTRAINTS NOTED FOR ADDED SAFETY. GOOD CAP REFILL AND PERIPHERAL PULSES ASSESSED. WILL CONTINUE TO MONITOR
--- NOTE | 2019-01-02 07:20 | NUR ---
RN NOTES PT REMAINED SEDATED ORALLY INTUBATED ETT AND VENT SETTING TOLERATED WELL. SATURATION >92%. A-FIB CONTROLLED ON TELE MONITOR. NO SIGNIFICANT CHANGES THROUGHOUT THE SHIFT. CONTINUE WITH CARDIZEM AND PROPOFOL DRIP TITRATED ORDERED. DIALYSIS TOLERATED WELL. OGT LIS WITH ZERO OUTPUT. KEPT PT CLEAN AND DRY. ENDORSED CONTINUITY OF CARE TO AM NURSE.
--- NOTE | 2019-01-02 07:45 | NUR ---
ECHO REPORT IS DONE AWAITING FOR REPORT TO CROSS OVER TO [facility].
--- NOTE | 2019-01-02 08:00 | NUR ---
LIQUOR STORE MANAGER NOTES: MD ROUNDING (DR CRYSTAL) MD AT BEDSIDE AND UPDATED ON PT'S CONDITION. PT'S AT BEDSIDE. PLAN OF CARE DISCUSSED WITH PT'S BY MD. NO NEW ORDERS STATED AT THIS TIME
[2019-01-02] MEDS: NEXIUM 40 MG VIAL IV SCH ×2 (08:06→17:06)
--- NOTE | 2019-01-02 08:20 | NUR ---
NETWORK INTERNSHIP NOTES: MD ROUNDING (DR. SUNG) MD AT BEDSIDE AND UPDATED ON PT'S CONDITION. PT'S AND SON AT BEDSIDE. PLAN OF CARE DISCUSSED WITH BOTH PARTIES BY MD. NO NEW ORDERS AT THIS TIME
[2019-01-02] MEDS: DILTIAZEM HCL IV 125 MG in IV NS 0.9% 100 ML IV PRN ×2 (09:02→19:36)
--- NOTE | 2019-01-02 11:00 | NUR ---
CNC OPERATOR PROGRAMMER NOTES: WEANING TRAIL PT'S SON AND AT BEDSIDE. DURING THIS TIME. PROTOCOL OF WEANING TRIAL DISCUSSED IN LENGTH BY MYSELF AND RT PRIOR TO INITIATION. UPON TITRATING SEDATION MEDICATION (SEE IV SPREADSHEET FOR DETAIL TITRATION) , PT DESATURATED TO MID TO HIGH 80S, BECAME TACHYCARDIC, INCREASED WOB AND USE OF ACCESSORY MUSCLES NOTED, AND THERE WAS A NOTED INCREASE IN RR. ALTHOUGH HE OPENED HIS EYES SPONTANEOUSLY, PT WAS UNABLE TO FOLLOW SIMPLE COMMANDS ONCE PROMPTED. HE BECAME MODERATELY AGITATED AND WAS UNABLE TO SWITCH TO SIMV MODE. DR PERSON NOTIFIED BY RT OF PT'S CONDITION. TELEPHONE ORDER OBTAINED TO CONTINUE PT ON FULL AC MODE. DIPRIVAN WAS THEN TITRATED UP TO ACHIEVE A RASS OF -3. PT'S SON BECAME AGITATED PT WAS UNABLE TO BE WEANED OFF VENT. HE BECAME VERBALLY ABUSIVE AND THREATENED TO CALL THE LOCAL NEWS AT WHICH POINT HE LEFT THE ROOM AND UNIT. PT'S REMAINED AT BEDSIDE.
--- NOTE | 2019-01-02 12:00 | NUR ---
MULTIPLE KNIFE EDGE TRIMMER OPERATOR NOTES: MD CAPPS (DR PERSON) AT BEDSIDE. UPATED PT'S AND PT'S SON OF PLAN OF CARE. NO NEW ORDERS AT THIS TIME
[2019-01-02 12:12] LABS: CALCIUM, SERUM 8.1 mg/dL (8.5-10.1); CARBON DIOXIDE 23 mmol/L (21-32); CHLORIDE 95 mmol/L (98-107); CREATININE 5.8 mg/dL (0.6-1.3); GLUCOSE 138 mg/dL (74-106); POTASSIUM 3.6 mmol/L (3.5-5.1); SODIUM SERUM 136 mmol/L (136-145); UREA NITROGEN, BLOOD 78 mg/dL (7-18)
--- NOTE | 2019-01-02 14:02 | NUR ---
RESOLUTION SPECIALIST NOTES: MD ROUNDING (DR MARION) MD AT BEDSIDE AND UPDATED ON PT'S CONDITION AND RECENT LABS INCLUDING TRIGLYCERIDES AND PROCALCITONIN. VERBAL ORDERS OBTAINED TO CONTINUE DIPRIVAN DRIP. NO FURTHER ORDERS AT THIS TIME PT'S AT BEDSIDE AND UPDATED BY MD OF PT'S PLAN OF CARE AND TX
[2019-01-02] MEDS: SOD FERRIC GLUC 125 MG in IV NS 0.9% 100 ML IV SCH (14:20)
--- NOTE | 2019-01-02 15:50 | NUR ---
RT NOTES RECEIVED PT ON AC WITH ORDERS OF INITIATING WEANING, NURSE ATTEMPTED TO D/C SEDATION, BUT PT FAILED AND WENT INTO RESPIRATORY DISTRESS, DR ORDERED TO D/C WEANOING PLACED BACK ON SEDATION. TXS GIVEN ORDERED, PT STABLE.
--- NOTE | 2019-01-02 17:15 | NUR ---
TRAFFIC I MANAGER NOTES: TRANSFER F/U CALLED RECEIVED FROM VINCE RUANO IN REGARDS TO [facility] TRANSFER. PER AUTOMATION CONTROLS ENGINEER. THERE IS BED AVAILABILITY. PT'S MADE AWARE BY VINCE
--- NOTE | 2019-01-02 19:09 | NUR ---
HIGHWAY TRAFFIC CONTROL TECHNICIAN CLOSING NOTES PT REMAINS STABLE ON VENT. HE REMAINS SEDATED ON DIPRIVAN DRIP WHICH REMAINS AT 60MIC/KG/MIN. CARDIZEM DRIP TITRATED TO 10MG/HR. HE REMAINS AFIB ON THE MONITOR WITH A CURRENT HR OF 93. INVASIVE LINES REMAIN PATENT AND INTACT. PT AWAITING HD. VSS AT THIS TIME. ALL NEEDS ANTICIPATED FOR AND MET. DUE MEDS GIVEN ORDERED. PT REPOSITIONED AND TURNED PER PROTOCOL. PRN CARE RENDERED. WILL ENDORSE TO NIGHTSHIFT RN FOR JONATAN
--- NOTE | 2019-01-02 19:15 | NUR ---
FIRE SPRINKLER SERVICE TECHNICIAN NOTE PATIENT REPORT GIVEN BEDSIDE. PATIENT SEDATED AT THIS TIME MINIMALLY ABLE TO BE AROUSED PROPOFOL RUNNING AT 60 MCG. WILL TITRATE DOWN. PATIENT ON CARDIZEM DRIP. PATIENT HR IN THE 80 AFIB ON THE MONITOR RUNNING AT 10 MG/HR. IV LINES PATENT AND INTACT NO S/S OF INFECTION/ INFILTRATION. COFFEE COLORED DRAINAGE NOTED IN NG TUBE. ET TUBE PATENT AT 25 CM NOTED AND ORDERED. RN WILL CONTINUE TO MONITOR FOR CHANGES.
[2019-01-03] VITALS (70 sets, daily range): BP systolic 138–199; BP diastolic 62–114
[2019-01-03 00:25] LABS: BASOPHILS % (AUTO) 0.1 % (0.0-2.0); EOSINOPHILS % (AUTO) 0.1 % (0.0-6.0); HEMATOCRIT 30 % (39-51); HEMOGLOBIN 9.9 g/dL (13.5-17.5); LYMPHOCYTES # (AUTO) 0.5 /CMM (0.8-4.8); LYMPHOCYTES % (AUTO) 4.1 % (20.0-44.0); MEAN CORPUSCULAR HGB CONC 33 g/dl (31.0-36.0); MEAN CORPUSCULAR VOLUME 89 fL (80-96); MONOCYTES % (AUTO) 9.3 % (2.0-12.0); NEUTROPHILS # (AUTO) 9.5 /CMM (1.8-8.9); NEUTROPHILS % (AUTO) 86.4 % (43.0-81.0); PLATELET COUNT (AUTO) 124 /CMM (150-450); RED BLOOD CELL COUNT(AUTO) 3.38 MIL/uL (4.5-6.0); WHITE BLOOD COUNT (AUTO) 10.9 K/uL (4.3-11.0)
[2019-01-03 00:54] LABS: BAND % (MANUAL) 1 % (0.0-5.0); LYMPHOCYTES % (MANUAL) 4 % (16-48); NEUTROPHILS % (MANUAL) 95 (42-76)
[2019-01-03] MEDS: ALBUTEROL HALF STRENGTH 1.25 MG/3 ML VIAL.NEB NEB SCH ×6 (03:25→22:56)
[2019-01-03] MEDS: IPRATROPIUM NEB FS 0.5 MG/2.5 ML AMPUL.NEB NEB SCH ×6 (03:25→22:56)
[2019-01-03] MEDS: PROPOFOL 100 ML IV PRN ×3 (03:43→20:54)
[2019-01-03] MEDS: methylPREDNISolone SOD SUCC 125 MG/2ML VIAL IV SCH ×3 (06:14→20:13)
--- NOTE | 2019-01-03 07:34 | NUR ---
PT RECEIVED ORALLY INTUBATED ON MECHANICAL VENT W/ SETTINGS AC 18 500 60% +5. ETT SECURE, PATENT, CLEAN/DRY. VENT ALARMS CHECKED AND AUDIBLE, VENT IN RED OUTLET, AMBUBAG AT BEDSIDE. PT SX'ED AND LAVAGED PRN, MEDS GIVEN INLINE PER MD ORDER. BS EQUAL, DIMINISHED. PLAN IS TO CONTINUE CARE UNDER CURRENT MD ORDERS AND MONITOR FOR CHANGES. Addendum: 01/03/19 at 0737 by ANGLE MOCK RT Amended: Links added.
[2019-01-03] MEDS: NEXIUM 40 MG VIAL IV SCH ×2 (08:09→17:45)
[2019-01-03] MEDS ORDERED: NITROGLYCERIN 30 GM TUBE TP SCH (09:00)
--- NOTE | 2019-01-03 09:08 | NUR ---
RN NOTES 0730-RECEIVED PATIENT FROM RN. PATIENT REMAINS ORALLY INTUBATED. ON PROPOFOL DRIP THIS TIME.CARDIZEM DRIP ONGOING WELL. 0910-PATIENT SEEN BY DR. SUNG, REPORT GIVEN TO HIM. DR. MARION MADE ROUNDS, PATIENT SON SPOKE TO HIM, MD WITH ORDERS AND MD UPDATED SON OF PATIENT STATUS.PATIENT STARTED ON WEANING, MONITOR, SON AT BEDSIDE. DR REYES ALSO MADE ROUNDS AND HE SPOKE WITH PATIENT OF PLAN OF CARE.
[2019-01-03 09:38] LABS: ABG BASE EXCESS -4.8 mmol/L; ABG OXYGEN SATURATION 92.2 % (92.0-98.5); ABG PCO2 36.2 mmHg (35.0-45.0); ABG PH 7.362 (7.350-7.450); ABG PO2 75.6 mmHg (75.0-100.0); AaDO2 312.4 mmHg; COHb 0.6 % (0.5-1.5); MetHb 0.5 % (0.0-1.5); O2Hb 91.2 % (94.0-97.0); SITE, ABG Right Radial; VENT MODE, BG SIMV 4 PS15 +5 60%
--- NOTE | 2019-01-03 10:39 | NUR ---
RN NOTES 1000-REMAISN ON IMV MODE. DR. GRAY MADE ROUNDS, EXAMINED PATIENT AND SPOKE TO PATIENT .
[2019-01-03] MEDS: NEPRO 1,000 ML BOTTLE GT PRN (11:23)
[2019-01-03] MEDS: DIGOXIN INJ 0.5 MG/2 ML AMPUL IV SCH ×3 (11:29→23:31)
[2019-01-03] MEDS: ACETAMINOPHEN 325 MG TABLET PO PRN (12:52)
[2019-01-03] MEDS: BISACODYL SUPP (10 MG) 10 MG/SUPP.RECT SUPP.RECT RC PRN (13:18)
--- NOTE | 2019-01-03 15:45 | NUR ---
RN NOTES PATIENT FAMILY IN THE ROOM ALL TIMES, TREVIN HACKETT MILL ROLL OPERATOR JONAS AND SPOKE BIJAL PATIENT SON. PATIENT BP NOTED. PATIENT BACK TO AC MODE AFTER REEXAMINED BY DR WHALEN. DISCUSSED WITH FAMILY ABOUT TITRATING THE PROPOFOL DRIP. THEY WANTED PATIENT TO RESTART ON CARDIZEM BEACUSE OF BLOOD PRESSURE AND HR, THEY WERE INFORMED THAT LUMBER SCALER HAD BEEN NOITIFIED OF THE BP/HR AND WITH ORDER OF NTG DRIP, EXPLAINED TO THEM THE POSSIBLE REASON WHY PATIENT HR AND BP UP, STARTS TO STATE THAT THE NTG PASTE WAS WORKING, EXPLAINED TO HER THAT IN THE MORNING, THE PATIENT WAS ON PROPOFOL AND WAS WEANED WHEN HE WAS WEANED TO IMV AND PATIENT STARTED TO BE MORE AWAKE BY SQUEEZING MY HAND EARLIER WHEN ASKED.
[2019-01-03] MEDS: HYDROCODONE/APAP 5/325MG 1 EACH TABLET PO PRN ×2 (15:55→23:30)
[2019-01-03] MEDS: SOD FERRIC GLUC 125 MG in IV NS 0.9% 100 ML IV SCH (15:55)
[2019-01-03] MEDS ORDERED: NTG 50 MG/D5W250 ML BOTTL 250 ML IV PRN (16:00)
--- NOTE | 2019-01-03 19:14 | NUR ---
rn notes patient restarted on cardizem drip, patient and son awake.report given to rn for further care
--- NOTE | 2019-01-03 19:16 | NUR ---
rn notes 7000-patient able to squeeze my hand when asked him to do so with his left arm. patient son stated that patient has been following commands with him(son),. patient ans son states that patient had "stroke" before and the left arm is "stronger" than the right
[2019-01-03] MEDS: DILTIAZEM HCL IV 125 MG in IV D5W 100 ML IV PRN (19:59)
[2019-01-03] MEDS: NITROGLYCERIN 30 GM TUBE TP SCH (20:15)
[2019-01-04] VITALS (60 sets, daily range): BP systolic 136–198; BP diastolic 65–127
[2019-01-04] MEDS: PROPOFOL 100 ML IV PRN ×4 (01:34→21:03)
[2019-01-04] MEDS ORDERED: DILTIAZEM HCL 50 MG IV ONE (01:35)
[2019-01-04] MEDS: DILTIAZEM HCL IV 125 MG in IV D5W 100 ML IV PRN ×2 (01:46→18:57)
[2019-01-04] MEDS ORDERED: DILTIAZEM HCL 25 MG IV ONE (01:48)
[2019-01-04] MEDS: IPRATROPIUM NEB FS 0.5 MG/2.5 ML AMPUL.NEB NEB SCH ×5 (02:48→19:55)
[2019-01-04] MEDS: ALBUTEROL HALF STRENGTH 1.25 MG/3 ML VIAL.NEB NEB SCH ×5 (02:48→19:55)
[2019-01-04 04:54] LABS: BASOPHILS % (AUTO) 0.6 % (0.0-2.0); EOSINOPHILS % (AUTO) 0.2 % (0.0-6.0); HEMATOCRIT 27 % (39-51); LYMPHOCYTES # (AUTO) 0.3 /CMM (0.8-4.8); LYMPHOCYTES % (AUTO) 3.9 % (20.0-44.0); MEAN CORPUSCULAR HGB CONC 33 g/dl (31.0-36.0); MEAN CORPUSCULAR VOLUME 89 fL (80-96); MONOCYTES # (AUTO) 0.3 /CMM (0.1-1.30); MONOCYTES % (AUTO) 5.3 % (2.0-12.0); NEUTROPHILS # (AUTO) 5.9 /CMM (1.8-8.9); PLATELET COUNT (AUTO) 98 /CMM (150-450); RED BLOOD CELL COUNT(AUTO) 3.03 MIL/uL (4.5-6.0); WHITE BLOOD COUNT (AUTO) 6.5 K/uL (4.3-11.0)
[2019-01-04 04:58] LABS: CALCIUM, SERUM 7.6 mg/dL (8.5-10.1); CARBON DIOXIDE 20 mmol/L (21-32); CHLORIDE 95 mmol/L (98-107); GLUCOSE 174 mg/dL (74-106); POTASSIUM 4.9 mmol/L (3.5-5.1); SODIUM SERUM 135 mmol/L (136-145)
[2019-01-04 05:06] LABS: UREA NITROGEN, BLOOD 138 mg/dL (7-18)
[2019-01-04 05:07] LABS: CREATININE 8.2 mg/dL (0.6-1.3)
[2019-01-04] MEDS: methylPREDNISolone SOD SUCC 125 MG/2ML VIAL IV SCH ×3 (05:50→20:04)
[2019-01-04 06:14] LABS: LYMPHOCYTES % (MANUAL) 6 % (16-48); MONOCYTES % (MANUAL) 3 % (0-11.0); NEUTROPHILS % (MANUAL) 91 (42-76)
--- NOTE | 2019-01-04 06:15 | NUR ---
WEB ARCHITECT: REMAINS SEDATED ON DIPRIVAN AT 35MCG/KG/MIN. STILL ON BILAT. SOFT WRIST RESTRAINTS FOR EPISODES OF TRYING TO REACH TUBINGS. SKIN AND CIRCULATION WNL. CONTINUE ON CARDIZEM DRIP AT 10MG/HR. REMAINS A. FIB ON PLEATER. AFEBRILE. TOLERATING VENT SETTINGS ORDERED. NO SIGNIFICANT JONATAN DURING THE SHIFT. WILL CONTINUE TO MONITOR FOR ADVERSE CHANGES.
--- NOTE | 2019-01-04 07:30 | NUR ---
REC'D REPORT FROM OFFGOING NURSE PT ON DIPRIVAN DRIP SEDATION VACATION DONE FOR 10 MINS PT BECAUSE AGITATED BUCKING THE VENT DIPRIVAN WAS RESUMED AT ITS CURRENT RATE 35MCG PT IS SEDATED BUT RESPONSIVE TO TOUCH LS SL RHONCHI BILAT IS ON A VENT VIA ETTUBE VENT SETTING AC 18 TV 500 FIO2 60 PEEP5 WAS SUCT FOR SCANT AMT WHITE THIN SECRETION ORAL CARE GIVEN HOB ELEVATED AND ASP PREC MAINTAINED OVERALL APPEARANCES FAIR DOES HAVE A RT NGTUBE VIA NEPRO 1.8 @30ML/HR CK RESIDUAL ZERO BS POSITIVE IN ALL QUAD ABD SOFT SL DISTENT HAS A CUETO CATH PATENT AND DRAINING CL YELLOW URINE EVEN THROUGH HE HAS A RT SUBCLAV PERM A CATH INTACT BLE'S SL FOOTDROP NOTED IS WEARING SCD'S SL EDEMATOUS NOTED COLOR AND PULSES PRESENT IS WEARING DELROY WRIST RESTRAINT RELEASED AND CHECK PER PROTOCOL DID NOTE BUE'S ECCHYMO. IS REC'ING CARDIZEM DRIP @10ML/HR COMFORT AND SAFETY MAINTAINED WITHOUT INCIDENT
[2019-01-04] MEDS: NEXIUM 40 MG VIAL IV SCH ×2 (08:53→17:00)
[2019-01-04] MEDS: NITROGLYCERIN 30 GM TUBE TP SCH ×2 (08:54→20:04)
--- NOTE | 2019-01-04 11:00 | NUR ---
CARDIZEM DRIP D/C WILL RESUME CARDIZEM VIA NGTUBE ORDER TEACHING TO TO FAMILY AND PT
[2019-01-04] MEDS: LISINOPRIL (10MG) 10 MG TABLET PO SCH ×2 (11:15→20:04)
--- NOTE | 2019-01-04 11:45 | NUR ---
PT IS GETTING DIALYSIS AT THIS TIME
[2019-01-04] MEDS ORDERED: DILTIAZEM HCL 30 MG TABLET PO SCH (12:00)
[2019-01-04] MEDS: SOD FERRIC GLUC 125 MG in IV NS 0.9% 100 ML IV SCH (14:00)
--- NOTE | 2019-01-04 14:30 | NUR ---
DIALYSIS ENDED 3.2 LITER REMOVED PT B/P ELEVATED VOICED HER CONCERN WANTING THE PT BACK ON RONNELL JACKSON MD INFORM THEN PT STATED SHE WANTED IT PRN TEACHING GIVEN MD INFORMED
[2019-01-04] MEDS: HYDROCODONE/APAP 5/325MG 1 EACH TABLET PO PRN ×2 (14:39→23:16)
[2019-01-04] MEDS ORDERED: DILTIAZEM HCL IV 125 MG in IV D5W 100 ML IV PRN ×2 (16:00→18:00)
[2019-01-04] MEDS ORDERED: CLONIDINE HCL 0.3 MG/24H PTWK 1 EA PATCH TD SCH (17:00)
--- NOTE | 2019-01-04 17:00 | NUR ---
NEW ORDER FOR CATAPRESS B/C PT BP REMAINS ELEVATED PT DENIES ALLERGY AND STATED HE TAKES IT AT HIM
[2019-01-04] MEDS: EPOETIN ALFA (10,000 UNIT) 10,000 UNIT/ML VIAL IV SCH (17:41)
[2019-01-04] MEDS: CLONIDINE HCL 0.1 MG TABLET PO PRN ×2 (18:08→23:16)
--- NOTE | 2019-01-04 18:45 | NUR ---
CARDIZEM DRIP RESTART PT BP STARTED TO LOWER AND HR WELL COMFORT AND SAETY MAINTAINED PT WAS GIVEN A COMPLETE BEDBATH WITH SKINCARE AND MOUTHCARE ALSO PT HAD A SMALLL DK DIARRHEA STOOL
--- NOTE | 2019-01-04 19:40 | NUR ---
REPORT GIVEN TO INCOMING NURSE ALL QUESTIONS ANSWERED PT CONDITION REMAINS STABLE WITHOUT FURTHER INCIDENT
--- NOTE | 2019-01-04 22:30 | NUR ---
AUTOMOTIVE GENERAL MANAGER NOTES PATIENT NOTED WITH PERSISTENT ELEVATED BP, DESPITE THE ADMINISTRATION OF 2 SCHEDULED BP MEDS. LATEST READING 181/98. DR WISDOM MADE AWARE REGARDING ELEVATED BLOOD PRESSURE, WITH ORDER FOR METOPROLOL 5MG IV PUSH. DR WISDOM MADE AWARE THAT PATIENT IS ON CONTINUOUS CARDIZEM GTT. PER DR WISDOM, OK TO GIVE METOPROLOL IV PUSH WHILE PATIENT ON CARDIZEM GTT
[2019-01-04] MEDS: METOPROLOL TARTRATE INJ 5 MG/5 ML AMPUL IVP PRN (22:35)
[2019-01-05] VITALS (40 sets, daily range): BP systolic 115–191; BP diastolic 60–105
[2019-01-05] MEDS: NEPRO 1,000 ML BOTTLE GT PRN (01:04)
--- NOTE | 2019-01-05 01:47 | NUR ---
QUALITY ASSURANCE DIRECTOR NOTES BLOOD PRESSURE AGAIN ELEVATED, LATEST READING 174/84. SPOKE TO DR WISDOM AFTER REVIEWING HOME MEDICATION LIST. PER DR WISDOM, INCREASE DOSE OF CLONIDINE TO 0.2MG Q6H PRN, AND TO RESTART HOME MEDICATION COREG 6.25, BUT CHANGE TO Q12H, 1ST DOSE NOW. ALL ORDERS READ BACK FOP CLARIFICATION. WILL CARRY OUT ALL NEW ORDERS AND CONTINUE CLOSE MONITORING
[2019-01-05] MEDS: CARVEDILOL 6.25 MG TABLET PO SCH ×3 (01:59→20:10)
[2019-01-05] MEDS: PROPOFOL 100 ML IV PRN ×2 (02:03→07:42)
[2019-01-05] MEDS: IPRATROPIUM NEB FS 0.5 MG/2.5 ML AMPUL.NEB NEB SCH ×7 (03:34→23:21)
[2019-01-05] MEDS: ALBUTEROL HALF STRENGTH 1.25 MG/3 ML VIAL.NEB NEB SCH ×7 (03:34→23:21)
[2019-01-05 05:01] LABS: BASOPHILS % (AUTO) 0.1 % (0.0-2.0); HEMATOCRIT 29 % (39-51); HEMOGLOBIN 9.7 g/dL (13.5-17.5); LYMPHOCYTES # (AUTO) 0.2 /CMM (0.8-4.8); LYMPHOCYTES % (AUTO) 1.5 % (20.0-44.0); MEAN CORPUSCULAR HGB CONC 34 g/dl (31.0-36.0); MEAN CORPUSCULAR VOLUME 90 fL (80-96); MONOCYTES # (AUTO) 0.9 /CMM (0.1-1.30); MONOCYTES % (AUTO) 7.7 % (2.0-12.0); NEUTROPHILS % (AUTO) 90.7 % (43.0-81.0); PLATELET COUNT (AUTO) 101 /CMM (150-450); WHITE BLOOD COUNT (AUTO) 11.1 K/uL (4.3-11.0)
[2019-01-05 05:14] LABS: CALCIUM, SERUM 7.9 mg/dL (8.5-10.1); CARBON DIOXIDE 26 mmol/L (21-32); CHLORIDE 96 mmol/L (98-107); CREATININE 5.8 mg/dL (0.6-1.3); GLUCOSE 153 mg/dL (74-106); MAGNESIUM 2.8 mg/dL (1.8-2.4); POTASSIUM 4.3 mmol/L (3.5-5.1); SODIUM SERUM 136 mmol/L (136-145)
[2019-01-05 05:41] LABS: PHOSPHORUS 9.6 mg/dL (2.5-4.9); UREA NITROGEN, BLOOD 93 mg/dL (7-18)
[2019-01-05] MEDS: methylPREDNISolone SOD SUCC 125 MG/2ML VIAL IV SCH ×3 (05:51→20:08)
--- NOTE | 2019-01-05 07:15 | NUR ---
RECEIVED CARE OF PATIENT FROM RN HEIDI. PT INTUBATED WITH VENT SETTINGS PER ORDER AND TOLERATING WELL. NO S/S DISTRESS, NO SOB, DIFFICULTY BREATHING AND FLACC 0. PATIENT IV SITES C/D/I/P WITH DIPRIVAN AND CARDIZEM RUNNING PER ORDER; SEE SPREADSHEET. CUETO CATH TO GRAVITY INTACT AND PATENT; JAZMÍN CARE COMPLETED. TELE AFIB CONTROLLED. TUBE FEEDING THROUGH NGT PER ORDER WITHOUT RESIDUAL. SKIN, SAFETY, ASPIRATION PRECAUTIONS IN PLACE AND WILL MONITOR.
[2019-01-05] MEDS: Z GUARD REMEDY 2 OZ OINT TP PRN ×2 (07:43→16:00)
[2019-01-05] MEDS: NEXIUM 40 MG VIAL IV SCH ×2 (08:03→16:00)
[2019-01-05] MEDS: NITROGLYCERIN 30 GM TUBE TP SCH ×2 (08:03→20:10)
[2019-01-05] MEDS: LISINOPRIL (10MG) 10 MG TABLET PO SCH ×2 (08:03→20:09)
--- NOTE | 2019-01-05 09:07 | NUR ---
PATIENT SONS AT BEDSIDE FOR SEDATION VACATION. AT THIS TIME PATIENT TOLERATING WELL. 97% SATURATION AND FOLLOWING SIMPLE COMMANDS OF MOVING EXTREMITIES AND SQUEEZING HANDS
--- NOTE | 2019-01-05 09:17 | NUR ---
DR PERSON AT BEDSIDE. PATIENT FOLLOWING COMMANDS NODDING YES AND NO. RT ROMANA AT BEDSIDE. PER MD START WEANING TRIL SIMV RATE 4 15 40%
[2019-01-05] MEDS ORDERED: DC PROPOFOL WHEN EXTUBATED XX PRN (10:00)
[2019-01-05 10:38] LABS: ABG BASE EXCESS -2.5 mmol/L; ABG PCO2 35.9 mmHg (35.0-45.0); ABG PH 7.402 (7.350-7.450); ABG PO2 84.8 mmHg (75.0-100.0); AaDO2 159.1 mmHg; COHb 1.3 % (0.5-1.5); MetHb 0.8 % (0.0-1.5); PEEP,BG 5 cm H2O; SITE, ABG Left Radial
--- NOTE | 2019-01-05 10:48 | NUR ---
per dr valdes regarding abg. keep patient on simv until 230pm and recheck abg at that time. patient continues calm and cooperative tolerating simv. will continue to monitor
[2019-01-05] MEDS: METOPROLOL TARTRATE INJ 5 MG/5 ML AMPUL IVP PRN ×2 (13:11→23:40)
[2019-01-05] MEDS: SOD FERRIC GLUC 125 MG in IV NS 0.9% 100 ML IV SCH (13:50)
[2019-01-05 14:41] LABS: ABG BASE EXCESS -4.1 mmol/L; ABG OXYGEN SATURATION 94.8 % (92.0-98.5); ABG PH 7.383 (7.350-7.450); ABG PO2 85.7 mmHg (75.0-100.0); AaDO2 159.3 mmHg; COHb 0.9 % (0.5-1.5); MetHb 0.7 % (0.0-1.5); O2Hb 93.3 % (94.0-97.0); PEEP,BG 5 cm H2O; SITE, ABG Right Radial; VENT MODE, BG CPAP PS15
--- NOTE | 2019-01-05 15:40 | NUR ---
PT. REC. 0700 AM ON VENTY WITH NOTED AC MODE SETTINGS, ALARMS ARE SET AND FUNCTIONAL. FAMILY MEMBERS AT THE BEDSIDE,T/O DAY AND CONTINUE TO MONITOR. PT. VERY CLOSELY. AMBU BAG AT THE BEDSIDE. @0930 PLACED ON SIMV MODE PER MD ORDER @0945 PLACED ON CPAP MODE PER MD ORDER @[address] PERSON ORDER AND PLACED ON 6L/MIN O2 VIA N/C NO STRIDOR NOTED. TX'S GIVEN T/O DAY AND NO ADVERSE REACTION NOTED AND CONTINUE TO MONITOR. BIPAP AT THE BEDSIDE. BIPAP ORDER OF 20/5,12,40% A BACK UP, FAMILY AT THE BEDSIDE. AND ASKED FOR NIGHT TIME USE OF BIPAP REPORT WILL PASS TO PM SHIFT. Addendum: 01/05/19 at 1832 by ROMANA COON RT Amended: Links added.
--- NOTE | 2019-01-05 15:45 | NUR ---
PATIENT EXTUBATED PER PELLANA ORDER. PLACED ON 6L NC AND TOLERATING WELL. NO SOB OR DIFFICULTY BREATHING NOTED. PATIENT CALM AND COOPERATIVE. COUGH AND GAG REFLEXES PRESENT
--- NOTE | 2019-01-05 15:50 | NUR ---
PER DR ERYES GIVE EPOGEN TODAY
[2019-01-05] MEDS: EPOETIN ALFA (10,000 UNIT) 10,000 UNIT/ML VIAL IV SCH (15:51)
[2019-01-05] MEDS: CLONIDINE HCL 0.1 MG TABLET PO PRN ×2 (17:18→22:35)
[2019-01-05 17:27] LABS: ABG BASE EXCESS -5.6 mmol/L; ABG PCO2 37.6 mmHg (35.0-45.0); ABG PH 7.337 (7.350-7.450); ABG PO2 76.4 mmHg (75.0-100.0); AaDO2 165.6 mmHg; COHb 0.9 % (0.5-1.5); MetHb 0.6 % (0.0-1.5); O2Hb 90.6 % (94.0-97.0); SITE, ABG Right Radial; VENT MODE, BG N/C
--- NOTE | 2019-01-05 17:30 | NUR ---
NOTIFIED DR PERSON OF PATIENT UPDATED ABG S/P EXTUBATION. NO CHANGE PER MD
--- NOTE | 2019-01-05 17:52 | NUR ---
NOTIFIED DR MARION PATIENT IS C/O SEVERE ABD PAIN; PER MD ORDER STAT CT ABD/PELVIS WITHOUT CONTRAST AND ORDER BENTYL THROUGH NGT 20MG PRN Q6H Addendum: 01/05/19 at 1823 by ALEXANDRIA BORGES RN ORDER IS SCHEDULED Q6H
[2019-01-05] MEDS ORDERED: DICYCLOMINE HCL 10 MG CAPSULE PO ONE (18:00)
[2019-01-05] MEDS: DILTIAZEM HCL IV 125 MG in IV D5W 100 ML IV PRN (18:00)
--- NOTE | 2019-01-05 18:23 | NUR ---
PATIENT IS REQUESTING PAIN MEDICATION BEFORE CT SCAN TO BE COMPLETED. PENDING BENTYL MEDICATION FROM PHARMACY
--- NOTE | 2019-01-05 19:04 | NUR ---
CARE ENDORSED TO RN HEIDI FOR JONATAN. PENDING CT ABD/PELVIS. PATIENT AWAKE ALERT FOLLOWING COMMANDS. MEDICATIONS PER ORDER; SEE SPREADSHEET. CUETO CATH TO GRAVITY. IV SITES C/D/I/P. TOLERATING NASAL CANNULA NO SOB, DIFFICULTY BREATHING NO S.S ACUTE DISTRESS NOTED. SKIN, SAFETY, ASPIRATION PRECAUTIONS IN PLACE AND MONITORED THROUGHOUT THE DAY.
--- NOTE | 2019-01-05 19:15 | NUR ---
OPERATIONS INTELLIGENCE NOTES PATIENT LEFT UNIT FOR CT VIA BED ACCOMPANIED BY JOSE AND YULISSA RANGEL
--- NOTE | 2019-01-05 19:35 | NUR ---
SENIOR INSPECTOR NOTES PATIENT BACK FROM CT.
[2019-01-05] MEDS: HYDROCODONE/APAP 5/325MG 1 EACH TABLET PO PRN (21:29)
--- NOTE | 2019-01-05 22:00 | NUR ---
HEALTH EQUIPMENT SERVICER NOTES PATIENT REQUEST FOR SUPPOSITORY. ADMINISTERED ORDERED. WILL MONITOR FOR STOOL OUTPUT
[2019-01-05] MEDS: BISACODYL SUPP (10 MG) 10 MG/SUPP.RECT SUPP.RECT RC PRN (22:27)
[2019-01-05] MEDS: MAGNESIUM HYDROXIDE 30 ML UDC PO PRN ×2 (22:34→22:44)
[2019-01-05] MEDS: DICYCLOMINE HCL 10 MG CAPSULE PO SCH (23:19)
[2019-01-06] VITALS (38 sets, daily range): BP systolic 120–174; BP diastolic 61–99
--- NOTE | 2019-01-06 00:30 | NUR ---
MOISTURE METER OPERATOR NOTES CT ABDOMEN AND PELVIS RESULTS RELAYED TO DR WISDOM. MADE AWARE THAT DULCOLAX SUPP AND MOM ALREADY ADMINISTERED 2 HOURS AGO. NO NEW ORDERS RECEIVED. WILL MONITOR CLOSELY
[2019-01-06] MEDS ORDERED: NA PHOS,M-B/NA PHOS,DI-BA 1 EA ENEMA RC ONE (02:00)
--- NOTE | 2019-01-06 02:01 | NUR ---
SIGN LANGUAGE TRANSLATOR NOTES PATIENT AGAIN WITH C/O ABDOMINAL PAIN, DULCOLAX AND MOM INEFFECTIVE. DR WISDOM MADE AWARE, WITH ORDER FOR FLEET ENEMA X1 NOW. WILL ADMINISTER AND CLOSELY MONITOR
[2019-01-06] MEDS: IPRATROPIUM NEB FS 0.5 MG/2.5 ML AMPUL.NEB NEB SCH ×5 (02:43→19:51)
[2019-01-06] MEDS: ALBUTEROL HALF STRENGTH 1.25 MG/3 ML VIAL.NEB NEB SCH ×5 (02:43→19:51)
[2019-01-06] MEDS: CLONIDINE HCL 0.1 MG TABLET PO PRN (04:05)
[2019-01-06] MEDS: DICYCLOMINE HCL 10 MG CAPSULE PO SCH ×3 (05:41→17:23)
[2019-01-06] MEDS: methylPREDNISolone SOD SUCC 125 MG/2ML VIAL IV SCH ×3 (05:41→22:52)
--- NOTE | 2019-01-06 06:30 | NUR ---
NATURAL RESOURCES MANAGER CLOSING NOTES PATIENT RESTING COMFORTABLY IN BED, NO LONGER MOANING DUE TO DISCOMFORT FROM CONSTIPATION. PATIENT WITH 3 SMALL BMs SINCE FLEET ENEMA ADMINISTERED. PATIENT CONTINUES TO TOLERATE O2 VIA NC @ 5LPM. PATIENT'S AT BEDSIDE, UPDATE GIVEN REGARDING PATIENT'S RESPIRATORY STATUS AND PATIENT HAVING BM X3. WILL ENDORSE THE PATIENT TO THE AM SHIFT NURSE FOR CONTINUITY OF CARE.
[2019-01-06] MEDS: DILTIAZEM HCL IV 125 MG in IV D5W 100 ML IV PRN (07:02)
--- NOTE | 2019-01-06 07:15 | NUR ---
Pt seen & examined by Dr. Barros, updated about pt status. Per MD may order swallow eval.
--- NOTE | 2019-01-06 08:00 | NUR ---
WOUND CARE CONSULT: PT EXTUBATED 01/05/19 AND NOTED TO BE WEAK WITH CURRENT JUD SCORE OF 12. BONY SACRAL AREA NOTED. RECOMMENDATIONS MADE FOR SKIN PROTECTION. DISCUSSED WITH NURSING STAFF. FIRST STEP LOW AIRLOSS MATTRESS ON ORDER. DIETITIAN FOLLOWING PT. PT HAS NGT. ABDOMEN NOTED TO BE LARGE WITH BRUISING. PT INCONTINENT OF STOOL. CUETO CATH NOTED. WILL SEE PRN. KELLER IN AGREEMENT WITH PLAN OF CARE. Addendum: 01/06/19 at 0807 by JOSIAH EL WNDNU Amended: Links added.
--- NOTE | 2019-01-06 08:10 | NUR ---
Pt seen & examined by Dr. Vincent. Per MD, continue GTF for now, too weak to swallow. Family (/son) at bedside at this time.
[2019-01-06] MEDS: LISINOPRIL (10MG) 10 MG TABLET PO SCH ×2 (09:14→22:53)
[2019-01-06] MEDS: CARVEDILOL 6.25 MG TABLET PO SCH ×2 (09:14→22:52)
[2019-01-06] MEDS: NITROGLYCERIN 30 GM TUBE TP SCH ×2 (09:15→21:25)
[2019-01-06] MEDS: NEXIUM 40 MG VIAL IV SCH ×2 (09:15→17:28)
[2019-01-06] MEDS: Z GUARD REMEDY 2 OZ OINT TP PRN (09:16)
[2019-01-06] MEDS: ACETAMINOPHEN 325 MG TABLET PO PRN (09:16)
[2019-01-06 10:19] LABS: ABG BASE EXCESS -4.2 mmol/L; ABG PCO2 35.7 mmHg (35.0-45.0); ABG PH 7.375 (7.350-7.450); ABG PO2 71.7 mmHg (75.0-100.0); AaDO2 172.4 mmHg; COHb 0.9 % (0.5-1.5); MetHb 0.6 % (0.0-1.5); O2Hb 89.6 % (94.0-97.0); SITE, ABG Right Radial
--- NOTE | 2019-01-06 10:20 | NUR ---
Dr. Vincent made aware that pt has high gastric residual >250 w/ orders to start on Reglan 10mg IVP q8H. Son at bedside & made aware. Per son's request, if we can start pt on preparation H ointment for his hemorrhoids. Dr. Barros informed, awaiting for response. Addendum: 01/06/19 at 1037 by AURORA RYAN RN Per Dr. Barros, may start Preparation H ointment.
[2019-01-06] MEDS ORDERED: METOCLOPRAMIDE HCL 10 MG/2 ML VIAL IV SCH (10:30)
[2019-01-06] MEDS ORDERED: PHENYLEPHRINE/SHK LV/MO/PET,WH 30 GM TUBE RC PRN (11:00)
[2019-01-06] MEDS: METOCLOPRAMIDE HCL 10 MG/2 ML VIAL IV SCH ×2 (11:41→22:52)
--- NOTE | 2019-01-06 14:45 | NUR ---
Pt seen & examined by MARIO Rice. JUDICIAL ASSISTANT made aware that GTF was held since this AM as pt having high gastric residual & already started on reglan 5 mg IVP q8H. Per JUDICIAL ASSISTANT may order KUB.
--- NOTE | 2019-01-06 16:00 | NUR ---
Pt seen & examined by Dr. Todd, made him aware that pt's refused HD that was offered by [facility] HD RN early this AM.
[2019-01-06 16:08] LABS: CALCIUM, SERUM 7.6 mg/dL (8.5-10.1); CARBON DIOXIDE 25 mmol/L (21-32); CHLORIDE 97 mmol/L (98-107); GLUCOSE 135 mg/dL (74-106); POTASSIUM 4.8 mmol/L (3.5-5.1); SODIUM SERUM 138 mmol/L (136-145)
[2019-01-06 16:12] LABS: UREA NITROGEN, BLOOD 146 mg/dL (7-18)
[2019-01-06 16:46] LABS: BASOPHILS % (AUTO) 0.2 % (0.0-2.0); HEMATOCRIT 32 % (39-51); HEMOGLOBIN 10.6 g/dL (13.5-17.5); LYMPHOCYTES # (AUTO) 0.3 /CMM (0.8-4.8); LYMPHOCYTES % (AUTO) 1.7 % (20.0-44.0); MEAN CORPUSCULAR HGB CONC 33 g/dl (31.0-36.0); MEAN CORPUSCULAR VOLUME 89 fL (80-96); MONOCYTES # (AUTO) 0.7 /CMM (0.1-1.30); MONOCYTES % (AUTO) 4.3 % (2.0-12.0); NEUTROPHILS # (AUTO) 15.1 /CMM (1.8-8.9); NEUTROPHILS % (AUTO) 93.8 % (43.0-81.0); PLATELET COUNT (AUTO) 109 /CMM (150-450); RED BLOOD CELL COUNT(AUTO) 3.64 MIL/uL (4.5-6.0); WHITE BLOOD COUNT (AUTO) 16.1 K/uL (4.3-11.0)
[2019-01-06] MEDS: EPOETIN ALFA (10,000 UNIT) 10,000 UNIT/ML VIAL IV SCH (17:24)
--- NOTE | 2019-01-06 18:42 | NUR ---
CONTRACTS ANALYST CLOSING NOTES: Pt resting comfortably on his bed, not in any distress. Tolerating NC at 5lpm. Controlled Afib on monitor. NGT kept patent & intact , restarted GTF at 10 cc/hr, residual checked prior w/ 60cc gastric residuals. IV line access: RFA G20, NATHALIE G18 & NATHALIE midline, all SL, kept patent & intact w/ no s/sx of infection/infiltration noted. FC draining to yellowish UOP. Safety precaution kept in place at all times w/ bed in lowest & locked pos. Call light placed w/in reach. Family updated about pt condition & POC at all times. Per Sobeida, pt will be dialyze later after 7pm c/o Janeth. Family made aware. Per Krystal MARTIN, may start pt on lidocaine 2% jelly ointment BID PRN (apply on hemorrhoids).
--- NOTE | 2019-01-06 20:00 | NUR ---
DE ICER FINISHER AT BEDSIDE. WILL HOLD MEDICATION UNTIL HD IS COMPLETE.
--- NOTE | 2019-01-06 22:55 | NUR ---
DIALYSIS COMPLETE WITH 1 LITER OUT. PT TOLERATED PROCEDURE WELL.
[2019-01-06] MEDS: HYDROCODONE/APAP 5/325MG 1 EACH TABLET PO PRN (22:59)
[2019-01-07] VITALS (28 sets, daily range): BP systolic 132–175; BP diastolic 29–102
[2019-01-07] MEDS: DICYCLOMINE HCL 10 MG CAPSULE PO SCH ×4 (00:12→17:04)
[2019-01-07] MEDS: ACETAMINOPHEN 325 MG TABLET PO PRN ×3 (00:12→22:46)
[2019-01-07] MEDS: IPRATROPIUM NEB FS 0.5 MG/2.5 ML AMPUL.NEB NEB SCH ×7 (00:42→23:18)
[2019-01-07] MEDS: ALBUTEROL HALF STRENGTH 1.25 MG/3 ML VIAL.NEB NEB SCH ×7 (00:42→23:18)
[2019-01-07 04:55] LABS: BASOPHILS # (AUTO) 0.1 /CMM (0.0-0.2); BASOPHILS % (AUTO) 0.3 % (0.0-2.0); HEMATOCRIT 35 % (39-51); HEMOGLOBIN 11.4 g/dL (13.5-17.5); LYMPHOCYTES # (AUTO) 0.2 /CMM (0.8-4.8); LYMPHOCYTES % (AUTO) 1.2 % (20.0-44.0); MEAN CORPUSCULAR HGB CONC 32 g/dl (31.0-36.0); MEAN CORPUSCULAR VOLUME 91 fL (80-96); MONOCYTES # (AUTO) 0.8 /CMM (0.1-1.30); NEUTROPHILS # (AUTO) 19.3 /CMM (1.8-8.9); NEUTROPHILS % (AUTO) 94.5 % (43.0-81.0); PLATELET COUNT (AUTO) 112 /CMM (150-450); RED BLOOD CELL COUNT(AUTO) 3.88 MIL/uL (4.5-6.0); WHITE BLOOD COUNT (AUTO) 20.5 K/uL (4.3-11.0)
[2019-01-07] MEDS: METOCLOPRAMIDE HCL 10 MG/2 ML VIAL IV SCH ×3 (05:14→20:59)
[2019-01-07] MEDS: methylPREDNISolone SOD SUCC 125 MG/2ML VIAL IV SCH (05:14)
[2019-01-07 05:19] LABS: CALCIUM, SERUM 8.4 mg/dL (8.5-10.1); CARBON DIOXIDE 27 mmol/L (21-32); CHLORIDE 99 mmol/L (98-107); CREATININE 5.2 mg/dL (0.6-1.3); GLUCOSE 121 mg/dL (74-106); POTASSIUM 4.4 mmol/L (3.5-5.1); SODIUM SERUM 139 mmol/L (136-145)
[2019-01-07 05:31] LABS: PHOSPHORUS 8.7 mg/dL (2.5-4.9); UREA NITROGEN, BLOOD 101 mg/dL (7-18)
--- NOTE | 2019-01-07 05:54 | NUR ---
PT REC'D ON NASAL CANNULA 5L AND PLACED ON BIPAP ON NOTED SETTINGS PER MD ORDERS. NO RESP DISTRESS OR SOB NOTED. PT AWAKE AND ALERT. PT TOLERATES BIPAP WELL. MEPILEX IN PLACE, NO REDNESS OR SKIN TEAR NOTED. BIPAP PLUGGED INTO RED OUTLET. ALARMS ARE SET AND AUDIBLE. AMBU BAG BEDSIDE. WILL CONTINUE TO MONITOR. Addendum: 01/07/19 at 0556 by GEOVANY JACKSON RT Amended: Links added.
--- NOTE | 2019-01-07 06:54 | NUR ---
PT REMAINS IN NO ACUTE DISTRESS IN BED. PT DID NOT HAVE ANY SIGNIFICANT CHANGE IN CONDITION DURING SHIFT. PT TOLERATED NOCTURNAL BIPAP WELL. ALL NEEDS MET, ALL ORDERS CARRIED OUT. WILL ENDORSE CARE TO AM RN CONTINUITY OF CARE.
[2019-01-07 07:17] LABS: ABG BASE EXCESS -1.4 mmol/L; ABG OXYGEN SATURATION 90.6 % (92.0-98.5); ABG PCO2 35.7 mmHg (35.0-45.0); ABG PH 7.419 (7.350-7.450); ABG PO2 65.8 mmHg (75.0-100.0); AaDO2 120.6 mmHg; COHb 1.1 % (0.5-1.5); MetHb 0.6 % (0.0-1.5); O2Hb 89.1 % (94.0-97.0); SITE, ABG Left Radial; VENT MODE, BG Nasal Cannula
--- NOTE | 2019-01-07 07:40 | NUR ---
Pt seen & examined by Dr. Barros & updated about pt condition. Per MD, may start on Miralax via GT daily PRN.
--- NOTE | 2019-01-07 08:30 | NUR ---
Pt seen & examined by Dr. Vincent, updated about pt status. Per MD, may do bedside swallow eval & PT eval. RN did bedside swallow eval, strict aspiration precaution observed, pt tolerated well, no coughing noted while giving thin liquids & apple sauce. RN gave education to the family ( & son) re: to wait for speech therapist to do swallow eval first prior to feeding the pt, however, RN will see son or give food/drink to the pt despite of the teaching. Pt & family closely monitored. Benefits of being compliant to tx & care reinforced. RN also educated son & especially the re: strict handwashing. RN saw pt's putting cream on pt's hemorrhoids w/ bare hands & then will touch pt or give food to the pt. Educated both of them re: pt's increased risk of infection. Both verbalized understanding but still noted to be non compliant most of the time.
[2019-01-07] MEDS: NEXIUM 40 MG VIAL IV SCH ×2 (09:03→16:39)
[2019-01-07] MEDS: LISINOPRIL (10MG) 10 MG TABLET PO SCH ×2 (09:06→20:59)
[2019-01-07] MEDS: CARVEDILOL 6.25 MG TABLET PO SCH ×2 (09:06→20:59)
[2019-01-07] MEDS: NITROGLYCERIN 30 GM TUBE TP SCH ×2 (09:06→21:00)
[2019-01-07] MEDS: BISACODYL SUPP (10 MG) 10 MG/SUPP.RECT SUPP.RECT RC PRN (09:07)
[2019-01-07] MEDS: LIDOCAINE 2% JEL 5 ML TUBE TP PRN (09:07)
[2019-01-07] MEDS: Z GUARD REMEDY 2 OZ OINT TP PRN (09:07)
[2019-01-07] MEDS: POLYETHYLENE GLYCOL 3350 17 GM POWD.PACK PO PRN (09:07)
[2019-01-07] MEDS ORDERED: methylPREDNISolone SOD SUCC 40 MG/ML VIAL IV SCH (13:00)
[2019-01-07] MEDS: EPOETIN ALFA (10,000 UNIT) 10,000 UNIT/ML VIAL IV SCH (15:00)
[2019-01-07] MEDS: HYDROCODONE/APAP 5/325MG 1 EACH TABLET PO PRN ×2 (16:38→21:07)
--- NOTE | 2019-01-07 18:40 | NUR ---
MANAGER WAREHOUSE CLOSING NOTES: Pt resting comfortably on his bed, not in any distress. Tolerating NC at 2lpm. Controlled Afib on monitor. NGT removed as pt passed the swallow evaluation. IV line access: RFA G20, NATHALIE G18 & NATHALIE midline, all SL, kept patent & intact w/ no s/sx of infection/infiltration noted. FC draining to yellowish UOP. Safety precaution kept in place at all times w/ bed in lowest & locked pos. Call light placed w/in reach. at bedside. Pt positioned for comfort. Will endorse to PM RN for JONATAN.
[2019-01-07] MEDS: METOPROLOL TARTRATE INJ 5 MG/5 ML AMPUL IVP PRN (18:56)
[2019-01-07] MEDS ORDERED: POLYETHYLENE GLYCOL 3350 17 GM POWD.PACK PO PRN (19:00)
--- NOTE | 2019-01-07 23:00 | NUR ---
PT BROUGHT HEATING PAD FROM HOME AND PLACED ON PT. NOTIFIED THAT HEATING PAD MAY CAUSE HARM TO PATIENT. PT'S CONTINUE TO PLACE HEATING PAD ON PT EVEN WITH SEVERAL WARNINGS AND TEACHINGS. WILL CONTINUE TO TRY TO TEACH PT'S OF POTENTIAL HARM.
--- NOTE | 2019-01-07 23:14 | NUR ---
PT REC'D ON NASAL CANNULA 6L AND PLACED ON NOC BIPAP WITH NOTED SETTINGS PER MD ORDERS. NO RESP DISTRESS OR SOB NOTED. PT AWAKE AND ALERT. PT TOLERATES BIPAP WELL. MEPILEX IN PLACE, SKIN INTACT. BIPAP PLUGGED INTO RED OUTLET. ALARMS ARE SET AND AUDIBLE. AMBU BAG BEDSIDE. WILL CONTINUE TO MONITOR. Addendum: 01/08/19 at 0302 by PAULO CALVILLO RT PT RCVD ON 2L NC
[2019-01-08] VITALS (27 sets, daily range): BP systolic 119–191; BP diastolic 73–134
[2019-01-08] MEDS: DICYCLOMINE HCL 10 MG CAPSULE PO SCH ×3 (00:13→12:00)
--- NOTE | 2019-01-08 02:30 | NUR ---
FOUND HEATING PAD ON PT AGAIN WITH REDNESS AND WARMTH TO THE TOUCH. REEDUCATED ON POTENTIAL HARM CAUSED BY EXTENDED HEATING FROM HEATING PAD. PT'S VERBALIZED UNDERSTANDING.
[2019-01-08] MEDS: ALBUTEROL HALF STRENGTH 1.25 MG/3 ML VIAL.NEB NEB SCH ×6 (03:29→23:29)
[2019-01-08] MEDS: IPRATROPIUM NEB FS 0.5 MG/2.5 ML AMPUL.NEB NEB SCH ×6 (03:29→23:29)
[2019-01-08] MEDS: METOCLOPRAMIDE HCL 10 MG/2 ML VIAL IV SCH ×3 (05:12→21:16)
--- NOTE | 2019-01-08 06:59 | NUR ---
PT REMAINS IN NO ACUTE DISTRESS IN BED. PT DID NOT HAVE ANY SIGNIFICANT CHANGE IN CONDITION DURING SHIFT. ALL NEEDS MET, ALL ORDERS CARRIED OUT. WILL ENDORSE CARE TO AM RN FOR CONTINUITY OF CARE.
--- NOTE | 2019-01-08 08:17 | NUR ---
BRAKE REPAIRER BUS NOTE RCVD PT AWAKE AND ALERT, NO S/O DISTRESS OBSERVED, CONTROLLED AFIB ON MONITOR, TOLERATING O2 VIA NASAL CANNULA, CUETO TO GRAVITY DRAINING CLOUDY, YELLOW URINE, NATHALIE MIDLINE C/D/I/PATENT, NO S/O INFILTRATION/PHLEBITIS OBSERVED UPON FLUSHING, PERIPHERAL IV SITES LEAKING/PAINFUL WILL BE DISCONTINUED. POOR PO INTAKE AND COMPLAINS OF CONSTIPATION WILL GIVE MIRALAX AND DULCOLAX SUPPOSITORY ORDERED. WILL CONTINUE TO MONITOR PT FOR SAFETY AND COMFORT, BED IN LOW POSITION, CALL LIGHT WITHIN REACH, HEAD OF BED ELEVATED.
[2019-01-08 08:31] LABS: BASOPHILS # (AUTO) 0.1 /CMM (0.0-0.2); BASOPHILS % (AUTO) 0.3 % (0.0-2.0); EOSINOPHILS % (AUTO) 0.1 % (0.0-6.0); HEMATOCRIT 39 % (39-51); HEMOGLOBIN 12.6 g/dL (13.5-17.5); LYMPHOCYTES # (AUTO) 0.6 /CMM (0.8-4.8); MEAN CORPUSCULAR HGB CONC 32 g/dl (31.0-36.0); MEAN CORPUSCULAR VOLUME 92 fL (80-96); MONOCYTES # (AUTO) 1.1 /CMM (0.1-1.30); MONOCYTES % (AUTO) 5.7 % (2.0-12.0); NEUTROPHILS % (AUTO) 90.9 % (43.0-81.0); PLATELET COUNT (AUTO) 115 /CMM (150-450); RED BLOOD CELL COUNT(AUTO) 4.27 MIL/uL (4.5-6.0); WHITE BLOOD COUNT (AUTO) 19.8 K/uL (4.3-11.0)
[2019-01-08 08:39] LABS: CALCIUM, SERUM 8.1 mg/dL (8.5-10.1); CARBON DIOXIDE 23 mmol/L (21-32); CHLORIDE 100 mmol/L (98-107); CREATININE 6.6 mg/dL (0.6-1.3); GLUCOSE 142 mg/dL (74-106); MAGNESIUM 3.1 mg/dL (1.8-2.4); POTASSIUM 4.3 mmol/L (3.5-5.1); SODIUM SERUM 141 mmol/L (136-145)
[2019-01-08 08:40] LABS: UREA NITROGEN, BLOOD 121 mg/dL (7-18)
[2019-01-08 08:42] LABS: PHOSPHORUS 8.1 mg/dL (2.5-4.9)
[2019-01-08 08:50] LABS: ABG BASE EXCESS -3.7 mmol/L; ABG OXYGEN SATURATION 90.9 % (92.0-98.5); ABG PCO2 37.9 mmHg (35.0-45.0); ABG PH 7.365 (7.350-7.450); ABG PO2 69.1 mmHg (75.0-100.0); AaDO2 85.8 mmHg; COHb 1.1 % (0.5-1.5); MetHb 0.4 % (0.0-1.5); O2Hb 89.5 % (94.0-97.0); SITE, ABG Right Radial; VENT MODE, BG nasal cannula
[2019-01-08] MEDS: methylPREDNISolone SOD SUCC 40 MG/ML VIAL IV SCH (09:29)
[2019-01-08] MEDS: BISACODYL SUPP (10 MG) 10 MG/SUPP.RECT SUPP.RECT RC PRN (09:29)
[2019-01-08] MEDS: NEXIUM 40 MG VIAL IV SCH ×2 (09:29→16:20)
[2019-01-08] MEDS: POLYETHYLENE GLYCOL 3350 17 GM POWD.PACK PO PRN (09:29)
[2019-01-08] MEDS: LISINOPRIL (10MG) 10 MG TABLET PO SCH ×2 (09:30→21:16)
[2019-01-08] MEDS: NITROGLYCERIN 30 GM TUBE TP SCH ×2 (09:30→21:17)
[2019-01-08] MEDS: CARVEDILOL 6.25 MG TABLET PO SCH ×2 (09:30→21:16)
[2019-01-08] MEDS: SIMETHICONE 80 MG TAB.CHEW PO PRN (10:04)
[2019-01-08] MEDS: HYDROCODONE/APAP 5/325MG 1 EACH TABLET PO PRN (10:14)
--- NOTE | 2019-01-08 10:54 | NUR ---
CONCRETE ENGINEER NOTE PT REQUESTING TO GET OUT OF BED TO BSC TO HAVE BOWEL MOVEMENT, PT WAS TRANSFERRED TO BSC BY BRET TAYLOR AND PT CHIEF DEPUTY SHERIFF WITH MAXIMUM ASSIST, PT LEANING FORWARD UPON SITTING ON BSC POSING HIGH FALL RISK. PT WAS GIVEN TIME TO USE THE BSC AND TRANSFERRED BACK TO BED BY PT TEAM.
[2019-01-08] MEDS: ACETAMINOPHEN 325 MG TABLET PO PRN (11:30)
[2019-01-08] MEDS: CLONIDINE HCL 0.1 MG TABLET PO PRN (11:30)
[2019-01-08] MEDS: EPOETIN ALFA (10,000 UNIT) 10,000 UNIT/ML VIAL IV SCH (15:00)
[2019-01-08] MEDS ORDERED: BUMETANIDE INJ 4 MG in IV D5W 24 ML IV ONE (15:30)
[2019-01-08] MEDS: SEVELAMER CARBONATE 800 MG TABLET PO SCH (17:36)
--- NOTE | 2019-01-08 18:58 | NUR ---
O AND M SUPERVISOR NOTE PT TRANSFERRED TO [facility] IN STABLE CONDITION, REPORT GIVEN TO YULISSA GILLIAM AT BEDSIDE, PT TOLERATED TRANSFER WELL. PT'S FAMILY ACCOMPANIED PT. PT WAS SETTLED IN BED NO S/O DISTRESS OBSERVED. TELE MONITOR WAS CONNECTED AND BUMEX DRIP INFUSING ORDERED.
[2019-01-08] MEDS ORDERED: ALTEPLASE CATHFLO 2 MG/VIAL XX ONE (19:30)
--- NOTE | 2019-01-08 19:53 | NUR ---
TD RN NOTE: RECEIVED PT ON BED AWAKE AND ALERT WITH NO APPARENT DISTRESS NOTED. AND SON AT BEDSIDE. DENIES PAIN AND DISCOMFORT AT THIS TIME. ON 2LPM NASAL CANNULA, NO SOB NOTED. ON TELE MONITOR AFIB CONTROLLED HR 98BPM. LEFT UPPER ARM MIDLINE INTACT AND PATENT, FLUSHING WELL. KEPT CLEAN, DRY AND COMFORTABLE. CALL LIGHT PLACED WITHIN REACH. SAFETY AND FALL PRECAUTIONS OBSERVED AND MAINTAINED. WILL CONTINUE TO MONITOR PT.
--- NOTE | 2019-01-08 19:57 | NUR ---
TD RN NOTE: RIGHT UPPER CHEST HD CATH NOT WORKING PER HD NURSE. ALTEPLASE GIVEN ORDERED. HD WILL BE DONE TOMORROW PER HD NURSE. WILL CONTINUE TO MONITOR PT
--- NOTE | 2019-01-08 20:42 | NUR ---
PT REC'D ON NASAL CANNULA 2L AND PLACED ON NOC BIPAP WITH NOTED SETTINGS PER MD ORDERS. NO RESP DISTRESS OR SOB NOTED. PT AWAKE AND ALERT. PT TOLERATES BIPAP WELL. MEPILEX IN PLACE, SKIN INTACT. BIPAP PLUGGED INTO RED OUTLET. ALARMS ARE SET AND AUDIBLE. AMBU BAG BEDSIDE. WILL CONTINUE TO MONITOR.
[2019-01-08] MEDS ORDERED: NITROGLYCERIN PACKET 1 GM PACKET ONE (21:28)
[2019-01-09] VITALS: BP 163/97
--- NOTE | 2019-01-09 00:55 | NUR ---
TD RN NOTE: PATIENT TOOK OFF BIPAP, EXPLAINED RISKS AND BENEFITS WITH THE RT AT BEDSIDE BUT PT STILL REFUSED TO PUT IT BACK ON. O2 SATURATION 93% ON 2LPM NASAL CANNULA. KEPT ON INSISTING TO GIVE NORCO AND SLEEPING PILL TO THE PT, BUT PT VERBALIZED THAT HE DOESN'T NEED IT AND WILL LET US KNOW IF HE NEEDS ONE.
[2019-01-09 04:00] VITALS: BP 158/59
[2019-01-09] MEDS: ALBUTEROL HALF STRENGTH 1.25 MG/3 ML VIAL.NEB NEB SCH ×6 (04:00→23:35)
[2019-01-09] MEDS: IPRATROPIUM NEB FS 0.5 MG/2.5 ML AMPUL.NEB NEB SCH ×6 (04:00→23:35)
[2019-01-09] MEDS: METOCLOPRAMIDE HCL 10 MG/2 ML VIAL IV SCH ×3 (05:24→21:02)
--- NOTE | 2019-01-09 06:59 | NUR ---
TD RN NOTE: NO CHANGES NOTED THROUGHOUT THE SHIFT. NO APPARENT DISTRESS NOTED. AT BEDSIDE. DENIES PAIN AND DISCOMFORT AT THIS TIME. ON TELE MONITOR AFIB CONTROLLED HR 87BPM. LEFT UPPER ARM MIDLINE INTACT AND PATENT, FLUSHING WELL. CUETO CATH INTACT, DRAINED 300ML OF URINE OUTPUT. KEPT CLEAN, DRY AND COMFORTABLE. SAFETY AND FALL PRECAUTIONS OBSERVED AND MAINTAINED. WILL ENDORSE TO DAY SHIFT RN FOR CONTINUITY OF CARE.
--- NOTE | 2019-01-09 07:21 | NUR ---
RN [facility] NOTES RECEIVED PATIENT ASLEEP IN BED ABLE TO AROUSE WITH VOICE AND TOUCH. A/O X2 LETHARGIC. NO SIGNS OR SYMPTOMS OF RESPIRATORY DISTRESS SATURATING WELL ON 2 LTR. NO C/O ACUTE PAIN NOTED. AFIB CONTROLLED ON THE MONITOR. CUETO CATH DRAINING MINIMAL CLEAR YELLOW URINE. NATHALIE MIDLINE # 18 GAUGE SALINE LOCK. RIGHT CHEST HD CATH UNABLE TO USE ACCORDING TO REPORT CATH FLOW INJECTED WILL TRY AND USE TODAY FOR HD. SAFETY PRECAUTIONS IN PLACE BED IN LOW LOCKED POSITION EDUCATED TO CALL LIGHT SYSTEM CALL LIGHT WITHIN REACH. WILL CONT TO MONITOR
[2019-01-09 08:00] VITALS: BP 151/88
[2019-01-09] MEDS: CARVEDILOL 6.25 MG TABLET PO SCH ×3 (08:58→20:55)
[2019-01-09] MEDS: methylPREDNISolone SOD SUCC 40 MG/ML VIAL IV SCH (08:58)
[2019-01-09] MEDS: LISINOPRIL (10MG) 10 MG TABLET PO SCH ×3 (08:58→20:56)
[2019-01-09] MEDS: SEVELAMER CARBONATE 800 MG TABLET PO SCH ×4 (08:58→17:14)
[2019-01-09] MEDS: NITROGLYCERIN 30 GM TUBE TP SCH ×2 (09:01→21:06)
[2019-01-09] MEDS: NEXIUM 40 MG VIAL IV SCH ×2 (09:02→16:54)
--- NOTE | 2019-01-09 09:23 | NUR ---
RN [facility] NOTES REFUSED MEDS FOR PATIENT STATES PT GETS VIOLENTLY ILL JANES GANDHI AND BLAYNEIL ALL WASTED
[2019-01-09 10:37] LABS: BASOPHILS # (AUTO) 0.1 /CMM (0.0-0.2); BASOPHILS % (AUTO) 0.5 % (0.0-2.0); EOSINOPHILS % (AUTO) 0.2 % (0.0-6.0); HEMATOCRIT 39 % (39-51); HEMOGLOBIN 12.7 g/dL (13.5-17.5); LYMPHOCYTES # (AUTO) 0.8 /CMM (0.8-4.8); LYMPHOCYTES % (AUTO) 4.1 % (20.0-44.0); MEAN CORPUSCULAR HGB CONC 32 g/dl (31.0-36.0); MEAN CORPUSCULAR VOLUME 91 fL (80-96); MONOCYTES # (AUTO) 0.8 /CMM (0.1-1.30); MONOCYTES % (AUTO) 4.1 % (2.0-12.0); NEUTROPHILS # (AUTO) 17.5 /CMM (1.8-8.9); NEUTROPHILS % (AUTO) 91.1 % (43.0-81.0); PLATELET COUNT (AUTO) 109 /CMM (150-450); WHITE BLOOD COUNT (AUTO) 19.2 K/uL (4.3-11.0)
[2019-01-09 10:46] LABS: CALCIUM, SERUM 8.4 mg/dL (8.5-10.1); CARBON DIOXIDE 26 mmol/L (21-32); CHLORIDE 100 mmol/L (98-107); CREATININE 4.9 mg/dL (0.6-1.3); GLUCOSE 137 mg/dL (74-106); POTASSIUM 3.5 mmol/L (3.5-5.1); SODIUM SERUM 138 mmol/L (136-145)
[2019-01-09 11:12] LABS: BAND % (MANUAL) 2 % (0.0-5.0); LYMPHOCYTES % (MANUAL) 2 % (16-48); MONOCYTES % (MANUAL) 1 % (0-11.0); NEUTROPHILS % (MANUAL) 93 (42-76)
[2019-01-09 11:17] LABS: UREA NITROGEN, BLOOD 84 mg/dL (7-18)
[2019-01-09] MEDS: LIDOCAINE 2% JEL 5 ML TUBE TP PRN ×2 (11:37→21:05)
[2019-01-09] MEDS: HYDROCORTISONE ACETATE 25 MG/SUPP.RECT SUPP.RECT RC SCH ×2 (11:37→21:04)
--- NOTE | 2019-01-09 11:50 | NUR ---
RN [facility] NOTES LIDOCAINE AND SUPPOSITORY GIVEN PER FAMILY REQUEST
[2019-01-09] MEDS: SIMETHICONE 80 MG TAB.CHEW PO PRN ×2 (11:53→22:21)
[2019-01-09 12:00] VITALS: BP 153/79
[2019-01-09] MEDS: EPOETIN ALFA (10,000 UNIT) 10,000 UNIT/ML VIAL IV SCH (15:00)
[2019-01-09] MEDS: METOPROLOL TARTRATE INJ 5 MG/5 ML AMPUL IVP PRN ×2 (15:56→22:31)
[2019-01-09 16:00] VITALS: BP_SYST 110; BP_SYST 166; BP_DIAS 56; BP_DIAS 90
--- NOTE | 2019-01-09 17:20 | NUR ---
RN [facility] NOTES T/O OBTAINED FROM DR MARION FOR NEXIUM IVP TO CHNAGED TO PEPCID 20MG BID AND ROBITUSSIN 10 ML Q4 HR PER 'S REQUEST
[2019-01-09] MEDS ORDERED: GUAIFENESIN/D-METHORPHAN HB 5 ML UDC PO PRN (17:30)
--- NOTE | 2019-01-09 19:00 | NUR ---
RN [facility] NOTES PATIENT STABLE NO SIGNIFICANT CHANGES REPORT GIVEN TO NOC
--- NOTE | 2019-01-09 19:42 | NUR ---
RT NOTES PATIENT RECEIVED ON 2L NASAL CANNULA. AWAKE/ALERT. PATIENT REFUSED BIPAP AT THIS TIME, NURSE, ALEXY, AWARE. TX GIVEN, NO ADVERSE REACTIONS NOTED. NO SOB NOTED. WILL MONITOR.
[2019-01-09 20:00] VITALS: BP 180/95
--- NOTE | 2019-01-09 20:00 | NUR ---
RN [facility] NOTES RECEIVED PATIENT IN BED A/O X3 . NO SIGNS OR SYMPTOMS OF RESPIRATORY DISTRESS SATURATING WELL ON 2 LTR. PATIENT HAS PAIN 7/10 RECTAL AND ASKING PAIN MEDICATION. AFIB CONTROLLED ON THE MONITOR. CUETO CATH DRAINING MINIMAL CLEAR YELLOW URINE. NATHALIE MIDLINE # 18 GAUGE SALINE LOCK. RIGHT CHEST HD CATH IS IN PLACE.FAMILY MEMBERS ARE AT THE BEDSIDE AND PUT HIM UP IN THE COMMODE . PATIENT'S SB/P IS 180'S . PATIENT'S FAMILY MEMBERS HAS BEEN EDUCATED NOT TO TRY TO AMBULATE THE PATIENT DUE TO SBP BEING HIGH.PATIENT CLEANED AND REPOSITIONED, SAFETY PRECAUTIONS IN PLACE BED IN LOW LOCKED POSITION EDUCATED TO CALL LIGHT SYSTEM ,CALL LIGHT WITHIN REACH. WILL CONT TO MONITOR.
[2019-01-09] MEDS: FAMOTIDINE (20 MG) 20 MG TABLET PO SCH (20:55)
--- NOTE | 2019-01-09 20:55 | NUR ---
RN NOTES PATIENT'S B/P 180/95 HR 81 SCHEDULED COREG 6.25MG PO AND LISINOPRIL 10MG PO HAS BEEN GIVEN AT 20:55. WILL CONTINUE TO MONITOR PATIENT CLOSELY.
--- NOTE | 2019-01-09 22:30 | NUR ---
RN NOTES PATIENT'S B/P 207/111 HR 75 . MD BOYLE IS IN THE UNIT AND HE WAS NOTIFIED . METOPROLOL 5MG IVP HAS BEEN ADMINISTERED. PATIENT DOESN'T COMPLAINT OF ANY CHEST PAIN OR DISCOMFORT AT THIS TIME.WILL CONT. TO MONITOR PATIENT CLOSELY.
--- NOTE | 2019-01-09 23:30 | NUR ---
RN NOTES PATIENT'S B/P 188/114 HR 63. MD BOYLE IS AT THE UNIT AND HAS BEEN NOTIFIED. CATAPRES 0.2MG PO HAS BEEN ADMINISTERED. WILL CONTINUE TO MONITOR PATIENT CLOSELY AND RECHECK V/S IN 40MINUTE.
[2019-01-09] MEDS: CLONIDINE HCL 0.1 MG TABLET PO PRN (23:31)
[2019-01-10] VITALS: BP_SYST 179; BP_SYST 183; BP_DIAS 93; BP_DIAS 97
--- NOTE | 2019-01-10 00:03 | NUR ---
RT NOTE PATIENT REFUSES BIPAP AT THIS TIME. NURSE, JENNIFFER TRACEY. PLACED PATIENT ON 2L NASAL CANNULA. NO SOB NOTED. WILL MONITOR.
--- NOTE | 2019-01-10 00:20 | NUR ---
RN NOTES PATIENT'S B/P 179/97 HR74. NO C/O CHEST PAIN AT THIS TIME. WILL CONTINUE TO MONITOR PATIENT CLOSELY.
[2019-01-10] MEDS: IPRATROPIUM NEB FS 0.5 MG/2.5 ML AMPUL.NEB NEB SCH ×6 (03:57→22:55)
[2019-01-10] MEDS: ALBUTEROL HALF STRENGTH 1.25 MG/3 ML VIAL.NEB NEB SCH ×6 (03:57→22:55)
[2019-01-10 04:00] VITALS: BP 151/81
[2019-01-10] MEDS: METOCLOPRAMIDE HCL 10 MG/2 ML VIAL IV SCH ×3 (05:15→22:14)
--- NOTE | 2019-01-10 07:15 | NUR ---
[facility] RN OPENING NOTES RECEIVED REPORT FROM PM NURSE.PATIENT IN BED A/O X4 . LETHARGIC.TOLD THAT UNABLE TO SLEEP LAST NIGHT.NO SIGNS OR SYMPTOMS OF RESPIRATORY DISTRESS .SATURATING WELL ON O2 2L VIA NASAL CANULA . NO C/O PAIN.IV ON NATHALIE MIDLINE.SL. RIGHT CHEST HD CATH IS IN PLACE. IS AT THE BEDSIDE . SAFETY PRECAUTIONS IN PLACE BED IN LOW LOCKED POSITION ,CALL LIGHT WITHIN REACH,SRX3.BED ALARM ON. WILL CONT TO MONITOR.
[2019-01-10 08:00] VITALS: BP 155/78
[2019-01-10] MEDS: SEVELAMER CARBONATE 800 MG TABLET PO SCH ×4 (08:00→17:23)
[2019-01-10] MEDS: methylPREDNISolone SOD SUCC 40 MG/ML VIAL IV SCH (08:12)
[2019-01-10] MEDS: CARVEDILOL 6.25 MG TABLET PO SCH ×2 (08:13→22:12)
[2019-01-10] MEDS: LISINOPRIL (10MG) 10 MG TABLET PO SCH ×2 (08:14→22:13)
[2019-01-10] MEDS: NITROGLYCERIN 30 GM TUBE TP SCH ×2 (08:14→22:16)
[2019-01-10] MEDS: FAMOTIDINE (20 MG) 20 MG TABLET PO SCH ×2 (08:14→21:00)
[2019-01-10] MEDS: HYDROCORTISONE ACETATE 25 MG/SUPP.RECT SUPP.RECT RC SCH ×2 (08:25→22:13)
[2019-01-10] MEDS: LIDOCAINE 2% JEL 5 ML TUBE TP PRN (08:27)
[2019-01-10] MEDS: HYDROCODONE/APAP 5/325MG 1 EACH TABLET PO PRN ×2 (11:13→20:50)
--- NOTE | 2019-01-10 11:22 | NUR ---
[facility] RN NOTE PATIENT REQUESTED PAIN MEDICATION,OFFERED NORCO.OK TO TAKE IT.BROUGHT MEDICATION TO THE PATIENT TALKED TO THE PATIENT PATIENT DENIED THAT HE HAS PAIN .HE DONT WANT ANY PAIN MEDICATION.DISCARDED NORCO WITH WITNESS YULISSA DOVE.WILL CONTINUE TO MONITOR.
[2019-01-10 12:00] VITALS: BP_SYST 163; BP_SYST 169; BP_DIAS 71; BP_DIAS 87
[2019-01-10] MEDS: DILTIAZEM HCL 30 MG TABLET PO SCH ×3 (12:42→23:29)
--- NOTE | 2019-01-10 12:48 | NUR ---
[facility] RN NOTE WAS AT ROOM REFUSING TO GIVE MEDICATION REGLAN.PATIENT AXOX4.EXPLAINED MEDICATION INDICATION.OK TO TAKE MEDICATION.MEDICATION ADMINISTERED PER DOCTORS ORDERED.
[2019-01-10] MEDS: CLONIDINE HCL 0.1 MG TABLET PO PRN (13:58)
[2019-01-10] MEDS: EPOETIN ALFA (10,000 UNIT) 10,000 UNIT/ML VIAL IV SCH (15:00)
--- NOTE | 2019-01-10 15:15 | NUR ---
[facility] RN NOTE SEEN BY DR.SORA ALEXANDRE , REQUESTING FOR SLEEPING PILL,PATIENT HAS DIFFICULTY IN SLEEPING AT NIGHT.GOT NEW ORDER FOR MELATONIN,NOT AVAILABLE IN THE PHARMACY.OK TO GIVE AMBIEN PRN.WILL CONTINUE TO MONITOR.REQUESTING FOR PT EVAL.LEFT MESSAGE TO PT.WAITING TO CALL BACK.
[2019-01-10 16:00] VITALS: BP 162/73
--- NOTE | 2019-01-10 16:20 | NUR ---
[facility] RN NOTE CALL MADE TO ,MADE AWARE THAT PATIENT'S BP 162/73.REFUSING METOPROLOL. PER PATIENT NEED MORE DOSE OF COREG. MADE AWARE.NNO.CONTINUE TO MONITOR.AND GIVE SCHEDULED MEDS AT SCHEDULED DOSE.MADE AWARE ABOUT HOME MED RECONCILIATION.
[2019-01-10] MEDS: SIMETHICONE 80 MG TAB.CHEW PO PRN (18:33)
--- NOTE | 2019-01-10 18:55 | NUR ---
[facility] RN CLOSING NOTES PATIENT IN BED A/O X4 . LETHARGIC..NO SIGNS OR SYMPTOMS OF RESPIRATORY DISTRESS .SATURATING WELL ON O2 1L VIA NASAL CANULA. NO C/O PAIN.IV ON NATHALIE MIDLINE.SL. RIGHT CHEST HD CATH IS IN PLACE. IS AT THE BEDSIDE . SAFETY PRECAUTIONS IN PLACE BED IN LOW LOCKED POSITION ,CALL LIGHT WITHIN REACH,SRX3.BED ALARM ON. REQUESTED TO HAVE HIM ON DIALYSIS TOMORROW AFTERNOON AND PT EVAL IN AM.LEFT MESSAGE TO PT AND SPOKE TO KIRILL AT DIALYSIS.WILL ENDORSE TO PM NURSE FOR JONATAN.
--- NOTE | 2019-01-10 19:50 | NUR ---
RN [facility] NOTES RECEIVED PATIENT IN BED A/O X3 . NO SIGNS OR SYMPTOMS OF RESPIRATORY DISTRESS SATURATING WELL ON 2 LTR O2 VIA NC. PATIENT HAS PAIN 8/10 RECTAL AND ASKING PAIN MEDICATION. AFIB CONTROLLED ON THE MONITOR. CUETO CATH DRAINING CLEAR YELLOW URINE. NATHALIE MIDLINE # 18 GAUGE SALINE LOCK. RIGHT CHEST HD CATH IS IN PLACE.FAMILY MEMBERS ARE AT THE BEDSIDE AND INSTRUCTED NOT TO PUT HIM UP IN THE COMMODE . PATIENT'S SB/P IS 169 . PATIENT'S FAMILY MEMBERS HAS BEEN EDUCATED NOT TO TRY TO AMBULATE THE PATIENT DUE TO SBP BEING HIGH.PATIENT CLEANED AND REPOSITIONED, SAFETY PRECAUTIONS IN PLACE BED IN LOW LOCKED POSITION EDUCATED TO CALL LIGHT SYSTEM ,CALL LIGHT WITHIN REACH. WILL CONT TO MONITOR.
[2019-01-10 20:00] VITALS: BP 169/90
--- NOTE | 2019-01-10 22:55 | NUR ---
REPORT FROM RN THAT PT AND PT'S IS REFUSING BREATHING TREATMENTS AND THE BIPAP TONIGHT. SPOKE TO THE PERSONALLY AND SHE INFORMED ME THAT SHE WOULD CALL ME IF ANYTHING CHANGES. NOTIFIED THE RN.
[2019-01-10] MEDS: ZOLPIDEM TARTRATE 10 MG TABLET PO PRN (23:29)
[2019-01-11] VITALS (7 sets, daily range): BP systolic 113–194; BP diastolic 54–101
[2019-01-11] MEDS: CLONIDINE HCL 0.1 MG TABLET PO PRN (01:05)
[2019-01-11] MEDS: ALBUTEROL HALF STRENGTH 1.25 MG/3 ML VIAL.NEB NEB SCH ×6 (03:15→23:02)
[2019-01-11] MEDS: IPRATROPIUM NEB FS 0.5 MG/2.5 ML AMPUL.NEB NEB SCH ×6 (03:15→23:02)
[2019-01-11] MEDS: METOCLOPRAMIDE HCL 10 MG/2 ML VIAL IV SCH ×3 (05:16→21:00)
[2019-01-11] MEDS: DILTIAZEM HCL 30 MG TABLET PO SCH (05:17)
[2019-01-11] MEDS: HYDROCODONE/APAP 5/325MG 1 EACH TABLET PO PRN (05:19)
--- NOTE | 2019-01-11 07:48 | NUR ---
RN [facility] NOTES RECEIVED PATIENT AWAKE IN BED A/O X3 LETHARGIC. NO SIGNS OR SYMPTOMS OF RESPIRATORY DISTRESS SATURATING WELL ON 2 LTR. NO C/O ACUTE PAIN NOTED. AFIB CONTROLLED ON THE MONITOR. CUETO CATH DRAINING MINIMAL CLEAR YELLOW URINE. NATHALIE MIDLINE # 18 GAUGE SALINE LOCK.HD CATH DRESSING INTACT AT BEDSIDE WITH CONCERNS SAFETY PRECAUTIONS IN PLACE BED IN LOW LOCKED POSITION EDUCATED TO CALL LIGHT SYSTEM CALL LIGHT WITHIN REACH. WILL CONT TO MONITOR
[2019-01-11] MEDS: SEVELAMER CARBONATE 800 MG TABLET PO SCH ×3 (08:00→18:00)
--- NOTE | 2019-01-11 09:17 | NUR ---
Pt. refused x-ray at the moment. RN aware.
--- NOTE | 2019-01-11 09:49 | NUR ---
REFUSED MEDS AT THIS TIME SAYS PATIENT NEEDS TO SLEEP WILL TRY LATER
[2019-01-11] MEDS: METOPROLOL TARTRATE INJ 5 MG/5 ML AMPUL IVP PRN (09:57)
[2019-01-11] MEDS: NIFEdipine XL 60 MG TAB PO SCH (12:22)
[2019-01-11] MEDS: HYDROCORTISONE ACETATE 25 MG/SUPP.RECT SUPP.RECT RC SCH ×2 (12:23→21:18)
[2019-01-11] MEDS: CARVEDILOL 6.25 MG TABLET PO SCH ×2 (12:23→21:26)
[2019-01-11] MEDS: FAMOTIDINE (20 MG) 20 MG TABLET PO SCH ×2 (12:23→21:00)
[2019-01-11] MEDS: LISINOPRIL (10MG) 10 MG TABLET PO SCH ×2 (12:24→21:00)
[2019-01-11] MEDS: NITROGLYCERIN 30 GM TUBE TP SCH ×2 (12:25→21:31)
--- NOTE | 2019-01-11 13:20 | NUR ---
SPOKE WITH SON AND IN REGARDS TO REFUSAL OF MEDS AND CARE. EXPLAINED TO BOTH THAT THE IF SHE IS TO STAY IN THE ROOM SHE CANNOT INTERFERE WITH CARE SUCH BED BATHS AND BRIEF CHANGING VITALS AND MED PACE. AND SON BOTH AGREE.
--- NOTE | 2019-01-11 14:56 | NUR ---
PHARMACY CALLED IN REGARDS TO CURRENT HGB LEVEL AND ADMINISTERING EPOETIN. LABS ORDERED PRIOR TO HD WILL CONFIRM WITH MD IF MED SHOULD BE PRN
[2019-01-11 16:41] LABS: BASOPHILS % (AUTO) 0.2 % (0.0-2.0); EOSINOPHILS % (AUTO) 2.4 % (0.0-6.0); HEMATOCRIT 31 % (39-51); HEMOGLOBIN 9.8 g/dL (13.5-17.5); LYMPHOCYTES # (AUTO) 0.5 /CMM (0.8-4.8); LYMPHOCYTES % (AUTO) 3.9 % (20.0-44.0); MEAN CORPUSCULAR HGB CONC 32 g/dl (31.0-36.0); MEAN CORPUSCULAR VOLUME 92 fL (80-96); MONOCYTES # (AUTO) 0.9 /CMM (0.1-1.30); MONOCYTES % (AUTO) 7.3 % (2.0-12.0); NEUTROPHILS # (AUTO) 10.1 /CMM (1.8-8.9); NEUTROPHILS % (AUTO) 86.2 % (43.0-81.0); PLATELET COUNT (AUTO) 81 /CMM (150-450); RED BLOOD CELL COUNT(AUTO) 3.33 MIL/uL (4.5-6.0); WHITE BLOOD COUNT (AUTO) 11.7 K/uL (4.3-11.0)
[2019-01-11 16:52] LABS: CALCIUM, SERUM 7.5 mg/dL (8.5-10.1); CARBON DIOXIDE 21 mmol/L (21-32); CHLORIDE 104 mmol/L (98-107); CREATININE 7.2 mg/dL (0.6-1.3); GLUCOSE 80 mg/dL (74-106); POTASSIUM 3.7 mmol/L (3.5-5.1); SODIUM SERUM 142 mmol/L (136-145)
[2019-01-11 16:54] LABS: UREA NITROGEN, BLOOD 121 mg/dL (7-18)
[2019-01-11] MEDS: EPOETIN ALFA (10,000 UNIT) 10,000 UNIT/ML VIAL IV SCH (18:04)
[2019-01-11 19:18] LABS: EOSINOPHILS % (MANUAL) 1 % (0-4); LYMPHOCYTES % (MANUAL) 1 % (16-48); MONOCYTES % (MANUAL) 8 % (0-11.0); NEUTROPHILS % (MANUAL) 89 (42-76); REACTIVE LYMPHOCYTES 1 % (0-0)
--- NOTE | 2019-01-11 19:32 | NUR ---
RN [facility]AL NOTES NO SIGNIFICANT CHANGES THROUGHOUT SHIFT PT A/O X3 LETHARGIC. NO SIGNS OR SYMPTOMS OF RESPIRATORY DISTRESS SATURATING WELL ON 2 LTR. NO C/O ACUTE PAIN NOTED. AFIB CONTROLLED WITH PVC ON THE MONITOR. CUETO CATH DRAINING MINIMAL CLEAR YELLOW URINE. NATHALIE MIDLINE # 18 GAUGE SALINE LOCK.HD CATH DRESSING INTACT HD DONE 1500 ML/HR AT BEDSIDE WITH CONCERNS SAFETY PRECAUTIONS IN PLACE BED IN LOW LOCKED POSITION EDUCATED TO CALL LIGHT SYSTEM CALL LIGHT WITHIN REACH.
--- NOTE | 2019-01-11 20:00 | NUR ---
TD RN NOTES RECEIVED PT ON BED. A/O X 2. ON NASAL CANNULA 2LPM NO RESPIRATORY DISTRESS NOTED. ON TELE MONITOR 70, AFIB WITH RVR. CUETO CATH DRAINING YELLOW URINE. IV ACCESS ON NATHALIE MIDLINE PATENT AND INTACT. HEAD OF BED ELEVATED. SIDE RAILS UP. CALL LIGHT WITHIN REACH. BED ALARM ON. WILL CONTINUE TO MONITOR PT CLOSELY.
--- NOTE | 2019-01-11 21:41 | NUR ---
TD RN NOTES PT REFUSING BP MEDS, PT AGREES. EXPLAINED RISK AND BENEFITS X3. AGGRESSIVELY REFUSED. WILL MONITOR BP CLOSELY.
[2019-01-12] VITALS (7 sets, daily range): BP systolic 137–201; BP diastolic 65–117
--- NOTE | 2019-01-12 00:02 | NUR ---
TD RN NOTES PT ON BIPAP. RT AT BEDSIDE.
--- NOTE | 2019-01-12 00:39 | NUR ---
TD RN NOTES PT REFUSING PRN BP MEDS. BLOOD PRESSURE OF 176/92, INFORMED RISK OF STROKE AND HEART ATTACK. PT STILL REFUSED. SUPERVISOR CELL EFFICIENCY DR HECTOR. WILL MONITOR PT CLOSELY.
[2019-01-12] MEDS: ZOLPIDEM TARTRATE 10 MG TABLET PO PRN (02:17)
[2019-01-12] MEDS: IPRATROPIUM NEB FS 0.5 MG/2.5 ML AMPUL.NEB NEB SCH ×6 (02:32→23:34)
[2019-01-12] MEDS: ALBUTEROL HALF STRENGTH 1.25 MG/3 ML VIAL.NEB NEB SCH ×6 (03:32→23:34)
[2019-01-12] MEDS: METOCLOPRAMIDE HCL 10 MG/2 ML VIAL IV SCH ×3 (04:00→20:18)
--- NOTE | 2019-01-12 05:03 | NUR ---
TD RN NOTES PT SHOUTING, AGITATED. WANTS TO REMOVE CUETO CATH. EXPLAINED RISK AND BENEFITS. CN INFORMED. PT STILL WANTS TO REMOVE IT. CUETO CATH REMOVED. PT CALM AND COMFORTABLE.
--- NOTE | 2019-01-12 06:44 | NUR ---
TD RN NOTES NO ACUTE CHANGES NOTED DURING THE SHIFT. NO RESPIRATORY DISTRESS. PT , STILL REFUSES SOME MEDICATIONS, VERY UNCOOPERATIVE OF NURSING CARE. WILL ENDORSE TO THE AM NURSE FOR CONTINUITY OF CARE.
--- NOTE | 2019-01-12 07:15 | NUR ---
[facility] RN OPENING NOTES RECEIVED REPORT FROM PM NURSE.PATIENT IN BED A/O X2 .ON TELE MONITOR AFIB HR 82. LETHARGIC AND SLEEPY.PATIENT TAKEN PRN MEDS FOR SLEEPING.NO SIGNS OR SYMPTOMS OF RESPIRATORY DISTRESS .SATURATING WELL ON O2 2L VIA NASAL CANULA.NO C/O PAIN.IV ON NATHALIE MIDLINE.SL. RIGHT CHEST HD CATH IS IN PLACE. IS AT THE BEDSIDE . SAFETY PRECAUTIONS IN PLACE BED IN LOW LOCKED POSITION ,CALL LIGHT WITHIN REACH,SRX3.BED ALARM ON. WILL CONT TO MONITOR.
[2019-01-12] MEDS: CLONIDINE HCL 0.1 MG TABLET PO PRN (07:47)
[2019-01-12] MEDS: SEVELAMER CARBONATE 800 MG TABLET PO SCH ×3 (08:00→17:38)
[2019-01-12] MEDS: NITROGLYCERIN 30 GM TUBE TP SCH ×2 (08:05→20:17)
[2019-01-12] MEDS: FAMOTIDINE (20 MG) 20 MG TABLET PO SCH ×2 (08:05→20:19)
--- NOTE | 2019-01-12 08:42 | NUR ---
CARE TRANSFER NOTE TRANSFERRED CARE TO EVGENY DUENAS FOR JONATAN.
--- NOTE | 2019-01-12 08:50 | NUR ---
GAMAL RN NOTES PATIENT RECEIVED RESTING INSIDE ROOM. SLEEPING, AROUSABLE THROUGH VERBAL AND TACTILE STIMULI, PATIENT LETHARGIC. A/O X 2, NO ACUTE DISTRESS NOTED AT THIS TIME. NO C/O PAIN OR DISCOMFORT, NO FACIAL GRIMACE NOTED. LIVE GAMES DEALER IN PLACE. AFIB 60-70s. O2 IN PLACE AT 2L/MIN VIA NC. HD CATH IN PLACE. MAINTAINED ASPIRATION PRECAUTIONS. MAINTAINED SAFETY PRECAUTIONS. AT BEDSIDE. WILL CONTINUE TO MONITOR. BED LOCKED AND IN LOW POSITION. SIDE RAILS UP X 3. CALL LIGHT WITHIN EASY REACH
[2019-01-12] MEDS: NIFEdipine XL 60 MG TAB PO SCH (09:20)
[2019-01-12] MEDS: LISINOPRIL (10MG) 10 MG TABLET PO SCH ×2 (09:20→20:18)
[2019-01-12] MEDS: HYDROCORTISONE ACETATE 25 MG/SUPP.RECT SUPP.RECT RC SCH ×2 (09:20→22:17)
[2019-01-12] MEDS: CARVEDILOL 6.25 MG TABLET PO SCH ×2 (09:20→20:18)
[2019-01-12] MEDS ORDERED: CLONIDINE HCL 0.3 MG/24H PTWK 1 EA PATCH TD SCH (11:30)
--- NOTE | 2019-01-12 11:51 | NUR ---
[facility] RN NOTES PATIENT SEEN AND EXAMINED BY DR. MARION, WITH NEW ORDER FOR PSYCH CONSULT FOR PERIODS OF AGITATION, PATIENT AND AT BEDSIDE MADE AWARE AND VERBALIZED UNDERSTANDING. ORDER NOTED AND CARRIED OUT. PLACED CALL TO GPS, ON-CALL PSYCH IS DR. RILEY. PLACED CONSULT ORDER. WILL CONTINUE TO MONITOR
--- NOTE | 2019-01-12 12:00 | NUR ---
GAMAL RN NOTES CLONIDINE PATCH APPLIED ON RIGHT ARM. MEDICATION EDUCATION PROVIDED TO PATIENT AND AND VERBALIZED UNDERSTANDING. WILL CONTINUE TO MONITOR
--- NOTE | 2019-01-12 14:15 | NUR ---
GAMAL RN NOTES PATIENT SEEN BY PHYSICAL THERAPY.
[2019-01-12 15:40] LABS: HEMOGLOBIN 10.1 g/dL (13.5-17.5)
[2019-01-12] MEDS: EPOETIN ALFA (10,000 UNIT) 10,000 UNIT/ML VIAL IV SCH (17:38)
--- NOTE | 2019-01-12 19:21 | NUR ---
GAMAL RN NOTES PATIENT RESTING INSIDE ROOM. AWAKE, ALERT AND ORIENTED X 2-3, VERBALLY RESPONSIVE AND RESPONDS TO VERBAL AND TACTILE STIMULI. PATIENT MORE AWAKE THAN EARLIER DURING THIS SHIFT. NO ACUTE DISTRESS AT THIS TIME. DENIES ANY PAIN OR DISCOMFORT AT THIS TIME. BIPAP MACHINE AT BEDSIDE. AT BEDSIDE. WORK STUDY STUDENT IN PLACE, HR 86. MAINTAINED ASPIRATION PRECAUTIONS. ENDORSED TO INCOMING SHIFT FOR JONATAN. SAFETY PRECAUTIONS IN PLACE. BED LOCKED AND IN LOW POSITION. SIDE RAILS UP X 3. CALL LIGHT WITHIN EASY REACH
--- NOTE | 2019-01-12 19:30 | NUR ---
GAMAL RN NOTES PATIENT RESTING IN BED AWAKE, A/O ORIENTED TO SELF, VERBALLY RESPONSIVE AND RESPONDS TO VERBAL STIMULI, AFIB IN THE TELE MONITOR, HR IN THE 80S AT THIS TIME, BREATHING EVEN AND UNLABORED, NO SOB/NO ACUTE DISTRESS NOTED AT THIS TIME, DENIES ANY PAIN OR DISCOMFORT AT THIS TIME, AT BEDSIDE, . MAINTAINED ASPIRATION PRECAUTIONS, SAFETY PRECAUTIONS IN PLACE, BED LOCKED AND IN LOW POSITION, SIDE RAILS UP X 3, CALL LIGHT WITHIN REACH, WILL CONTINUE TO MONITOR CLOSELY.
--- NOTE | 2019-01-12 19:51 | NUR ---
GAMAL RN NOTES PATIENT RESTING IN BED AWAKE, A/O ORIENTED TO SELF, VERBALLY RESPONSIVE AND RESPONDS TO VERBAL AND TACTILE STIMULI. PATIENT MORE AWAKE THAN EARLIER DURING THIS SHIFT. NO ACUTE DISTRESS AT THIS TIME. DENIES ANY PAIN OR DISCOMFORT AT THIS TIME. BIPAP MACHINE AT BEDSIDE. AT BEDSIDE. 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 MAINTAINED ASPIRATION PRECAUTIONS. ENDORSED TO INCOMING SHIFT FOR JONATAN. SAFETY PRECAUTIONS IN PLACE. BED LOCKED AND IN LOW POSITION. SIDE RAILS UP X 3. CALL LIGHT WITHIN EASY REACH Addendum: 01/12/19 at 1954 by OBEY PATRICIO RN WRONG ENTRY
[2019-01-12] MEDS: SIMETHICONE 80 MG TAB.CHEW PO PRN (20:33)
[2019-01-12] MEDS: HYDROCODONE/APAP 5/325MG 1 EACH TABLET PO PRN (20:33)
--- NOTE | 2019-01-12 21:20 | NUR ---
RN NOTES, AFTER REASSESSMENT OF BLOOD PRESSURE AFTER ONE HR OF MEDICATION ADMINISTRATION, BLOOD PRESSURE NOTED 157/68, HR 80, WILL CONTINUE TO MONITOR CLOSELY.
--- NOTE | 2019-01-12 23:45 | NUR ---
RN NOTES, PATIENT PLACED IN BIPAP PER RT AT THIS TIME, TOLERATED WELL, NO S/S OD ANY ACUTE DISTRESS, WILL CONTINUE TO MONITOR CLOSELY.
[2019-01-13] VITALS: BP 177/76
[2019-01-13] MEDS: CLONIDINE HCL 0.1 MG TABLET PO PRN (00:27)
[2019-01-13] MEDS: IPRATROPIUM NEB FS 0.5 MG/2.5 ML AMPUL.NEB NEB SCH ×5 (03:21→19:54)
[2019-01-13] MEDS: ALBUTEROL HALF STRENGTH 1.25 MG/3 ML VIAL.NEB NEB SCH ×5 (03:21→19:54)
[2019-01-13 04:00] VITALS: BP 158/79
--- NOTE | 2019-01-13 05:26 | NUR ---
PT REC'D ON 2LNC, PT PLACED ON BIPAP @ 2343 PER MD ORDERS. PT AWAKE AND ALERT AND SHOWS NO SIGNS OF RESP DISTRESS OR SOB. NO REDNESS OR SKIN TEAR NOTED. MEPILEX IN PLACE. ALARMS ARE SET AND AUDIBLE. BIPAP PLUGGED INTO RED OUTLET. AMBU BAG BEDSIDE. WILL CONTINUE TO MONITOR. Addendum: 01/13/19 at 0528 by GEOVANY JACKSON RT Amended: Links added.
--- NOTE | 2019-01-13 05:30 | NUR ---
RN NOTES, PATIENT OFF FROM BIPAP PER RT AT THIS TIME AND SWITCHED TO NS 2LPM VIA NC WITH OPTIMAL O2 SATURATION, WILL CONTINUE TO MONITOR CLOSELY, AT BEDSIDE.
[2019-01-13] MEDS: METOCLOPRAMIDE HCL 10 MG/2 ML VIAL IV SCH ×3 (05:32→21:00)
--- NOTE | 2019-01-13 06:30 | NUR ---
GAMAL RN NOTES PATIENT IN BED AWAKE AT THIS TIME, A/O ORIENTED TO SELF, VERBALLY RESPONSIVE AND RESPONDS TO VERBAL STIMULI, CONTINUE AFIB IN THE TELE MONITOR, HR IN THE 70-80S AT THIS TIME, BREATHING EVEN AND UNLABORED, NO SOB/NO ACUTE DISTRESS NOTED AT THIS TIME, DENIES ANY PAIN OR DISCOMFORT AT THIS TIME, AT BEDSIDE, NO SIGNIFICANT CHANGE IN CONDITION DURING THE NIGHT, MAINTAINED ASPIRATION PRECAUTIONS, SAFETY PRECAUTIONS IN PLACE, BED LOCKED AND IN LOW POSITION, SIDE RAILS UP X 3, CALL LIGHT WITHIN REACH, WILL ENDORSE CONTINUITY OF CARE TO ONCOMING NURSE.
[2019-01-13 06:43] LABS: BASOPHILS # (AUTO) 0.1 /CMM (0.0-0.2); BASOPHILS % (AUTO) 0.4 % (0.0-2.0); EOSINOPHILS % (AUTO) 1.5 % (0.0-6.0); HEMATOCRIT 31 % (39-51); HEMOGLOBIN 10.2 g/dL (13.5-17.5); LYMPHOCYTES # (AUTO) 0.5 /CMM (0.8-4.8); LYMPHOCYTES % (AUTO) 3.7 % (20.0-44.0); MEAN CORPUSCULAR HGB CONC 33 g/dl (31.0-36.0); MEAN CORPUSCULAR VOLUME 93 fL (80-96); MONOCYTES # (AUTO) 1.3 /CMM (0.1-1.30); MONOCYTES % (AUTO) 9.7 % (2.0-12.0); NEUTROPHILS # (AUTO) 11.4 /CMM (1.8-8.9); NEUTROPHILS % (AUTO) 84.7 % (43.0-81.0); PLATELET COUNT (AUTO) 93 /CMM (150-450); RED BLOOD CELL COUNT(AUTO) 3.38 MIL/uL (4.5-6.0); WHITE BLOOD COUNT (AUTO) 13.5 K/uL (4.3-11.0)
--- NOTE | 2019-01-13 06:45 | NUR ---
RN NOTES, PATIENT WITH EPISODES OF HIGH BLOOD PRESSURE THROUGHOUT THE NIGHT WITH THE HIGHEST 177/76, AND THE LOWEST SBP AFTER MEDICATION ADMINISTRATION RANGING IN THE HIGH 150S. WILL ENDORSE TO ONCOMING NURSE FOR CONTINUATION OF CARE.
[2019-01-13 06:47] LABS: CALCIUM, SERUM 7.8 mg/dL (8.5-10.1); CARBON DIOXIDE 24 mmol/L (21-32); CHLORIDE 107 mmol/L (98-107); CREATININE 6.3 mg/dL (0.6-1.3); GLUCOSE 88 mg/dL (74-106); MAGNESIUM 2.4 mg/dL (1.8-2.4); PHOSPHORUS 6.4 mg/dL (2.5-4.9); POTASSIUM 3.2 mmol/L (3.5-5.1); SODIUM SERUM 146 mmol/L (136-145)
[2019-01-13 06:50] LABS: UREA NITROGEN, BLOOD 91 mg/dL (7-18)
--- NOTE | 2019-01-13 07:00 | NUR ---
GAMAL RN OPENING NOTES RECEIVED PT LYING ON BED.ALERT/ORIENTED X2,SLEEPY.ON TELE HR IS 68 WITH CONTROLLED A FIB,ON NC 2-3L O2 CONTINUOUSLY,NO SOB AND ACUTE DISTRESS NOTED.FAMILY IS AT BEDSIDE.MID LINE IS ON LEFT UA,SL AND HD CATH IS ON RIGHT CHEST WALL.SITE IS CLEAN,DRY AND INTACT.NO INFILTRATION NOTED. PT DENIES PAIN FOR NOW.BED IS IN LOW POSITION AND LOCKED,CALL LIGHT IS WITHIN REACH.WILL CONTINUE TO MONITOR THE PT CLOSELY.
--- NOTE | 2019-01-13 07:14 | NUR ---
RT MED NOTE at bedside, refused hhn tx. no resp distress noted.
[2019-01-13 08:00] VITALS: BP 168/80
[2019-01-13] MEDS: SEVELAMER CARBONATE 800 MG TABLET PO SCH ×3 (08:00→17:09)
[2019-01-13] MEDS: NIFEdipine XL 60 MG TAB PO SCH ×2 (08:53→16:45)
[2019-01-13] MEDS: FAMOTIDINE (20 MG) 20 MG TABLET PO SCH ×2 (08:53→21:00)
[2019-01-13] MEDS: CARVEDILOL 6.25 MG TABLET PO SCH ×2 (08:54→21:28)
[2019-01-13] MEDS: LISINOPRIL (10MG) 10 MG TABLET PO SCH ×2 (08:54→21:28)
[2019-01-13] MEDS: NITROGLYCERIN 30 GM TUBE TP SCH ×2 (09:01→21:42)
[2019-01-13 09:20] LABS: EOSINOPHILS % (MANUAL) 2 % (0-4); LYMPHOCYTES % (MANUAL) 6 % (16-48); MONOCYTES % (MANUAL) 6 % (0-11.0); MYELOCYTES % 1 % (0-0); NEUTROPHILS % (MANUAL) 85 (42-76)
[2019-01-13] MEDS ORDERED: PAROXETINE HCL 12.5 MG PO SCH (10:00)
--- NOTE | 2019-01-13 10:00 | NUR ---
MS RN NOTES OFFERED THE MEDICINES ANUSOL SUPPOSITORY AND PAXIL TAB,PT AND FAMILY SAID WILL GET AFTER AN HOUR.
[2019-01-13] MEDS: HYDROCORTISONE ACETATE 25 MG/SUPP.RECT SUPP.RECT RC SCH ×2 (12:37→21:30)
[2019-01-13] MEDS: PAROXETINE HCL 20 MG TABLET PO SCH (15:31)
--- NOTE | 2019-01-13 15:32 | NUR ---
MS RN NOTES OFFERED THE TAB PAXIL 20MG PO X3,EXPLAINED THE RISK AND BENEFITS X3,STILL REFUSED.
[2019-01-13 16:00] VITALS: BP 162/89
--- NOTE | 2019-01-13 16:00 | NUR ---
MS RN NOTES CALLED [facility] TO FOLLOW UP OF DELAY DELIVERING OF IV EPOETIN АННА,SAID WILL DELIVER SOON.
[2019-01-13] MEDS: EPOETIN ALFA (10,000 UNIT) 10,000 UNIT/ML VIAL IV SCH (17:09)
--- NOTE | 2019-01-13 19:12 | NUR ---
MS RN CLOSING NOTES, PATIENT'S LATEST BP 162/89. PREFERS TAKING PILLS WITH WATER AND NOT CRUSHED. PT SATURATING WELL O2 2L VIA NASAL CANULA, NO COMPLAIN OF SOB. NO C/O PAIN. AT BEDSIDE, SAFETY PRECAUTION IN PLACE, BED IN LOW LOCKED POSITION, CALL LIGHT WITHIN REACH. WILL ENDORSE TO ONCOMING NURSE FOR CONTINUATION OF CARE.
--- NOTE | 2019-01-13 20:06 | NUR ---
MS RN NOTE RECEIVED MIDSHIFT REPORT FROM OBEY. PT IN STABLE CONDITION, A&O X3, RESTING IN BED WITH AT BEDSIDE. ON NASAL CANNULA 2L, TOLERATING WELL. NO SIGNS OF SOB OR DISTRESS, NO COMPLAINTS OF PAIN. ALL CURRENT NEEDS ATTENDED TO. BED LOW, LOCKED, UPPER RAILS UP, AND CALL LIGHT WITHIN REACH. WILL CONT. TO MONITOR.
--- NOTE | 2019-01-13 20:06 | NUR ---
RN NOTES, PATIENT IN STABLE CONDITION ENDORSED TO YULISSA DURHAM FOR CONTINUATION OF CARE.
[2019-01-13 21:00] VITALS: BP 136/84
[2019-01-13] MEDS ORDERED: NITROGLYCERIN PACKET 1 GM PACKET ONE (21:40)
--- NOTE | 2019-01-13 21:43 | NUR ---
MS RN NOTE UNABLE TO FIND NITROGLYCERIN TUBE, HAD CHARGE NURSE DEANNA OVERRIDE MEDICATION FROM [facility]. MEDICATION ADMINISTERED ORDERED BY MD. WILL CONT. TO MONITOR.
--- NOTE | 2019-01-13 21:50 | NUR ---
MS RN NOTE PT REFUSED PM DOES OF REGLAN AND PEPCID. RISKS AND BENEFITS MADE AWARE. WILL CONT. TO MONITOR.
[2019-01-14] MEDS: IPRATROPIUM NEB FS 0.5 MG/2.5 ML AMPUL.NEB NEB SCH ×7 (00:01→23:20)
[2019-01-14] MEDS: ALBUTEROL HALF STRENGTH 1.25 MG/3 ML VIAL.NEB NEB SCH ×7 (00:01→23:20)
--- NOTE | 2019-01-14 04:16 | NUR ---
MS RN NOTE PT REFUSING 0500 REGLAN. RISKS AND BENEFITS MADE AWARE WITH VERBALIZATION OF UNDERSTANDING. REMAINS AT BEDSIDE AND ALSO VERBALIZES UNDERSTANDING. WILL CONT. TO MONITOR.
[2019-01-14] MEDS: METOCLOPRAMIDE HCL 10 MG/2 ML VIAL IV SCH ×3 (04:46→21:00)
[2019-01-14 05:03] VITALS: BP 139/71
--- NOTE | 2019-01-14 06:12 | NUR ---
MS RN NOTE PT IN STABLE CONDITION, A&O X3, RESTING IN BED WITH AT BEDSIDE. ON NASAL CANNULA 2L, TOLERATING WELL. NO SIGNS OF SOB OR DISTRESS, NO COMPLAINTS OF PAIN. ALL CURRENT NEEDS ATTENDED TO. BED LOW, LOCKED, UPPER RAILS UP, AND CALL LIGHT WITHIN REACH. WILL CONT. TO MONITOR AND ENDORSE TO NEXT SHIFT FOR JONATAN.
--- NOTE | 2019-01-14 07:40 | NUR ---
ms rn received on bed, awake,alert,oriented x3, not in any form of distress, respirations even and unlabored,no sob noted, lungs have bilateral ronchi's, abdomen soft,positive bowel sounds,denies pain at this time, will monitor patient's condition.
[2019-01-14 08:00] VITALS: BP 152/69
[2019-01-14] MEDS: SEVELAMER CARBONATE 800 MG TABLET PO SCH ×3 (08:00→18:00)
--- NOTE | 2019-01-14 08:00 | NUR ---
ms rn breakfast served,tolerated well, refused renagel, other meds held due to patient will have hd today.
--- NOTE | 2019-01-14 08:20 | NUR ---
saturnino rn was seen by dr. wang w/ order to be discharge today.
[2019-01-14] MEDS: NITROGLYCERIN 30 GM TUBE TP SCH ×2 (09:00→21:32)
[2019-01-14] MEDS: HYDROCORTISONE ACETATE 25 MG/SUPP.RECT SUPP.RECT RC SCH ×2 (10:00→21:28)
--- NOTE | 2019-01-14 11:20 | NUR ---
ms jeromy hd done,tolerated well.
--- NOTE | 2019-01-14 12:30 | NUR ---
ms pinzon morning meds given,tolerated well.
[2019-01-14] MEDS: PAROXETINE HCL 20 MG TABLET PO SCH (13:50)
[2019-01-14] MEDS: FAMOTIDINE (20 MG) 20 MG TABLET PO SCH ×2 (13:51→21:00)
[2019-01-14] MEDS: CARVEDILOL 6.25 MG TABLET PO SCH ×2 (13:52→21:00)
[2019-01-14] MEDS: NIFEdipine XL 60 MG TAB PO SCH ×2 (13:52→16:52)
[2019-01-14] MEDS: LISINOPRIL (10MG) 10 MG TABLET PO SCH ×2 (13:52→21:27)
[2019-01-14 14:26] LABS: HEMOGLOBIN 10.2 g/dL (13.5-17.5)
--- NOTE | 2019-01-14 16:00 | NUR ---
ms rn patient has high b/p, b/p meds given.
[2019-01-14] MEDS: EPOETIN ALFA (10,000 UNIT) 10,000 UNIT/ML VIAL IV SCH (16:07)
[2019-01-14] MEDS: CLONIDINE HCL 0.1 MG TABLET PO PRN (16:10)
--- NOTE | 2019-01-14 17:15 | NUR ---
ms rn patient's b/p still high at 189/75, ambulance left due to they cannot get him at this time, case sealer yunior aware,and dr. wang is aware.
[2019-01-14 18:00] VITALS: BP 162/90
--- NOTE | 2019-01-14 18:20 | NUR ---
ms rn checked b/p, , does not want to be discharge anymore, field case manager yunior said ok to stay for tonight.
--- NOTE | 2019-01-14 18:39 | NUR ---
ms rn on bed, no distress noted.
--- NOTE | 2019-01-14 19:00 | NUR ---
MS RN NOTES RECEIVED PT FROM BED. WITH AT BEDSIDE. A/O X 4. ON NASAL CANNULA 2LPM NO RESPIRATORY DISTRESS NOTED. IV ACCESS PATENT AND INTACT. IV ACCESS ON NATHALIE MIDLINE PATENT AND INTACT. HD ACCESS ON RCW NO BLEEDING NOTED. HEAD OF BED ELEVATED. SIDE RAILS UP. CALL LIGHT WITHIN REACH. BED ALARM ON. WILL CONTINUE TO MONITOR PT CLOSELY.
--- NOTE | 2019-01-14 19:09 | NUR ---
ms rn called exchange to let dr. wang know,pt not discharge, lisa blankenship farm operations manager, exchange private secretary Taylor will leave a message to him.
--- NOTE | 2019-01-14 19:20 | NUR ---
RT NOTE PT RECEIVED ON 2L NASAL CANNULA. AWAKE/ALERT. TX GIVEN, NO ADVERSE REACTIONS NOTED. PT REFUSED BIPAP AT THIS TIME. NURSE, JENNIFFER LUNDBERG. NO SOB NOTED AT THIS TIME. WILL MONITOR.
[2019-01-14 21:00] VITALS: BP 159/79
[2019-01-14] MEDS ORDERED: NITROGLYCERIN PACKET 1 GM PACKET ONE (21:31)
--- NOTE | 2019-01-14 21:47 | NUR ---
MS RN NOTES INFORMED DR JAY ABOUT D/C ORDER HOLD FOR NOW DUE TO HTN.
--- NOTE | 2019-01-14 22:00 | NUR ---
MS RN NOTES COREG NOTED GIVEN HR 55.
--- NOTE | 2019-01-14 23:39 | NUR ---
MS RN NOTES POTASSIUM 3.2. INFORMED DT PIERRE. NO NEW ORDERS.
--- NOTE | 2019-01-14 23:42 | NUR ---
MS RN NOTES PER PIERRE ORDER AM LABS.
[2019-01-15] MEDS: ZOLPIDEM TARTRATE 10 MG TABLET PO PRN (01:20)
--- NOTE | 2019-01-15 01:33 | NUR ---
MS RN NOTES PT REFUSED AMBIEN, PT VERY AGITATED AND ANXIOUS.
--- NOTE | 2019-01-15 02:30 | NUR ---
MS RN NOTES WASTED AMBIEN , PT REFUSED. CHARGE NURSE WITNESSED.
[2019-01-15] MEDS: ALBUTEROL HALF STRENGTH 1.25 MG/3 ML VIAL.NEB NEB SCH ×3 (03:30→11:14)
[2019-01-15] MEDS: IPRATROPIUM NEB FS 0.5 MG/2.5 ML AMPUL.NEB NEB SCH ×3 (03:30→11:14)
[2019-01-15] MEDS: METOCLOPRAMIDE HCL 10 MG/2 ML VIAL IV SCH ×2 (04:03→12:04)
[2019-01-15 05:00] VITALS: BP 113/72
--- NOTE | 2019-01-15 07:23 | NUR ---
MS RN MORNING NOTES RECEIVED PATIENT BEDSIDE REPORT FROM AM SHIFT RN. PATIENT ON BED, SLEEPING, ON NC 2L O2, NO SOB, NO ACUTE DISTRESS, FAMILY ON BEDSIDE, MID LINE IS ON LEFT, SITE IS CLEAR, DRY AND INTACT. NO INFILTRATION, BED IS LOCKED/LOW POSITION, CALL LIGHT IN REACH, HOB ELEVATED, PT TURNED AND REPOSITIONED, SKIN ASSESSMENT IS DONE, WILL CONTINUE MONITOR.
--- NOTE | 2019-01-15 07:24 | NUR ---
MS RN NOTES NO ACUTE CHANGES NOTED DURING THE SHIFT. BLOOD PRESSURE WNL. NO RESPIRATORY DISTRESS NOTED. WILL ENDORSE TO THE AM FOR CONTINUITY OF CARE.
[2019-01-15 08:00] VITALS: BP 124/54
[2019-01-15] MEDS: LISINOPRIL (10MG) 10 MG TABLET PO SCH (09:50)
[2019-01-15] MEDS: PAROXETINE HCL 20 MG TABLET PO SCH (09:50)
[2019-01-15] MEDS: NIFEdipine XL 60 MG TAB PO SCH (09:50)
[2019-01-15] MEDS: CARVEDILOL 6.25 MG TABLET PO SCH (09:51)
[2019-01-15] MEDS: FAMOTIDINE (20 MG) 20 MG TABLET PO SCH (09:51)
[2019-01-15] MEDS: SEVELAMER CARBONATE 800 MG TABLET PO SCH ×2 (10:00→12:05)
[2019-01-15] MEDS: HYDROCORTISONE ACETATE 25 MG/SUPP.RECT SUPP.RECT RC SCH (10:00)
--- NOTE | 2019-01-15 10:00 | NUR ---
MS RN NOTES PER CHARGE NURSE, IS OK NOT TO DRAW BLOOD FOR BMP TODAY AND HE MADE AWARE ABOUT THE POTASSIUM 3.2 AND NO NEW ORDERS FOR THAT PT IS A DIALYSIS PT.
[2019-01-15 10:34] VITALS: BP 124/54
[2019-01-15] MEDS: NITROGLYCERIN 30 GM TUBE TP SCH (10:34)
--- NOTE | 2019-01-15 11:48 | NUR ---
MS RN NOTES PT DISCHARGE REPORT GIVEN TO YULISSA MARTINEZ IN [facility].
--- NOTE | 2019-01-15 13:30 | NUR ---
MS LITIGATOR NOTES PT DISCHARGED TO [facility],REPORT GIVEN TO EMS STAFF.ALL THE DISCHARGE MEDICATIONS AND INSTRUCTIONS DISCUSSED WITH PT AND FAMILY.ALL THE BELONGINGS TAKEN.SKIN ASSESSMENT IS DONE AND TAKEN THE PICTURE,VITAL SIGNS CHECKED AND RECORDED.ON N 2 L O2,SATURATING WELL.NO SOB AND ACUTE DISTRESS NOTED.VERIFIED WITH YULISSA KAUFFMAN IN [facility] TO TRANSFER PT WITH BP-161/82,SAID OK TO TRANSFER.NO COMPLICATIONS NOTED.
== END 2019-01-15 14:00 | DRG 207 ==
LOC: ER 07:51 → ICU 10:59 → TELE-TD 01-08 17:59 → MEDSG1 01-13 09:29
PROVIDERS: ADMIT Internal Medicine; ATTEND Internal Medicine
PROC: 05H633Z Insertion of Infusion Device into Left Subclavian Vein, Percutaneous Approach (ICD-10-PCS; principal; 2018-12-30)
PROC: B547ZZA Ultrasonography of Left Subclavian Vein, Guidance (ICD-10-PCS; 2018-12-30)
PROC: 5A1955Z Respiratory Ventilation, Greater than 96 Consecutive Hours (ICD-10-PCS; 2018-12-30)
PROC: 0BH17EZ Insertion of Endotracheal Airway into Trachea, Via Natural or Artificial Opening (ICD-10-PCS; 2018-12-30)
PROC: 5A1D70Z Performance of Urinary Filtration, Intermittent, Less than 6 Hours Per Day (ICD-10-PCS; 2018-12-31)
DX: J96.01 Acute respiratory failure with hypoxia (principal); G93.41 Metabolic encephalopathy; I21.4 Non-ST elevation (NSTEMI) myocardial infarction; N18.6 End stage renal disease; K25.4 Chronic or unspecified gastric ulcer with hemorrhage; I50.31 Acute diastolic (congestive) heart failure; I13.2 Hypertensive heart and chronic kidney disease with heart failure and with stage 5 chronic kidney disease, or end stage renal disease; J98.11 Atelectasis; E87.2 Acidosis; J44.1 Chronic obstructive pulmonary disease with (acute) exacerbation; I42.9 Cardiomyopathy, unspecified; D62 Acute posthemorrhagic anemia; J96.02 Acute respiratory failure with hypercapnia; D69.6 Thrombocytopenia, unspecified; Z99.2 Dependence on renal dialysis; Z87.891 Personal history of nicotine dependence; J45.909 Unspecified asthma, uncomplicated; Z86.73 Personal history of transient ischemic attack (TIA), and cerebral infarction without residual deficits; Z85.51 Personal history of malignant neoplasm of bladder; Z79.899 Other long term (current) drug therapy; Z79.82 Long term (current) use of aspirin; Z88.8 Allergy status to other drugs, medicaments and biological substances; Z79.51 Long term (current) use of inhaled steroids; N40.0 Benign prostatic hyperplasia without lower urinary tract symptoms; K59.00 Constipation, unspecified; I48.91 Unspecified atrial fibrillation; I27.20 Pulmonary hypertension, unspecified; D63.8 Anemia in other chronic diseases classified elsewhere; E78.5 Hyperlipidemia, unspecified; Z91.14 Patient's other noncompliance with medication regimen; N25.0 Renal osteodystrophy; F41.1 Generalized anxiety disorder; F03.90 Unspecified dementia, unspecified severity, without behavioral disturbance, psychotic disturbance, mood disturbance, and anxiety; D35.01 Benign neoplasm of right adrenal gland; D35.02 Benign neoplasm of left adrenal gland; I70.0 Atherosclerosis of aorta; K76.89 Other specified diseases of liver
CPT/HCPCS: 31720; 36415; 36569; 36600; 71045-TC; 74018; 80048-TC; 80053-TC; 80061-TC; 80076-TC; 82272-TC; 82728-TC; 82803-TC; 83540-TC; 83605-TC; 83735-TC; 83880; 84100-TC; 84478-TC; 84484-TC; 85025-TC; 85027-TC; 85610-TC; 86706; 87040-TC; 87081-TC; 87340; 90935-TC; 92526; 92611-TC; 93307-TC; 94002-TC; 94003-TC; 94760-TC; 94762-TC; 94799-TC; 97110-TC; 97112-TC; 97530-TC; 99082-TC; G0378; J0885; J1160; J1940; J2543; J2765; J2916; J2920; J2930; J2997; J3370; J3490; J7030; J7050; J7060

== ENCOUNTER 2019-02-09 09:48 | Emergency (ER) | payer BC ==
[~2019-02-09] VITALS: Ht 172.7 cm; Wt 68.0 kg
[~2019-02-09 09:48] MED LIST changes: -ALPR0.5T PO; -ISOS60TA4 PO
[2019-02-09 10:35] LABS: BASOPHILS % (AUTO) 0.4 % (0.0-2.0); EOSINOPHILS % (AUTO) 1.6 % (0.0-6.0); HEMATOCRIT 36 % (39-51); HEMOGLOBIN 11.6 g/dL (13.5-17.5); LYMPHOCYTES # (AUTO) 0.7 /CMM (0.8-4.8); LYMPHOCYTES % (AUTO) 8.7 % (20.0-44.0); MEAN CORPUSCULAR HGB CONC 32 g/dl (31.0-36.0); MEAN CORPUSCULAR VOLUME 94 fL (80-96); MONOCYTES # (AUTO) 1.1 /CMM (0.1-1.30); MONOCYTES % (AUTO) 13.5 % (2.0-12.0); NEUTROPHILS # (AUTO) 6.1 /CMM (1.8-8.9); NEUTROPHILS % (AUTO) 75.8 % (43.0-81.0); PLATELET COUNT (AUTO) 113 /CMM (150-450); RED BLOOD CELL COUNT(AUTO) 3.86 MIL/uL (4.5-6.0)
[2019-02-09] MEDS ORDERED: ALBUTEROL FS 2.5 MG/0.5 ML VIAL.NEB ONE (10:40)
[2019-02-09] MEDS: ALBUTEROL FS 2.5 MG/0.5 ML VIAL.NEB NEB ONE (10:44)
[2019-02-09 10:47] LABS: ALANINE AMINOTRANSFERASE 37 U/L (12-78); ALBUMIN 2.9 g/dL (3.4-5.0); ALKALINE PHOSPHATASE 75 U/L (46-116); ASPARTATE AMINOTRANSFERASE 44 U/L (15-37); BILIRUBIN,DIRECT 0.2 mg/dL (0.0-0.2); BILIRUBIN,TOTAL 0.6 mg/dL (0.2-1.0); CALCIUM, SERUM 8.8 mg/dL (8.5-10.1); CARBON DIOXIDE 24 mmol/L (21-32); CHLORIDE 102 mmol/L (98-107); CREATININE 6.1 mg/dL (0.6-1.3); GLUCOSE 131 mg/dL (74-106); POTASSIUM 4.7 mmol/L (3.5-5.1); SODIUM SERUM 140 mmol/L (136-145); TOTAL PROTEIN, SERUM 6.6 g/dL (6.4-8.2)
[2019-02-09 10:48] LABS: UREA NITROGEN, BLOOD 90 mg/dL (7-18)
[2019-02-09 13:26] VITALS: BP 130/74
== END 2019-02-09 13:22 | disposition home or self-care (01) ==
LOC: ER 09:49
DX: S20.211A Contusion of right front wall of thorax, initial encounter (principal); J44.9 Chronic obstructive pulmonary disease, unspecified; I12.0 Hypertensive chronic kidney disease with stage 5 chronic kidney disease or end stage renal disease; N18.6 End stage renal disease; I48.91 Unspecified atrial fibrillation; R51 Headache; Z99.2 Dependence on renal dialysis; Z88.8 Allergy status to other drugs, medicaments and biological substances; Z79.899 Other long term (current) drug therapy; Z79.82 Long term (current) use of aspirin; W01.0XXA Fall on same level from slipping, tripping and stumbling without subsequent striking against object, initial encounter; Y93.89 Activity, other specified; Y92.89 Other specified places as the place of occurrence of the external cause; Y99.8 Other external cause status
CPT/HCPCS: 36415; 70450-TC; 71250-TC; 80048-TC; 80076-TC; 84484-TC; 85025-TC; 85730-TC; 86850-TC

== ENCOUNTER 2019-02-15 16:04 | Inpatient (IN) | payer BC ==
[2019-02-15] MEDS ORDERED: LISI-603 PO (16:26)
[2019-02-15] MEDS ORDERED: CARVEDILOL 6.25 MG TABLET ONE (16:30)
[2019-02-15] MEDS ORDERED: CLONIDINE HCL 0.1 MG TABLET PO ONE (16:30)
[2019-02-15] MEDS ORDERED: CLONIDINE HCL 0.1 MG TABLET ONE (16:30)
[2019-02-15] MEDS ORDERED: CARVEDILOL 6.25 MG TABLET PO ONE (16:30)
[2019-02-15] MEDS ORDERED: FUROSEMIDE 40 MG TABLET PO ONE (16:30)
[2019-02-15] MEDS ORDERED: NITROGLYCERIN PACKET 1 GM PACKET TD ONE (16:30)
[2019-02-15] MEDS ORDERED: NIFEdipine XL (30MG) 30 MG TAB PO ONE (16:30)
[2019-02-15] MEDS ORDERED: FUROSEMIDE 40 MG TABLET ONE (16:31)
[2019-02-15] MEDS ORDERED: FUROSEMIDE 20 MG TABLET ONE (16:31)
[2019-02-15] MEDS ORDERED: NITROGLYCERIN PACKET 1 GM PACKET ONE (16:31)
[2019-02-15] MEDS ORDERED: LABETALOL HCL IV 100MG VIAL ONE (17:08)
[2019-02-15] MEDS ORDERED: LABETALOL HCL IV 100MG VIAL IV ONE (17:30)
[2019-02-15] MEDS ORDERED: ONDANSETRON HCL/PF 4 MG/2 ML VIAL IVP PRN (18:30)
[2019-02-15] MEDS ORDERED: hydrALAZINE HCL IV 20 MG VIAL IV PRN (18:30)
[2019-02-15] MEDS ORDERED: Z GUARD REMEDY 2 OZ OINT TP PRN (18:30)
[2019-02-15] MEDS ORDERED: ACETAMINOPHEN 325 MG TABLET PO PRN (18:30)
[2019-02-15] MEDS ORDERED: MAGNESIUM HYDROXIDE 30 ML UDC PO PRN (18:30)
[2019-02-15] MEDS ORDERED: HYDROCODONE/APAP 5/325MG 1 EACH TABLET PO PRN (18:30)
[2019-02-15] MEDS ORDERED: MAG HYDROX/AL HYDROX/SIMETH 30 ML UDC PO PRN (18:30)
[2019-02-15] MEDS ORDERED: ZOLPIDEM TARTRATE 5 MG TABLET PO PRN (22:00)
[2019-02-16] MEDS: CARVEDILOL 6.25 MG TABLET PO SCH ×2 (08:23→18:00)
[2019-02-16] MEDS: PAROXETINE HCL 10 MG TABLET PO SCH (08:24)
[2019-02-16] MEDS: LISINOPRIL (20MG) 20 MG TABLET PO SCH ×2 (08:24→17:00)
[2019-02-16] MEDS: PANTOPRAZOLE 40 MG TABLET.DR PO SCH (08:24)
[2019-02-16] MEDS: ASPIRIN 81 MG TAB.CHEW PO SCH (08:24)
[2019-02-16] MEDS: NIFEdipine XL (30MG) 30 MG TAB PO SCH (08:25)
[2019-02-16] MEDS: CLONIDINE HCL 0.1 MG TABLET PO SCH (08:51)
[2019-02-16] MEDS ORDERED: CLONIDINE HCL 0.2 MG TABLET PO SCH (09:00)
[2019-02-16] MEDS: HEPARIN SODIUM, PORCINE 5000 UNITS/1 ML VIAL SQ SCH ×3 (10:00→20:15)
[2019-02-16] MEDS: CLOTRIMAZOLE 1% 15 GM TUBE TP SCH ×2 (17:03→18:31)
[2019-02-16] MEDS ORDERED: SIMETHICONE 80 MG TAB.CHEW PO PRN (18:00)
[2019-02-16] MEDS: IPRATROPIUM NEB FS 0.5 MG/2.5 ML AMPUL.NEB NEB SCH (19:58)
[2019-02-16] MEDS: ALBUTEROL FS 2.5 MG/0.5 ML VIAL.NEB NEB SCH (19:58)
[2019-02-17] MEDS: CLONIDINE HCL 0.1 MG TABLET PO SCH ×3 (00:10→21:44)
[2019-02-17] MEDS: IPRATROPIUM NEB FS 0.5 MG/2.5 ML AMPUL.NEB NEB SCH ×4 (01:11→20:03)
[2019-02-17] MEDS: ALBUTEROL FS 2.5 MG/0.5 ML VIAL.NEB NEB SCH ×4 (01:11→20:03)
[2019-02-17] MEDS: CLONIDINE HCL 0.1 MG TABLET PO PRN (04:05)
[2019-02-17] MEDS: LISINOPRIL (20MG) 20 MG TABLET PO SCH ×2 (08:33→17:00)
[2019-02-17] MEDS: NIFEdipine XL (30MG) 30 MG TAB PO SCH (08:34)
[2019-02-17] MEDS: PANTOPRAZOLE 40 MG TABLET.DR PO SCH (08:35)
[2019-02-17] MEDS: PAROXETINE HCL 10 MG TABLET PO SCH (08:35)
[2019-02-17] MEDS: ASPIRIN 81 MG TAB.CHEW PO SCH (08:35)
[2019-02-17] MEDS: CARVEDILOL 6.25 MG TABLET PO SCH ×2 (08:37→17:16)
[2019-02-17] MEDS: HEPARIN SODIUM, PORCINE 5000 UNITS/1 ML VIAL SQ SCH ×2 (08:43→21:00)
[2019-02-17] MEDS: CLOTRIMAZOLE 1% 15 GM TUBE TP SCH ×2 (08:45→18:47)
[2019-02-17] MEDS: SOD FERRIC GLUC 125 MG in IV NS 0.9% 100 ML IV SCH (17:15)
[2019-02-18] MEDS: ALBUTEROL FS 2.5 MG/0.5 ML VIAL.NEB NEB SCH ×4 (02:01→19:50)
[2019-02-18] MEDS: IPRATROPIUM NEB FS 0.5 MG/2.5 ML AMPUL.NEB NEB SCH ×4 (02:01→19:50)
[2019-02-18] MEDS: PAROXETINE HCL 10 MG TABLET PO SCH (08:40)
[2019-02-18] MEDS: PANTOPRAZOLE 40 MG TABLET.DR PO SCH (08:41)
[2019-02-18] MEDS: CARVEDILOL 6.25 MG TABLET PO SCH ×2 (08:57→17:46)
[2019-02-18] MEDS: CLONIDINE HCL 0.1 MG TABLET PO SCH ×3 (08:58→20:33)
[2019-02-18] MEDS: NIFEdipine XL (30MG) 30 MG TAB PO SCH (08:58)
[2019-02-18] MEDS: LISINOPRIL (20MG) 20 MG TABLET PO SCH ×2 (08:59→17:00)
[2019-02-18] MEDS: CLOTRIMAZOLE 1% 15 GM TUBE TP SCH ×2 (09:00→17:46)
[2019-02-18] MEDS: HEPARIN SODIUM, PORCINE 5000 UNITS/1 ML VIAL SQ SCH ×2 (09:00→20:32)
[2019-02-18] MEDS: ASPIRIN 81 MG TAB.CHEW PO SCH (09:01)
[2019-02-18] MEDS: SOD FERRIC GLUC 125 MG in IV NS 0.9% 100 ML IV SCH (13:52)
[2019-02-19] MEDS: IPRATROPIUM NEB FS 0.5 MG/2.5 ML AMPUL.NEB NEB SCH ×4 (01:03→20:04)
[2019-02-19] MEDS: ALBUTEROL FS 2.5 MG/0.5 ML VIAL.NEB NEB SCH ×4 (01:03→20:04)
[2019-02-19] MEDS: PANTOPRAZOLE 40 MG TABLET.DR PO SCH (08:34)
[2019-02-19] MEDS: CARVEDILOL 6.25 MG TABLET PO SCH ×2 (08:35→18:49)
[2019-02-19] MEDS: CLONIDINE HCL 0.1 MG TABLET PO SCH ×3 (08:37→21:02)
[2019-02-19] MEDS: PAROXETINE HCL 10 MG TABLET PO SCH (08:37)
[2019-02-19] MEDS: ASPIRIN 81 MG TAB.CHEW PO SCH (08:38)
[2019-02-19] MEDS: NIFEdipine XL (30MG) 30 MG TAB PO SCH (08:38)
[2019-02-19] MEDS: LISINOPRIL (20MG) 20 MG TABLET PO SCH ×2 (08:38→18:49)
[2019-02-19] MEDS: HEPARIN SODIUM, PORCINE 5000 UNITS/1 ML VIAL SQ SCH ×2 (08:39→21:00)
[2019-02-19] MEDS: CLOTRIMAZOLE 1% 15 GM TUBE TP SCH ×2 (08:39→18:55)
[2019-02-19] MEDS: SOD FERRIC GLUC 125 MG in IV NS 0.9% 100 ML IV SCH (14:55)
[2019-02-20] MEDS: ALBUTEROL FS 2.5 MG/0.5 ML VIAL.NEB NEB SCH ×3 (01:28→14:56)
[2019-02-20] MEDS: IPRATROPIUM NEB FS 0.5 MG/2.5 ML AMPUL.NEB NEB SCH ×3 (01:28→14:56)
[2019-02-20] MEDS: PANTOPRAZOLE 40 MG TABLET.DR PO SCH (07:45)
[2019-02-20] MEDS: CLONIDINE HCL 0.1 MG TABLET PO SCH (09:00)
[2019-02-20] MEDS: HEPARIN SODIUM, PORCINE 5000 UNITS/1 ML VIAL SQ SCH (09:00)
[2019-02-20] MEDS: CLOTRIMAZOLE 1% 15 GM TUBE TP SCH (09:00)
[2019-02-20] MEDS ORDERED: LINEZOLID 600 MG TABLET PO SCH (09:30)
[2019-02-20] MEDS: NIFEdipine XL (30MG) 30 MG TAB PO SCH (09:58)
[2019-02-20] MEDS: ASPIRIN 81 MG TAB.CHEW PO SCH (09:59)
[2019-02-20] MEDS: LISINOPRIL (20MG) 20 MG TABLET PO SCH (09:59)
[2019-02-20] MEDS: CARVEDILOL 6.25 MG TABLET PO SCH (09:59)
[2019-02-20] MEDS ORDERED: Linezolid PO (10:20)
[2019-02-20] MEDS: CLONIDINE HCL 0.1 MG TABLET PO PRN (12:11)
[2019-02-20] MEDS: SOD FERRIC GLUC 125 MG in IV NS 0.9% 100 ML IV SCH (14:00)
[2019-02-21] MEDS ORDERED: PAROXETINE HCL 10 MG TABLET PO SCH (09:00)
== END 2019-02-20 15:08 | disposition home or self-care (01) | DRG 280 ==
DX: I13.2 Hypertensive heart and chronic kidney disease with heart failure and with stage 5 chronic kidney disease, or end stage renal disease (principal); I50.33 Acute on chronic diastolic (congestive) heart failure; I21.A1 Myocardial infarction type 2; J96.01 Acute respiratory failure with hypoxia; N18.6 End stage renal disease; E44.0 Moderate protein-calorie malnutrition; N39.0 Urinary tract infection, site not specified; J98.11 Atelectasis; I16.0 Hypertensive urgency; D63.1 Anemia in chronic kidney disease; D69.6 Thrombocytopenia, unspecified; I25.10 Atherosclerotic heart disease of native coronary artery without angina pectoris; Z85.51 Personal history of malignant neoplasm of bladder; Z86.73 Personal history of transient ischemic attack (TIA), and cerebral infarction without residual deficits; E88.09 Other disorders of plasma-protein metabolism, not elsewhere classified; Z91.14 Patient's other noncompliance with medication regimen; Z87.11 Personal history of peptic ulcer disease; Z99.2 Dependence on renal dialysis; Z87.891 Personal history of nicotine dependence; Z68.22 Body mass index [BMI] 22.0-22.9, adult; J44.9 Chronic obstructive pulmonary disease, unspecified; F41.9 Anxiety disorder, unspecified; I48.91 Unspecified atrial fibrillation; B95.2 Enterococcus as the cause of diseases classified elsewhere; Z16.21 Resistance to vancomycin; N40.1 Benign prostatic hyperplasia with lower urinary tract symptoms

== ENCOUNTER 2019-03-12 07:28 | Inpatient (IN) | payer BC ==
[~2019-03-12] VITALS: Ht 172.7 cm; Wt 66.2 kg
[~2019-03-12 07:28] MED LIST changes: -CEFU500T66 PO; -HYDR-4076 PO; -IPRA12.9 IH; +LISI-603 PO; +Linezolid PO; -SPIR25TA6 PO; -TERA1CAP4 PO
--- NOTE | 2019-03-12 07:40 | NUR ---
PATIENT BIB WITH C/O SOB. AAOX4. PATIENT HAS HISTORY OF COPD. PATIENT SAYS THAT HE IS SUPPOSED TO GO TO DIALYSIS. OXYGEN SATURATION AT 95 ON ROOM AIR. 144/89BP, 72 HR. NAD. AWAITING DOCTOR FOR FURTHER EVAL. WILL CONTINUE TO MONITOR PATIENT.
--- NOTE | 2019-03-12 07:58 | NUR ---
PATIENT'S BLOOD SENT TO LAB.
[2019-03-12 08:07] LABS: BASOPHILS # (AUTO) 0.1 /CMM (0.0-0.2); BASOPHILS % (AUTO) 0.7 % (0.0-2.0); HEMATOCRIT 34 % (39-51); HEMOGLOBIN 11.2 g/dL (13.5-17.5); LYMPHOCYTES # (AUTO) 0.9 /CMM (0.8-4.8); LYMPHOCYTES % (AUTO) 11.9 % (20.0-44.0); MEAN CORPUSCULAR HGB CONC 32 g/dl (31.0-36.0); MEAN CORPUSCULAR VOLUME 93 fL (80-96); MONOCYTES # (AUTO) 0.9 /CMM (0.1-1.30); NEUTROPHILS # (AUTO) 5.5 /CMM (1.8-8.9); NEUTROPHILS % (AUTO) 70.4 % (43.0-81.0); PLATELET COUNT (AUTO) 91 /CMM (150-450); RED BLOOD CELL COUNT(AUTO) 3.72 MIL/uL (4.5-6.0); WHITE BLOOD COUNT (AUTO) 7.8 K/uL (4.3-11.0)
[2019-03-12 08:17] LABS: CALCIUM, SERUM 8.4 mg/dL (8.5-10.1); CARBON DIOXIDE 20 mmol/L (21-32); CHLORIDE 102 mmol/L (98-107); CREATININE 5.9 mg/dL (0.6-1.3); GLUCOSE 116 mg/dL (74-106); POTASSIUM 4.6 mmol/L (3.5-5.1); SODIUM SERUM 137 mmol/L (136-145)
[2019-03-12 08:19] LABS: UREA NITROGEN, BLOOD 108 mg/dL (7-18)
[2019-03-12 08:30] LABS: B-TYPE NATRIURETIC PEPTIDE 22884 PG/ML (0-125)
--- NOTE | 2019-03-12 08:51 | NUR ---
BED ASSIGNED 111-1
[2019-03-12 08:53] LABS: EOSINOPHILS % (MANUAL) 5 % (0-4); LYMPHOCYTES % (MANUAL) 9 % (16-48); MONOCYTES % (MANUAL) 11 % (0-11.0); NEUTROPHILS % (MANUAL) 75 (42-76)
--- NOTE | 2019-03-12 09:06 | NUR ---
PANEL PAGED. AWAITING ADMITTING MD CALL BACK.
--- NOTE | 2019-03-12 09:19 | NUR ---
REPORT GIVEN TO MARCELO DUENAS FOR JONATAN.
[2019-03-12] MEDS ORDERED: HYDROCODONE/APAP 5/325MG 1 EACH TABLET PO PRN (09:30)
[2019-03-12] MEDS ORDERED: ACETAMINOPHEN 325 MG TABLET PO PRN (09:30)
[2019-03-12] MEDS ORDERED: MAGNESIUM HYDROXIDE 30 ML UDC PO PRN (09:30)
[2019-03-12] MEDS ORDERED: MAG HYDROX/AL HYDROX/SIMETH 30 ML UDC PO PRN (09:30)
[2019-03-12] MEDS ORDERED: ZOLPIDEM TARTRATE 5 MG TABLET PO PRN (09:30)
[2019-03-12] MEDS ORDERED: ENOXAPARIN SODIUM 40 MG/0.4 ML DISP.SYRIN SQ SCH (09:30)
[2019-03-12] MEDS ORDERED: Z GUARD REMEDY 2 OZ OINT TP PRN (09:30)
[2019-03-12] MEDS ORDERED: ONDANSETRON HCL/PF 4 MG/2 ML VIAL IVP PRN (09:30)
--- NOTE | 2019-03-12 09:37 | NUR ---
Note joseone in EDM - 03/12/19 at 0951 by JERAMY IV removed. Catheter intact and site benign. Pressure and 4x4 applied to site. No bleeding noted.Patient discharged to home in stable condition. Written and verbal after care instructions given. Patient verbalizes understanding of instruction.
[2019-03-12] MEDS ORDERED: ASPIRIN 81 MG TAB.CHEW PO SCH (09:40)
[2019-03-12] MEDS ORDERED: NIFEdipine XL (30MG) 30 MG TAB PO SCH (09:54)
[2019-03-12] MEDS ORDERED: VIT B CMPLX 3/FA/VIT C/BIOTIN 1 TAB TABLET PO SCH (09:54)
[2019-03-12] MEDS ORDERED: NITROGLYCERIN 0.4 MG/TAB BOTTLE SL PRN (10:00)
--- NOTE | 2019-03-12 10:05 | NUR ---
MANAGER SUBWAY OPENING NOTE RECEIVED PT VIA GURNEY FROM ER, BY SIDE. INTRODUCED SELF AND PLAN OF CARE. PT IS ALERT, ORIENTED X 4, DENIES ANY PAIN AT THIS MOMENT, ON ROOM AIR, SATURATING WELL, NO SIGNS OF RESPIRATORY DISTRESS NOTED, RESPIRATIONS EASY AND UNLABORED. CONTROLLED AFIB HR 84 ON REVIEW CONSULTANT. PT REFUSED SKIN ASSESSMENT. LEFT FA IV SITE G20 INTACT, PATENT.
--- NOTE | 2019-03-12 10:06 | NUR ---
PATIENT TRANSFERRED TO ROOM 111-1 VIA ACLS PROTOCOL. NO DISTRESS NOTED. ENDORSED TO MARCELO RN.
[2019-03-12] MEDS ORDERED: ALBUTEROL FS 2.5 MG/0.5 ML VIAL.NEB NEB PRN (13:30)
--- NOTE | 2019-03-12 15:30 | NUR ---
DIALYSIS PERFORMED FORM 13:30-15:30, 700ML REMOVED
[2019-03-12 16:29] VITALS: BP 114/61
[2019-03-12] MEDS ORDERED: CARVEDILOL 12.5 MG TABLET PO SCH (17:00)
[2019-03-12] MEDS ORDERED: LISINOPRIL (20MG) 20 MG TABLET PO SCH (17:00)
--- NOTE | 2019-03-12 17:39 | NUR ---
PT LEFT UNIT VIA WHEELCHAIR IN STABLE CONDITION ACCOMPANIED BY NURSE. ALL DISCHARGE PAPERS SIGNED, BELONGINGS ACCOUNTED FOR. LEFT FOREARM IV SITE G20 REMOVED, DRESSING APPLIED.
[2019-03-12] MEDS ORDERED: CLONIDINE HCL 0.1 MG TABLET PO SCH (21:00)
[2019-03-13] MEDS ORDERED: PAROXETINE HCL 10 MG TABLET PO SCH (09:00)
[2019-03-13] MEDS ORDERED: FUROSEMIDE 40 MG TABLET PO SCH (09:00)
== END 2019-03-12 17:39 | disposition home or self-care (01) | DRG 280 ==
LOC: ER 07:31 → TELE1 09:11
PROVIDERS: ADMIT Internal Medicine; ATTEND Internal Medicine
PROC: 5A1D70Z Performance of Urinary Filtration, Intermittent, Less than 6 Hours Per Day (ICD-10-PCS; principal; 2019-03-12)
DX: I13.2 Hypertensive heart and chronic kidney disease with heart failure and with stage 5 chronic kidney disease, or end stage renal disease (principal); I50.33 Acute on chronic diastolic (congestive) heart failure; I21.A1 Myocardial infarction type 2; N18.6 End stage renal disease; J96.91 Respiratory failure, unspecified with hypoxia; E44.0 Moderate protein-calorie malnutrition; I16.0 Hypertensive urgency; D69.6 Thrombocytopenia, unspecified; D63.8 Anemia in other chronic diseases classified elsewhere; F41.9 Anxiety disorder, unspecified; Z87.891 Personal history of nicotine dependence; Z99.2 Dependence on renal dialysis; Z91.15 Patient's noncompliance with renal dialysis; Z86.73 Personal history of transient ischemic attack (TIA), and cerebral infarction without residual deficits; Z85.51 Personal history of malignant neoplasm of bladder; N40.0 Benign prostatic hyperplasia without lower urinary tract symptoms; E88.09 Other disorders of plasma-protein metabolism, not elsewhere classified; Z68.22 Body mass index [BMI] 22.0-22.9, adult; Z91.14 Patient's other noncompliance with medication regimen; J44.9 Chronic obstructive pulmonary disease, unspecified; I42.9 Cardiomyopathy, unspecified; J98.4 Other disorders of lung; Z87.11 Personal history of peptic ulcer disease
CPT/HCPCS: 36415; 71045-TC; 80048-TC; 83880; 84484-TC; 85025-TC; 85730-TC; 87081-TC; 90935-TC; G0378

== ENCOUNTER 2019-03-19 14:08 | Outpatient (CLI) | payer BC, MEDICARE ==
[2019-03-19 14:18] VITALS: BP 158/78
== END 2019-03-19 23:59 | disposition home or self-care (01) ==
LOC: MSC 14:08
PROVIDERS: ATTEND Internal Medicine
DX: I13.2 Hypertensive heart and chronic kidney disease with heart failure and with stage 5 chronic kidney disease, or end stage renal disease (principal); N18.6 End stage renal disease; I50.32 Chronic diastolic (congestive) heart failure; Z99.2 Dependence on renal dialysis; D64.9 Anemia, unspecified; N40.0 Benign prostatic hyperplasia without lower urinary tract symptoms; I69.351 Hemiplegia and hemiparesis following cerebral infarction affecting right dominant side; E78.5 Hyperlipidemia, unspecified; Z79.82 Long term (current) use of aspirin

== ENCOUNTER 2019-03-26 16:44 | Inpatient (IN) | payer BC, MEDICARE ==
[~2019-03-26] VITALS: Ht 167.6 cm; Wt 64.0 kg
--- NOTE | 2019-03-26 16:45 | NUR ---
"[id number] FRM HOME C/O SOB, ON BREATHING TREATMENT MILLING MACHINE TENDER." pt aaox4, nad noted, pt on monitor, rt and md at bedside
--- NOTE | 2019-03-26 16:57 | NUR ---
PT IS AWAKE AND FOLLOW COMMANDS CAME TO ER FOR SOB. PT. PLACED INTO BIPAP DUE TO INCREASED WOB WITH FOLLOWING SETTINGS ORDER: IPAP 15, EPAP 5, RATE 12, 28% FIO2. BREATH SOUNDS BILATERAL FINE CRACKLES ALL LUNG CONTI. NERIS @ BEDSIDE. Addendum: 03/26/19 at 1708 by NADIA GO RT Amended: Links added.
[2019-03-26] MEDS ORDERED: Magnesium 1GM/D5W 100ML PREMIX 200 ML IV ONE (17:05)
[2019-03-26] MEDS ORDERED: methylPREDNISolone SOD SUCC 125 MG/2ML VIAL ONE (17:12)
[2019-03-26] MEDS ORDERED: Magnesium 1GM/D5W 100ML PREMIX 100 ML IV ONE (17:12)
[2019-03-26] MEDS ORDERED: IPRATROPIUM NEB FS 0.5 MG/2.5 ML AMPUL.NEB ONE (17:23)
[2019-03-26] MEDS ORDERED: ALBUTEROL FS 2.5 MG/3 ML VIAL.NEB ONE (17:23)
[2019-03-26 17:24] LABS: BASOPHILS % (AUTO) 0.6 % (0.0-2.0); EOSINOPHILS % (AUTO) 6.7 % (0.0-6.0); HEMATOCRIT 33 % (39-51); HEMOGLOBIN 10.5 g/dL (13.5-17.5); LYMPHOCYTES # (AUTO) 0.7 /CMM (0.8-4.8); LYMPHOCYTES % (AUTO) 9.1 % (20.0-44.0); MEAN CORPUSCULAR HGB CONC 32 g/dl (31.0-36.0); MEAN CORPUSCULAR VOLUME 95 fL (80-96); MONOCYTES % (AUTO) 12.9 % (2.0-12.0); NEUTROPHILS # (AUTO) 5.5 /CMM (1.8-8.9); NEUTROPHILS % (AUTO) 70.7 % (43.0-81.0); PLATELET COUNT (AUTO) 114 /CMM (150-450); RED BLOOD CELL COUNT(AUTO) 3.44 MIL/uL (4.5-6.0); WHITE BLOOD COUNT (AUTO) 7.8 K/uL (4.3-11.0)
[2019-03-26] MEDS ORDERED: IPRATROPIUM NEB FS 0.5 MG/2.5 ML AMPUL.NEB NEB ONE (17:30)
[2019-03-26] MEDS ORDERED: ALBUTEROL FS 2.5 MG/3 ML VIAL.NEB NEB ONE (17:30)
[2019-03-26] MEDS ORDERED: methylPREDNISolone SOD SUCC 125 MG/2ML VIAL IV ONE (17:30)
[2019-03-26 17:41] LABS: ABG BASE EXCESS -0.3 mmol/L; ABG OXYGEN SATURATION 64.1 % (92.0-98.5); ABG PCO2 46.9 mmHg (35.0-45.0); ABG PH 7.354 (7.350-7.450); COHb 1.2 % (0.5-1.5); MetHb 0.6 % (0.0-1.5); O2Hb 62.9 % (94.0-97.0); SITE, ABG LEFT ARM
[2019-03-26 17:43] LABS: ALANINE AMINOTRANSFERASE 22 U/L (12-78); ALKALINE PHOSPHATASE 73 U/L (46-116); ASPARTATE AMINOTRANSFERASE 16 U/L (15-37); B-TYPE NATRIURETIC PEPTIDE 34064 PG/ML (0-125); BILIRUBIN,DIRECT 0.1 mg/dL (0.0-0.2); BILIRUBIN,TOTAL 0.4 mg/dL (0.2-1.0); CARBON DIOXIDE 25 mmol/L (21-32); CHLORIDE 101 mmol/L (98-107); GLUCOSE 149 mg/dL (74-106); POTASSIUM 3.7 mmol/L (3.5-5.1); SODIUM SERUM 140 mmol/L (136-145); TOTAL PROTEIN, SERUM 6.8 g/dL (6.4-8.2)
[2019-03-26 17:50] LABS: UREA NITROGEN, BLOOD 86 mg/dL (7-18)
--- NOTE | 2019-03-26 19:17 | NUR ---
[facility] PAGED
--- NOTE | 2019-03-26 19:41 | NUR ---
RECIEVED ROOM 253
--- NOTE | 2019-03-26 20:29 | NUR ---
REPORT GIVEN TO IGLESIA DUENAS FOR JONATAN; PT WILL BE TRANSPORTED ICU
--- NOTE | 2019-03-26 20:50 | NUR ---
PERSONAL INSURANCE ADVISOR RCD PT FROM ER W/DX COPD; PT IS A/O x4 ABLE TO FOLLOW COMMANDS. AFIB ON MONITOR. SKIN INTACT. PENDING ADMISSION ORDERS.
[2019-03-26 20:57] VITALS: BP 153/99
[2019-03-26 21:00] VITALS: BP 150/67
--- NOTE | 2019-03-26 21:00 | NUR ---
MANAGER CREATIVE SERVICES AT BEDSIDE; REVIEWED VISITORS POLICY WITH ; VERBALIZED UNDERSTANDING. CONTINUE TO MONITOR.
[2019-03-26] MEDS ORDERED: Z GUARD REMEDY 2 OZ OINT TP PRN (21:30)
[2019-03-26] MEDS ORDERED: MAGNESIUM HYDROXIDE 30 ML UDC PO PRN (21:30)
[2019-03-26] MEDS ORDERED: NITROGLYCERIN 0.4 MG/TAB BOTTLE SL PRN (21:30)
[2019-03-26] MEDS ORDERED: MAG HYDROX/AL HYDROX/SIMETH 30 ML UDC PO PRN (21:30)
[2019-03-26] MEDS ORDERED: ACETAMINOPHEN 325 MG TABLET PO PRN (21:30)
[2019-03-26 22:00] VITALS: BP 115/74
[2019-03-26 23:00] VITALS: BP 135/75
[2019-03-26] MEDS: IPRATROPIUM NEB FS 0.5 MG/2.5 ML AMPUL.NEB NEB SCH (23:50)
[2019-03-26] MEDS: ALBUTEROL FS 2.5 MG/0.5 ML VIAL.NEB NEB SCH (23:51)
[2019-03-27] VITALS (25 sets, daily range): BP systolic 117–168; BP diastolic 66–108
[2019-03-27 04:04] LABS: BASOPHILS % (AUTO) 0.7 % (0.0-2.0); EOSINOPHILS % (AUTO) 0.3 % (0.0-6.0); HEMATOCRIT 34 % (39-51); LYMPHOCYTES # (AUTO) 0.3 /CMM (0.8-4.8); LYMPHOCYTES % (AUTO) 5.2 % (20.0-44.0); MEAN CORPUSCULAR HGB CONC 33 g/dl (31.0-36.0); MEAN CORPUSCULAR VOLUME 94 fL (80-96); MONOCYTES # (AUTO) 0.1 /CMM (0.1-1.30); MONOCYTES % (AUTO) 1.5 % (2.0-12.0); NEUTROPHILS # (AUTO) 5.2 /CMM (1.8-8.9); NEUTROPHILS % (AUTO) 92.3 % (43.0-81.0); PLATELET COUNT (AUTO) 106 /CMM (150-450); RED BLOOD CELL COUNT(AUTO) 3.56 MIL/uL (4.5-6.0); WHITE BLOOD COUNT (AUTO) 5.6 K/uL (4.3-11.0)
[2019-03-27 04:18] LABS: CALCIUM, SERUM 8.8 mg/dL (8.5-10.1); CARBON DIOXIDE 23 mmol/L (21-32); CHLORIDE 100 mmol/L (98-107); GLUCOSE 161 mg/dL (74-106); MAGNESIUM 3.1 mg/dL (1.8-2.4); PHOSPHORUS 7.7 mg/dL (2.5-4.9); POTASSIUM 3.7 mmol/L (3.5-5.1); SODIUM SERUM 138 mmol/L (136-145)
[2019-03-27 04:21] LABS: CREATININE 8.2 mg/dL (0.6-1.3); UREA NITROGEN, BLOOD 90 mg/dL (7-18)
[2019-03-27 04:58] LABS: CHOLESTEROL 187 mg/dL (<200); HDL CHOLESTEROL 72 mg/dL (40-60); LDL 111 mg/dL (0-99); THYROID STIMULATING HORMONE 0.624 uIU/mL (0.358-3.74); TRIGLYCERIDES 26 mg/dL (30-150)
--- NOTE | 2019-03-27 06:41 | NUR ---
ELECTORATE OFFICER PT REMOVED BIPAP HR 140s SPO2 88%; AT BEDSIDE ASKING FOR ICE CHIPS.
[2019-03-27] MEDS: IPRATROPIUM NEB FS 0.5 MG/2.5 ML AMPUL.NEB NEB SCH ×3 (07:27→19:38)
[2019-03-27] MEDS: ALBUTEROL FS 2.5 MG/0.5 ML VIAL.NEB NEB SCH ×3 (07:27→19:38)
[2019-03-27] MEDS ORDERED: ALBUTEROL FS 2.5 MG/0.5 ML VIAL.NEB NEB SCH (07:35)
[2019-03-27] MEDS ORDERED: IPRATROPIUM NEB FS 0.5 MG/2.5 ML AMPUL.NEB NEB SCH (07:35)
[2019-03-27] MEDS ORDERED: CLONIDINE HCL 0.1 MG TABLET PO SCH (09:00)
[2019-03-27] MEDS: LISINOPRIL (20MG) 20 MG TABLET PO SCH ×3 (09:00→21:07)
[2019-03-27] MEDS: ANORO ELLIPTA INH SCH (11:21)
[2019-03-27] MEDS: ASPIRIN 81 MG TAB.CHEW PO SCH (11:22)
[2019-03-27] MEDS: PAROXETINE HCL 10 MG TABLET PO SCH (11:22)
[2019-03-27] MEDS: VIT B CMPLX 3/FA/VIT C/BIOTIN 1 TAB TABLET PO SCH (11:22)
[2019-03-27] MEDS: methylPREDNISolone SOD SUCC 40 MG/ML VIAL IV SCH ×3 (11:22→16:10)
--- NOTE | 2019-03-27 12:14 | NUR ---
RN NOTE 0715:Received patient resting, A/Ox3. On Bipap, per report, previous shift just tried placing him off Bipap but he had episode of desaturation, will do another trial later. PIV intact. RCW Permacath intact. Able to use urinals. 0800: S/E by Dr. Johnson, no new order at this time. 0830: S/E by Dr. Pacheco, awaiting HD nurse today. 0900: at bedside, per she will provide Crestor and Ellipta given to pharmacy. Patient wanted to hold meds until after HD. 1100: HD ongoing, tolerated at this time. Rendered nursing swallow eval, tolerated water, informed MD, obtained order for diet. 1200: No new significant changes noted at this time. Will continue to monitor.
[2019-03-27] MEDS ORDERED: LEVOFLOXACIN (500MG) 500 MG TABLET PO ONE (13:00)
[2019-03-27] MEDS: NIFEdipine XL (30MG) 30 MG TAB PO SCH (13:43)
[2019-03-27] MEDS: CARVEDILOL 6.25 MG TABLET PO SCH ×2 (13:44→16:10)
[2019-03-27] MEDS: FUROSEMIDE 40 MG TABLET PO SCH (13:46)
[2019-03-27] MEDS: ISOSORBIDE MONONITRATE (30MG) 30 MG TAB.SR.24H PO SCH (16:10)
--- NOTE | 2019-03-27 18:39 | NUR ---
RN NOTE No any significant changes noted. Remained off Bipap. No any respiratory distress noted. Tolerated 2 LPM of O2 via NC. Diet tolerated.
[2019-03-27] MEDS: GUAIFENESIN 300 MG/15 ML UDC PO PRN (18:54)
--- NOTE | 2019-03-27 19:00 | NUR ---
Received patient,awake,alert, converses,coherent and appropriate,with O2 via NC @ 3 L/min,not in any acute respiratory distress,breathing regular and non labored.Slightly diminished breathsounds but clear.comfort care done,needs attended.
--- NOTE | 2019-03-27 19:45 | NUR ---
Readmitted <30days with respiratory failure due to COPD/fluid overload on home O2. Met with patient and at bedside. Patient lives locally with in a two story home, has 5steps to entrance and flight stairs to second floor. Patient ambulates with assistive device and provides assistance with adl's. Has adequate DME: home O2, walker, wheelchair and commode. He is currently on service with [facility] [phone]. He receives hemodialysis every MWF 4am at [facility] [phone]. provides transportation to HD. requesting referral to [facility] but has no available schedule. Current dc plan is to return home once discharge. Addendum: 03/27/19 at 1946 by BLANCA FOSTER RN Amended: Links added.
--- NOTE | 2019-03-27 22:00 | NUR ---
Remains stable,no SOB . at bedside. 2300 Asleep,remains stable.
[2019-03-28] VITALS (20 sets, daily range): BP systolic 113–159; BP diastolic 64–100
--- NOTE | 2019-03-28 | NUR ---
Stable,not in any distress,tolerating O2 via NC 3L/min.
--- NOTE | 2019-03-28 04:00 | NUR ---
Stable, AM care done,slight SOB on exertion and when HOB flat.Still with O2 via NC,desaturates when O2 is off.
[2019-03-28] MEDS: GUAIFENESIN 300 MG/15 ML UDC PO PRN ×2 (05:49→21:50)
--- NOTE | 2019-03-28 07:00 | NUR ---
Report given to Diego DUENAS, patient stable. as per Dr. Corrales ,may transfer to Tele, and wants to start Eliquis if ok with GI,endorsed to Diego to follow up with GI.
[2019-03-28] MEDS: IPRATROPIUM NEB FS 0.5 MG/2.5 ML AMPUL.NEB NEB SCH ×3 (07:35→20:17)
[2019-03-28] MEDS: ALBUTEROL FS 2.5 MG/0.5 ML VIAL.NEB NEB SCH ×3 (07:35→20:16)
--- NOTE | 2019-03-28 08:00 | NUR ---
RN INITIAL NOTE PATIENT IN BED, AWAKE AND ALERT. ON 3L NC, SATING WELL AT 95%. NO COMPLAINS OF ANY DISTRESS NOR PAIN AT THIS TIME. HAS LEFT WRIST #20 SALINE LOCKED. AND A PERMA CATH ON RIGHT CHEST. VSS. OK TO TRANSFER TO TELE WHEN STABLE PER DR SUNG. BED LOCKED AND IN LOWEST POSITION. CALL LIGHT WITHIN REACH. WILL CONTINUE TO MONITOR PATIENT CLOSELY
[2019-03-28] MEDS: VIT B CMPLX 3/FA/VIT C/BIOTIN 1 TAB TABLET PO SCH (08:13)
[2019-03-28] MEDS: NIFEdipine XL (30MG) 30 MG TAB PO SCH (08:13)
[2019-03-28] MEDS: FUROSEMIDE 40 MG TABLET PO SCH (08:14)
[2019-03-28] MEDS: ISOSORBIDE MONONITRATE (30MG) 30 MG TAB.SR.24H PO SCH (08:14)
[2019-03-28] MEDS: ASPIRIN 81 MG TAB.CHEW PO SCH (08:15)
[2019-03-28] MEDS: PAROXETINE HCL 10 MG TABLET PO SCH (08:15)
[2019-03-28] MEDS: methylPREDNISolone SOD SUCC 40 MG/ML VIAL IV SCH ×3 (08:15→16:55)
[2019-03-28] MEDS: CRESTOR 10 MG PO SCH (08:15)
[2019-03-28] MEDS: LISINOPRIL (20MG) 20 MG TABLET PO SCH ×2 (08:15→20:59)
[2019-03-28] MEDS: CARVEDILOL 6.25 MG TABLET PO SCH ×2 (08:15→16:56)
[2019-03-28] MEDS: ANORO ELLIPTA INH SCH (08:29)
[2019-03-28] MEDS ORDERED: BUMETANIDE INJ 4 MG in IV D5W 24 ML IV ONE (10:00)
--- NOTE | 2019-03-28 12:43 | NUR ---
RN NOTE PATIENT AND REFUSING DIALYSIS TODAY. DIALYSIS NURSE AND MD AWARE. DIALYSIS SCHEDULED FOR TOMORROW. OK TO TRANSFER TO [facility] PER MD. ROOM #105. WILL TRANSFER PATIENT SOON BED IS READY.
--- NOTE | 2019-03-28 14:00 | NUR ---
pt transferred to [facility], ACLS followed, v/s stable, no pain.
--- NOTE | 2019-03-28 14:00 | NUR ---
EYEGLASS FITTER NOTE PATIENT TRANSFERRED FROM ICU. PT A/OX4. NO SIGN OF ACUTE RESPIRATORY/CARDIAC DISTRESS OR SOB AT THIS TIME. ON TELE MONITOR CONTROLLED AFIB HR 92. SKIN INTACT. LEFT WRIST IV #20, BUMEX RUNNING 5 ML/HR. RIGHT CHEST PREMATURE HD CATH, DRESSING INTACT. ON NC 3L SATURATING 98%, ALL VS STABLE. SAFETY MEASURES IN PLACE. BED LOCKED AND LOW, SIDE RAILS UPX3, CALL LIGHT WITHIN REACH. URINAL AND BEDSIDE COMMODE AT BEDSIDE. HIS AT BEDSIDE. INSTRUCTED TO USE CALL LIGHT IF HE NEEDS ANY HELP. WILL CONT' TO MONITOR CLOSELY.
--- NOTE | 2019-03-28 18:20 | NUR ---
SSIS ARCHITECT NOTE VTE SCORE 5. DVT PUMP ORDER PLACED AND CALLED CENTRAL LINE.
--- NOTE | 2019-03-28 18:49 | NUR ---
CERTIFIED PHLEBOTOMIST NOTE PT AWAKE, SITTING AT BED COMFORTABLY. NO SIGN OF RESPIRATORY/CARDIAC DISTRESS OR SOB AT THIS TIME. ON TELE MONITOR CONTROLLED AFIB, HR 92 AND SATURATING 100%. NO ACUTE CHANGE DURING THE SHIFT. IS AT BEDSIDE. SAFETY MEASURES IN PLACE. BED LOW NAD LOCKED, SIDE RAILS UPX3, BED ALARM ON, CALL LIGHT WITHIN REACH. WILL ENDORSE TO PM NURSE FOR JONATAN.
--- NOTE | 2019-03-28 19:00 | NUR ---
RECIEVED ALERT AND ORIENTATED GOOD EYE CONTACT. AT THE BEDSIDE INVOLVED IN HIS CARE. PULSE OC ON SATS 99% 3LITERS SKIN WARN AND DRY
[2019-03-28] MEDS: ONDANSETRON HCL/PF 4 MG/2 ML VIAL IVP PRN (22:31)
[2019-03-28] MEDS: HYDROCODONE/APAP 5/325MG 1 EACH TABLET PO PRN (22:48)
[2019-03-29 04:00] VITALS: BP 168/91
[2019-03-29] MEDS: ONDANSETRON HCL/PF 4 MG/2 ML VIAL IVP PRN (04:13)
[2019-03-29] MEDS: HYDROCODONE/APAP 5/325MG 1 EACH TABLET PO PRN (05:14)
--- NOTE | 2019-03-29 05:16 | NUR ---
RN NOTES: C/O ABD PAIN THRU THE NIGHT CAUSING NAUSEA AND EMESIS X2 RELIEVED WITH ZOFRAN AND NORCO. LAST DOSE GIVEN OF NORCO @ 0500. HE HAD A GOOD BM LAST NIGHT ON THE BSC. AT THE BEDSIDE THRU THE NIGHT SHE IS ASSISTING IN HIS CARE. REMAINS ON TELE MONITOR SR ON THE MONITOR. NO SOB THRU THE NIGHT. WHEN DRINKING FLUID ASP PRECAUTIONS TAKEN
[2019-03-29] MEDS: IPRATROPIUM NEB FS 0.5 MG/2.5 ML AMPUL.NEB NEB SCH ×3 (07:50→19:18)
[2019-03-29] MEDS: ALBUTEROL FS 2.5 MG/0.5 ML VIAL.NEB NEB SCH ×3 (07:50→19:18)
[2019-03-29 08:00] VITALS: BP 154/83
--- NOTE | 2019-03-29 08:00 | NUR ---
MS1/RN AM SHIFT INITIAL NOTES RECEIVED PT IN BED, AWAKE WITH AT BEDSIDE. PT A/O X 4, COMPLAINT OF ABDOMINAL DISCOMFORT (WILL REFER TO PRIMARY MD). ON 3L O2 VIA N/C SATURATING @ 95%, RESPIRATIONS EVEN AND UNLABORED, IV SITE FLUSHED PATENT WITH NO S/S OF INFECTION, SL. PT IS SCHEDULED FOR DIALYSIS TX TODAY. NO ACUTE ADVERSE CHANGE OF CONDITION NOTED, SCHEDULED AM MEDS TO BE GIVEN. CL WITHIN REACHED AND SAFETY MAINTAINED. ON GOING MONITORING.
[2019-03-29 08:01] LABS: BASOPHILS % (AUTO) 0.2 % (0.0-2.0); HEMATOCRIT 38 % (39-51); HEMOGLOBIN 12.4 g/dL (13.5-17.5); LYMPHOCYTES # (AUTO) 0.9 /CMM (0.8-4.8); LYMPHOCYTES % (AUTO) 7.7 % (20.0-44.0); MEAN CORPUSCULAR HGB CONC 32 g/dl (31.0-36.0); MEAN CORPUSCULAR VOLUME 93 fL (80-96); MONOCYTES # (AUTO) 1.4 /CMM (0.1-1.30); MONOCYTES % (AUTO) 11.3 % (2.0-12.0); NEUTROPHILS # (AUTO) 9.8 /CMM (1.8-8.9); NEUTROPHILS % (AUTO) 80.8 % (43.0-81.0); PLATELET COUNT (AUTO) 120 /CMM (150-450); RED BLOOD CELL COUNT(AUTO) 4.09 MIL/uL (4.5-6.0); WHITE BLOOD COUNT (AUTO) 12.1 K/uL (4.3-11.0)
[2019-03-29 08:13] LABS: CALCIUM, SERUM 8.8 mg/dL (8.5-10.1); CARBON DIOXIDE 23 mmol/L (21-32); CHLORIDE 95 mmol/L (98-107); CREATININE 6.8 mg/dL (0.6-1.3); GLUCOSE 109 mg/dL (74-106); MAGNESIUM 2.9 mg/dL (1.8-2.4); POTASSIUM 4.2 mmol/L (3.5-5.1); SODIUM SERUM 134 mmol/L (136-145)
[2019-03-29 08:25] LABS: PHOSPHORUS 8.2 mg/dL (2.5-4.9)
[2019-03-29 08:26] LABS: UREA NITROGEN, BLOOD 107 mg/dL (7-18)
[2019-03-29] MEDS: methylPREDNISolone SOD SUCC 40 MG/ML VIAL IV SCH (08:55)
[2019-03-29] MEDS: VIT B CMPLX 3/FA/VIT C/BIOTIN 1 TAB TABLET PO SCH (08:55)
[2019-03-29] MEDS: ANORO ELLIPTA INH SCH (08:55)
[2019-03-29] MEDS: LISINOPRIL (20MG) 20 MG TABLET PO SCH ×2 (08:56→20:47)
[2019-03-29] MEDS: NIFEdipine XL (30MG) 30 MG TAB PO SCH (08:56)
[2019-03-29] MEDS: FUROSEMIDE 40 MG TABLET PO SCH (08:56)
[2019-03-29] MEDS: CARVEDILOL 6.25 MG TABLET PO SCH ×2 (08:57→18:01)
[2019-03-29] MEDS: ISOSORBIDE MONONITRATE (30MG) 30 MG TAB.SR.24H PO SCH (08:57)
[2019-03-29] MEDS: ASPIRIN 81 MG TAB.CHEW PO SCH (08:57)
[2019-03-29] MEDS: PAROXETINE HCL 10 MG TABLET PO SCH (08:58)
[2019-03-29] MEDS ORDERED: methylPREDNISolone SOD SUCC 40 MG/ML VIAL IV SCH ×2 (11:30→21:00)
[2019-03-29] MEDS ORDERED: LEVOFLOXACIN (250MG) 250 MG TABLET PO SCH (13:00)
--- NOTE | 2019-03-29 13:14 | NUR ---
MS1/RN ROUNDS - DR. CRYSTAL UPDATED PT'S CONDITION. PT SEEN & EXAMINED BY DR. CRYSTAL, WITH ORDERS RECEIVED FOR US OF ABDOMEN D/T PAIN AND HD TX TOMORROW. ORDERS NOTED.
[2019-03-29 16:00] VITALS: BP 133/85
[2019-03-29 16:01] VITALS: BP 133/85
--- NOTE | 2019-03-29 17:30 | NUR ---
MS1/RN FOLLOW-UP HOME MEDS (CRESTOR) SPOKE TO PT'S TO BRING CRESTOR MEDICATION FOR PHARMACY DISPENSING, PER WILL BRING WHEN SHE GOES HOME.
--- NOTE | 2019-03-29 19:12 | NUR ---
MS1/RN AM SHIFT END NOTES ALL NEEDS MET. NO ACUTE CHANGE OF CONDITION NOTED DURING THE SHIFT. PT ENDORSED TO PM NURSE TO CONTINUE CARE. CL WITHIN REACHED AND SAFETY MAINTAINED. Addendum: 03/29/19 at 1913 by MANNY JULIO RN ADDENDUM: ALSO ENDORSED TO PM NURSE COLLECT STOOL FOR OB.
--- NOTE | 2019-03-29 19:30 | NUR ---
MS RN OPENING NOTE RECEIVED PATIENT A/OX1 PATIEN ASLEEP NO DISCOMFORT AT THE MOMENT. ON ROOM AIR WITH NO SIGNS OF SOB. PATIENT ON RESTRAINTS PULSE PALPABLE. ALL SAFETY PRECAUTIONS APPLIED WILL CONTINUE TO MONITOR PATIENT.
[2019-03-29 20:00] VITALS: BP 123/71
--- NOTE | 2019-03-29 21:19 | NUR ---
TRANSFER OF CARE 2118 RECEIVED PATIENT FROM YULISSA STUART, AT 2118. PATIENT CURRENTLY AWAK, RESTING COMFORTABLY IN BED. FAMILY MEMBER AT BED SIDE. NO SIGNS OF RESPIRATORY DISTRESS. PATIENT DENIES SHORTNESS OF BREATH. VITAL SIGNS FOR 1999: TEMP- 97.8 F VIA PO, HR 58, RESPIRATIONS 18, O2 SAT 96% VIA NC AT 2 LPM TOLERATING WELL, BP 123/71, PAIN SCALE AT 5/10. I ASKED PATIENT AND FAMILY MEMBER AT BED SIDE IF HE NEEDS ANY PAIN MEDICATION OR ANYTHING AT THIS TIME, PATIENT SAID NO AT THIS TIME. IV SITE LEFT WRIST #20G, INTACT AND PATENT, FLUSHING WELL, NO S/S OF INFECTION/INFILTRATION. NOTED. SAFETY PRECAUTIONS IMPLEMENTED; CALL LIGHT WITHIN REACH, BED LOWEST POSITION, BED LOCKED, SIDE RAILS UP X2. WILL CONTINUE TO MONITOR.
[2019-03-30] VITALS: BP 129/78
[2019-03-30 04:11] VITALS: BP 134/76
--- NOTE | 2019-03-30 06:58 | NUR ---
RN CLOSING NOTES PATIENT CURRENTLY ASLEEP, RESTING COMFORTABLY IN BED, EASILY AROUSABLE TO VOICE. FAMILY MEMBER AT BED SIDE. NO SIGNS OF RESPIRATORY DISTRESS. NO SHORTNESS OF BREATH NOTED. IV SITE REMAINS INTACT AND PATENT, FLUSHING WELL, NO S/S OF INFECTION/INFILTRATION NOTED. ALL NEEDS MET. NO ACUTE CHANGE OF CONDITION NOTED DURING THE SHIFT. NO BOWEL MOVEMENT DURING MY SHIFT, NO COLLECTION OF STOOL FOR OB. WILL LET MORNING NURSE KNOW. ALL NEEDS MET AT THIS TIME. PATIENT KEPT CLEAN, DRY, AND COMFORTABLE. NO COMPLAINTS OF PAIN OR DISCOMFORT AT THIS TIME. VITALS STABLE. FAMILY MEMBER SLEPT IN CHAIR, NEAR BED SIDE. PATIENT HIMSELF SLEPT VERY WELL. SAFETY PRECAUTIONS IMPLEMENTED; CALL LIGHT WITHIN REACH, BED LOWEST POSITION, BED LOCKED, SIDE RAILS UP X2. WILL CONTINUE TO MONITOR. WILL ENDORSE TO DAYSHIFT NURSE FOR CONTINUITY OF CARE.
[2019-03-30 07:02] LABS: BASOPHILS % (AUTO) 0.1 % (0.0-2.0); EOSINOPHILS % (AUTO) 0.1 % (0.0-6.0); HEMATOCRIT 38 % (39-51); HEMOGLOBIN 12.5 g/dL (13.5-17.5); LYMPHOCYTES # (AUTO) 1.1 /CMM (0.8-4.8); LYMPHOCYTES % (AUTO) 10.9 % (20.0-44.0); MEAN CORPUSCULAR HGB CONC 33 g/dl (31.0-36.0); MEAN CORPUSCULAR VOLUME 94 fL (80-96); MONOCYTES # (AUTO) 1.4 /CMM (0.1-1.30); MONOCYTES % (AUTO) 14.3 % (2.0-12.0); NEUTROPHILS # (AUTO) 7.3 /CMM (1.8-8.9); NEUTROPHILS % (AUTO) 74.6 % (43.0-81.0); PLATELET COUNT (AUTO) 117 /CMM (150-450); RED BLOOD CELL COUNT(AUTO) 4.04 MIL/uL (4.5-6.0); WHITE BLOOD COUNT (AUTO) 9.8 K/uL (4.3-11.0)
[2019-03-30 07:13] LABS: CALCIUM, SERUM 8.5 mg/dL (8.5-10.1); CARBON DIOXIDE 26 mmol/L (21-32); CHLORIDE 99 mmol/L (98-107); CREATININE 6.7 mg/dL (0.6-1.3); GLUCOSE 93 mg/dL (74-106); MAGNESIUM 2.7 mg/dL (1.8-2.4); POTASSIUM 3.6 mmol/L (3.5-5.1); SODIUM SERUM 138 mmol/L (136-145)
[2019-03-30 07:14] LABS: PHOSPHORUS 8.3 mg/dL (2.5-4.9); UREA NITROGEN, BLOOD 101 mg/dL (7-18)
[2019-03-30 07:29] LABS: IRON, SERUM 73 ug/dl (50-175); TOTAL IRON BINDING CAPACITY 182 ug/dl (250-450)
--- NOTE | 2019-03-30 07:44 | NUR ---
RN OPENING NOTES REPORT RECEIVED FROM TUBER MACHINE OPERATOR HELPER RN. PT IS ASLEEP IN BED WITH AT BEDSIDE. BED IS LOCKED AND IN LOWEST POSITION WITH CALL LIGHT IN PLACE. PT HAS EQUAL CHEST RISE AND FALL BILATERALLY. NO APPARENT DISTRESS NOTED AT PRESENT TIME. WILL CONTINUE TO MONITOR.
[2019-03-30 08:00] VITALS: BP 161/96
[2019-03-30 08:02] LABS: FERRITIN 626 ng/mL (8-388)
[2019-03-30] MEDS: IPRATROPIUM NEB FS 0.5 MG/2.5 ML AMPUL.NEB NEB SCH ×2 (08:09→13:48)
[2019-03-30] MEDS: ALBUTEROL FS 2.5 MG/0.5 ML VIAL.NEB NEB SCH ×2 (08:09→13:48)
[2019-03-30] MEDS: ISOSORBIDE MONONITRATE (30MG) 30 MG TAB.SR.24H PO SCH (08:34)
[2019-03-30] MEDS: VIT B CMPLX 3/FA/VIT C/BIOTIN 1 TAB TABLET PO SCH (08:34)
[2019-03-30] MEDS: PAROXETINE HCL 10 MG TABLET PO SCH (08:34)
[2019-03-30 08:35] VITALS: BP 161/91
[2019-03-30] MEDS: CARVEDILOL 6.25 MG TABLET PO SCH (08:35)
[2019-03-30] MEDS: LISINOPRIL (20MG) 20 MG TABLET PO SCH (08:35)
[2019-03-30] MEDS: NIFEdipine XL (30MG) 30 MG TAB PO SCH (08:35)
[2019-03-30] MEDS: ASPIRIN 81 MG TAB.CHEW PO SCH (08:35)
[2019-03-30] MEDS: FUROSEMIDE 40 MG TABLET PO SCH (08:36)
[2019-03-30] MEDS: CRESTOR 10 MG PO SCH (09:00)
[2019-03-30] MEDS ORDERED: methylPREDNISolone SOD SUCC 40 MG/ML VIAL IV SCH (09:00)
[2019-03-30] MEDS ORDERED: PRED50TA PO ×2 (10:15→10:17)
[2019-03-30] MEDS ORDERED: Levofloxacin (250MG) PO ×2 (10:15→10:56)
[2019-03-30] MEDS: ANORO ELLIPTA INH SCH (11:18)
--- NOTE | 2019-03-30 15:42 | NUR ---
RN D/C NOTES PT RECEIVED DIALYSIS STATED HE WANTS TO GO HOME. EXITCARE PACKET GIVEN TO EMT'. EXITCARE EDUCATION DONE WITH PATIENT AND PATIENT . PRESCRIPTION GIVEN TO . PT REFUSED PHOTOS STATES THEY ALREADY TOOK THEM AND HE WOULD LIKE TO GO HOME. IV REMOVED BY CHARGE NURSE. PT TAKEN HOME BY AMBULANCE. ALL QUESTIONS ANSWERED AND PT TAKEN OUT OF UNIT BY JONH.
[2019-03-31 11:07] LABS: HIV SCRN 4G wRFX Non Reactive (Non Reactive)
== END 2019-03-30 15:06 | disposition home or self-care (01) | DRG 280 ==
LOC: ER 16:47 → ICU 19:55 → TELE-TD 03-28 13:51 → TELE1 03-28 14:08 → MEDSG1 03-29 09:13
PROVIDERS: ADMIT Nurse Practitioner Acute Care; ATTEND Nurse Practitioner Acute Care
PROC: 5A09357 Assistance with Respiratory Ventilation, Less than 24 Consecutive Hours, Continuous Positive Airway Pressure (ICD-10-PCS; principal; 2019-03-26)
PROC: 5A1D70Z Performance of Urinary Filtration, Intermittent, Less than 6 Hours Per Day (ICD-10-PCS; 2019-03-27)
DX: I13.2 Hypertensive heart and chronic kidney disease with heart failure and with stage 5 chronic kidney disease, or end stage renal disease (principal); I21.4 Non-ST elevation (NSTEMI) myocardial infarction; I50.23 Acute on chronic systolic (congestive) heart failure; J96.01 Acute respiratory failure with hypoxia; N18.6 End stage renal disease; J44.1 Chronic obstructive pulmonary disease with (acute) exacerbation; D68.59 Other primary thrombophilia; J98.11 Atelectasis; E44.0 Moderate protein-calorie malnutrition; I42.9 Cardiomyopathy, unspecified; Z91.15 Patient's noncompliance with renal dialysis; Z99.2 Dependence on renal dialysis; Z87.891 Personal history of nicotine dependence; Z86.73 Personal history of transient ischemic attack (TIA), and cerebral infarction without residual deficits; Z85.51 Personal history of malignant neoplasm of bladder; Z79.899 Other long term (current) drug therapy; N40.0 Benign prostatic hyperplasia without lower urinary tract symptoms; F41.9 Anxiety disorder, unspecified; E78.5 Hyperlipidemia, unspecified; E11.22 Type 2 diabetes mellitus with diabetic chronic kidney disease; D63.8 Anemia in other chronic diseases classified elsewhere; D69.6 Thrombocytopenia, unspecified; Z88.8 Allergy status to other drugs, medicaments and biological substances; Z79.51 Long term (current) use of inhaled steroids; Z79.82 Long term (current) use of aspirin; I27.20 Pulmonary hypertension, unspecified; I48.91 Unspecified atrial fibrillation; I70.0 Atherosclerosis of aorta
CPT/HCPCS: 36415; 36600; 71045-TC; 76700-TC; 80048-TC; 80061-TC; 80076-TC; 82728-TC; 82803-TC; 83540-TC; 83735-TC; 83880; 84100-TC; 84443-TC; 84484-TC; 85025-TC; 86706; 87081-TC; 87340; 90935-TC; 94760-TC; 94799-TC; G0378; J2405; J2920; J2930; J3475; J3490; J7060

== ENCOUNTER 2019-04-02 14:07 | Outpatient (CLI) | payer BC ==
[~2019-04-02 14:07] MED LIST changes: +Levofloxacin (250MG) PO; -Linezolid PO; +PRED50TA PO
[2019-04-02 16:30] VITALS: BP 119/73
== END 2019-04-02 23:59 | disposition home or self-care (01) ==
LOC: MSC 14:07
PROVIDERS: ATTEND Internal Medicine
DX: J44.1 Chronic obstructive pulmonary disease with (acute) exacerbation (principal); Z99.81 Dependence on supplemental oxygen; I13.2 Hypertensive heart and chronic kidney disease with heart failure and with stage 5 chronic kidney disease, or end stage renal disease; N18.6 End stage renal disease; I50.32 Chronic diastolic (congestive) heart failure; Z99.2 Dependence on renal dialysis; N39.0 Urinary tract infection, site not specified; B95.2 Enterococcus as the cause of diseases classified elsewhere; N40.0 Benign prostatic hyperplasia without lower urinary tract symptoms; D64.9 Anemia, unspecified; I69.351 Hemiplegia and hemiparesis following cerebral infarction affecting right dominant side; E78.5 Hyperlipidemia, unspecified; Z79.82 Long term (current) use of aspirin; Z79.899 Other long term (current) drug therapy

== ENCOUNTER 2019-04-02 14:51 | Outpatient (CLI) | payer BC ==
[2019-04-03 07:07] LABS: HIV SCRN 4G wRFX Non Reactive (Non Reactive)
== END 2019-04-02 23:59 | disposition home or self-care (01) ==
LOC: LAB 14:51
PROVIDERS: ATTEND Internal Medicine
DX: J44.1 Chronic obstructive pulmonary disease with (acute) exacerbation (principal)
CPT/HCPCS: 36415

== ENCOUNTER 2019-05-11 11:35 | Inpatient (IN) | payer BC ==
[~2019-05-11] VITALS: Ht 167.6 cm; Wt 69.9 kg
--- NOTE | 2019-05-11 11:43 | NUR ---
BIB FOR WEAKNESS, MISSED DIALYSIS TODAY AT 0500, LAST DIALYSIS 05/08/19, ALSO C/O LOWER BACK PAIN. TO ER BED 10, HOOKED TO MONITOR, PLACED ON O2 VIA NASAL CANNULA AT 2LPM, CHANGED TO HOSP GOWN, DR HERNANDEZ AT BEDSIDE
--- NOTE | 2019-05-11 11:46 | NUR ---
CALLED [facility], PAGED PHOTO CHECKER
--- NOTE | 2019-05-11 11:52 | NUR ---
PARAFFINER AT BEDSIDE
[2019-05-11 11:54] LABS: BASOPHILS # (AUTO) 0.1 /CMM (0.0-0.2); BASOPHILS % (AUTO) 0.4 % (0.0-2.0); EOSINOPHILS % (AUTO) 0.8 % (0.0-6.0); HEMATOCRIT 26 % (39-51); HEMOGLOBIN 8.3 g/dL (13.5-17.5); LYMPHOCYTES # (AUTO) 0.9 /CMM (0.8-4.8); LYMPHOCYTES % (AUTO) 6.2 % (20.0-44.0); MEAN CORPUSCULAR HGB CONC 32 g/dl (31.0-36.0); MEAN CORPUSCULAR VOLUME 96 fL (80-96); MONOCYTES # (AUTO) 1.3 /CMM (0.1-1.30); MONOCYTES % (AUTO) 8.5 % (2.0-12.0); NEUTROPHILS # (AUTO) 12.6 /CMM (1.8-8.9); NEUTROPHILS % (AUTO) 84.1 % (43.0-81.0); PLATELET COUNT (AUTO) 128 /CMM (150-450)
--- NOTE | 2019-05-11 11:58 | NUR ---
RESTAURANT LINE SERVER AT BEDSIDE
[2019-05-11 12:09] LABS: CARBON DIOXIDE 22 mmol/L (21-32); CHLORIDE 99 mmol/L (98-107); GLUCOSE 120 mg/dL (74-106); POTASSIUM 4.3 mmol/L (3.5-5.1); SODIUM SERUM 138 mmol/L (136-145)
[2019-05-11 12:16] LABS: CREATININE 10.4 mg/dL (0.6-1.3); UREA NITROGEN, BLOOD 81 mg/dL (7-18)
--- NOTE | 2019-05-11 12:27 | NUR ---
CALLED [facility], PAGED REYMUNDO
[2019-05-11] MEDS ORDERED: CEFTRIAXONE 1GM BAG (ER ONLY) 50 ML IV ONE (12:30)
[2019-05-11] MEDS ORDERED: VANCOMYCIN 1 GM in IV D5W 250 ML IV ONE (12:30)
--- NOTE | 2019-05-11 12:37 | NUR ---
CALLED NURSING SUP FOR BED
[2019-05-11 12:44] LABS: LYMPHOCYTES % (MANUAL) 11 % (16-48); METAMYELOCYTES % 1 % (0-0); MONOCYTES % (MANUAL) 6 % (0-11.0); NEUTROPHILS % (MANUAL) 82 (42-76)
--- NOTE | 2019-05-11 12:52 | NUR ---
PAGED ORTHO FILLING LAYER UP ED RODRIGUEZ
[2019-05-11] MEDS ORDERED: Z GUARD REMEDY 2 OZ OINT TP PRN (13:00)
[2019-05-11] MEDS ORDERED: ONDANSETRON HCL/PF 4 MG/2 ML VIAL IVP PRN (13:00)
[2019-05-11] MEDS ORDERED: HYDROCODONE/APAP 5/325MG 1 EACH TABLET PO PRN (13:00)
[2019-05-11] MEDS ORDERED: NITROGLYCERIN 0.4 MG/TAB BOTTLE SL PRN (13:00)
[2019-05-11] MEDS ORDERED: ACETAMINOPHEN 325 MG TABLET PO PRN (13:00)
[2019-05-11] MEDS ORDERED: ZOLPIDEM TARTRATE 5 MG TABLET PO PRN (13:00)
[2019-05-11] MEDS ORDERED: MORPHINE SULFATE INJ 2 MG/ML DISP.SYRIN ONE (13:09)
--- NOTE | 2019-05-11 13:12 | NUR ---
PA REYMUNDO AT BEDSIDE
--- NOTE | 2019-05-11 13:25 | NUR ---
REPORT GIVEN TO LISETH OF TELE UNIT
[2019-05-11] MEDS ORDERED: FEE PK DOSING 1 MIN EA MC ONE (13:32)
[2019-05-11 13:51] VITALS: BP 155/106
--- NOTE | 2019-05-11 13:51 | NUR ---
REAL ESTATE TRANSACTION COORDINATOR NOTE RECEIVED REPORT BY Dave IN ER. RECEIVED PATIENT A/OX4, ARRIVED IN [facility] WITH NO SIGN OF DISTRESS AT THIS TIME. PATIENT ON TELE MONITOR AFIB HR 75. PATIENT NON AMBULATORY, TRANSFERRED FROM [facility] TO BED BY TWO NURSES. ON 2L NC, SATURATING 100%. HOB ELEVATED. NO COMPLAIN OF CHEST PAIN OR SOB AT THIS TIME. RIGHT SIDE WEAKNESS NOTED. ACCORDING TO PATIENT HE HAD STROKE 2 YEARS AGO AND AFTER THAT HE IS HAVING RIGHT SIDED WEAKNESS. RIGHT CHEST PERMACATH, DRESSING INTACT. IV LEFT AC #18 VANCOMYCIN RUNNING @ 250 ML/HR. BUE HAS MULTIPLE DISCOLORATION AND BRUISING. LUNGS ARE CLEAR WITH DIMINISHED SOUND ON BOTH LOWER LOBES. AT BEDSIDE. ACCORDING TO PATIENT HAD PERIANAL ABSCESS REMOVAL ON 05/05/2019 AT [facility] AND AFTER THAT PATIENT HAS DIARRHEA. STOOL SAMPLE TO BE COLLECTED. PATIENT HAS DRESSING ON LEFT SHOULDER THREE INCISION NOTED ON LEFT SHOULDER, SKIN INTACT. ACCORDING TO , PATIENT HAD MRI ON Saturday05/08/2019 AT [facility] AND HE HAS THREE ROTATOR CUFF TEAR, AND SOME FLUID TAKEN OUT. PATIENT HAS DIAPER, COMPLAINS OF PERIANAL PAIN. PAIN MEDICATION TO BE GIVEN. WHEELCHAIR AT BEDSIDE. ALL SAFETY MEASURE IN PLACE. BED LOW AND LOCKED. SIDE RAILS UPX2, CALL LIGHT IN REACH. WILL CONT TO MONITOR.
[2019-05-11] MEDS ORDERED: VANCOMYCIN 500 MG in IV D5W 100 ML IV PRN (14:00)
[2019-05-11] MEDS ORDERED: CRESTOR 5 MG PO SCH ×3 (14:00→22:00)
[2019-05-11] MEDS ORDERED: CRESTOR 10 MG PO SCH (14:15)
--- NOTE | 2019-05-11 14:35 | NUR ---
HEMODIALYSES NURSE AT BEDSIDE.
[2019-05-11] MEDS ORDERED: EPOETIN ALFA (10,000 UNIT) 10,000 UNIT/ML VIAL IV ONE (15:30)
--- NOTE | 2019-05-11 15:36 | NUR ---
ACCORDING TO CHARGE NURSE BLU, SINCE PATIENT HAS GOT LAXATIVE AND ENEMA 3 DAYS AGO FOR PERIANAL ABSCESS REMOVAL THERE IS NO NEED TO COLLECT DIARRHEA SAMPLE FOR C-DIFF SCREENING.
[2019-05-11 16:00] VITALS: BP 148/71
--- NOTE | 2019-05-11 16:30 | NUR ---
HD: 2 L OUT.
[2019-05-11 16:42] LABS: BILIRUBIN,DIRECT 0.2 mg/dL (0.0-0.2); BILIRUBIN,TOTAL 0.6 mg/dL (0.2-1.0)
[2019-05-11] MEDS ORDERED: LISINOPRIL (20MG) 20 MG TABLET PO SCH (17:00)
[2019-05-11] MEDS ORDERED: CARVEDILOL 6.25 MG TABLET PO SCH (17:00)
[2019-05-11 17:44] VITALS: BP 148/71
--- NOTE | 2019-05-11 18:30 | NUR ---
PATIENT AND INSISTED TO LEAVE. SAID: ''WE ARE NOT STAYING THE NIGHT, YOU JUST WANT TO CHARGE OUR INSURANCE. HE JUST NEEDED TO GET DIALYSIS." NURSE EXPLAINED HER THAT PER DR. REYES PATIENT NEEDS TO GET DAILY HEMODIALYSIS. ALSO EXPLAINED TO THEM THAT TROPONIN AND BNP IS HIGH AND DR. DWYER HAVE HIM TO BE SEEN BY HYDRAULIC PRESS SERVICER TOMORROW. THEY STILL INSISTED TO LEAVE. SAID: "HIS BNP AND TROPONIN HAS BEEN ALWAYS HIGH, NOTHING HAPPEN TO HIM AND IF ANYTHING HAPPENS THAT IS WHAT IT IS." RISK FACTORS OF LEAVING THE HOSPITALS EXPLAINED BUT THEY STILL WANTED TO LEAVE AND THE SAID:" I'LL BRING HIM TOMORROW FOR HEMODIALYSIS." CHARGE NURSE BLU MADE AWARE. EXPLAINED TO THEM THAT THEY CANNOT JUST DISCHARGE TONIGHT AND READMITTED TOMORROW FOR HEMODIALYSIS. PATIENT'S SAID:' "WE WEILL GO TO THE CENTER THAT WE ALWAYS GO FOR HEMODIALYSIS" AND SAID WE ARE LEAVING ANYWAY. THEY LEAVE AMA. NURSING CLAIM EXAMINER AND ER MADE AWARE BY CHARGE NURSE HURT.
[2019-05-11] MEDS ORDERED: CLONIDINE HCL 0.1 MG TABLET PO SCH (21:00)
[2019-05-12] MEDS ORDERED: FUROSEMIDE 20 MG TABLET PO SCH (09:00)
[2019-05-12] MEDS ORDERED: NIFEdipine XL (30MG) 30 MG TAB PO SCH (09:00)
[2019-05-12] MEDS ORDERED: VIT B CMPLX 3/FA/VIT C/BIOTIN 1 TAB TABLET PO SCH (09:00)
[2019-05-12] MEDS ORDERED: ASPIRIN 81 MG TAB.CHEW PO SCH (09:00)
[2019-05-12] MEDS ORDERED: PAROXETINE HCL 10 MG TABLET PO SCH (09:00)
[2019-05-12] MEDS ORDERED: FLUTICASONE/VILANTEROL 1 EACH BLST.W.DEV IH SCH (09:00)
[2019-05-12] MEDS ORDERED: CEFTRIAXONE 1 G in IV D5W 50 ML IV SCH (12:00)
[2019-06-20] MEDS ORDERED: ALPR0.5T PO (11:14)
[2019-06-21] MEDS ORDERED: HYDR25SU RC (11:47)
[2019-06-29] MEDS ORDERED: NITR12SP7 TL (11:17)
== END 2019-05-11 18:30 | disposition home or self-care (01) | DRG 871 ==
LOC: ER 11:37 → TELE1 13:18
PROVIDERS: ADMIT Hospitalist; ATTEND Hospitalist
PROC: 5A1D70Z Performance of Urinary Filtration, Intermittent, Less than 6 Hours Per Day (ICD-10-PCS; principal; 2019-05-11)
DX: A41.9 Sepsis, unspecified organism (principal); N18.6 End stage renal disease; I21.A1 Myocardial infarction type 2; I50.23 Acute on chronic systolic (congestive) heart failure; I13.2 Hypertensive heart and chronic kidney disease with heart failure and with stage 5 chronic kidney disease, or end stage renal disease; J90 Pleural effusion, not elsewhere classified; I69.351 Hemiplegia and hemiparesis following cerebral infarction affecting right dominant side; Z99.2 Dependence on renal dialysis; Z85.51 Personal history of malignant neoplasm of bladder; Z87.891 Personal history of nicotine dependence; Z79.899 Other long term (current) drug therapy; N40.0 Benign prostatic hyperplasia without lower urinary tract symptoms; F41.9 Anxiety disorder, unspecified; I25.10 Atherosclerotic heart disease of native coronary artery without angina pectoris; I48.91 Unspecified atrial fibrillation; J44.9 Chronic obstructive pulmonary disease, unspecified; Z88.8 Allergy status to other drugs, medicaments and biological substances; Z79.51 Long term (current) use of inhaled steroids; Z79.82 Long term (current) use of aspirin; E78.5 Hyperlipidemia, unspecified; Z98.890 Other specified postprocedural states; D64.9 Anemia, unspecified
CPT/HCPCS: 36415; 71045-TC; 80048-TC; 82247-TC; 82248-TC; 83605-TC; 83880; 84484-TC; 85025-TC; 85730-TC; 87040-TC; 87081-TC; 90935-TC; 93307-TC; G0378; J0696; J0885; J2270; J3370; J7060

== ENCOUNTER 2019-06-10 09:12 | Inpatient (IN) | payer BC ==
[~2019-06-10] VITALS: Ht 175.3 cm; Wt 72.6 kg
[~2019-06-10 09:12] MED LIST changes: -Levofloxacin (250MG) PO
--- NOTE | 2019-06-10 09:19 | NUR ---
BIBRA 60 FROM HOME, C/O SOB, 90% ON ROOM AIR, 97% ON 3LPM VIA NC, ALBUTEROL 5MG GIVEN BY EMS ON SCENE, +NAUSEA AND VOMITING. TO ER BED 5, HOOKED TO MONITOR, CHANGED TO HOSPITAL GOWN, PROVIDED W WARM BLANKET , PATIENT AOX4 . NOTED W WHEEZING. PER , PATIENT WAS NOT ABLE TO HAVE DIALYSIS LAST 06/08 AND 06/10. DR XIE AT BEDSIDE.
[2019-06-10] MEDS ORDERED: predniSONE 20 MG TABLET PO ONE (09:30)
[2019-06-10] MEDS ORDERED: IPRATROPIUM NEB FS 0.5 MG/2.5 ML AMPUL.NEB NEB ONE (09:30)
[2019-06-10] MEDS ORDERED: ALBUTEROL FS 2.5 MG/3 ML VIAL.NEB NEB ONE (09:30)
[2019-06-10] MEDS ORDERED: ALBUTEROL FS 2.5 MG/3 ML VIAL.NEB ONE (09:36)
[2019-06-10] MEDS ORDERED: IPRATROPIUM NEB FS 0.5 MG/2.5 ML AMPUL.NEB ONE (09:36)
--- NOTE | 2019-06-10 09:50 | NUR ---
RT AT BEDSIDE FOR BREATHING TREATMENT
[2019-06-10 09:56] LABS: BASOPHILS % (AUTO) 0.8 % (0.0-2.0); EOSINOPHILS % (AUTO) 0.9 % (0.0-6.0); HEMATOCRIT 27 % (39-51); HEMOGLOBIN 8.7 g/dL (13.5-17.5); LYMPHOCYTES # (AUTO) 0.9 /CMM (0.8-4.8); LYMPHOCYTES % (AUTO) 17.8 % (20.0-44.0); MEAN CORPUSCULAR HGB CONC 32 g/dl (31.0-36.0); MEAN CORPUSCULAR VOLUME 96 fL (80-96); NEUTROPHILS # (AUTO) 3.2 /CMM (1.8-8.9); NEUTROPHILS % (AUTO) 61.5 % (43.0-81.0); PLATELET COUNT (AUTO) 138 /CMM (150-450); RED BLOOD CELL COUNT(AUTO) 2.83 MIL/uL (4.5-6.0); WHITE BLOOD COUNT (AUTO) 5.2 K/uL (4.3-11.0)
--- NOTE | 2019-06-10 10:00 | NUR ---
NEW AUTOS DELIVERY DRIVER AT BEDSIDE FOR XRAY.
[2019-06-10] MEDS ORDERED: APIX5TAB PO (10:03)
[2019-06-10] MEDS ORDERED: TERA5CAP4 PO (10:03)
[2019-06-10] MEDS ORDERED: MIDO10TA PO (10:03)
[2019-06-10] MEDS ORDERED: ISOS60TA4 PO (10:03)
[2019-06-10 10:05] LABS: CALCIUM, SERUM 7.9 mg/dL (8.5-10.1); CARBON DIOXIDE 23 mmol/L (21-32); CHLORIDE 102 mmol/L (98-107); CREATININE 7.3 mg/dL (0.6-1.3); GLUCOSE 105 mg/dL (74-106); POTASSIUM 5.1 mmol/L (3.5-5.1); SODIUM SERUM 136 mmol/L (136-145); UREA NITROGEN, BLOOD 71 mg/dL (7-18)
[2019-06-10] MEDS ORDERED: ALBU2.5V38 IH (10:05)
[2019-06-10] MEDS ORDERED: predniSONE 20 MG TABLET ONE (10:05)
[2019-06-10 10:17] LABS: ALANINE AMINOTRANSFERASE 15 U/L (12-78); ALBUMIN 1.8 g/dL (3.4-5.0); ALKALINE PHOSPHATASE 65 U/L (46-116); ASPARTATE AMINOTRANSFERASE 17 U/L (15-37); BILIRUBIN,DIRECT 0.2 mg/dL (0.0-0.2); TOTAL PROTEIN, SERUM 6.4 g/dL (6.4-8.2)
[2019-06-10 10:37] LABS: B-TYPE NATRIURETIC PEPTIDE 115557 PG/ML (0-125)
--- NOTE | 2019-06-10 10:48 | NUR ---
PAGED EPIC OLIVIER KING.
--- NOTE | 2019-06-10 10:49 | NUR ---
CALLED NURSING SUP FOR TELE BED.
[2019-06-10] MEDS ORDERED: FUROSEMIDE 40 MG/4 ML VIAL IV ONE (11:30)
[2019-06-10] MEDS ORDERED: FUROSEMIDE 40 MG/4 ML VIAL ONE (11:33)
--- NOTE | 2019-06-10 11:38 | NUR ---
REPORT GIVEN TO SIMÓN OF TELE UNIT
[2019-06-10] MEDS ORDERED: MAGNESIUM HYDROXIDE 30 ML UDC PO PRN (12:00)
[2019-06-10] MEDS ORDERED: NITROGLYCERIN 0.4 MG/TAB BOTTLE SL PRN (12:00)
[2019-06-10] MEDS ORDERED: ALBUTEROL SULFATE INH 18 GM HFA.AER.AD IH PRN (12:00)
[2019-06-10] MEDS ORDERED: ZOLPIDEM TARTRATE 5 MG TABLET PO PRN (12:00)
[2019-06-10] MEDS ORDERED: ACETAMINOPHEN 325 MG TABLET PO PRN (12:00)
[2019-06-10] MEDS ORDERED: Z GUARD REMEDY 2 OZ OINT TP PRN (12:00)
[2019-06-10] MEDS ORDERED: MAG HYDROX/AL HYDROX/SIMETH 30 ML UDC PO PRN (12:00)
[2019-06-10] MEDS ORDERED: ONDANSETRON HCL/PF 4 MG/2 ML VIAL IVP PRN (12:00)
[2019-06-10] MEDS ORDERED: MIDODRINE HCL (5MG) 5 MG TABLET PO PRN (12:00)
[2019-06-10] MEDS ORDERED: AZITHROMYCIN 250 MG TABLET PO ONE (12:30)
[2019-06-10] MEDS: IPRATROPIUM NEB FS 0.5 MG/2.5 ML AMPUL.NEB NEB SCH ×3 (13:00→22:36)
[2019-06-10] MEDS: ALBUTEROL FS 2.5 MG/3 ML VIAL.NEB NEB SCH ×3 (13:00→22:36)
[2019-06-10] MEDS: ISOSORBIDE MONONITRATE (30MG) 30 MG TAB.SR.24H PO SCH (15:47)
[2019-06-10 15:49] VITALS: BP 162/89
[2019-06-10 16:00] VITALS: BP 152/89
--- NOTE | 2019-06-10 18:16 | NUR ---
RN OPENING NOTES RECEIVED PATIENT FROM ED VIA JONH. HE IS ZOX3, LETHARGIC, VERBAL, AND UNSTEADY GAIT. HE IS ON 3L OF OXYGEN VIA NC, TOLERATING WELL. EYES ARE PERRLA. UPPER LUNG CONTI ARE CLEAR BILATERALLY. SKIN IS NOT INTACT, BRUISING IS PRESENT ON BILATERAL ARMS AND RIGHT HAND. PT HAD A RECTAL FISSURE WITH A DRAIN IN PLACE, HAS SEROSANGIOUS DRAINAGE. PT ALSO HAS SACRAL REDNESS, WOUND CONSULT HAS BEEN ORDERED, ABDOMEN IS SOFT AND NON DISTENDED, BOWEL SOUNDS ARE ACTIVE. IV SITE ON LEFT EJ, PATENT AND INTACT. PT AT BEDSIDE. DR. ESPINOSA MADE AWARE OF PT ARRIVAL. SAFETY MEASURES HAVE BEEN IMPLEMENTED, CALL LIGHT IS WITHIN REACH, SIDE RAILS UP X2, WILL CONTINUE TO MONITOR FOR ANY CHANGES. Addendum: 06/10/19 at 1824 by PEGGY HODGES RN WRONG TIME DOCUMENTED, 1400
--- NOTE | 2019-06-10 18:24 | NUR ---
RN NOTES PATIENT HAS REMOVED EJ IV LINE ON ACCIDENT, PT IS HARDSTICK, WAITING FOR MIDLINE INSERTION, NURSING USER EXPERIENCE DESIGNER AWARE.
--- NOTE | 2019-06-10 18:24 | NUR ---
RN NOTES PATIENTS IS REFUSING THE HEPATITS TITER, STATES "I DO NOT WANT ANYMORE BLOOD DRAWN, HE DOESNT HAVE HEPATITIS" WILL CONTINUE TO MONITOR FOR ANY CHANGES.
--- NOTE | 2019-06-10 19:21 | NUR ---
RN CLOSING NOTES PATIENT IS RESTING COMFORTABLY IN BED AT THIS TIME, CURRENTLY BEING DIALYZED. PT'S FAMILY VERY PARTICULAR ABOUT CARE PROVIDED TO PATIENT. NO ACUTE CHANGES OCCURRED THROUGHOUT THE DAY, VITAL SIGNS ARE STABLE, PT NEEDS HAVE BEEN MET. SAFETY MEASURES HAVE BEEN IMPLEMENTED, SIDE RAILS UP X2, BED IS IN LOWEST AND LOCKED POSITION, PT HAS BEEN ENDORSED TO NIGHTSHIFT RN FOR CONTINUITY OF CARE.
--- NOTE | 2019-06-10 19:22 | NUR ---
RN OPENING NOTES 1914 RECEIVED PATIENT AWAKE, DIALYSIS CURRENTLY BEING DONE. DIALYSIS NURSE AND FAMILY AT BED SIDE. PATIENT A/O X 3. NOTED ON O2 3LPM VIA NC, TOLERATING WELL. NO SIGNS OF RESPIRATORY DISTRESS. NO SHORTNESS OF BREATH NOTED, BREATHING EVEN AND UNLABORED. JEWEL MIDLINE INTACT AND PATENT, NO SIGNS OF INFECTION/INFILTRATION, S/L, FLUSHED. NO COMPLAINTS OF PAIN OR DISCOMFORT AT THIS TIME. PATIENT IS ADVOCATING FOR HER REGARDING HIS CARE. SAFETY PRECAUTIONS IMPLEMENTED; CALL LIGHT WITHIN REACH, BED LOCKED, BED LOWEST POSITION, BILATERAL UPPER SIDE RAILS UP. WILL CONTINUE TO MONITOR PATIENT.
[2019-06-10 20:00] VITALS: BP 154/74
[2019-06-10] MEDS: APIXABAN 5 MG TABLET PO SCH (20:00)
[2019-06-10] MEDS: CARVEDILOL 6.25 MG TABLET PO SCH (20:28)
--- NOTE | 2019-06-10 20:34 | NUR ---
RN NOTES 2033 PATIENT REQUESTED COREG TO BE GIVEN FOR HIGH BP. PATIENT REFUSED ELIQUIS. BOTH MEDS WERE NOT GIVEN EARLIER 1699 DUE TO DIALYSIS PER DAY SHIFT NURSE.
--- NOTE | 2019-06-10 21:07 | NUR ---
RN NOTES 2106 AND PATIENT REFUSES TO HAVE BED SHEETS FULLY CHANGED, ONLY PARTIAL REARRANGEMENT OF PILLOWS AND COVERS ACCEPTED. JENNIFER, CRISTOFER, AND I EDUCATED AND PATIENT THAT FULL CHANGE SHOULD BE DONE. AND PATIENTS INSISTS ON REFUSING. JENNIFER [place], AND MYSELF BOTH WERE IN THE ROOM. ONLY REPOSITIONING EVERY 2 HOURS IS ACCEPTABLE TO THEM. AND PATIENT ALSO REFUSES TO BE CHANGED, AT THIS TIME. UNABLE TO ASSESS PATIENT SKIN AT THIS TIME DUE TO REFUSAL OF CARE FROM AND PATIENT.
[2019-06-11 01:54] VITALS: BP 114/68
--- NOTE | 2019-06-11 01:54 | NUR ---
RN NOTES 0154 PATIENT TALKING AND MOANING IN HIS SLEEP. ASKS TO TAKE VITALS. VITALS TAKEN, STABLE. I ASKED PATIENT IF HE WANTS PAIN MEDICATION BUT PATIENT DENIES PAIN OR DISCOMFORT. PATIENT SATURATING WELL AT 98% VIA NC 3LPM O2. BREATHING EVEN AND UNLABORED. NO SHORTNESS OF BREATH NOTED. OFFERED A SLEEPING MEDICATION TO PATIENT BUT PATIENT REFUSED. WILL CONTINUE TO MONITOR.
--- NOTE | 2019-06-11 02:03 | NUR ---
RN NOTES 0203 PATIENT AND REFUSES TO HAVE BED SHEETS CHANGED AT THIS TIME. ONLY ACCEPTS REPOSITIONING EVERY 2 HOURS, WITH PARTIAL REARRANGEMENT OF PILLOWS AND SHEETS. INSISTS ON HAVING SHEETS CHANGED AT HER REQUEST. CRISTOFER RODRIGUEZ, AND MYSELF EDUCATED PATIENT ON IMPORTANCE OF FULLY CHANGING THE SHEETS. AND PATIENT ALSO REFUSES TO BE CHANGED, AT THIS TIME. UNABLE TO ASSESS PATIENT SKIN AT THIS TIME DUE TO REFUSAL OF CARE FROM AND PATIENT.
[2019-06-11] MEDS: IPRATROPIUM NEB FS 0.5 MG/2.5 ML AMPUL.NEB NEB SCH ×6 (02:45→23:30)
[2019-06-11] MEDS: ALBUTEROL FS 2.5 MG/3 ML VIAL.NEB NEB SCH ×6 (02:45→23:30)
--- NOTE | 2019-06-11 03:04 | NUR ---
RN NOTES 0304 AND PATIENT REFUSING BREATHING TREATMENTS SCHEDULED STATED BY RTMARY.
[2019-06-11] MEDS: HYDROCODONE/APAP 5/325MG 1 EACH TABLET PO PRN (04:19)
--- NOTE | 2019-06-11 04:19 | NUR ---
RN NOTES 1590 PATIENT STATING HE HAS PAIN 7/10 BACK. REQUESTING PAIN MEDICATION. OFFERED NORCO AND EDUCATED PATIENT AND ABOUT THE RISKS OF TAKING NORCO. ALSO EXPLAINED THAT WE SHOULD TAKE VITALS PRIOR TO ADMINISTRATION TO MONITOR, REFUSES. AND PATIENT UNDERSTANDS THE RISKS AND AGREES PATIENT TO TAKING NORCO. WILL CONTINUE TO MONITOR.
--- NOTE | 2019-06-11 05:33 | NUR ---
RN NOTES 0533 AM LABS ARE NEEDED TO BE DRAWN AT THIS TIME. WILL NOT LET CHEO, FROM LAB, DRAW BLOOD FROM PATIENT. WILL NOT LET ME DRAW BLOOD FROM HIS MIDLINE. INSISTS THAT WE SHOULD NOT TAKE BLOOD FROM PATIENT. PER CHEO, FROM LAB, SOMEONE WILL REATTEMPT TO GET BLOOD FOR LAB.
--- NOTE | 2019-06-11 06:11 | NUR ---
RN NOTES PATIENT'S AGREED TO HAVE US DRAW BLOOD FROM THE PATIENT. ABLE TO GET BLOOD VIA MIDLINE FOR CHEO, FROM LAB.
[2019-06-11 06:40] LABS: BASOPHILS % (AUTO) 0.2 % (0.0-2.0); HEMATOCRIT 22 % (39-51); HEMOGLOBIN 7.3 g/dL (13.5-17.5); LYMPHOCYTES # (AUTO) 0.7 /CMM (0.8-4.8); MEAN CORPUSCULAR HGB CONC 33 g/dl (31.0-36.0); MEAN CORPUSCULAR VOLUME 95 fL (80-96); MONOCYTES # (AUTO) 0.8 /CMM (0.1-1.30); MONOCYTES % (AUTO) 13.6 % (2.0-12.0); NEUTROPHILS # (AUTO) 4.3 /CMM (1.8-8.9); NEUTROPHILS % (AUTO) 74.2 % (43.0-81.0); PLATELET COUNT (AUTO) 132 /CMM (150-450); RED BLOOD CELL COUNT(AUTO) 2.34 MIL/uL (4.5-6.0); WHITE BLOOD COUNT (AUTO) 5.8 K/uL (4.3-11.0)
--- NOTE | 2019-06-11 06:53 | NUR ---
RN CLOSING NOTES PATIENT IS CURRENTLY RESTING IN BED, EASILY AWAKENED THROUGHOUT THE SHIFT. PATIENT HAD ON AND OFF SLEEP, TALKING AND MOANING TO HIMSELF. NO SIGNS OF RESPIRATORY DISTRESS. NO SHORTNESS OF BREATH NOTED, BREATHING EVEN AND UNLABORED. PATIENT'S FAMILY AT BED SIDE THROUGHOUT THE NIGHT, VERY INVOLVED IN PATIENT'S CARE. PATIENT FAMILY AND PATIENT REFUSED CARE SUCH FULLY CHANGING THE BED SHEETS AND CLEANING THE PATIENT. ONLY AND PATIENT AGREED TO HAVE PATIENT REPOSITIONED EVERY 2 HOURS/PRN AND PARTIALLY REARRANGE THE SHEETS AND PILLOWS, MYSELF AND CRISTOFER RODRIGUEZ, WITNESSED AND LISTENED TO THESE DEMANDS. WE INFORMED AND PATIENT HAS TO BE CHANGED, BUT AND PATIENT INSISTS ON REFUSING THROUGHOUT. PATIENT STABLE. SAFETY PRECAUTIONS IMPLEMENTED; CALL LIGHT WITHIN REACH, BED LOWEST POSITION, BED LOCKED, BILATERAL UPPER SIDE RAILS UP. WILL CONTINUE TO MONITOR FOR NOW, THEN WILL ENDORSE TO DAY SHIFT NURSE FOR CONTINUITY OF CARE.
--- NOTE | 2019-06-11 07:10 | NUR ---
MS RN NOTES RECEIVED PATIENT IN BED A/O X4. AT BED SIDE. PATIENT IS HAVING SNACKS. RU MIDLINE #18 PATENT FLUSHED WITH NORMAL SALINE WELL. BED AT THE LOWEST POSITION LOCKED, CALL LIGHT WITHIN REACH. WILL CONTINUE TO MONITOR.
[2019-06-11 07:12] LABS: CALCIUM, SERUM 7.4 mg/dL (8.5-10.1); CARBON DIOXIDE 24 mmol/L (21-32); CHLORIDE 107 mmol/L (98-107); CREATININE 5.7 mg/dL (0.6-1.3); GLUCOSE 137 mg/dL (74-106); MAGNESIUM 2.6 mg/dL (1.8-2.4); PHOSPHORUS 5.1 mg/dL (2.5-4.9); POTASSIUM 4.2 mmol/L (3.5-5.1); SODIUM SERUM 142 mmol/L (136-145); UREA NITROGEN, BLOOD 48 mg/dL (7-18)
[2019-06-11 07:15] LABS: CHOLESTEROL 76 mg/dL (<200); HDL CHOLESTEROL 31 mg/dL (40-60); LDL 44 mg/dL (0-99); TRIGLYCERIDES 36 mg/dL (30-150)
[2019-06-11 08:00] VITALS: BP 118/73
[2019-06-11] MEDS: AZITHROMYCIN 250 MG TABLET PO SCH ×3 (09:00→11:12)
[2019-06-11] MEDS: ASPIRIN 81 MG TAB.CHEW PO SCH ×2 (09:00→11:12)
[2019-06-11] MEDS: NIFEdipine XL (30MG) 30 MG TAB PO SCH (09:00)
[2019-06-11] MEDS: VIT B CMPLX 3/FA/VIT C/BIOTIN 1 TAB TABLET PO SCH (09:42)
[2019-06-11] MEDS: FUROSEMIDE 40 MG TABLET PO SCH (09:43)
--- NOTE | 2019-06-11 09:45 | NUR ---
MS RN NOTES PATIENT STATED THAT HE CANT TAKE ALL MEDS AT THE SAME TIME.
[2019-06-11] MEDS: CARVEDILOL 6.25 MG TABLET PO SCH ×2 (09:46→17:46)
[2019-06-11] MEDS: ISOSORBIDE MONONITRATE (30MG) 30 MG TAB.SR.24H PO SCH (09:47)
[2019-06-11] MEDS: methylPREDNISolone SOD SUCC 40 MG/ML VIAL IV SCH (09:53)
[2019-06-11] MEDS: APIXABAN 5 MG TABLET PO SCH ×2 (10:51→17:00)
--- NOTE | 2019-06-11 10:57 | NUR ---
MS RN NOTES PER DR GHANSHYAM RIDER TO GIVE ELIQUIS AND ASPIRIN. PATIENT REFUSED ASPIRIN , PROCARDIA AND AZITHROMYCIN.
--- NOTE | 2019-06-11 11:00 | NUR ---
MS RN NOTES PATIENT AGREED TO TAKE HIS MEDICATION IN THE MORNING. ASPIRIN AND AZITHROMYCIN.
[2019-06-11 16:00] VITALS: BP 130/78
[2019-06-11] MEDS: NEPRO VAN 237 ML CAN PO SCH ×2 (17:46→17:52)
--- NOTE | 2019-06-11 17:49 | NUR ---
MS RN NOTES ELIQUIS NOT ADMINISTERED DUE TO BLOOD IN THE BOWL MOVEMENT.
--- NOTE | 2019-06-11 19:45 | NUR ---
MS RN NOTES RECEIVED ON BED A/ X2-3, BREATHING NON LABORED,O2 IN USED AT 3L/NC TO KEEP O2 SAT ABOVE 90%.WITH JEWEL MIDLINE FOR MEDS. AT BEDSIDE.BAO DISCOMFORTS AT THE MOMENT.CALL LIGHT IN REACH,NEEDS ANTICIPATED.
[2019-06-11 20:00] VITALS: BP 150/84
--- NOTE | 2019-06-11 20:15 | NUR ---
MS RN NOTES INFORMED DR JOYA ABOUT THE BLOODY BOWEL MOVEMENT. DR ABAD.
--- NOTE | 2019-06-11 20:16 | NUR ---
MS RN NOTES PATIENT IN BED. NO SOB OR DISCOMFORT REPORTED BY PATIENT. ALL NEEDS ATTENDED. ENDORSED TO PACKAGING SALES CONSULTANT NURSE FOR JONATAN.
--- NOTE | 2019-06-11 22:00 | NUR ---
MS RN NOTES HAD RECTAL FISSURE/FISTULA TWO WEEKS AGO AT [facility] ,SLIGHT BLEEDING NOTED,DRAINS IN PLACE
[2019-06-12] VITALS: BP 126/70
[2019-06-12] MEDS: ALBUTEROL FS 2.5 MG/3 ML VIAL.NEB NEB SCH ×6 (03:30→23:44)
[2019-06-12] MEDS: IPRATROPIUM NEB FS 0.5 MG/2.5 ML AMPUL.NEB NEB SCH ×6 (03:30→23:43)
[2019-06-12 06:00] VITALS: BP 130/76
--- NOTE | 2019-06-12 06:45 | NUR ---
MS RN NOTES.NO SIGNIFICANT CHANGE IN STATUS,SLEPT WELL, AT BEDSIDE.[facility] JONATAN.
[2019-06-12 07:16] LABS: BASOPHILS # (AUTO) 0.1 /CMM (0.0-0.2); EOSINOPHILS % (AUTO) 0.1 % (0.0-6.0); HEMATOCRIT 24 % (39-51); HEMOGLOBIN 7.8 g/dL (13.5-17.5); LYMPHOCYTES # (AUTO) 0.9 /CMM (0.8-4.8); LYMPHOCYTES % (AUTO) 12.4 % (20.0-44.0); MEAN CORPUSCULAR HGB CONC 33 g/dl (31.0-36.0); MEAN CORPUSCULAR VOLUME 96 fL (80-96); MONOCYTES % (AUTO) 14.4 % (2.0-12.0); NEUTROPHILS % (AUTO) 72.1 % (43.0-81.0); PLATELET COUNT (AUTO) 165 /CMM (150-450); WHITE BLOOD COUNT (AUTO) 6.9 K/uL (4.3-11.0)
[2019-06-12 07:38] LABS: CALCIUM, SERUM 7.6 mg/dL (8.5-10.1); CARBON DIOXIDE 23 mmol/L (21-32); CHLORIDE 104 mmol/L (98-107); CREATININE 6.5 mg/dL (0.6-1.3); GLUCOSE 121 mg/dL (74-106); POTASSIUM 4.4 mmol/L (3.5-5.1); SODIUM SERUM 141 mmol/L (136-145); UREA NITROGEN, BLOOD 60 mg/dL (7-18)
[2019-06-12 08:00] VITALS: BP_SYST 145; BP_SYST 148; BP_DIAS 104; BP_DIAS 89
[2019-06-12] MEDS: NEPRO VAN 237 ML CAN PO SCH ×2 (08:00→17:00)
--- NOTE | 2019-06-12 09:22 | NUR ---
WOUND CARE CONSULT: PT HAVING DIALYSIS AT THIS TIME AND WAS NOT TURNED FOR SKIN ASSESSMENT. DEFER TO MD/SURGEON FOR RECTAL DRAIN. RECOMMENDATIONS MADE FOR SKIN PROTECTION. DISCUSSED WITH NURSING STAFF. WILL SEE PRN.
--- NOTE | 2019-06-12 09:43 | NUR ---
alert, oriented, and able to feed self, fed him instead. Per patient's report, on HD since jul, still urinates once daily. On HD at this time. demanded to see lab results today, and insists patient have blood transfusion. Advised her to wait for the physician to see the patient, first. all po meds HELD until HD completed
[2019-06-12] MEDS: AZITHROMYCIN 250 MG TABLET PO SCH (10:11)
[2019-06-12] MEDS: ASPIRIN 81 MG TAB.CHEW PO SCH (10:11)
[2019-06-12] MEDS: methylPREDNISolone SOD SUCC 40 MG/ML VIAL IV SCH (10:11)
[2019-06-12] MEDS: NIFEdipine XL (30MG) 30 MG TAB PO SCH (10:13)
[2019-06-12] MEDS: APIXABAN 5 MG TABLET PO SCH ×2 (10:14→17:00)
[2019-06-12] MEDS: VIT B CMPLX 3/FA/VIT C/BIOTIN 1 TAB TABLET PO SCH (10:14)
[2019-06-12] MEDS: CARVEDILOL 6.25 MG TABLET PO SCH ×2 (10:15→17:00)
[2019-06-12] MEDS: ISOSORBIDE MONONITRATE (30MG) 30 MG TAB.SR.24H PO SCH (10:19)
[2019-06-12] MEDS: FUROSEMIDE 40 MG TABLET PO SCH (10:20)
--- NOTE | 2019-06-12 10:43 | NUR ---
WOUND CARE: PT SEEN FOR SKIN ASSESSMENT AND NOTED TO HAVE KY DRAIN TO ANAL OPENING AND RT BUTTOCK, PRESENT ON ADMISSION. SMALL AMOUNT OF SEROSANGUINOUS/BROWN DRAINAGE NOTED. RECOMMEND SURGICAL CONSULT. PMD AWARE OF RECOMMENDATION. RECOMMENDATIONS MADE FOR SKIN PROTECTION AND DISCUSSED WITH NURSING STAFF. WILL SEE PRN.
--- NOTE | 2019-06-12 10:48 | NUR ---
completed HD after 2hrs, 1.5liters out. alert, oriented, and no complaint. checked anal area, [place] as drain, mucuous serosanguinous drainage on diaper, other than that, no open areas noted on the area, together with wound care. needs turn and reposition at least every 4hrs, also participates in the care
--- NOTE | 2019-06-12 12:26 | NUR ---
seen both by attending and nephro, brought to the attending's attention about patient's H & H, insists patient have blood transfusion, with hgb 7.8, per attending, " not in transfusion range of admission", no new orders from nephro. made aware
[2019-06-12 16:00] VITALS: BP 177/89
--- NOTE | 2019-06-12 17:38 | NUR ---
at the bedside, and patient's advocate. per 's report, " did not see either the attending or intervention teacher", and she wants to get updated on her 's condition. I explained both already saw the patient, AND no new orders written. Not satified with the drs's services, adamantly insists to sign AMA for . Asked whether author can call either attending or intervention teacher for her to talk, declined the offer. explained how AMA worked, ignored ; called ambulance self, and " willing to pay for services. signed the AMA form, and ready to go when ambulance arrives. JEWEL midline out, personal belongings returned. Patient discharged to home with , by ambulance
--- NOTE | 2019-06-12 18:24 | NUR ---
Now cancelled the ama, she called the ambulance herself for cancellation. Charge nurse made aware.
[2019-06-12 20:00] VITALS: BP 131/85
--- NOTE | 2019-06-12 20:00 | NUR ---
MS RN NOTES RECEIVED PATIENT ASLEEP IN BED WITH NO DISTRESS NOTED. CALL LIGHT WITHIN REACH. AT BEDSIDE. RUC P.CATH INTACT WITH NO BLEEDING OR SWELLING NOTED. NO C/O PAIN OR DISCOMFORT. BED IN LOW LOCK SETTING. ROOM FREE OF CLUTTER AND BELONGINGS KEPT NEAR BEDSIDE. WILL CONTINUE TO MONITOR.
[2019-06-12] MEDS: HYDROCODONE/APAP 5/325MG 1 EACH TABLET PO PRN (22:41)
[2019-06-13] MEDS: IPRATROPIUM NEB FS 0.5 MG/2.5 ML AMPUL.NEB NEB SCH ×4 (03:30→15:30)
[2019-06-13] MEDS: ALBUTEROL FS 2.5 MG/3 ML VIAL.NEB NEB SCH ×4 (03:30→15:30)
--- NOTE | 2019-06-13 06:17 | NUR ---
MS YULISSA NOTES RECEIVED PATIENT ASLEEP IN BED WITH NO DISTRESS NOTED. CALL LIGHT WITHIN REACH. AT BEDSIDE. NO C/O FURTHER PAIN OR DISCOMFORT. PERIPHERAL LINE INTACT AND PATENT. BED IN LOW LOCK SETTING. ROOM FREE OF CLUTTER AND BELONGINGS KEPT NEAR BEDSIDE. BED. WILL CONTINUE TO MONITOR. Addendum: 06/13/19 at 0720 by RAMONA BARRERA RN ERROR
--- NOTE | 2019-06-13 07:20 | NUR ---
MS RN NOTES RECEIVED PATIENT ASLEEP IN BED WITH NO DISTRESS NOTED. CALL LIGHT WITHIN REACH. AT BEDSIDE. NO C/O FURTHER PAIN OR DISCOMFORT. KY DRAIN INTACT. BED IN LOW LOCK SETTING. ROOM FREE OF CLUTTER AND BELONGINGS KEPT NEAR BEDSIDE. BED. WILL CONTINUE TO MONITOR.
[2019-06-13 07:40] LABS: BASOPHILS % (AUTO) 0.1 % (0.0-2.0); HEMATOCRIT 23 % (39-51); HEMOGLOBIN 7.5 g/dL (13.5-17.5); LYMPHOCYTES # (AUTO) 0.7 /CMM (0.8-4.8); LYMPHOCYTES % (AUTO) 10.3 % (20.0-44.0); MEAN CORPUSCULAR HGB CONC 32 g/dl (31.0-36.0); MEAN CORPUSCULAR VOLUME 97 fL (80-96); MONOCYTES # (AUTO) 1.1 /CMM (0.1-1.30); MONOCYTES % (AUTO) 15.2 % (2.0-12.0); NEUTROPHILS # (AUTO) 5.2 /CMM (1.8-8.9); NEUTROPHILS % (AUTO) 74.4 % (43.0-81.0); PLATELET COUNT (AUTO) 187 /CMM (150-450)
[2019-06-13 07:44] LABS: CALCIUM, SERUM 7.8 mg/dL (8.5-10.1); CARBON DIOXIDE 25 mmol/L (21-32); CHLORIDE 106 mmol/L (98-107); GLUCOSE 140 mg/dL (74-106); POTASSIUM 3.7 mmol/L (3.5-5.1); SODIUM SERUM 143 mmol/L (136-145)
--- NOTE | 2019-06-13 07:52 | NUR ---
RN MS NOTES PT IN BED, ASLEEP, NO SIGN OF PAIN OR DISTRESS, CALL LIGHT WITHIN REACH, AT BEDSIDE.
[2019-06-13 07:55] LABS: CREATININE 5.3 mg/dL (0.6-1.3); UREA NITROGEN, BLOOD 54 mg/dL (7-18)
[2019-06-13] MEDS: VIT B CMPLX 3/FA/VIT C/BIOTIN 1 TAB TABLET PO SCH (08:28)
[2019-06-13] MEDS: ASPIRIN 81 MG TAB.CHEW PO SCH (08:28)
[2019-06-13] MEDS: AZITHROMYCIN 250 MG TABLET PO SCH (08:28)
[2019-06-13] MEDS: NEPRO VAN 237 ML CAN PO SCH ×2 (08:33→16:24)
[2019-06-13] MEDS: methylPREDNISolone SOD SUCC 40 MG/ML VIAL IV SCH (08:50)
[2019-06-13] MEDS: ISOSORBIDE MONONITRATE (30MG) 30 MG TAB.SR.24H PO SCH (08:51)
[2019-06-13] MEDS: FUROSEMIDE 40 MG TABLET PO SCH (08:51)
[2019-06-13] MEDS: NIFEdipine XL (30MG) 30 MG TAB PO SCH (08:51)
[2019-06-13] MEDS: APIXABAN 5 MG TABLET PO SCH ×2 (08:51→17:00)
[2019-06-13] MEDS: CARVEDILOL 6.25 MG TABLET PO SCH ×2 (08:51→16:24)
--- NOTE | 2019-06-13 08:52 | NUR ---
RN MS NOTES BP MEDS AND LASIX HELD, PT FOR POSSIBLE DIALYSIS TODAY, BP WNL, SOLUMEDROL NOT ADMIN, PT'S FAMILY REFUSES IV START.
[2019-06-13 09:57] LABS: BAND % (MANUAL) 1 % (0.0-5.0); EOSINOPHILS % (MANUAL) 1 % (0-4); LYMPHOCYTES % (MANUAL) 7 % (16-48); MONOCYTES % (MANUAL) 14 % (0-11.0); NEUTROPHILS % (MANUAL) 77 (42-76)
--- NOTE | 2019-06-13 11:01 | NUR ---
RN MS NOTES PT IN BED, DIALYSIS ONGOING, SEEN BY DR. FRANCISCA MD AWARE OF PT AND 'S ATTEMPT TO LEAVE AMA, TOLERATING PROCEDURE WELL, ALSO SEEN BY PHYSICAL THERAPIST, KEPT WARM AND COMFORTABLE IN BED.
[2019-06-13 16:00] VITALS: BP 161/75
[2019-06-13] MEDS ORDERED: ALBUMIN 25% 12.5 GM in PREMIX 1 EA IV ONE (16:00)
[2019-06-13 16:24] VITALS: BP 161/75
--- NOTE | 2019-06-13 17:09 | NUR ---
RN MS NOTES ELIQUIS NOT GIVEN, LOW H/H, NO S/S OF BLEEDING.
--- NOTE | 2019-06-13 17:42 | NUR ---
RN MS NOTES PT IN BED, AWAKE, ALERT AND ORIENTED, DENIES PAIN, NOT IN DISTRESS, SEEN BY DR. ALEXANDRE EARLIER, CLEARED FOR D/C, PT COMPLETED DIALYSIS TODAY, TOLERATED WELL, DISCHARGE ORDER GIVEN BY DR. ESPINOSA, PT TO GO HOME WITH , DISCHARGE AND MEDICATION AND FOLLOW UP INSTRUCTIONS PROVIDED TO PT AND , VERBALIZED UNDERSTANDING, SKIN ASSESSMENT DONE, BELONGINGS ACCOUNTED FOR, PICKED UP BY 2 AMBULANCE PERSONNEL, LEFT VIA GUERNEY IN STABLE CONDITION.
== END 2019-06-13 17:40 | disposition home or self-care (01) | DRG 291 ==
LOC: ER 09:13 → TELE1 11:47 → MEDSG1 12:43
PROVIDERS: ADMIT Family Medicine; ATTEND Family Medicine
PROC: 5A1D70Z Performance of Urinary Filtration, Intermittent, Less than 6 Hours Per Day (ICD-10-PCS; principal; 2019-06-10)
PROC: 05H933Z Insertion of Infusion Device into Right Brachial Vein, Percutaneous Approach (ICD-10-PCS; principal; 2019-06-10)
DX: I13.2 Hypertensive heart and chronic kidney disease with heart failure and with stage 5 chronic kidney disease, or end stage renal disease (principal); N18.6 End stage renal disease; E43 Unspecified severe protein-calorie malnutrition; I50.33 Acute on chronic diastolic (congestive) heart failure; J44.1 Chronic obstructive pulmonary disease with (acute) exacerbation; J90 Pleural effusion, not elsewhere classified; I48.91 Unspecified atrial fibrillation; Z86.73 Personal history of transient ischemic attack (TIA), and cerebral infarction without residual deficits; Z99.2 Dependence on renal dialysis; Z85.51 Personal history of malignant neoplasm of bladder; N40.0 Benign prostatic hyperplasia without lower urinary tract symptoms; E88.09 Other disorders of plasma-protein metabolism, not elsewhere classified; D63.8 Anemia in other chronic diseases classified elsewhere; Z99.81 Dependence on supplemental oxygen; Z91.19 Patient's noncompliance with other medical treatment and regimen; Z87.891 Personal history of nicotine dependence; Z79.899 Other long term (current) drug therapy; Z79.82 Long term (current) use of aspirin; Z79.01 Long term (current) use of anticoagulants; F41.9 Anxiety disorder, unspecified; Z88.8 Allergy status to other drugs, medicaments and biological substances; Z79.51 Long term (current) use of inhaled steroids
CPT/HCPCS: 36415; 71045-TC; 80048-TC; 80061-TC; 80076-TC; 82962-TC; 83735-TC; 83880; 84100-TC; 84484-TC; 85025-TC; 86706; 87081-TC; 87340; 90935-TC; 94799-TC; 97116-TC; 97530-TC; A4216; G0378; J1940; J2920; J7030; P9047

== ENCOUNTER 2019-06-14 04:28 | Inpatient (IN) | payer BC ==
[~2019-06-14] VITALS: Ht 170.2 cm; Wt 72.1 kg
[2019-06-14] VITALS (31 sets, daily range): BP systolic 93–166; BP diastolic 45–90
[~2019-06-14 04:28] MED LIST changes: +ALBU2.5V38 IH; +APIX5TAB PO; -CLON0.2T PO; +ISOS60TA4 PO; -LISI-603 PO; +MIDO10TA PO; -PARO10TA86 PO; -PRED50TA PO; -ROSU5TAB PO; +TERA5CAP4 PO; -UMEC1BLS IH
--- NOTE | 2019-06-14 04:30 | NUR ---
PT BIBRA C/O SOB SINCE 399. PT DYSPNIC AND TACHYNPIC. RESPIRATIONS LABORED. PT TALKING IN ONE TO TWO WORD SENTENCES. PT PLACED ON CPAP ENROUTE TO ER. PT AXO4. PT PUT ON THE BIOMEDICAL PHOTOGRAPHER AND PULSE OX.
--- NOTE | 2019-06-14 04:30 | NUR ---
ER MD AND RT AT BEDSIDE.
[2019-06-14] MEDS ORDERED: NTG 50 MG/D5W250 ML BOTTL 250 ML IV ONE ×2 (04:33→05:00)
[2019-06-14 04:44] LABS: BASOPHILS # (AUTO) 0.1 /CMM (0.0-0.2); BASOPHILS % (AUTO) 0.6 % (0.0-2.0); EOSINOPHILS % (AUTO) 0.4 % (0.0-6.0); HEMATOCRIT 28 % (39-51); HEMOGLOBIN 8.8 g/dL (13.5-17.5); LYMPHOCYTES # (AUTO) 1.4 /CMM (0.8-4.8); MEAN CORPUSCULAR HGB CONC 32 g/dl (31.0-36.0); MEAN CORPUSCULAR VOLUME 97 fL (80-96); MONOCYTES # (AUTO) 1.6 /CMM (0.1-1.30); MONOCYTES % (AUTO) 18.9 % (2.0-12.0); NEUTROPHILS # (AUTO) 5.3 /CMM (1.8-8.9); NEUTROPHILS % (AUTO) 63.1 % (43.0-81.0); PLATELET COUNT (AUTO) 282 /CMM (150-450); RED BLOOD CELL COUNT(AUTO) 2.87 MIL/uL (4.5-6.0); WHITE BLOOD COUNT (AUTO) 8.5 K/uL (4.3-11.0)
--- NOTE | 2019-06-14 04:52 | NUR ---
PT PLACE ON BIPAP, FIO2 100% IPAP 15, EPAP 5, RATE 16.
[2019-06-14 04:57] LABS: CALCIUM, SERUM 8.4 mg/dL (8.5-10.1); CARBON DIOXIDE 28 mmol/L (21-32); CHLORIDE 104 mmol/L (98-107); CREATININE 4.5 mg/dL (0.6-1.3); GLUCOSE 98 mg/dL (74-106); POTASSIUM 4.3 mmol/L (3.5-5.1); SODIUM SERUM 141 mmol/L (136-145); UREA NITROGEN, BLOOD 45 mg/dL (7-18)
[2019-06-14 05:08] LABS: LYMPHOCYTES % (MANUAL) 18 % (16-48); MONOCYTES % (MANUAL) 13 % (0-11.0); NEUTROPHILS % (MANUAL) 69 (42-76)
[2019-06-14 05:10] LABS: ALANINE AMINOTRANSFERASE 30 U/L (12-78); ALBUMIN 2.2 g/dL (3.4-5.0); ALKALINE PHOSPHATASE 71 U/L (46-116); ASPARTATE AMINOTRANSFERASE 25 U/L (15-37); B-TYPE NATRIURETIC PEPTIDE 42710 PG/ML (0-125); BILIRUBIN,DIRECT 0.2 mg/dL (0.0-0.2); BILIRUBIN,TOTAL 0.7 mg/dL (0.2-1.0); TOTAL PROTEIN, SERUM 7.2 g/dL (6.4-8.2)
--- NOTE | 2019-06-14 05:33 | NUR ---
PT TOLERATING BIPAP WELL, PT SATURATION 100%. FAMILY AT BEDSIDE.
[2019-06-14 05:35] LABS: ABG BASE EXCESS 0.4 mmol/L; ABG OXYGEN SATURATION 99.7 % (92.0-98.5); ABG PCO2 35.2 mmHg (35.0-45.0); ABG PH 7.455 (7.350-7.450); ABG PO2 403.6 mmHg (75.0-100.0); AaDO2 274.2 mmHg; COHb 1.8 % (0.5-1.5); MetHb 0.1 % (0.0-1.5); O2Hb 97.8 % (94.0-97.0); PEEP,BG 5 cm H2O; SITE, ABG Right Radial; VENT MODE, BG ST
--- NOTE | 2019-06-14 05:48 | NUR ---
REPORT GIVEN TO HODA DUENAS FOR JONATAN.
[2019-06-14] MEDS ORDERED: MAGNESIUM HYDROXIDE 30 ML UDC PO PRN (06:00)
[2019-06-14] MEDS ORDERED: Z GUARD REMEDY 2 OZ OINT TP PRN (06:00)
[2019-06-14] MEDS ORDERED: ZOLPIDEM TARTRATE 5 MG TABLET PO PRN (06:00)
[2019-06-14] MEDS ORDERED: NITROGLYCERIN 0.4 MG/TAB BOTTLE SL PRN (06:00)
[2019-06-14] MEDS ORDERED: ONDANSETRON HCL/PF 4 MG/2 ML VIAL IVP PRN (06:00)
[2019-06-14] MEDS ORDERED: MAG HYDROX/AL HYDROX/SIMETH 30 ML UDC PO PRN (06:00)
[2019-06-14] MEDS ORDERED: ACETAMINOPHEN 325 MG TABLET PO PRN (06:00)
--- NOTE | 2019-06-14 06:00 | NUR ---
RECEIVED PATIENT FROM ER .WHO PRESENTED TO ER EARLY AM TO SOB.PATIENTWAS JUST DISCHARGED HOME YESTERDAY (06/13/19).PATIENT AWAKE,ALERT,CONVERSES,COHERENT AND APPROPRIATE,NOT IN ANY ACUTE RESPIRATORY DISTRESS, ON BIPAP15/5,FIO2 100%,RATE =16. SAUTRATING 100 % ,PATIENT TOLERATING WELL.ON NITROGLYCERINE DRIP @ 100 MCG/MIN (STARTED IN ER FOR sa=245/104),DENIES ANY CHEST PAIN. Pitts CATH INSERTED IN ER WITH CLEAR YELLOW DRAINAGE. DIALYSIS CATHETER @ RIGHT UPPER CHEST(LAST hd 06/13/19).
[2019-06-14] MEDS ORDERED: FUROSEMIDE 20 MG/2 ML VIAL IV ONE (07:00)
--- NOTE | 2019-06-14 07:30 | NUR ---
PAINTING TRADES WORKER INITIAL NOTE RECEIVED PATIENT ASLEEP, AROUSABLE, DENIES PAIN OR DISCOMFORT. NO RESPIRATORY DISTRESS NOTED AT THIS TIME. ON BIPAP RATE 16, 15/5 FIO2 60%. ON TELE MONITOR AFIB CONTROLLED WITH PVCS, AND INVERTED TWAVE. F/C PATENT, INTACT, DRAINING BY GRAVITY. HOB ELEVATED. SIDE RAILS UP AND LOCKED. BED KEPT LOWEST POSITION. CALL LIGHT KEPT WITHIN EASY REACH. WILL CONTINUE TO MONITOR.
[2019-06-14] MEDS: ALBUTEROL HALF STRENGTH 1.25 MG/3 ML VIAL.NEB NEB SCH ×4 (08:06→20:25)
[2019-06-14] MEDS ORDERED: MIDODRINE HCL (5MG) 5 MG TABLET PO PRN (09:00)
[2019-06-14] MEDS: VIT B CMPLX 3/FA/VIT C/BIOTIN 1 TAB TABLET PO SCH (09:44)
[2019-06-14] MEDS: CARVEDILOL 6.25 MG TABLET PO SCH ×3 (09:45→18:07)
[2019-06-14] MEDS: ISOSORBIDE MONONITRATE (30MG) 30 MG TAB.SR.24H PO SCH (09:45)
[2019-06-14] MEDS: APIXABAN 5 MG TABLET PO SCH ×2 (09:45→18:05)
[2019-06-14] MEDS: ASPIRIN 81 MG TAB.CHEW PO SCH (09:46)
[2019-06-14] MEDS: NIFEdipine XL (30MG) 30 MG TAB PO SCH (09:46)
[2019-06-14] MEDS ORDERED: NEPRO VAN 237 ML CAN PO PRN (14:00)
--- NOTE | 2019-06-14 14:08 | NUR ---
TITLE CURATOR NOTE INFORMED DR. ESPINOSA REGARDING CONCERN OF LEFT ARM. PER , PATIENTS LAST VISIT WITH [facility], THEY HAD TOLD HER PATIENT HAS BLOOD CLOT ON LEFT ARM. DR. ESPINOSA MADE AWARE, PATIENT ON ELIQUIS. NNO AT THIS TIME. PER SON PATIENT DRINKS NEPRO SUPPLEMENT TWICE A DAY, MD MADE AWARE, WITH ORDERS NOTED. WILL CONTINUE TO MONITOR.
--- NOTE | 2019-06-14 15:30 | NUR ---
agricultural produce washer note patient c/o of burning sensation at stokes catheter site. patient requested to have stokes catheter removed. stokes catheter removed with no complications. will continue to monitor.
--- NOTE | 2019-06-14 15:49 | NUR ---
curriculum counselor note spoke with jessica mejía to receive consent for dialysis. per jessica davis to dialyze patient Addendum: 06/14/19 at 1553 by MARIANN BROWN RN dialysis nurse at bedside
[2019-06-14] MEDS: FUROSEMIDE 40 MG/4 ML VIAL IV SCH ×2 (17:00→18:06)
--- NOTE | 2019-06-14 17:55 | NUR ---
UNIX MANAGER NOTE PATIENT COMPLETED DIALYSIS 1.5L OUT. WILL CONTINUE TO MONITOR.
--- NOTE | 2019-06-14 17:56 | NUR ---
PARTS WASHER NOTE 0930: BIPAP REMOVED AND PLACED ON 3LPMO2 VIA NC. ATE 50% OF BREAKFAST. WILL CONTINUE TO MONITOR. 1233: PATIENT REQUESTED TO BE PLACED BACK ON BIPAP, STATES HE HAS SOB. WILL CONTINUE TO MONITOR.
--- NOTE | 2019-06-14 19:35 | NUR ---
RN NOTES RECEIVED PATIENT WITH BIPAP RATE 16 AND 15/5 TOLERATED WELL SATURATION 96%. ON TELE MONITOR REVEALS A- FIB CONTROLLED WITH INVERTED T WAVE . PATIENT IS AOX3 ABLE TO VERBALIZED NEEDS. DENIES PAIN OR CHEST PAIN OR SOB. IV SITE ON LAC G 18 HL INTACT AND PATENT AND RIGHT SUBCLAVIAN HD CATH DRESSING INTACT. AFEBRILE. VSS KEPT PT CLEAN AND DRY. CALL LIGHT KEPT WITHIN EASY REACH. WILL CONTINUE TO MONITOR.
--- NOTE | 2019-06-14 20:07 | NUR ---
VOLLEYBALL REFEREE CLOSING NOTE PATIENT SLEEPING COMFORTABLY WITH BIPAP ON. NO RESPIRATORY DISTRESS NOTED. KEPT CLEAN AND DRY. HOB ELEVATED. SIDE RAILS UP AND LOCKED. BED KEPT AT LOWEST POSITION. CALL LIGHT KEPT WITHIN EASY REACH. CONTINUITY OF CARE ENDORSED TO PM NURSE.
--- NOTE | 2019-06-14 20:45 | NUR ---
RN NOTES PATIENT BIPAP REMOVED PER HE WILL DRINK HIS NEPHRO. RT REMOVED BIPAP AND TOLERATED WELL SATURATION 95% WILL PUT BIPAP BACK PATIENT TOLERANCE AND REQUESTED
[2019-06-15] VITALS (42 sets, daily range): BP systolic 104–157; BP diastolic 51–87
--- NOTE | 2019-06-15 01:30 | NUR ---
RN NOTES BIPAP OFF AGAIN PT REQUESTED. PLACED ON NC @ 3LPM . WILL CLOSELY MONITOR
[2019-06-15 04:47] LABS: BASOPHILS % (AUTO) 0.3 % (0.0-2.0); EOSINOPHILS % (AUTO) 0.7 % (0.0-6.0); HEMATOCRIT 22 % (39-51); LYMPHOCYTES # (AUTO) 0.9 /CMM (0.8-4.8); LYMPHOCYTES % (AUTO) 19.5 % (20.0-44.0); MEAN CORPUSCULAR HGB CONC 32 g/dl (31.0-36.0); MEAN CORPUSCULAR VOLUME 96 fL (80-96); MONOCYTES # (AUTO) 0.9 /CMM (0.1-1.30); MONOCYTES % (AUTO) 19.5 % (2.0-12.0); NEUTROPHILS # (AUTO) 2.9 /CMM (1.8-8.9); PLATELET COUNT (AUTO) 215 /CMM (150-450); RED BLOOD CELL COUNT(AUTO) 2.25 MIL/uL (4.5-6.0); WHITE BLOOD COUNT (AUTO) 4.8 K/uL (4.3-11.0)
[2019-06-15 05:12] LABS: CALCIUM, SERUM 7.4 mg/dL (8.5-10.1); CARBON DIOXIDE 25 mmol/L (21-32); CHLORIDE 105 mmol/L (98-107); CREATININE 5.3 mg/dL (0.6-1.3); GLUCOSE 99 mg/dL (74-106); MAGNESIUM 2.2 mg/dL (1.8-2.4); PHOSPHORUS 4.4 mg/dL (2.5-4.9); POTASSIUM 4.3 mmol/L (3.5-5.1); SODIUM SERUM 140 mmol/L (136-145); UREA NITROGEN, BLOOD 58 mg/dL (7-18)
[2019-06-15 05:14] LABS: CHOLESTEROL 88 mg/dL (<200); HDL CHOLESTEROL 35 mg/dL (40-60); LDL 49 mg/dL (0-99); TRIGLYCERIDES 46 mg/dL (30-150)
[2019-06-15 05:38] LABS: B-TYPE NATRIURETIC PEPTIDE 93991 PG/ML (0-125)
[2019-06-15 06:45] LABS: LYMPHOCYTES % (MANUAL) 19 % (16-48); MONOCYTES % (MANUAL) 10 % (0-11.0); NEUTROPHILS % (MANUAL) 71 (42-76)
--- NOTE | 2019-06-15 06:58 | NUR ---
RN NOTES 0600 AM - PATIENT IS AWAKE CAME AND INFORMED PATIENT AND REGARDING HEMOGLOBIN 7.O SPOKE AND REPORTED TO DR. YBARRA WITH NEW ORDER TO GIVE 1 UNIT PRBC SPOKE WITH GRACE (SON) VIA PHONE WELL AND GET THE CONSENT FOR BLOOD TRANSFUSION , PER PATIENT TO LET THE SIGN THE CONSENT. PATIENT IS IN STABLE CONDITION, NO ACTIVE BLEEDING NOTED. SATURATION REMAINED >95% EVEN WITH NC. REQUESTED TO PLACED BIPAP ON FOR ABOUT 1 HOUR OR HOUR AND HALF. RT PLACED BIPAP. KEPT PT CLEAN AND DRY BMX2. NO SIGNIFICANT JONATAN THROUGHOUT THE SHIFT. ENDORSED CONTINUITY OF CARE TO AM NURSE. PER GRACE(SON) AND TO CHANGE MD TO DR. CHEATHAM. AM CHARGE NURSE AWARE
--- NOTE | 2019-06-15 07:30 | NUR ---
agricultural adviser initial note received patient on bipap, alert and oriented. denies pain or discomfort. no distress noted. on tele monitor afib controlled with inverted twave. hob elevated. side rails up and locked. bed kept at lowest position. call light kept within easy reach. will continue to monitor.
[2019-06-15] MEDS: ALBUTEROL HALF STRENGTH 1.25 MG/3 ML VIAL.NEB NEB SCH ×4 (07:51→19:57)
--- NOTE | 2019-06-15 08:00 | NUR ---
curriculum assistant note patient placed on nc to eat breakfast, and requested to be placed back on bipap after breakfast. per patient he felt sob. will continue to monitor.
[2019-06-15] MEDS: APIXABAN 5 MG TABLET PO SCH (09:28)
[2019-06-15] MEDS: ASPIRIN 81 MG TAB.CHEW PO SCH (09:29)
[2019-06-15] MEDS: VIT B CMPLX 3/FA/VIT C/BIOTIN 1 TAB TABLET PO SCH (09:30)
[2019-06-15] MEDS: CARVEDILOL 6.25 MG TABLET PO SCH ×2 (09:31→17:12)
[2019-06-15] MEDS: FUROSEMIDE 40 MG/4 ML VIAL IV SCH (09:31)
[2019-06-15] MEDS: NIFEdipine XL (30MG) 30 MG TAB PO SCH (09:39)
[2019-06-15] MEDS: ISOSORBIDE MONONITRATE (30MG) 30 MG TAB.SR.24H PO SCH (09:39)
--- NOTE | 2019-06-15 09:49 | NUR ---
HOG COOLER NOTE PATIENT RESTING COMFORTABLY ON 3LPM NC. NO DISTRESS AT THIS TIME. RECEIVED CALL FROM DIALYSIS NURSE, INFORMED HIM REGARDING REQUEST TO ONLY HAVE DIALYSIS FOR ONE HOUR. AGREED TO HAVE DIALYSIS. REQUESTED FOR CHEST XRAY. DR. PERSON INFORMED, WITH ORDERS NOTED. WILL CONTINUE TO MONITOR.
--- NOTE | 2019-06-15 10:21 | NUR ---
horticultural therapist note seen and examined by dr sexton expressed to MD she does not want dr sexton to care for her . MD aware, no other MD will take patient at this time. informed MD regarding patient with little to no urine output. with orders to dc lasix. will continue to monitor.
--- NOTE | 2019-06-15 10:41 | NUR ---
TRUST AND ESTATES PARALEGAL NOTE PATIENT REQUESTED BIPAP C/O SOB AND REQUESTED TO SIT ON THE EDGE OF THE BED. SAT AT EDGE OF BED FOR 10MINS AND LAYED BACK DOWN. WILL CONTINUE TO MONITOR.
--- NOTE | 2019-06-15 11:03 | NUR ---
FINANCIAL ADVISER NOTE DIALYSIS NURSE WITH ONGOING DIALYSIS, BLOOD TRANSFUSION STARTED. WILL CONTINUE TO MONITOR.
--- NOTE | 2019-06-15 11:17 | NUR ---
NO BLOOD TRANSFUSION REACTION AFTER 15MINS OF BLOOD TRANSFUSION.
--- NOTE | 2019-06-15 11:46 | NUR ---
SHOPPING INVESTIGATOR NOTE DIALYSIS COMPLETED, TOLERATED WELL. 1LITER TAKEN OUT
--- NOTE | 2019-06-15 12:41 | NUR ---
HAULING CONTRACTOR NOTE PATIENT ATE FOOD FROM HOME. 50%, THEN WANTED TO PLACE BACK ON BIPAP. RESTING COMFORTABLY AT THIS TIME. WILL CONTINUE TO MONITOR.
--- NOTE | 2019-06-15 15:11 | NUR ---
PUNCH BOX TENDER NOTE SLEEPING COMFORTABLY AT THIS TIME ON 3LPM NC. WILL CONTINUE TO MONITOR.
[2019-06-15] MEDS: IPRATROPIUM NEB FS 0.5 MG/2.5 ML AMPUL.NEB NEB SCH ×2 (16:00→19:57)
--- NOTE | 2019-06-15 17:00 | NUR ---
LIFE SKILLS SPECIALIST NOTE PATIENT C/O ABDOMINAL PAIN, TENDER TO TOUCH, NOTED WITH RIGHT ARM SWELLING, AND PINK STOOL. WITH NEW ORDERS RECEIVED NOTED. WILL CONTINUE TO MONITOR.
[2019-06-15] MEDS: methylPREDNISolone SOD SUCC 125 MG/2ML VIAL IV SCH (17:12)
[2019-06-15 17:34] LABS: HEMOGLOBIN 8.4 g/dL (13.5-17.5)
--- NOTE | 2019-06-15 19:08 | NUR ---
TIN TIE MACHINE OPERATOR AUTOMATIC CLOSING NOTE ALL NEEDS ANTICIPATED AND MET. PATIENT SLEEPING AND RESTING COMFORTABLY AT THIS TIME. ON BIPAP PER REQUEST, TOLERATING WELL. NO DISTRESS NOTED AT THIS TIME. ALL DUE MEDS GIVEN . KEPT CLEAN AND DRY. TURNED AND REPOSITIONED. HOB ELEVATED. SIDE RAILS UP AND LOCKED. BED KEPT AT LOWEST POSITION. CALL LIGHT KEPT WITHIN EASY REACH. CONTINUITY OF CARE ENDORSED TO PM NURSE.
--- NOTE | 2019-06-15 20:00 | NUR ---
CONSULTING SOLUTION DIRECTOR NOTES PATIENT TAKEN OF BIPAP PER REQUEST, PLACED ON O2 VIA NC @ 3LPM, TOLERATING WELL, SPO2 96%. WILL CONTINUE TO CLOSELY MONITOR
--- NOTE | 2019-06-15 20:30 | NUR ---
TRANSFORMATION ANALYST NOTES PATIENT WITH COMPLAINT "I CAN'T BREATH, I NEED THE BIPAP." CURRENTLY ON O2 VIA NC @ 3LPM, SPO2 96%. NO CHANGE IN BREATH SOUNDS UPON AUSCULTATION. NO ACUTE DISTRESS NOTED. EXPLAINED TO PATIENT THAT HIS SPO2 IS WITHIN NORMAL LIMITS WHILE ON O2 VIA NC, NURSE EXPLAINED THAT THERE IS NO NEED FOR BIPAP AT THIS TIME. PATIENT VERBALIZED UNDERSTANDING. COACHING PROVIDED REGARDING DEEP BREATHING EXERCISES AND RELAXATION TECHNIQUES. PATIENT REMAINS ON O2 VIA NC @ 3LPM, TOLERATING WELL. WILL MONITOR CLOSELY
[2019-06-16] VITALS (30 sets, daily range): BP systolic 101–157; BP diastolic 49–81
[2019-06-16] MEDS: IPRATROPIUM NEB FS 0.5 MG/2.5 ML AMPUL.NEB NEB SCH ×7 (00:12→23:26)
[2019-06-16 04:18] LABS: BASOPHILS % (AUTO) 0.2 % (0.0-2.0); HEMATOCRIT 24 % (39-51); HEMOGLOBIN 7.8 g/dL (13.5-17.5); LYMPHOCYTES # (AUTO) 0.5 /CMM (0.8-4.8); LYMPHOCYTES % (AUTO) 13.2 % (20.0-44.0); MEAN CORPUSCULAR HGB CONC 33 g/dl (31.0-36.0); MEAN CORPUSCULAR VOLUME 94 fL (80-96); MONOCYTES # (AUTO) 0.3 /CMM (0.1-1.30); MONOCYTES % (AUTO) 7.5 % (2.0-12.0); NEUTROPHILS # (AUTO) 3.2 /CMM (1.8-8.9); NEUTROPHILS % (AUTO) 79.1 % (43.0-81.0); PLATELET COUNT (AUTO) 181 /CMM (150-450); WHITE BLOOD COUNT (AUTO) 4.1 K/uL (4.3-11.0)
[2019-06-16 04:27] LABS: CALCIUM, SERUM 7.9 mg/dL (8.5-10.1); CARBON DIOXIDE 26 mmol/L (21-32); CHLORIDE 104 mmol/L (98-107); CREATININE 5.2 mg/dL (0.6-1.3); GLUCOSE 191 mg/dL (74-106); SODIUM SERUM 139 mmol/L (136-145); UREA NITROGEN, BLOOD 60 mg/dL (7-18)
[2019-06-16] MEDS: ALBUTEROL FS 2.5 MG/3 ML VIAL.NEB IH PRN (06:07)
--- NOTE | 2019-06-16 06:50 | NUR ---
1464 BEDSIDE REPORT RECEIVED FROM RN HEIDI FOR TRANSFER OF CARE WITH QUESTIONS ANSWERED. TRANSFERRED FROM ICU 74 YEAR OLD MALE VIA BED WITH DX OF RESPIRATORY FAILURE AND ACUTE DIASTOLIC FAILURE. PATIENT AWAKE AND VERBALLY RESPONSIVE. NO SIGNS OF RESPIRATORY DISTRESS. ON O2 AT 3LPM PER NC, SATURATION AT 98%. A-FIB ON THE MONITOR CONTROLLED WITH HR IN THE 80S. VSS. DENIES ANY PAIN OR DISCOMFORT. RIGHT CHEST WALL HD CATH INTACT COVERED WITH CLEAN DRESSING. PIV ON LFA INTACT WITH NO SIGNS OF INFILTRATION. NOTED WITH MULTIPLE BRUISING ON BILATERAL ARMS. KEPT CLEAN AND DRY. CALL LIGHT PLACED WITHIN REACH AND INSTRUCTED TO CALL FOR ASSISTANCE.
--- NOTE | 2019-06-16 06:55 | NUR ---
SANITATION ASSOCIATE NOTES - TRANSFER TO [facility] PATIENT TRANSFERRED TO [facility] VIA ACLS PROTOCOL, TRANSFER TOLERATED WELL, PATIENT'S MADE AWARE OF TRANSFER
[2019-06-16] MEDS: ALBUTEROL HALF STRENGTH 1.25 MG/3 ML VIAL.NEB NEB SCH ×4 (07:28→19:47)
--- NOTE | 2019-06-16 07:55 | NUR ---
GAMAL RN NOTE PATIENT IN BED , AWAKE , ALERT, ON 3L NC WITH SLIGHT SOB NOTED , ON TELE MONITOR AFIB HR 84 LAC HL INTACT , AND FLUSHED WELL , BED IN LOWEST AND LOCKED POSITION , CALL LIGHT WITHIN REACH , WILL MONITOR , PLAN OF CARE DISCUSSED WITH PATIENT Addendum: 06/16/19 at 0758 by DOROTHEA BARRETT RN ON BREATHING TX BY RT
--- NOTE | 2019-06-16 07:58 | NUR ---
WOUND CARE CONSULT: PT PRESENTS WITH KY DRAIN TO ANAL AREA AND RT BUTTOCK, PRESENT ON ADMISSION. PT IS INCONTINENT OF LOOSE STOOL. RECOMMEND SURGICAL CONSULT. DR DANIELA REYES NOTIFIED OF CONSULT REQUEST. WILL SEE PRN. RECOMMENDATIONS MADE FOR SKIN PROTECTION. DISCUSSED WITH NURSING STAFF. IN AGREEMENT WITH PLAN OF CARE. Addendum: 06/16/19 at 0800 by JOSIAH EL WNDNU Amended: Links added.
[2019-06-16] MEDS: NIFEdipine XL (30MG) 30 MG TAB PO SCH (09:04)
[2019-06-16] MEDS: methylPREDNISolone SOD SUCC 125 MG/2ML VIAL IV SCH (09:04)
[2019-06-16] MEDS: ISOSORBIDE MONONITRATE (30MG) 30 MG TAB.SR.24H PO SCH (09:05)
[2019-06-16] MEDS: ASPIRIN 81 MG TAB.CHEW PO SCH (09:05)
[2019-06-16] MEDS: CARVEDILOL 6.25 MG TABLET PO SCH ×2 (09:05→16:34)
[2019-06-16] MEDS: VIT B CMPLX 3/FA/VIT C/BIOTIN 1 TAB TABLET PO SCH (09:06)
--- NOTE | 2019-06-16 12:19 | NUR ---
SCRAP PREPARATION SUPERVISOR NOTE PATIENT HAD THORACENTESIS , REMOVED 1100ML, SENT FLUIDS FOR CYTOLOGY
--- NOTE | 2019-06-16 12:47 | NUR ---
ASSEMBLY MACHINE TENDER NOTE SEEN BY PAT RN SECURITY COORDINATOR SURGERY AWARE THAT DRAIN IN BUTTOCK
--- NOTE | 2019-06-16 13:24 | NUR ---
RT HHN tx given late due to procedure being done with pt and pt request post procedure. No SOB or respiratory distress noted. Addendum: 06/16/19 at 1325 by KEE ORONA RT Amended: Links added.
--- NOTE | 2019-06-16 14:37 | NUR ---
COMPENSATION MANAGER NOTE BY RT BIPAP APPLIED Addendum: 06/16/19 at 1445 by DOROTHEA BARRETT RN HEATING PAD APPLIED RT BUTTOCK FOR 10 MIN ORDERED Addendum: 06/16/19 at 1540 by DOROTHEA BARRETT RN US TECH AT BEDSIDE, DOPPLER STUDY RT UPPER EXTREMITIES DONE
--- NOTE | 2019-06-16 15:57 | NUR ---
TECHNICIAN AUTOMATED EQUIPMENT NOTE ON BREATHING TX BY RT
--- NOTE | 2019-06-16 16:05 | NUR ---
SLICING MACHINE FEEDER NOTE SPOKE WITH DR BOYLE NOTIFIED THAT LT ARM POSITING DVT AWARE THAT PATENT NOT ON XARELTO OR ELIQUIS ONLY ASA 81 MG HG TODAY 7.8 NO NEW ORDER GIVEN AT THIS TIME
[2019-06-16] MEDS: DAKINS QUARTER STRENGTH (0.125%) 480 ML BOTTLE TOP SCH (16:36)
[2019-06-16] MEDS ORDERED: DAKINS HALF STRENGTH (0.25%) 480 ML BOTTLE TOP SCH (17:00)
--- NOTE | 2019-06-16 18:17 | NUR ---
OUTBOUND SALES AGENT NOTE PER DR RAZA RIDER TO RESUME ELIQUIS 5 MG TODAY ,DR BOYLE NOTIFIED
[2019-06-16] MEDS: APIXABAN 5 MG TABLET PO SCH (18:23)
--- NOTE | 2019-06-16 18:37 | NUR ---
POLY OPERATOR NOTE FAMILY AT BEDSIDE, ALL NEEDS ATTENDED, HEATING PAD APPLIED ORDERED ON RT BUTTOCK, KEEP CLEAN DRY , ABLE TO EAT DINNER , CALL LIGHT WITHIN REACH .ALL NEEDS ATTENDED
--- NOTE | 2019-06-16 19:25 | NUR ---
EVENT REPRESENTATIVE NOTE PATIENT RECEIVED IN BED A/O X 3 WITH AT BEDSIDE. PATIENT SLIGHTLY DROWSY. PATIENT DENIES PAIN OR SOB AT THIS TIME. PATIENT O2 SATURATION 96% PATIENT HR CONTROLLED AFIB ON THE MONITOR. PATIENT BAO CHEST PAIN. KY DRAIN ON BUTTOCK NOTED TO BE DRAINING WELL, SEROSANGUINEOUS Addendum: 06/16/19 at 1945 by JESUS SORIANO RN PATIENT MIDLINE PATENT AND INTACT NO S/S OF INFECTION OR INFILTRATION. GOALS AND PLAN OF CARE FOR THIS SHIFT DISCUSSED WITH PATIENT AND FAMILY. BOTH VERBALIZED UNDERSTANDING. RN WILL CONTINUE TO MONITOR FOR CHANGES. CALL LIGHT WITHIN REACH SIDE RAILS UP X3
--- NOTE | 2019-06-16 22:00 | NUR ---
VETERINARY ASSISTANT TECHNICIAN NOTES RECEIVED PATIENT FROM MADELIN DUENAS FOR JONATAN, PATIENT IS A/O X3, AT BED SIDE. PATIENT IS SLEEPY AT THIS TIME. NO COMPLAIN OF PAIN AT THIS TIME. NO SOB. O2 SATURATING 96%. CERTIFIED RECREATIONAL THERAPIST SHOWS A.FIB. NO CHEST PAIN. KY DRAIN ON BUTTOCK FOR CONTINUES OF DRAINAGE. WILL CONTINUE TO MONITOR. PATIENT RECEIVED IN BED A/O X 3 WITH AT BEDSIDE. PATIENT SLIGHTLY DROWSY. PATIENT DENIES PAIN OR SOB AT THIS TIME. PATIENT O2 SATURATION 96% PATIENT HR CONTROLLED AFIB ON THE MONITOR. PATIENT BAO CHEST PAIN. KY DRAIN ON BUTTOCK NOTED TO BE DRAINING WELL, SEROSANGUINEOUS
--- NOTE | 2019-06-16 22:19 | NUR ---
TUBULAR RIVETER NOTE REPORT GIVEN TO YULISSA MCWILLIAMS FOR JONATAN.
[2019-06-17] VITALS: BP 127/72
[2019-06-17] MEDS: IPRATROPIUM NEB FS 0.5 MG/2.5 ML AMPUL.NEB NEB SCH ×6 (03:43→22:50)
[2019-06-17 04:00] VITALS: BP 136/77
[2019-06-17 06:32] LABS: BASOPHILS % (AUTO) 0.1 % (0.0-2.0); EOSINOPHILS % (AUTO) 0.1 % (0.0-6.0); HEMATOCRIT 24 % (39-51); HEMOGLOBIN 7.8 g/dL (13.5-17.5); LYMPHOCYTES # (AUTO) 0.9 /CMM (0.8-4.8); LYMPHOCYTES % (AUTO) 18.1 % (20.0-44.0); MEAN CORPUSCULAR HGB CONC 33 g/dl (31.0-36.0); MEAN CORPUSCULAR VOLUME 95 fL (80-96); MONOCYTES # (AUTO) 0.9 /CMM (0.1-1.30); MONOCYTES % (AUTO) 17.3 % (2.0-12.0); NEUTROPHILS # (AUTO) 3.3 /CMM (1.8-8.9); NEUTROPHILS % (AUTO) 64.4 % (43.0-81.0); PLATELET COUNT (AUTO) 207 /CMM (150-450); WHITE BLOOD COUNT (AUTO) 5.1 K/uL (4.3-11.0)
[2019-06-17 06:53] LABS: CALCIUM, SERUM 7.6 mg/dL (8.5-10.1); CARBON DIOXIDE 24 mmol/L (21-32); CHLORIDE 103 mmol/L (98-107); CREATININE 6.2 mg/dL (0.6-1.3); GLUCOSE 100 mg/dL (74-106); MAGNESIUM 2.4 mg/dL (1.8-2.4); PHOSPHORUS 4.1 mg/dL (2.5-4.9); SODIUM SERUM 141 mmol/L (136-145)
[2019-06-17 06:54] LABS: UREA NITROGEN, BLOOD 81 mg/dL (7-18)
[2019-06-17 07:11] LABS: BAND % (MANUAL) 8 % (0.0-5.0); LYMPHOCYTES % (MANUAL) 15 % (16-48); MONOCYTES % (MANUAL) 15 % (0-11.0); MYELOCYTES % 2 % (0-0); NEUTROPHILS % (MANUAL) 60 (42-76)
--- NOTE | 2019-06-17 07:28 | NUR ---
ESTHETICIAN/SPA COORDINATOR CLOSING NOTE PATIENT IN BED SLEEPING. A/O X 3 WITH AT BEDSIDE. . PATIENT DENIES PAIN OR SOB AT THIS TIME. PATIENT O2 SATURATION 96% PATIENT HR CONTROLLED AFIB ON THE MONITOR. PATIENT BAO CHEST PAIN. KY DRAIN HAD DRAINAGE. BED IS IN LOW LOCKED POSITION, CALL LIGHT WITHIN REACH. WILL ENDORSE THE PATIENT TO AM RN FOR JONATAN.
[2019-06-17] MEDS: ALBUTEROL HALF STRENGTH 1.25 MG/3 ML VIAL.NEB NEB SCH ×4 (07:43→19:53)
[2019-06-17 08:00] VITALS: BP 138/93
[2019-06-17] MEDS: APIXABAN 5 MG TABLET PO SCH ×2 (08:55→18:21)
[2019-06-17] MEDS: CARVEDILOL 6.25 MG TABLET PO SCH ×2 (08:56→18:20)
[2019-06-17] MEDS: ISOSORBIDE MONONITRATE (30MG) 30 MG TAB.SR.24H PO SCH (08:56)
[2019-06-17] MEDS: ASPIRIN 81 MG TAB.CHEW PO SCH (08:56)
[2019-06-17] MEDS: VIT B CMPLX 3/FA/VIT C/BIOTIN 1 TAB TABLET PO SCH (08:56)
[2019-06-17] MEDS: NIFEdipine XL (30MG) 30 MG TAB PO SCH (08:56)
[2019-06-17] MEDS: methylPREDNISolone SOD SUCC 125 MG/2ML VIAL IV SCH (08:57)
[2019-06-17] MEDS: DAKINS QUARTER STRENGTH (0.125%) 480 ML BOTTLE TOP SCH ×3 (09:00→17:00)
[2019-06-17 12:00] VITALS: BP 122/66
[2019-06-17 12:45] LABS: OCCULT BLOOD STOOL POSITIVE (NEGATIVE)
[2019-06-17] MEDS: predniSONE 20 MG TABLET PO SCH (15:46)
[2019-06-17 16:00] VITALS: BP 91/70
--- NOTE | 2019-06-17 18:00 | NUR ---
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 On 3L O2 via NC. No SOB noted throughout shift. Dr. Johnson aware of stool ob+, okay to give eliquis. Small amount of bright red blood visualized x2 in diaper. Picture sent to Dr. verbalizes concern about drain. Per Dr. Johnson, no scan to be done, F/U surgery tomorrow.R CW HD cath intact, aware no IV access. L FA IV removed per order. remains at bedside. No BP on L arm posted above bed.
--- NOTE | 2019-06-17 19:30 | NUR ---
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 PATIENT SLIGHTLY DROWSY. PATIENT DENIES PAIN OR SOB AT THIS TIME. PATIENT O2 SATURATION 96% PATIENT HR CONTROLLED AFIB ON THE MONITOR. PATIENT BAO CHEST PAIN. KY DRAIN ON BUTTOCK NOTED TO BE DRAINING WELL, SEROSANGUINEOUS GOALS AND PLAN OF CARE FOR THIS SHIFT DISCUSSED WITH PATIENT AND FAMILY. BOTH VERBALIZED UNDERSTANDING. RN WILL CONTINUE TO MONITOR FOR CHANGES. CALL LIGHT WITHIN REACH SIDE RAILS UP X3
[2019-06-17 20:00] VITALS: BP 123/60
--- NOTE | 2019-06-17 22:22 | NUR ---
SPINDLE MAKER NOTE PATIENT NOTED TO HAVE MUCOUSY PINK SEROSANGUINEOUS DRAINING IN THE DIAPER. ALARMED AND WORRIED PATIENT IS BLEEDING TOO MUCH AND NOT CLOTTING DUE TO PATIENT RESTARTING ELIQUIS. PATIENT NOTED TO HAVE [place] DRAIN IN LEFT BUTTOCK WITH SEROSANGUINEOUS DISCHARGE. DR. DANIELA REYES.
--- NOTE | 2019-06-17 22:36 | NUR ---
FINANCE ACCOUNTING INTERNSHIP NOTE DR SUAREZ NOTIFIED OF CONTENTS OF DIAPER AND PATIENTS HX OF STARTING ELIQUIS 06/16. PER MD HE WILL REFER TO MORNING MD TO DECIDE WHAT TO DO. PATIENT CONCERNED THAT PATIENT'S HGB WILL DROP, RN ASSURED PATIENT THAT IF THE HGB DROPS WE CAN ALWAYS GIVE BLOOD TRANSFUSIONS. THE HOSPITAL IS THE SAFEST PLACE FOR HIM TO BE TO CONTINUE TO MONITOR THE DRAINAGE AND HGB LEVELS.
--- NOTE | 2019-06-17 23:21 | NUR ---
CAN LABELER NOTE PATIENT CONTINUE TO DENY S/S OF DISTRESS. PATIENT ON BIPAP TOLERATING WELL.
--- NOTE | 2019-06-17 23:43 | NUR ---
BUTTON DECORATING MACHINE OPERATOR NOTE MD DANIELA REYES ASSESSED KY DRAINAGE. DRAINAGE BLOODY WITH PUS. ORDERED STAT CBC
[2019-06-18] VITALS: BP 135/84
[2019-06-18] LABS: BASOPHILS % (AUTO) 0.8 % (0.0-2.0); EOSINOPHILS % (AUTO) 0.1 % (0.0-6.0); HEMATOCRIT 24 % (39-51); HEMOGLOBIN 7.9 g/dL (13.5-17.5); LYMPHOCYTES # (AUTO) 0.4 /CMM (0.8-4.8); LYMPHOCYTES % (AUTO) 7.8 % (20.0-44.0); MEAN CORPUSCULAR HGB CONC 33 g/dl (31.0-36.0); MEAN CORPUSCULAR VOLUME 94 fL (80-96); MONOCYTES # (AUTO) 0.5 /CMM (0.1-1.30); MONOCYTES % (AUTO) 8.5 % (2.0-12.0); NEUTROPHILS # (AUTO) 4.4 /CMM (1.8-8.9); NEUTROPHILS % (AUTO) 82.8 % (43.0-81.0); PLATELET COUNT (AUTO) 207 /CMM (150-450); RED BLOOD CELL COUNT(AUTO) 2.57 MIL/uL (4.5-6.0); WHITE BLOOD COUNT (AUTO) 5.3 K/uL (4.3-11.0)
--- NOTE | 2019-06-18 00:20 | NUR ---
EEO OFFICER NOTE MD REYES NOTIFIED OF HGB 7.9 NO NEW ORDERS GIVEN
[2019-06-18] MEDS: IPRATROPIUM NEB FS 0.5 MG/2.5 ML AMPUL.NEB NEB SCH ×6 (02:54→23:39)
[2019-06-18 04:00] VITALS: BP 149/80
[2019-06-18 06:52] LABS: BASOPHILS % (AUTO) 0.3 % (0.0-2.0); HEMATOCRIT 26 % (39-51); HEMOGLOBIN 8.3 g/dL (13.5-17.5); LYMPHOCYTES # (AUTO) 0.7 /CMM (0.8-4.8); LYMPHOCYTES % (AUTO) 13.6 % (20.0-44.0); MEAN CORPUSCULAR HGB CONC 33 g/dl (31.0-36.0); MEAN CORPUSCULAR VOLUME 95 fL (80-96); MONOCYTES # (AUTO) 0.6 /CMM (0.1-1.30); MONOCYTES % (AUTO) 10.5 % (2.0-12.0); NEUTROPHILS # (AUTO) 4.1 /CMM (1.8-8.9); NEUTROPHILS % (AUTO) 75.6 % (43.0-81.0); PLATELET COUNT (AUTO) 201 /CMM (150-450); RED BLOOD CELL COUNT(AUTO) 2.68 MIL/uL (4.5-6.0); WHITE BLOOD COUNT (AUTO) 5.5 K/uL (4.3-11.0)
[2019-06-18] MEDS: ALBUTEROL HALF STRENGTH 1.25 MG/3 ML VIAL.NEB NEB SCH ×4 (06:56→20:13)
--- NOTE | 2019-06-18 07:10 | NUR ---
RN OPENING NOTES PT IS AWAKE WITH SPOUSE AT BEDSIDE. PT DENIES SOB AT PRESENT MOMENT. DOES STATE THAT SACRUM IS SORE. PT HAS A JOHN RAHUL DRAINING SEROSANGUINEOUS FLUID IN DIAPER. ON 2 L NC. BED IS LOCKED AND IN LOWEST POSITION WITH CALL LIGHT IN REACH. WILL CONTINUE TO MONITOR.
[2019-06-18 08:00] VITALS: BP 147/74
[2019-06-18] MEDS: VIT B CMPLX 3/FA/VIT C/BIOTIN 1 TAB TABLET PO SCH (08:41)
[2019-06-18] MEDS: ASPIRIN 81 MG TAB.CHEW PO SCH (08:42)
[2019-06-18] MEDS: NIFEdipine XL (30MG) 30 MG TAB PO SCH (08:43)
[2019-06-18] MEDS: CARVEDILOL 6.25 MG TABLET PO SCH ×2 (08:44→16:54)
[2019-06-18] MEDS: APIXABAN 5 MG TABLET PO SCH ×3 (08:48→16:58)
[2019-06-18] MEDS: predniSONE 20 MG TABLET PO SCH (08:56)
[2019-06-18] MEDS: ISOSORBIDE MONONITRATE (30MG) 30 MG TAB.SR.24H PO SCH (09:00)
--- NOTE | 2019-06-18 09:00 | NUR ---
RN NOTE PATIENT'S REFUSED IMDUR MEDICATION TO BE GIVEN TO PATIENT AT THIS TIME. EXPLAINED RISKS AND BENEFITS OF MEDICATION, STILL PATIENT'S REFUSED. WILL CONTINUE TO MONITOR.
[2019-06-18] MEDS ORDERED: LIDOCAINE 5% OINT 35.44 GM TUBE TP PRN (09:30)
[2019-06-18] MEDS: DAKINS QUARTER STRENGTH (0.125%) 480 ML BOTTLE TOP SCH ×3 (09:33→16:02)
[2019-06-18] MEDS: HYDROCODONE/APAP 5/325MG 1 EACH TABLET PO PRN (13:53)
--- NOTE | 2019-06-18 15:22 | NUR ---
REPORT GIVEN TO YULISSA MATUTE FOR CONTINUATION OF CARE.
--- NOTE | 2019-06-18 15:30 | NUR ---
RN NOTES RECEIVED PT ON BED, PT STABLE, CONTINUE TO MONITOR .
[2019-06-18 16:00] VITALS: BP 130/62
[2019-06-18] MEDS ORDERED: HYDROMORPHONE 1 MG/1 ML DISP.SYRIN IV PRN (17:30)
--- NOTE | 2019-06-18 17:45 | NUR ---
RN NOTES PT REFUSED TO HAVE DILAUDID .5MG IV , STATED WANTS PO DILAUDID , DR BOYLE NOTIFED, 0.5 MG IV DILAUDID WASTED WITH DOROTHEA BARRETT RN . PHARMACY NOTIFIED .
--- NOTE | 2019-06-18 18:00 | NUR ---
RN NOTES PT REFUSED ELIQUIS , DR BOYLE NOTIFED .
[2019-06-18] MEDS: HYDROMORPHONE HCL 2 MG TABLET PO PRN (18:03)
--- NOTE | 2019-06-18 18:45 | NUR ---
RN NOTES NO SIGNFICNAT CHANGES NOTED , WILL ENDOSE TO CHEMISTRY FACULTY MEMBER NURSE FOR CONTINUITY OF CARE .
[2019-06-18] MEDS: DOCUSATE SODIUM 250 MG CAPSULE PO SCH (19:00)
--- NOTE | 2019-06-18 19:25 | NUR ---
RN OPENING NOTES RECEIVED PATIENT IN BED, AWAKE, A/OX3, AT BEDSIDE. PATIENT DENIES SOB/PAIN AT THE MOMENT. NO RESPIRATORY DISTRESS NOTED. NO PERIPHERAL IV SITE NOTED, PER AM RN, PATIENT IS REFUSED AND MD AWARE. RIGHT CHEST WALL HD CATH NOTED, SITE C/D/I. ON OXYGEN 2L VIA NASAL CANNULA, TOLERATING WELL, SATURATING >90%. SAFETY MEASURES IN PLACE; BED IS LOCKED AND IN LOWEST POSITION, CALL LIGHT IN REACH, SIDE RAILS UP X2. WILL CONTINUE TO MONITOR PT.
[2019-06-18 20:00] VITALS: BP 128/74
[2019-06-18 21:17] VITALS: BP 128/74
--- NOTE | 2019-06-18 22:13 | NUR ---
RN NOTES PATIENT'S REFUSING PATIENT TO BE REPOSITIONED WHILE SLEEPING, STATED "IT UPSETS HIM" WILL TRY TO REPOSITION PATIENT AGAIN LATER WHEN AWAKE.
--- NOTE | 2019-06-19 03:00 | NUR ---
RN NOTES PATIENT NOTED TO HAVE MODERATE AMOUNT OF SEROSANGUINEOUS DRAINAGE AT KY DRAIN SITE. GAVE PATIENT BED BATH AND REPOSITIONED. PT KEPT CLEAN AND DRY. WILL CONT TO MONITOR.
[2019-06-19] MEDS: IPRATROPIUM NEB FS 0.5 MG/2.5 ML AMPUL.NEB NEB SCH ×6 (03:15→23:30)
[2019-06-19 04:00] VITALS: BP 125/72
[2019-06-19 07:08] LABS: BASOPHILS % (AUTO) 0.1 % (0.0-2.0); CALCIUM, SERUM 7.8 mg/dL (8.5-10.1); CARBON DIOXIDE 23 mmol/L (21-32); CHLORIDE 102 mmol/L (98-107); CREATININE 5.9 mg/dL (0.6-1.3); EOSINOPHILS % (AUTO) 0.2 % (0.0-6.0); GLUCOSE 108 mg/dL (74-106); HEMATOCRIT 26 % (39-51); HEMOGLOBIN 8.4 g/dL (13.5-17.5); LYMPHOCYTES # (AUTO) 1.2 /CMM (0.8-4.8); LYMPHOCYTES % (AUTO) 15.8 % (20.0-44.0); MAGNESIUM 2.4 mg/dL (1.8-2.4); MEAN CORPUSCULAR HGB CONC 33 g/dl (31.0-36.0); MEAN CORPUSCULAR VOLUME 94 fL (80-96); MONOCYTES # (AUTO) 1.5 /CMM (0.1-1.30); MONOCYTES % (AUTO) 19.7 % (2.0-12.0); NEUTROPHILS % (AUTO) 64.2 % (43.0-81.0); PHOSPHORUS 4.4 mg/dL (2.5-4.9); PLATELET COUNT (AUTO) 197 /CMM (150-450); POTASSIUM 4.1 mmol/L (3.5-5.1); RED BLOOD CELL COUNT(AUTO) 2.72 MIL/uL (4.5-6.0); SODIUM SERUM 139 mmol/L (136-145); WHITE BLOOD COUNT (AUTO) 7.7 K/uL (4.3-11.0)
[2019-06-19 07:10] LABS: UREA NITROGEN, BLOOD 90 mg/dL (7-18)
--- NOTE | 2019-06-19 07:29 | NUR ---
RN CLOSING NOTES PATIENT SLEEPING IN BED, BUT EASY TO AROUSE. AT BEDSIDE. NO SOB OR RESPIRATORY DISTRESS NOTED. PATIENT NOTED TO HAVE MODERATE SEROSANGUINEOUS DRAINAGE AT KY DRAIN SITE, ENDORSED TO AM RN FOR JONATAN.
[2019-06-19 08:00] VITALS: BP_SYST 105; BP_SYST 143; BP_DIAS 57; BP_DIAS 80
--- NOTE | 2019-06-19 08:00 | NUR ---
RN GAMAL: pr is A/Ox3, can follow commands, weak, on 2L n/c O2, no SOB, O2sat WNL, refused for night Bipap, SR, SBP over 100, below 150, L.Buttock drain (placed in [facility]), no w/c order by report, warm compress only, bloody drainage reported and hold eliquis, pt is at BS, both oriented for POC
[2019-06-19] MEDS: ALBUTEROL HALF STRENGTH 1.25 MG/3 ML VIAL.NEB NEB SCH ×4 (08:06→19:42)
[2019-06-19] MEDS: DOCUSATE SODIUM 250 MG CAPSULE PO SCH (08:47)
[2019-06-19] MEDS: ISOSORBIDE MONONITRATE (30MG) 30 MG TAB.SR.24H PO SCH (08:47)
[2019-06-19] MEDS: CARVEDILOL 6.25 MG TABLET PO SCH ×2 (08:47→17:00)
[2019-06-19] MEDS: predniSONE 20 MG TABLET PO SCH (08:48)
[2019-06-19] MEDS: VIT B CMPLX 3/FA/VIT C/BIOTIN 1 TAB TABLET PO SCH (08:48)
[2019-06-19] MEDS: ASPIRIN 81 MG TAB.CHEW PO SCH (08:48)
[2019-06-19] MEDS: NIFEdipine XL (30MG) 30 MG TAB PO SCH (08:48)
[2019-06-19] MEDS: APIXABAN 5 MG TABLET PO SCH ×3 (08:49→17:00)
[2019-06-19] MEDS: DAKINS QUARTER STRENGTH (0.125%) 480 ML BOTTLE TOP SCH ×3 (08:50→17:05)
[2019-06-19] MEDS: HYDROCODONE/APAP 5/325MG 1 EACH TABLET PO PRN (09:23)
--- NOTE | 2019-06-19 09:50 | NUR ---
RN GAMAL: L.buttock Kenya drain/wound care done, drain: moderate s/s, purulent, no acute bleeding, ok to continue Eliquis, pt. is agree. HD nurse updated with pt.condition, VS, labs
[2019-06-19 10:15] VITALS: BP 122/64
--- NOTE | 2019-06-19 10:30 | NUR ---
RN GAMAL: getting HD, tolerated well, VSS
--- NOTE | 2019-06-19 11:00 | NUR ---
RN GAMAL: HD done, tolerated well, 2L out
[2019-06-19 16:07] VITALS: BP 95/62
[2019-06-19 16:12] VITALS: BP 95/62
--- NOTE | 2019-06-19 17:22 | NUR ---
RN GAMAL: pt&pt. refused for Eliquis 5pm dose, got risks explanation, hold BP meds, BP 95/62, SR, wound/eugene drain care done, scant drain now, S/S, no bleeding, skin around wound more dry, PM/skin care done, no c/o, no pain now
[2019-06-19 20:00] VITALS: BP 125/67
--- NOTE | 2019-06-19 20:08 | NUR ---
RN OPENING NOTES RECEIVED PATIENT IN BED, AWAKE, A/OX3, FOLLOWS COMMANDS, AT BEDSIDE. ON OXYGEN 2L VIA NASAL CANNULA, TOLERATING WELL, SATURATING >90%. PATIENT DENIES SOB/PAIN AT THE MOMENT. NO RESPIRATORY DISTRESS NOTED. IV SITE RIGHT WRIST 24G FLUSHING AND PATENT, S/L. RIGHT CHEST WALL HD CATH NOTED, SITE C/D/I. SAFETY MEASURES IN PLACE; BED IS LOCKED AND IN LOWEST POSITION, CALL LIGHT IN REACH, SIDE RAILS UP X2. WILL CONTINUE TO MONITOR PT.
--- NOTE | 2019-06-19 20:39 | NUR ---
RN NOTES PATIENT COMPLAINING OF BACK PAIN/BUTTOCK PAIN AT THE KY DRAIN SITE RATES PAIN 10/10. PATIENT STATED "I WANT DILAUDID" WILL CHECK BP AND PRN PAIN MEDICATIONS.
--- NOTE | 2019-06-20 01:11 | NUR ---
RT NOTE PT REMOVED BIPAP AT THIS TIME. ATTEMPTED TO PLACE PATIENT BACK ON BIPAP BUT REFUSED. PT ON 3L NASAL CANNULA. NO SOB NOTED.
[2019-06-20] MEDS: HYDROCODONE/APAP 5/325MG 1 EACH TABLET PO PRN (03:21)
--- NOTE | 2019-06-20 03:40 | NUR ---
RN NOTES PATIENT NOTED WITH SOB AND STATED "I WANT TO BE ON CPAP RIGHT NOW" AND PANICKING. PATIENT ON 3L OXYGEN VIA NASAL CANNULA, SATURATING 97% AT THE MOMENT. RIGHT NARE BLEEDING NOTED WELL. RT AT BEDSIDE AND PLACED BIPAP ON PATIENT. WILL CONT TO MONITOR CLOSELY.
[2019-06-20] MEDS: IPRATROPIUM NEB FS 0.5 MG/2.5 ML AMPUL.NEB NEB SCH ×6 (03:41→23:29)
[2019-06-20 04:00] VITALS: BP 157/86
--- NOTE | 2019-06-20 04:15 | NUR ---
RN NOTES PATIENT RESTING IN BED ON BIPAP AND CURRENTLY GETTING BREATHING TX. DENIES ANY CHEST PAIN. HOWEVER, HEART RATE GOES UP AND DOWN 90'S-130'SBPM. VERY ANXIOUS AND INSISTING TO PAGE MD REGARDING HEART RATE. PAGED MD REGARDING PATIENT'S CURRENT STATUS AND MOST RECENT VITAL SIGNS: BP 157/86, HR 90'S-130'S, TEMP 97.8, SATURATION 100%, RR 26. ALSO MENTIONED ABOUT PATIENT'S HISTORY OF AFIB. MD ORDERED STAT EKG, CARRIED OUT. PAGED RT FOR STAT EKG. AWAITING FOR RT RESPONSE. WILL CONT TO MONITOR PT CLOSELY.
--- NOTE | 2019-06-20 04:37 | NUR ---
RN NOTES STAT EKG RESULT ATRIAL FIBRILLATION. PAGED MD REGARDING RESULT VIA [employer] EXCHANGE. AWAITING FOR RESPONSE.
--- NOTE | 2019-06-20 05:18 | NUR ---
RN NOTES RELAYED INFO TO MD REGARDING ABNORMAL EKG RESULT AFIB VIA PHONE. ORDERED TO TRANSFER TO TELE AND KEEP ON OXYGEN. WILL ATTEND TO ORDERS.
--- NOTE | 2019-06-20 07:33 | NUR ---
CARBON SEQUESTRATION PLANT OPERATOR CLOSING NOTES PATIENT SLEEPING IN BED, BUT EASY TO AROUSE, A/OX3. AT BEDSIDE. PATIENT STILL ON BIPAP, NO SOB OR RESPIRATORY DISTRESS NOTED, SATURATING 98% AT THE MOMENT. IV SITE RIGHT WRIST 24G, FLUSHING AND PATENT, S/L. RIGHT CHEST WALL HD CATH INTACT. PATIENT HAD RIGHT NARE BRIGHT RED NOSE BLEED NOTED LAST NIGHT. ALSO, MODERATE SEROSANGUINEOUS DRAINAGE AT KY DRAIN SITE NOTED, WOUND TX DONE ORDERED. ALL MD ORDERS ATTENDED. ENDORSED TO AM RN FOR JONATAN.
[2019-06-20] MEDS: ALBUTEROL HALF STRENGTH 1.25 MG/3 ML VIAL.NEB NEB SCH ×4 (07:35→19:15)
[2019-06-20 07:40] LABS: BASOPHILS % (AUTO) 0.1 % (0.0-2.0); CALCIUM, SERUM 7.4 mg/dL (8.5-10.1); CARBON DIOXIDE 24 mmol/L (21-32); CHLORIDE 102 mmol/L (98-107); CREATININE 4.9 mg/dL (0.6-1.3); EOSINOPHILS % (AUTO) 0.4 % (0.0-6.0); GLUCOSE 105 mg/dL (74-106); HEMATOCRIT 22 % (39-51); HEMOGLOBIN 7.5 g/dL (13.5-17.5); LYMPHOCYTES # (AUTO) 1.1 /CMM (0.8-4.8); LYMPHOCYTES % (AUTO) 13.4 % (20.0-44.0); MAGNESIUM 2.2 mg/dL (1.8-2.4); MEAN CORPUSCULAR HGB CONC 34 g/dl (31.0-36.0); MEAN CORPUSCULAR VOLUME 94 fL (80-96); MONOCYTES # (AUTO) 1.5 /CMM (0.1-1.30); MONOCYTES % (AUTO) 18.4 % (2.0-12.0); NEUTROPHILS # (AUTO) 5.5 /CMM (1.8-8.9); NEUTROPHILS % (AUTO) 67.7 % (43.0-81.0); PLATELET COUNT (AUTO) 181 /CMM (150-450); POTASSIUM 3.9 mmol/L (3.5-5.1); RED BLOOD CELL COUNT(AUTO) 2.36 MIL/uL (4.5-6.0); SODIUM SERUM 138 mmol/L (136-145); UREA NITROGEN, BLOOD 68 mg/dL (7-18)
--- NOTE | 2019-06-20 07:54 | NUR ---
BABY DOCTOR INITIAL NOTES Rec'd pt resting on bed, not in any distress, sleeping but arousable/drowsy. On BIPAP (Fio2 30%), sating at 100%. On telemonitor, controlled Afib w/ HR 88 bpm. Has R wrist G24, SL. Has RCW HD cath in place - per Dr. Pacheco pt will have HD today. Safety precaution in place w/ bed in lowest & locked pos. Call light placed w/in reach. Will cont to monitor & attend pt needs. at bedside.
[2019-06-20 08:00] VITALS: BP_SYST 114; BP_SYST 141; BP_DIAS 88
[2019-06-20] MEDS: CARVEDILOL 6.25 MG TABLET PO SCH ×2 (09:00→16:25)
[2019-06-20] MEDS: APIXABAN 5 MG TABLET PO SCH ×2 (09:00→10:59)
[2019-06-20] MEDS: NIFEdipine XL (30MG) 30 MG TAB PO SCH (09:00)
[2019-06-20] MEDS: ISOSORBIDE MONONITRATE (30MG) 30 MG TAB.SR.24H PO SCH (09:00)
[2019-06-20] MEDS: DOCUSATE SODIUM 250 MG CAPSULE PO SCH (09:00)
--- NOTE | 2019-06-20 09:25 | NUR ---
Pt seen & examined by Dr. Johnson w/ orders to DC PRN Dilaudid IVP. VINCE Marrero also made aware re: agreeing for SNF placement.
--- NOTE | 2019-06-20 09:45 | NUR ---
Dr. Corrales made aware that pt had episode of Afib RVR from previous shift w/ NNO.
--- NOTE | 2019-06-20 10:00 | NUR ---
Per Sobeida HD RN, pt not scheduled for HD today.
--- NOTE | 2019-06-20 10:15 | NUR ---
Dr. Johnson made aware that pt Hgb dropped from 8.4 to 7.5. Reported also last night that pt had episode of minimal nose bleed (not active at this time). Noted pink tinged from L buttock eugene drain, per MD okay to give Eliquis. However, still strongly refuses despite of the health teaching given.
[2019-06-20] MEDS: ASPIRIN 81 MG TAB.CHEW PO SCH (10:25)
[2019-06-20] MEDS: predniSONE 20 MG TABLET PO SCH (10:25)
[2019-06-20] MEDS: VIT B CMPLX 3/FA/VIT C/BIOTIN 1 TAB TABLET PO SCH (10:25)
[2019-06-20] MEDS: DAKINS QUARTER STRENGTH (0.125%) 480 ML BOTTLE TOP SCH ×3 (10:26→16:26)
[2019-06-20] MEDS ORDERED: ALPR0.5T PO (11:14)
--- NOTE | 2019-06-20 11:16 | NUR ---
LEVELER HELPER DIANN NOTIFIED REGARDING DISCHARGE ORDER,PER CM TO DECIDE WHICH SNF,WILL FF.UP.
--- NOTE | 2019-06-20 11:28 | NUR ---
Pt seen & examined by Dr. Vincent, updated about pt status.
--- NOTE | 2019-06-20 14:18 | NUR ---
Pt seen & examined by MARIO Grimm. Kenya drainage checked, no drainage coming out. Rectal exam done by Sirisha MARTIN w/ pt's consent, at bedside. Mucoidy, pink tinged BM noted from diaper, per MARIO Grimm possible stool & not from Kenya drain.
--- NOTE | 2019-06-20 15:30 | NUR ---
Dr. Johnson made aware that is concerned re: possible internal bleeding d/t pink tinged BM. Per MD, he will ask GI to see pt. Hold DC for now & Eliquis. made aware.
[2019-06-20 16:00] VITALS: BP 109/62
--- NOTE | 2019-06-20 18:51 | NUR ---
MS RN CLOSING NOTES Pt resting comfortably on his bed, not in any distress. No SOB while on NC at 2lpm, sating at 97%. R wrist G24, SL kept patent & intact. RCW HD cath kept in place - no HD today. Safety precaution kept in place at all times w/ bed in lowest & locked pos. Call light placed w/in reach. Will endorse to PM RN for JONATAN. remains at bedside & updated.
--- NOTE | 2019-06-20 19:30 | NUR ---
CHANGE OF SHIFT REPORT Patient in bed, sleeping, arouses easily. Oxygen 2LPM via NC, tolerating well. Appears comfortable in bed. Fall/skin precaution maintained, at bedside.
[2019-06-20 20:00] VITALS: BP 160/84
[2019-06-21] MEDS: IPRATROPIUM NEB FS 0.5 MG/2.5 ML AMPUL.NEB NEB SCH ×6 (03:55→23:01)
[2019-06-21] MEDS: ALBUTEROL FS 2.5 MG/3 ML VIAL.NEB IH PRN (03:55)
[2019-06-21 04:42] VITALS: BP 143/78
--- NOTE | 2019-06-21 06:24 | NUR ---
END OF SHIFT REPORT Patient in bed, remains on supplemental Oxygen at 2LPM via NC, tolerating well. BPAP at night, compliant with use. Right buttock Kenya drain intact, denies pain. HD per Nephrology. Skin/ Fall precaution maintained. at bedside.
[2019-06-21] MEDS: ALBUTEROL HALF STRENGTH 1.25 MG/3 ML VIAL.NEB NEB SCH ×4 (07:28→19:36)
[2019-06-21 08:00] VITALS: BP 143/70
[2019-06-21] MEDS: VIT B CMPLX 3/FA/VIT C/BIOTIN 1 TAB TABLET PO SCH (08:37)
[2019-06-21] MEDS: DOCUSATE SODIUM 250 MG CAPSULE PO SCH (08:37)
[2019-06-21] MEDS: ASPIRIN 81 MG TAB.CHEW PO SCH (08:37)
[2019-06-21] MEDS: ISOSORBIDE MONONITRATE (30MG) 30 MG TAB.SR.24H PO SCH (08:37)
[2019-06-21] MEDS: CARVEDILOL 6.25 MG TABLET PO SCH ×4 (08:37→18:13)
[2019-06-21] MEDS: predniSONE 20 MG TABLET PO SCH (08:37)
[2019-06-21] MEDS: DAKINS QUARTER STRENGTH (0.125%) 480 ML BOTTLE TOP SCH ×3 (08:38→18:15)
[2019-06-21] MEDS: NIFEdipine XL (30MG) 30 MG TAB PO SCH ×3 (08:38→09:43)
[2019-06-21] MEDS ORDERED: EPOETIN ALFA (10,000 UNIT) 10,000 UNIT/ML VIAL IV ONE ×3 (09:00→14:00)
[2019-06-21 09:29] LABS: BASOPHILS % (AUTO) 0.2 % (0.0-2.0); EOSINOPHILS % (AUTO) 0.4 % (0.0-6.0); HEMATOCRIT 22 % (39-51); HEMOGLOBIN 7.3 g/dL (13.5-17.5); LYMPHOCYTES # (AUTO) 0.9 /CMM (0.8-4.8); LYMPHOCYTES % (AUTO) 15.3 % (20.0-44.0); MEAN CORPUSCULAR HGB CONC 33 g/dl (31.0-36.0); MEAN CORPUSCULAR VOLUME 93 fL (80-96); MONOCYTES # (AUTO) 0.9 /CMM (0.1-1.30); NEUTROPHILS # (AUTO) 4.1 /CMM (1.8-8.9); NEUTROPHILS % (AUTO) 69.1 % (43.0-81.0); PLATELET COUNT (AUTO) 148 /CMM (150-450); RED BLOOD CELL COUNT(AUTO) 2.35 MIL/uL (4.5-6.0)
--- NOTE | 2019-06-21 09:31 | NUR ---
RN NOTE ORIGINALLY HELD B/P MEDS BECAUSE PATIENT WAS SCHEDULED FOR HD. HD WAS CANCELLED WILL GIVE B/P MEDS AND HOLD EPOGEN UNTIL TOMORROW.
[2019-06-21] MEDS: PAROXETINE HCL 10 MG TABLET PO SCH (09:43)
[2019-06-21 09:57] LABS: CALCIUM, SERUM 7.5 mg/dL (8.5-10.1); CARBON DIOXIDE 22 mmol/L (21-32); CHLORIDE 101 mmol/L (98-107); CREATININE 5.9 mg/dL (0.6-1.3); GLUCOSE 111 mg/dL (74-106); MAGNESIUM 2.3 mg/dL (1.8-2.4); PHOSPHORUS 4.6 mg/dL (2.5-4.9); POTASSIUM 3.7 mmol/L (3.5-5.1); SODIUM SERUM 137 mmol/L (136-145)
[2019-06-21 10:01] LABS: UREA NITROGEN, BLOOD 86 mg/dL (7-18)
[2019-06-21] MEDS ORDERED: HYDR25SU RC (11:47)
--- NOTE | 2019-06-21 13:56 | NUR ---
RN NOTE MD AND PATIENT DECIDED TO HAVE HD TODAY B/P MEDS HELD
[2019-06-21 16:00] VITALS: BP 155/91
--- NOTE | 2019-06-21 19:45 | NUR ---
MS RN OPENING NOTES, RECEIVED PATIENT IN BED AWAKE. A/O X4. AT BED SIDE. PATIENT IS ON O2 NC AND C-PAP ON AND OFF DURING SHIFT. TOLERATING WELL. NO SOB OR ACUTE DISTRESS NOTED AT THIS TIME. BED IN LOW/LOCKED POSITION. CALL LIGHT WITHIN REACH. WILL CONTINUE TO MONITOR DURING AUDIO TAPE LIBRARIAN.
[2019-06-22] MEDS: IPRATROPIUM NEB FS 0.5 MG/2.5 ML AMPUL.NEB NEB SCH ×6 (03:45→23:30)
[2019-06-22 04:00] VITALS: BP 129/96
--- NOTE | 2019-06-22 06:44 | NUR ---
MS RN CLOSING NOTES, PATIENT IN BED SLEEPING AND AROUSES EASILY. A/O X4. AT BED SIDE. PATIENT IS ON O2 NC AND TOLERATED WELL. PATIENT USED C-PAP DURING NIGHT, TOLERATING WELL. NO SOB OR ACUTE DISTRESS NOTED AT THIS TIME. ALL CARE HAS BEEN PROVIDED DURING APPIAN BPM DEVELOPER. BED IN LOW/LOCKED POSITION. CALL LIGHT WITHIN REACH. WILL ENDORSE THE CONTINUES CARE TO AM RN.
[2019-06-22 07:33] LABS: CALCIUM, SERUM 7.5 mg/dL (8.5-10.1); CARBON DIOXIDE 24 mmol/L (21-32); CHLORIDE 103 mmol/L (98-107); CREATININE 4.8 mg/dL (0.6-1.3); GLUCOSE 109 mg/dL (74-106); MAGNESIUM 2.3 mg/dL (1.8-2.4); PHOSPHORUS 3.7 mg/dL (2.5-4.9); POTASSIUM 4.4 mmol/L (3.5-5.1); SODIUM SERUM 139 mmol/L (136-145); UREA NITROGEN, BLOOD 70 mg/dL (7-18)
[2019-06-22 08:00] VITALS: BP 121/69
[2019-06-22 08:08] LABS: BASOPHILS % (AUTO) 0.1 % (0.0-2.0); EOSINOPHILS % (AUTO) 0.6 % (0.0-6.0); HEMATOCRIT 25 % (39-51); HEMOGLOBIN 8.3 g/dL (13.5-17.5); LYMPHOCYTES % (AUTO) 10.7 % (20.0-44.0); MEAN CORPUSCULAR HGB CONC 33 g/dl (31.0-36.0); MEAN CORPUSCULAR VOLUME 94 fL (80-96); MONOCYTES # (AUTO) 1.1 /CMM (0.1-1.30); MONOCYTES % (AUTO) 12.3 % (2.0-12.0); NEUTROPHILS # (AUTO) 6.9 /CMM (1.8-8.9); NEUTROPHILS % (AUTO) 76.3 % (43.0-81.0); PLATELET COUNT (AUTO) 151 /CMM (150-450); RED BLOOD CELL COUNT(AUTO) 2.69 MIL/uL (4.5-6.0)
[2019-06-22] MEDS: ALBUTEROL HALF STRENGTH 1.25 MG/3 ML VIAL.NEB NEB SCH ×4 (08:13→20:19)
[2019-06-22 08:55] LABS: BAND % (MANUAL) 9 % (0.0-5.0); LYMPHOCYTES % (MANUAL) 15 % (16-48); MONOCYTES % (MANUAL) 11 % (0-11.0); NEUTROPHILS % (MANUAL) 65 (42-76)
[2019-06-22] MEDS: ISOSORBIDE MONONITRATE (30MG) 30 MG TAB.SR.24H PO SCH ×2 (09:00→09:13)
[2019-06-22] MEDS: DOCUSATE SODIUM 250 MG CAPSULE PO SCH (09:00)
[2019-06-22] MEDS: DAKINS QUARTER STRENGTH (0.125%) 480 ML BOTTLE TOP SCH ×3 (09:00→17:00)
[2019-06-22] MEDS: CARVEDILOL 6.25 MG TABLET PO SCH ×2 (09:13→17:00)
[2019-06-22] MEDS: VIT B CMPLX 3/FA/VIT C/BIOTIN 1 TAB TABLET PO SCH (09:13)
[2019-06-22] MEDS: NIFEdipine XL (30MG) 30 MG TAB PO SCH (09:13)
[2019-06-22] MEDS: PAROXETINE HCL 10 MG TABLET PO SCH (09:13)
[2019-06-22] MEDS: ASPIRIN 81 MG TAB.CHEW PO SCH (09:14)
[2019-06-22] MEDS: predniSONE 20 MG TABLET PO SCH (09:14)
[2019-06-22] MEDS: ALPRAZOLAM 0.5 MG TABLET PO PRN ×2 (15:47)
[2019-06-22 16:00] VITALS: BP 126/58
--- NOTE | 2019-06-22 18:39 | NUR ---
MS RN Closing Patient remains A/Ox3-4, on BiPAP - placed on @1545 shift as patient reported SOB. Per , "he is having a panic attack", SPO2 94% throughout episode, RR 28, xanax administered. refused blood thinners, educated on risks/benefits, verbalizes understanding. R wrist 24G + R CW HD cath c/d/i. Patient seen by MD, aware of bloody stool. Per case management no authorization for SNF transfer.
--- NOTE | 2019-06-22 19:35 | NUR ---
MS RN OPENING NOTES, RECEIVED PATIENT IN BED AWAKE. A/O X3. PATIENT ON CPAP. TOLERATING WELL. NO SOB OR ACUTE DISTRESS NOTED AT THIS TIME. IV ON R WRIST #24 FLUSHING WELL. AND CHEST WALL HD CATH. AT BED SIDE. BED IN LOW/LOCKED POSITION. CALL LIGHT WITHIN REACH. WILL CONTINUE TO MONITOR DURING QUALITY CONTROL ENGINEER.
[2019-06-22 20:00] VITALS: BP 112/61
[2019-06-23] MEDS: IPRATROPIUM NEB FS 0.5 MG/2.5 ML AMPUL.NEB NEB SCH ×6 (03:30→23:26)
--- NOTE | 2019-06-23 04:15 | NUR ---
MS RN NOTES, PATIENT REFUSED 0400 VITAL SIGN. NO ACUTE DISTRESS OR SOB NOTED. PATIENT ON CPAP. WILL CONTINUE TO MONITOR.
--- NOTE | 2019-06-23 06:33 | NUR ---
MS RN CLOSING NOTES, PATIENT IN BED SLEEPING. A/O X3. PATIENT ON CPAP. TOLERATING WELL. NO SOB OR ACUTE DISTRESS NOTED AT THIS TIME. IV ON R WRIST #24 FLUSHING WELL. AND CHEST WALL HD CATH. PATIENT WILL HAVE CT OF THE ABD/PELVIS WITHOUT CONTRAST THIS MORNING. WAITING FOR DC ORDER TO SNF, (THERE IS NO AUTHORIZATION PER CASE MANAGEMENT). AT BED SIDE. BED IN LOW/LOCKED POSITION. CALL LIGHT WITHIN REACH. WILL ENDORSE THE PATIENT TO AM RN FOR JONATAN.
[2019-06-23 07:30] VITALS: BP 138/97
[2019-06-23] MEDS: ALBUTEROL HALF STRENGTH 1.25 MG/3 ML VIAL.NEB NEB SCH ×4 (07:35→20:12)
--- NOTE | 2019-06-23 07:40 | NUR ---
MS RN OPENING NOTES RECEIVED REPORT FROM P NURSE.PATIENT IN BED. AWAKE. A/O X3. PATIENT ON O2 . TOLERATING WELL. NO SOB OR ACUTE DISTRESS NOTED AT THIS TIME. IV ON R WRIST #24 FLUSHING WELL. AND HD CATH ON R CHEST WALL. AT BED SIDE. BED IN LOW/LOCKED POSITION. CALL LIGHT WITHIN REACH. SRX3.BED ALARM ON.WILL CONTINUE TO MONITOR.
[2019-06-23 08:00] VITALS: BP 138/84
[2019-06-23] MEDS: CARVEDILOL 6.25 MG TABLET PO SCH ×2 (09:00→17:09)
[2019-06-23 09:33] LABS: BASOPHILS % (AUTO) 0.1 % (0.0-2.0); EOSINOPHILS % (AUTO) 1.1 % (0.0-6.0); HEMATOCRIT 23 % (39-51); HEMOGLOBIN 7.7 g/dL (13.5-17.5); LYMPHOCYTES # (AUTO) 1.1 /CMM (0.8-4.8); LYMPHOCYTES % (AUTO) 19.9 % (20.0-44.0); MEAN CORPUSCULAR HGB CONC 33 g/dl (31.0-36.0); MEAN CORPUSCULAR VOLUME 95 fL (80-96); MONOCYTES # (AUTO) 0.6 /CMM (0.1-1.30); MONOCYTES % (AUTO) 11.9 % (2.0-12.0); NEUTROPHILS # (AUTO) 3.6 /CMM (1.8-8.9); PLATELET COUNT (AUTO) 139 /CMM (150-450); RED BLOOD CELL COUNT(AUTO) 2.45 MIL/uL (4.5-6.0); WHITE BLOOD COUNT (AUTO) 5.4 K/uL (4.3-11.0)
[2019-06-23 09:40] LABS: CALCIUM, SERUM 7.8 mg/dL (8.5-10.1); CARBON DIOXIDE 23 mmol/L (21-32); CHLORIDE 101 mmol/L (98-107); CREATININE 5.8 mg/dL (0.6-1.3); GLUCOSE 140 mg/dL (74-106); MAGNESIUM 2.4 mg/dL (1.8-2.4); PHOSPHORUS 4.1 mg/dL (2.5-4.9); POTASSIUM 3.6 mmol/L (3.5-5.1); SODIUM SERUM 137 mmol/L (136-145)
[2019-06-23] MEDS: VIT B CMPLX 3/FA/VIT C/BIOTIN 1 TAB TABLET PO SCH (09:46)
[2019-06-23] MEDS: DAKINS QUARTER STRENGTH (0.125%) 480 ML BOTTLE TOP SCH ×3 (09:46→16:41)
[2019-06-23] MEDS: PAROXETINE HCL 10 MG TABLET PO SCH (09:46)
[2019-06-23] MEDS: predniSONE 20 MG TABLET PO SCH (09:46)
[2019-06-23] MEDS: ASPIRIN 81 MG TAB.CHEW PO SCH (09:46)
[2019-06-23] MEDS: DOCUSATE SODIUM 250 MG CAPSULE PO SCH (09:46)
[2019-06-23 09:50] LABS: UREA NITROGEN, BLOOD 89 mg/dL (7-18)
[2019-06-23] MEDS: ALPRAZOLAM 0.5 MG TABLET PO PRN ×2 (09:50→21:30)
--- NOTE | 2019-06-23 10:21 | NUR ---
RN NOTE SEEN BY AND .GOT NEW ORDERS.WILL CONTINUE TO MONITOR.
--- NOTE | 2019-06-23 11:14 | NUR ---
RN NOTE CT ABDOMEN AND PELVIS RESULT RELAYED TO .LEFT MESSAGE.
[2019-06-23] MEDS: EPOETIN ALFA (4000 UNIT) 4,000 UNIT/ML VIAL IV ONE ×2 (11:21→11:36)
[2019-06-23 11:39] LABS: BAND % (MANUAL) 1 % (0.0-5.0); EOSINOPHILS % (MANUAL) 1 % (0-4); LYMPHOCYTES % (MANUAL) 19 % (16-48); MONOCYTES % (MANUAL) 13 % (0-11.0); MYELOCYTES % 1 % (0-0); NEUTROPHILS % (MANUAL) 65 (42-76)
--- NOTE | 2019-06-23 11:43 | NUR ---
RN NOTE SEEN BY ,UPDATED ABOUT PATIENT CONDITION WITH CT RESULT.OK TO GIVE EPOGEN THROUGH SQ.WAS ORDERED IV.WILL CONTINUE TO MONITOR.
[2019-06-23 12:00] VITALS: BP 146/71
--- NOTE | 2019-06-23 12:15 | NUR ---
RN NOTE PATIENT C/O SOB.REQUESTING BIPAP.TAMAR MASSEY MADE AWARE.PLACE ON BIPAP.CHANGED TO TELE STATUS.ABG AN HOUR AFTER .WILL CONTINUE TO MONITOR.PATIENT IS AXO.
[2019-06-23 13:19] LABS: ABG BASE EXCESS 0.9 mmol/L; ABG OXYGEN SATURATION 95.1 % (92.0-98.5); ABG PCO2 42.7 mmHg (35.0-45.0); ABG PO2 86.1 mmHg (75.0-100.0); AaDO2 77.6 mmHg; COHb 1.6 % (0.5-1.5); MetHb 0.3 % (0.0-1.5); O2Hb 93.3 % (94.0-97.0); SITE, ABG Right Radial
[2019-06-23] MEDS: ISOSORBIDE MONONITRATE (30MG) 30 MG TAB.SR.24H PO SCH (13:39)
[2019-06-23] MEDS: NIFEdipine XL (30MG) 30 MG TAB PO SCH (13:40)
[2019-06-23 16:00] VITALS: BP 137/72
--- NOTE | 2019-06-23 16:00 | NUR ---
RN NOTE SEEN BY LISETTE JONES FROM SURGERY.SEEN DRAIN.REVIEWED CT ABDOMEN RESULT.GOT NEW ORDERS.
--- NOTE | 2019-06-23 16:42 | NUR ---
RT NOTE: PATIENT IS RESTING COMFORTABLY ON 3LPM VIA NASAL CANNULA AT THIS TIME. BIPAP STANDBY.
--- NOTE | 2019-06-23 19:15 | NUR ---
AUTOMOTIVE PAINT TECHNICIAN OPENING NOTES RECEIVED PATIENT IN BED, AWAKE, A/OX3, FOLLOWS COMMANDS, AT BEDSIDE. ON BIPAP (FIO2 30%), TOLERATING WELL, SATURATING 98% AT THE MOMENT. PATIENT DENIES SOB/PAIN AT THE MOMENT. NO RESPIRATORY DISTRESS NOTED. IV SITE RIGHT WRIST 24G FLUSHING AND PATENT, S/L. RIGHT CHEST WALL HD CATH NOTED, SITE C/D/I. SAFETY MEASURES IN PLACE; BED IS LOCKED AND IN LOWEST POSITION, CALL LIGHT IN REACH, SIDE RAILS UP X2. WILL CONTINUE TO MONITOR PT.
--- NOTE | 2019-06-23 19:32 | NUR ---
MANAGER OF ENGINEERING CLOSING NOTE PATIENT IN BED.VSS.NO SOB NO DISTRESS NOTED.FAMILY AT BEDSIDE.ENDORSED TO PM NURSE FOR JONATAN.
[2019-06-23 20:00] VITALS: BP 129/66
[2019-06-23] MEDS: POLYETHYLENE GLYCOL 3350 17 GM POWD.PACK PO SCH (21:29)
--- NOTE | 2019-06-23 22:04 | NUR ---
PT FOUND STABLE ON BIPAP, SETTINGS ARE ST MODE 15/5 @ 30 % FIO2, ALARMS ARE ON AND AUDIBLE, WILL CONTINUE TO MONITOR Addendum: 06/23/19 at 2205 by YOKASTA DICKINSON RT Amended: Links added.
[2019-06-24] VITALS: BP 143/77
--- NOTE | 2019-06-24 01:30 | NUR ---
CULLET WASHER NOTES PATIENT C/O OF ABDOMINAL PAIN 04/02 AND REQUESTING NORCO. DISCUSSED TO PATIENT THAT ONE OF THE SIDE EFFECTS OF PAIN MEDICATIONS IS CONSTIPATION WHICH HE HAS BEEN COMPLAINING ABOUT. VERBALIZED UNDERSTANDING AND STILL REQUESTING FOR NORCO. WILL ADMINISTER PRN NORCO AND CONT TO MONITOR.
[2019-06-24] MEDS: HYDROCODONE/APAP 5/325MG 1 EACH TABLET PO PRN (01:35)
[2019-06-24] MEDS: IPRATROPIUM NEB FS 0.5 MG/2.5 ML AMPUL.NEB NEB SCH ×6 (03:16→23:49)
[2019-06-24 04:00] VITALS: BP 130/72
[2019-06-24 06:15] LABS: CALCIUM, SERUM 7.8 mg/dL (8.5-10.1); CARBON DIOXIDE 25 mmol/L (21-32); CHLORIDE 104 mmol/L (98-107); CREATININE 4.7 mg/dL (0.6-1.3); GLUCOSE 128 mg/dL (74-106); MAGNESIUM 2.4 mg/dL (1.8-2.4); PHOSPHORUS 3.4 mg/dL (2.5-4.9); POTASSIUM 3.8 mmol/L (3.5-5.1); SODIUM SERUM 140 mmol/L (136-145); UREA NITROGEN, BLOOD 67 mg/dL (7-18)
--- NOTE | 2019-06-24 06:56 | NUR ---
COLD ROLL PACKER SHEET IRON CLOSING NOTES PATIENT SLEEPING IN BED, BUT EASY TO AROUSE, A/OX3. AT BEDSIDE. PATIENT STILL ON BIPAP (FIO2 30%), NO SOB OR RESPIRATORY DISTRESS NOTED, SATURATING 99% AT THE MOMENT. DENIES ANY PAIN AT THE MOMENT. IV SITE RIGHT WRIST 24G, FLUSHING AND PATENT, S/L. RIGHT CHEST WALL HD CATH INTACT. MODERATE SEROSANGUINEOUS DRAINAGE AT KY DRAIN SITE NOTED, WOUND TX DONE ORDERED. ALL MD ORDERS ATTENDED. WILL ENDORSE TO AM RN FOR JONATAN.
[2019-06-24 07:20] LABS: BASOPHILS % (AUTO) 0.3 % (0.0-2.0); EOSINOPHILS % (AUTO) 0.7 % (0.0-6.0); HEMATOCRIT 23 % (39-51); HEMOGLOBIN 7.5 g/dL (13.5-17.5); LYMPHOCYTES % (AUTO) 14.5 % (20.0-44.0); MEAN CORPUSCULAR HGB CONC 33 g/dl (31.0-36.0); MEAN CORPUSCULAR VOLUME 96 fL (80-96); MONOCYTES # (AUTO) 0.8 /CMM (0.1-1.30); MONOCYTES % (AUTO) 12.1 % (2.0-12.0); NEUTROPHILS # (AUTO) 4.9 /CMM (1.8-8.9); NEUTROPHILS % (AUTO) 72.4 % (43.0-81.0); PLATELET COUNT (AUTO) 147 /CMM (150-450); RED BLOOD CELL COUNT(AUTO) 2.36 MIL/uL (4.5-6.0); WHITE BLOOD COUNT (AUTO) 6.7 K/uL (4.3-11.0)
[2019-06-24] MEDS: ALBUTEROL HALF STRENGTH 1.25 MG/3 ML VIAL.NEB NEB SCH ×4 (07:27→19:47)
[2019-06-24 08:00] VITALS: BP 128/79
--- NOTE | 2019-06-24 08:00 | NUR ---
TELE1/RN AM SHIFT INITIAL NOTES RECEIVED PT AWAKE IN BED, PT A/O X 3-4 WITH AT BEDSIDE. ACUTE CHANGE OF CONDITION NOTED. PT ON PM BIPAP, SATURATING @ 100%, RESPIRATIONS EVEN AND UNLABORED, LUNG SOUNDS CLEAR. ON TELE WITH CONTROLLED A-FIB, HR 90. IV SITE PATENT WITH NO S/S OF INFECTION, SL. PT IS COMFORTABLE, SCHEDULED AM MEDS TO BE GIVEN. CL WITHIN REACHED AND SAFETY MAINTAINED. ON GOING MONITORING.
[2019-06-24] MEDS: NIFEdipine XL (30MG) 30 MG TAB PO SCH (08:40)
[2019-06-24] MEDS: PAROXETINE HCL 10 MG TABLET PO SCH (08:40)
[2019-06-24] MEDS: DOCUSATE SODIUM 250 MG CAPSULE PO SCH (08:40)
[2019-06-24] MEDS: VIT B CMPLX 3/FA/VIT C/BIOTIN 1 TAB TABLET PO SCH (08:40)
[2019-06-24] MEDS: ASPIRIN 81 MG TAB.CHEW PO SCH (08:40)
[2019-06-24] MEDS: predniSONE 20 MG TABLET PO SCH (08:40)
[2019-06-24] MEDS: CARVEDILOL 6.25 MG TABLET PO SCH ×2 (08:41→16:37)
[2019-06-24] MEDS: DAKINS QUARTER STRENGTH (0.125%) 480 ML BOTTLE TOP SCH ×3 (08:42→16:38)
[2019-06-24] MEDS: ISOSORBIDE MONONITRATE (30MG) 30 MG TAB.SR.24H PO SCH (08:43)
[2019-06-24] MEDS: ALPRAZOLAM 0.5 MG TABLET PO PRN ×2 (10:36→20:43)
[2019-06-24] MEDS ORDERED: BISACODYL SUPP (10 MG) 10 MG/SUPP.RECT SUPP.RECT RC PRN (11:00)
--- NOTE | 2019-06-24 11:20 | NUR ---
TELE1/RN BLEEDING PT'S NOTIFIED ME THAT PT HAD RECTAL BLEEDING. ASSESSED PT CLEAN RECTAL AREA, UNABLE TO DETERMINE EXACTLY WHERE THE BLEEDING IS COMING FROM BUT BLEEDING IS NOT CONTINUOUS. PT CLEANED, APPLIED DRY DRESSING. WILL RE-ASSESSED IN HOUR. PRIMARY DOCTOR (DR. BOYLE) NOTIFIED. ON GOING MONITORING. Addendum: 06/24/19 at 1133 by MANNY JULIO RN ADDENDUM: PT'S COLLECTED THE SOILED BED PAD AND DIAPER, PER PT'S TO SHOW THE DOCTOR LATER. SOILED PAD AND DIAPER PLACED ON PLASTIC BAG. DR. BOYLE CALLED BACK SAID THAT IS AN ON GOING ISSUE WITH PT, NO NEW ORDER RECEIVED. WILL CONTINUE TO MONITOR.
[2019-06-24 12:00] VITALS: BP 140/79
--- NOTE | 2019-06-24 12:15 | NUR ---
TELE1/RN RE-ASSESSMENT BLEEDING RE-CHECK BLEEDING IN RECTAL AREA, NOTED VERY MINIMAL BLEEDING COMING FROM THE SURGICAL SITE. MONITORING CONTINUED.
[2019-06-24 16:00] VITALS: BP 154/73
--- NOTE | 2019-06-24 19:21 | NUR ---
TD/RN AM SHIFT CLOSING NOTES NO ACUTE CHANGE OF CONDITION NOTED DURING THE SHIFT. ALL NEEDS MET. PT ENDORSED TO PM NURSE TO CONTINUE CARE. CL WITHIN REACHED AND SAFETY MAINTAINED.
[2019-06-24 20:00] VITALS: BP 133/72
--- NOTE | 2019-06-24 21:09 | NUR ---
TELE/RN notes Patient received in bed, Awake, A/Ox3. denies any pain or discomfort at this time, at bed side, In no acute distress, breathing even and unlabored. No SOB noted. On BIPAP with prescribed settings, HOB elevated to Semi pza position. On tele monitoring with controlled A-fib rate 91 at this time, Safety maintained, bed at the lowest locked position. Call light within reach. Will continue to monitor as per plan of care.
[2019-06-24] MEDS: POLYETHYLENE GLYCOL 3350 17 GM POWD.PACK PO SCH (21:54)
[2019-06-25] VITALS: BP 144/73
[2019-06-25] MEDS: IPRATROPIUM NEB FS 0.5 MG/2.5 ML AMPUL.NEB NEB SCH ×6 (02:58→23:30)
[2019-06-25 04:00] VITALS: BP 132/74
--- NOTE | 2019-06-25 06:52 | NUR ---
Patient C/O Anxiety, requesting XANAX. Prescribed dose for Xanax is 0.5mg, but is insisting to give only half of the dose 0.25mg, patient also agreed with , Called Dr Devon Carmona at this time. Relayed patient concern with new order to change the dose of Xanax to 0.25mg BID PO and D/C Xanax 0.5mg as ordered. Noted and carried out.
[2019-06-25 06:57] LABS: BASOPHILS % (AUTO) 0.3 % (0.0-2.0); EOSINOPHILS % (AUTO) 0.5 % (0.0-6.0); HEMATOCRIT 23 % (39-51); HEMOGLOBIN 7.4 g/dL (13.5-17.5); LYMPHOCYTES # (AUTO) 0.9 /CMM (0.8-4.8); LYMPHOCYTES % (AUTO) 12.3 % (20.0-44.0); MEAN CORPUSCULAR HGB CONC 33 g/dl (31.0-36.0); MEAN CORPUSCULAR VOLUME 96 fL (80-96); MONOCYTES # (AUTO) 0.7 /CMM (0.1-1.30); MONOCYTES % (AUTO) 9.3 % (2.0-12.0); NEUTROPHILS # (AUTO) 5.5 /CMM (1.8-8.9); NEUTROPHILS % (AUTO) 77.6 % (43.0-81.0); PLATELET COUNT (AUTO) 132 /CMM (150-450); RED BLOOD CELL COUNT(AUTO) 2.36 MIL/uL (4.5-6.0); WHITE BLOOD COUNT (AUTO) 7.1 K/uL (4.3-11.0)
--- NOTE | 2019-06-25 07:10 | NUR ---
Waiting for Pharmacy to approve the new order of Xanax, endorse to AM Shift nurse to follow up, Patient in no acute distress, breathing even and unlabored. No SOB noted, On O2 3lpm via NC, saturating 98%, due meds given as ordered, tolerated well. Kept clean and comfortable, needs attendant. Call light within reach. remained at bed side, Safety maintained, bed at the lowest locked position. Endorse to AM shift nurse for JONATAN.
--- NOTE | 2019-06-25 07:15 | NUR ---
DRAWING TRACER OPENING NOTES RECEIVED PT RESTING IN BED. AT BEDSIDE. AOX3. VITAL SIGNS WITHIN [place] LIMIT. PT REPOSITIONED. NO RESPIRATORY DISTRESS NOTED. SAFETY MAINTAINED. BED SIDE RAILS UP X2, BED LOCKED AND LOWERED TO THE LOWEST POSITION. WILL CONTINUE MONITORING.
[2019-06-25 07:19] LABS: CALCIUM, SERUM 7.9 mg/dL (8.5-10.1); CARBON DIOXIDE 22 mmol/L (21-32); CHLORIDE 103 mmol/L (98-107); CREATININE 5.4 mg/dL (0.6-1.3); GLUCOSE 99 mg/dL (74-106); POTASSIUM 4.2 mmol/L (3.5-5.1); SODIUM SERUM 140 mmol/L (136-145); UREA NITROGEN, BLOOD 78 mg/dL (7-18)
[2019-06-25 07:30] VITALS: BP 128/69
[2019-06-25] MEDS: ALBUTEROL HALF STRENGTH 1.25 MG/3 ML VIAL.NEB NEB SCH ×4 (07:45→20:56)
[2019-06-25 08:00] VITALS: BP 133/72
[2019-06-25 08:05] LABS: BAND % (MANUAL) 4 % (0.0-5.0); LYMPHOCYTES % (MANUAL) 11 % (16-48); MONOCYTES % (MANUAL) 8 % (0-11.0); MYELOCYTES % 2 % (0-0); NEUTROPHILS % (MANUAL) 75 (42-76)
[2019-06-25] MEDS: DOCUSATE SODIUM 250 MG CAPSULE PO SCH (08:28)
[2019-06-25] MEDS: ASPIRIN 81 MG TAB.CHEW PO SCH (08:28)
[2019-06-25] MEDS: NIFEdipine XL (30MG) 30 MG TAB PO SCH (08:28)
[2019-06-25] MEDS: ISOSORBIDE MONONITRATE (30MG) 30 MG TAB.SR.24H PO SCH (08:29)
[2019-06-25] MEDS: PAROXETINE HCL 10 MG TABLET PO SCH (08:30)
[2019-06-25] MEDS: VIT B CMPLX 3/FA/VIT C/BIOTIN 1 TAB TABLET PO SCH (08:31)
[2019-06-25] MEDS: CARVEDILOL 6.25 MG TABLET PO SCH ×2 (08:32→17:23)
[2019-06-25] MEDS: predniSONE 20 MG TABLET PO SCH (08:33)
[2019-06-25] MEDS: DAKINS QUARTER STRENGTH (0.125%) 480 ML BOTTLE TOP SCH ×3 (08:40→17:24)
--- NOTE | 2019-06-25 08:41 | NUR ---
RN NOTE FAMILY AT BEDSIDE. DEMANDING AND CONTROLLING. ATTEMPTING TO CHANGE ORDERS CONSTANTLY. AWARE. FAMILY IS WALKING OUT INTO HALLWAY WITH GLOVES SOILED AND DIAPER SOILED AROUND NURSING STATION. RN INFORMED THIS IS UNACCEPTABLE AND NOT CLEAN AND SHE NEEDS TO REMAIN IN THE ROOM. WARNING GIVEN BY RN AWARE. PATIENT COOPERATING IN CARE, MEDICATIONS TAKEN DIRECTED. STATES HE DOESNT WANT TO SIT IN HIGH FOWLERS, HE CAN BREATHE BETTER IN LOWER POSITION. RN FROM SUPERVISOR SAWMILL INFORMED DAY RN THAT WOULDNT LET SUPERVISOR SAWMILL CHANGE OR CLEAN PATIENT ENTIRE SHIFT. IS NO COMPLAING. VITAL ARE STABLE, LABS ARE WNL NO ACTIVE BLEEDING, MD AWARE. FAMILY IS DIFFICULT AND [id number].
[2019-06-25] MEDS ORDERED: EPOETIN ALFA (4000 UNIT) 4,000 UNIT/ML VIAL IV SCH (09:00)
--- NOTE | 2019-06-25 12:00 | NUR ---
VITAL SIGNS REFUSAL BY FAMILY MEMBER RN UNABLE TO ASSESS VITALS DUE TO FAMILY REFUSAL
--- NOTE | 2019-06-25 15:02 | NUR ---
RN NOTE RN ASSESS PATIENT , OXYGEN SATURATION REMAINS OVER 95% ON 4 LITERS. KEEPING ON SIDE IN ORDER TO EXPEL EXCESS GAS. BLOOD IS NOTED OUT OF RECTUM ABOUT 200 CC THROUGH OUT THE DAY. GT MD MCCOLLUM AWARE, PRIMARY AWARE. CHANGED WITH CONTROLS ENGINEER MULTIPLE TIMES AT BEDSIDE AND REPOSITIONED. FAMILY HAS REFUSED CHANGING MULTIPLE TIMES, REPIOSITIONS PATIENT HERSELF AND INTEFERS WITH CARE.
[2019-06-25 16:00] VITALS: BP 126/74
[2019-06-25] MEDS: HYDROCODONE/APAP 5/325MG 1 EACH TABLET PO PRN (17:21)
--- NOTE | 2019-06-25 17:50 | NUR ---
RN CLOSING NOTES PATIENT AWAKE AND ALERT ORIENTED . AT BEDSIDE AND INVOLVED IN PATIENTS CARE. PATIENT WAS REPOSITIONED AND CHANGED MULTIPLE TIMES. RECENT BOWEL MOVEMENT WAS FORMED AND BROWN WITH LITTLE BLOOD. BED IN LOW POSITION, CALL LGIHT WITHIN REACH . ALL NEEDS MET AT THIS TIME.
--- NOTE | 2019-06-25 19:40 | NUR ---
MARINE ELECTRONICS TECHNICIAN OPENING NOTES RECEIVED PATIENT IN BED ASLEEP WITH AT BEDSIDE. PATIENT IS ON 3L OF O2 WITH NO SIGN OF ANY SOB AT THE MOMENT. PATIENT ON THE MONITOR SHOWING CONTROLLED A-FIB WITH HR'S IN THE 100'S. KY DRAIN INTACT NO SIGN OF LEAKAGE. PATIENT HAS A RIGHT MIDLINE #18 S/L. ALL SAFETY PRECAUTIONS APPLIED. WILL CONTINUE TO MONITOR PATIENT FOR JONATAN.
[2019-06-25 20:00] VITALS: BP_SYST 119; BP_DIAS 72; BP_DIAS 73
[2019-06-25] MEDS: POLYETHYLENE GLYCOL 3350 17 GM POWD.PACK PO SCH (21:55)
--- NOTE | 2019-06-25 21:56 | NUR ---
RN NOTE PER HOLD MIRALAX, PATIENT HAS BEEN HAVING REGULAR BOWEL MOVEMENTS.
[2019-06-25] MEDS: ALPRAZOLAM 0.25 MG TABLET PO PRN (23:03)
[2019-06-26] VITALS (9 sets, daily range): BP systolic 108–153; BP diastolic 66–91
[2019-06-26] MEDS: IPRATROPIUM NEB FS 0.5 MG/2.5 ML AMPUL.NEB NEB SCH ×6 (03:30→23:42)
[2019-06-26] MEDS: HYDROCODONE/APAP 5/325MG 1 EACH TABLET PO PRN (06:46)
[2019-06-26] MEDS: ALBUTEROL HALF STRENGTH 1.25 MG/3 ML VIAL.NEB NEB SCH ×4 (07:41→19:52)
--- NOTE | 2019-06-26 07:47 | NUR ---
POSTAL INSPECTOR CLOSING PATIENT IN BED WITH AT BEDSIDE. NO SIGN OF ANY DISTRESS. PATIENT IS ON BIPAP NO SIGN OF ANY DISTRESS. ENDORSED PATIENT TO MORNING SHIFT NURSE FOR JONATAN/
--- NOTE | 2019-06-26 07:57 | NUR ---
KNIFE CHANGER NOTES PATIENT RECEIVED RESTING ON BED, SLEEPING, AROUSABLE THROUGH VERBAL AND TACTILE STIMULI. BIPAP IN PLACE. INTERNAL CONTROLS MANAGER IN PLACE AFIB 96. SAFETY PRECAUTIONS IN PLACE. WILL CONTINUE TO MONITOR. BED LOCKED AND IN LOW POSITION. BILATERAL UPPER SIDE RAILS UP AND LOCKED. CALL LIGHT WITHIN EASY REACH
--- NOTE | 2019-06-26 08:15 | NUR ---
FLASH OVEN OPERATOR NOTES VERIFIED ASPIRIN ORDER WITH DR BOYLE. DC ASPIRIN PER . NOTED AND CARRIED OUT. WILL CONTINUE TO MONITOR
--- NOTE | 2019-06-26 08:29 | NUR ---
MUSEUM DIRECTOR NOTES PATIENT WITH ORDER FROM DR CRYSTAL FOR HD TODAY. HOLD BP MEDS PER CAMP MAINTENANCE SUPERVISOR. AWARE AND OK. AND PATIENT MADE AWARE AND VERBALIZED UNDERSTANDING. WILL CONTINUE TO MONITOR
[2019-06-26] MEDS: DOCUSATE SODIUM 250 MG CAPSULE PO SCH (08:31)
[2019-06-26] MEDS: predniSONE 20 MG TABLET PO SCH (08:31)
[2019-06-26] MEDS: ALPRAZOLAM 0.25 MG TABLET PO PRN ×2 (08:31→20:39)
[2019-06-26] MEDS: VIT B CMPLX 3/FA/VIT C/BIOTIN 1 TAB TABLET PO SCH (08:31)
[2019-06-26] MEDS: ISOSORBIDE MONONITRATE (30MG) 30 MG TAB.SR.24H PO SCH (08:32)
[2019-06-26] MEDS: CARVEDILOL 6.25 MG TABLET PO SCH ×2 (08:32→16:43)
[2019-06-26] MEDS: PAROXETINE HCL 10 MG TABLET PO SCH (08:32)
[2019-06-26] MEDS: NIFEdipine XL (30MG) 30 MG TAB PO SCH (08:33)
[2019-06-26] MEDS: DAKINS QUARTER STRENGTH (0.125%) 480 ML BOTTLE TOP SCH ×3 (08:33→16:43)
[2019-06-26 08:58] LABS: ABG BASE EXCESS -2.7 mmol/L; ABG OXYGEN SATURATION 94.9 % (92.0-98.5); ABG PCO2 37.8 mmHg (35.0-45.0); ABG PH 7.385 (7.350-7.450); ABG PO2 86.7 mmHg (75.0-100.0); AaDO2 140.6 mmHg; COHb 1.8 % (0.5-1.5); MetHb 0.3 % (0.0-1.5); O2Hb 92.9 % (94.0-97.0); SITE, ABG Right Radial; VENT MODE, BG ST 15/5 16 30
[2019-06-26 09:47] LABS: BASOPHILS % (AUTO) 0.8 % (0.0-2.0); HEMATOCRIT 22 % (39-51); HEMOGLOBIN 7.1 g/dL (13.5-17.5); LYMPHOCYTES # (AUTO) 0.8 /CMM (0.8-4.8); MEAN CORPUSCULAR HGB CONC 33 g/dl (31.0-36.0); MEAN CORPUSCULAR VOLUME 97 fL (80-96); MONOCYTES # (AUTO) 0.5 /CMM (0.1-1.30); MONOCYTES % (AUTO) 9.8 % (2.0-12.0); NEUTROPHILS # (AUTO) 3.7 /CMM (1.8-8.9); NEUTROPHILS % (AUTO) 72.4 % (43.0-81.0); PLATELET COUNT (AUTO) 114 /CMM (150-450); RED BLOOD CELL COUNT(AUTO) 2.23 MIL/uL (4.5-6.0); WHITE BLOOD COUNT (AUTO) 5.1 K/uL (4.3-11.0)
[2019-06-26 10:18] LABS: CALCIUM, SERUM 7.8 mg/dL (8.5-10.1); CARBON DIOXIDE 23 mmol/L (21-32); CHLORIDE 101 mmol/L (98-107); CREATININE 6.2 mg/dL (0.6-1.3); GLUCOSE 100 mg/dL (74-106); MAGNESIUM 2.4 mg/dL (1.8-2.4); PHOSPHORUS 4.6 mg/dL (2.5-4.9); POTASSIUM 4.4 mmol/L (3.5-5.1); SODIUM SERUM 137 mmol/L (136-145)
[2019-06-26 10:26] LABS: UREA NITROGEN, BLOOD 92 mg/dL (7-18)
--- NOTE | 2019-06-26 10:32 | NUR ---
MANAGER READING NOTES ABG RESULTS RECEIVED WITH REPORT OF ABG HGB 7.3. ALSO RECEIVED BUN RESULT OF 92. DR CRYSTAL AND DR BOYLE MADE AWARE. NO NEW ORDERS RECEIVED AT THIS TIME. WILL CONTINUE TO MONITOR
--- NOTE | 2019-06-26 11:52 | NUR ---
TEACHER ADVENT[employer] EDUCATION NOTES SEEN PATIENT'S ATTEMPTING TO CLEAN PATIENT BY HERSELF. THROWING SOILED LINED ON THE FLOOR AND TOUCHING MULTIPLE ITEMS INSIDE THE ROOM WHILE WEARING SOILED GLOVES. PROVIDED TEACHING TO AND CALLED EVS TO CLEAN ROOM. PATIENT CLEANED WITH LICENSED STAFF AND SYSTEM SUPPORT SPECIALIST. PATIENT WITH SOFT BOWEL MOVEMENT WITH SOME LIQUID NOTED WELL, MOSTLY BROWN IN COLOR WITH SOME SEROSANGUINEOUS DRAINAGE NOTED WELL. KY DRAIN IN PLACE. WILL CONTINUE TO MONITOR
[2019-06-26 13:58] LABS: BAND % (MANUAL) 1 % (0.0-5.0); LYMPHOCYTES % (MANUAL) 17 % (16-48); MONOCYTES % (MANUAL) 7 % (0-11.0); MYELOCYTES % 3 % (0-0); NEUTROPHILS % (MANUAL) 72 (42-76)
--- NOTE | 2019-06-26 15:15 | NUR ---
PT RECEIVED ON BIPAP, AWAKE, RESPONSIVE. ASKED TO REMAIN ON BIPAP, ABG DONE PER MD; GOOD ABG RESULTS AND STABLE VITAL SIGNS, NO RESP DISTRESS, RT REMOVED BIPAP, AND PLACED PT ON CANNULA. SHORTLY PT FOUND BACK ON BIPAP (PLACED BY ). SOON AFTER, PT FOUND OFF BIPAP, ON ROOM AIR ( DID NOT CONNECT O2 PROPERLY). WAS ADVISED NOT TOUCH O2 AND OTHER EQUIPMENT, AND CALL FOR RT [employer]AYER IF HELP IS NEEDED. REMAINED NON-COMPLIANT, FREQUENTLY FEEDING PT AND GIVING COFFEE WHILE HE IS ON BIPAP, REMOVING MASK. Addendum: 06/26/19 at 1519 by ANGLE MOCK RT Amended: Links added.
--- NOTE | 2019-06-26 16:40 | NUR ---
[employer] ARCHITECT NOTES STARTED HD. WILL HOLD BP MEDICATIONS. AT BEDSIDE REFUSING WOUND CARE. RISKS AND BENEFITS EXPLAINED BUT TO NO AVAIL. STRONGLY REFUSED. WILL CONTINUE TO MONITOR
--- NOTE | 2019-06-26 17:07 | NUR ---
DIETETIC TECHNICIAN REGISTERED NOTES STARTED BLOOD TRANSFUSION. GIVEN WITH HD. PATIENT TOLERATING WELL. WILL CONTINUE TO MONITOR
--- NOTE | 2019-06-26 18:00 | NUR ---
HEAD END DESIZING MACHINE OPERATOR NOTES BLOOD TRANSFUSION ENDED. PATIENT TOLERATED WELL. HD ONGOING. WILL CONTINUE TO MONITOR
--- NOTE | 2019-06-26 18:44 | NUR ---
GLOBAL DIRECTOR AIR AND CLIMATE CHANGE NOTES PATIENT RESTING INSIDE ROOM. ONGOING HD. PATIENT KEPT CLEAN, DRY AND COMFORTABLE. [place] DRAIN IN PLACE. DR MCCOLLUM AT BEDSIDE TALKING TO . WILL ENDORSE TO INCOMING SHIFT FOR JONATAN. BED LOCKED AND IN LOW POSITION. SIDE RAILS UP X 3. CALL LIGHT WITHIN EASY REACH
--- NOTE | 2019-06-26 19:03 | NUR ---
CAVING GUIDE NOTES HD DONE. 1L OUT.
--- NOTE | 2019-06-26 19:35 | NUR ---
RT NOTE PT RECEIVED ON BIPAP. AWAKE/ALERT. MEPILEX APPLIED ON FACE WITH MASK. BIPAP PLUGGED TO RED OUTLET. CONT. PULSE OX CONNECTED. ALARMS ON AND AUDIBLE. TX GIVEN, NO ADVERSE REACTIONS NOTED. B/S IMPROVED POST TX. NO SOB NOTED. WILL MONITOR T/O SHIFT. Addendum: 06/27/19 at 0025 by QUIANA SETH RT Amended: Links added.
[2019-06-26] MEDS: POLYETHYLENE GLYCOL 3350 17 GM POWD.PACK PO SCH (22:00)
[2019-06-27 00:10] VITALS: BP 136/86
[2019-06-27] MEDS: HYDROCODONE/APAP 5/325MG 1 EACH TABLET PO PRN (03:58)
[2019-06-27 04:00] VITALS: BP 122/76
[2019-06-27] MEDS: IPRATROPIUM NEB FS 0.5 MG/2.5 ML AMPUL.NEB NEB SCH ×6 (04:20→23:15)
--- NOTE | 2019-06-27 07:30 | NUR ---
TELE OPENING RN NOTES PATIENT RECEIVED RESTING ON BED, SLEEPING, AROUSABLE THROUGH VERBAL AND TACTILE STIMULI. BIPAP IN PLACE. MIXER HELPER IN PLACE WITH CONTROLLED A. FIB AT 96. AT BEDSIDE. IV SITES CLEAN, DRY, PATENT AND INTACT. NO PAIN REPORTED. SAFETY PRECAUTIONS IN PLACE. WILL CONTINUE TO MONITOR. BED LOCKED, LOW POSITION AND AT SEMI-BAKER'S POSITION. BILATERAL UPPER SIDE RAILS UP AND LOCKED. CALL LIGHT WITHIN EASY REACH
[2019-06-27] MEDS: ALBUTEROL HALF STRENGTH 1.25 MG/3 ML VIAL.NEB NEB SCH ×4 (07:56→20:40)
[2019-06-27 08:00] VITALS: BP 128/72
[2019-06-27 08:02] LABS: BASOPHILS % (AUTO) 0.6 % (0.0-2.0); EOSINOPHILS % (AUTO) 0.8 % (0.0-6.0); HEMATOCRIT 26 % (39-51); HEMOGLOBIN 8.4 g/dL (13.5-17.5); LYMPHOCYTES # (AUTO) 0.7 /CMM (0.8-4.8); LYMPHOCYTES % (AUTO) 16.7 % (20.0-44.0); MEAN CORPUSCULAR HGB CONC 33 g/dl (31.0-36.0); MEAN CORPUSCULAR VOLUME 94 fL (80-96); MONOCYTES # (AUTO) 0.5 /CMM (0.1-1.30); MONOCYTES % (AUTO) 12.5 % (2.0-12.0); NEUTROPHILS % (AUTO) 69.4 % (43.0-81.0); PLATELET COUNT (AUTO) 108 /CMM (150-450); WHITE BLOOD COUNT (AUTO) 4.3 K/uL (4.3-11.0)
[2019-06-27 08:13] LABS: CALCIUM, SERUM 7.8 mg/dL (8.5-10.1); CARBON DIOXIDE 22 mmol/L (21-32); CHLORIDE 103 mmol/L (98-107); GLUCOSE 86 mg/dL (74-106); MAGNESIUM 2.3 mg/dL (1.8-2.4); PHOSPHORUS 4.1 mg/dL (2.5-4.9); POTASSIUM 4.4 mmol/L (3.5-5.1); SODIUM SERUM 138 mmol/L (136-145); UREA NITROGEN, BLOOD 74 mg/dL (7-18)
[2019-06-27] MEDS: DOCUSATE SODIUM 250 MG CAPSULE PO SCH (08:45)
[2019-06-27] MEDS: VIT B CMPLX 3/FA/VIT C/BIOTIN 1 TAB TABLET PO SCH (08:45)
[2019-06-27] MEDS: predniSONE 20 MG TABLET PO SCH (08:45)
[2019-06-27] MEDS: ISOSORBIDE MONONITRATE (30MG) 30 MG TAB.SR.24H PO SCH (08:46)
[2019-06-27] MEDS: CARVEDILOL 6.25 MG TABLET PO SCH ×2 (08:46→18:24)
[2019-06-27] MEDS: PAROXETINE HCL 10 MG TABLET PO SCH (08:46)
[2019-06-27] MEDS: DAKINS QUARTER STRENGTH (0.125%) 480 ML BOTTLE TOP SCH ×3 (08:47→18:25)
[2019-06-27] MEDS: NIFEdipine XL (30MG) 30 MG TAB PO SCH (08:47)
[2019-06-27 10:16] LABS: BAND % (MANUAL) 3 % (0.0-5.0); EOSINOPHILS % (MANUAL) 5 % (0-4); LYMPHOCYTES % (MANUAL) 18 % (16-48); METAMYELOCYTES % 1 % (0-0); MONOCYTES % (MANUAL) 14 % (0-11.0); MYELOCYTES % 1 % (0-0); NEUTROPHILS % (MANUAL) 58 (42-76)
--- NOTE | 2019-06-27 11:30 | NUR ---
NEUROLOGY PHYSICIAN NOTE: PATIENT SEEN BY DR. BOYLE, INFORMED NURSE ABOUT PLAN FOR COLONOSCOPY TOMORROW. DIET CHANGE TO CLEAR LIQUIDS FOR LUNCH AND DINNER AND NPO PM ORDERED. BOWEL PREPARATION WITH GOLYTELY ORDERED. PATIENT WILL BE SEEN LATER BY DR. MCCOLLUM PER DR. BOYLE FOR DETAILED EXPLANATION OF THE PROCEDURE.
[2019-06-27 12:00] VITALS: BP 130/74
--- NOTE | 2019-06-27 12:15 | NUR ---
LENS DOTTER NOTE: PATIENT AND AT BEDSIDE, CONFIRMED WITH THEM ABOUT THE COLONOSCOPY PROCEDURE AND GOLYTELY BOWEL PREP. PATIENT AND REFUSED TO DO BOWEL PREP AT THE MOMENT AND WOULD WANT TO SPEAK WITH DOCTOR TO GET EXPLANATION FOR COLONOSCOPY. WILL INFORM DR. MCCOLLUM ABOUT THE SITUATION.
--- NOTE | 2019-06-27 13:00 | NUR ---
SCRAP COLLECTOR NOTE: DR. MCCOLLUM PAGED, AWAITING RESPONSE.
[2019-06-27 16:00] VITALS: BP 130/68
--- NOTE | 2019-06-27 17:30 | NUR ---
MEDICAL INSURANCE CLAIMS PROCESSOR NOTE: DR. MCCOLLUM MADE ROUNDS AND INFORMED ABOUT PATIENT'S CONCERNS ABOUT PROCEDURE. WILL SEE PATIENT AND CONSULT WITH THEM AT BEDSIDE.
--- NOTE | 2019-06-27 18:00 | NUR ---
TRANSPORTATION COORDINATOR NOTE: QUESTIONED PATIENT AND ABOUT THE CONSULTATION AND OFFERED CONSENT TO BE SIGNED. STATED THAT " SAID HE WOULD COME BACK TO CHECK ON HIM" THE SHE WAS EXPLAINING THE DR. MCCOLLUM TOLD THEM HE WAS STEPPING OUT AND WILL COME BACK TO SEE PATIENT'S STOOL AND KY DRAIN SITE AFTER HE GOT CLEANED. PATIENT AND STILL HAVE A LOT OF QUESTION REGARDING POSSIBLE PROCEDURE, NO CONSENT FORMS HAVE BEEN SIGNED AND BOWEL PREP WITH GOLYTELY HAS NOT YET BEEN STARTED. WILL INFORM DR. BOYLE OF SITUATION.
--- NOTE | 2019-06-27 18:05 | NUR ---
LAB SYSTEMS ANALYST NOTE: DR. MCCOLLUM PAGED FOR PATIENT, AWAITING RESPONSE.
--- NOTE | 2019-06-27 18:10 | NUR ---
EXECUTIVE MANAGER NOTE: DR. BOYLE MADE AWARE OF SITUATION. OFFERED PATIENT TO START WITH BOWEL PREP PER DOCTOR'S ORDERS AND PATIENT REFUSED, WANTING TO SPEAK TO DR. MCCOLLUM AND GET MORE INFORMATION ABOUT THE PROCEDURE BEFORE ANYTHING. DR. BOYLE MADE AWARE.
[2019-06-27] MEDS: PEG 3350/NA SULF,BICARB,CL/KCL 4,000 ML BOTTLE PO ONE ×2 (18:50→19:00)
--- NOTE | 2019-06-27 19:30 | NUR ---
TELE OPENING CLOSING NOTES PATIENT RESTING ON BED, SLEEPING, A/0X4. ON CONT. O2 VIA NC @2LPM, TOLERATING WELL. CARE SERVICES MANAGER IN PLACE WITH CONTROLLED A. FIB NOTED. AT BEDSIDE. IV SITE CLEAN, DRY, PATENT AND INTACT. NO PAIN REPORTED. SAFETY PRECAUTIONS IN PLACE. WILL CONTINUE TO MONITOR. BED LOCKED, LOW POSITION AND AT SEMI-BAKER'S POSITION. BILATERAL UPPER SIDE RAILS UP AND LOCKED. CALL LIGHT WITHIN EASY REACH. ENDORSED TO CELL LINER NURSE FOR OJNATAN, INFORMED THEM ABOUT PATIENT'S PLANNED COLONOSCOPY PROCEDURE AND PATIENT AND 'S REFUSAL TO SIGN CONSENT AND TAKE BOWEL PREPARATION OF GOLYTELY UNTIL THEY GET TO SPEAK TO DR. MCCOLLUM. DR. BOYLE IS AWARE OF THE SITUATION. DR. MCCOLLUM HAS BEEN PAGED ABOUT IT AND NO RESPONSE YET.
[2019-06-27 20:00] VITALS: BP 135/102
--- NOTE | 2019-06-27 20:00 | NUR ---
NUCLEAR REACTOR TECHNICIAN NOTES RECEIVED PATIENT AWAKE IN BED WITH NO DISTRESS NOTED. CALL LIGHT WITHIN REACH. AT BEDSIDE. NO C/O PAIN OR DISCOMFORT. PERIPHERAL LINE INTACT AND PATENT. REFUSED GOLYTELY AND TO SIGN CONSENTS FOR COLONOSCOPY PROCEDURE FOR TOMORROW AM DESPITE CONTINUED EXPLANATION OF RISKS/BENEFITS. HOSPITALIST AND CHARGE NURSE AWARE. BED IN LOW LOCK SETTING WITH BED ALARM ON AND FUNCTIONING PROPERLY. ROOM FREE OF CLUTTER AND BELONGINGS KEPT NEAR BEDSIDE. WILL CONTINUE TO MONITOR.
[2019-06-27] MEDS: ALPRAZOLAM 0.25 MG TABLET PO PRN ×2 (20:53→21:03)
[2019-06-27] MEDS: POLYETHYLENE GLYCOL 3350 17 GM POWD.PACK PO SCH (21:50)
[2019-06-28] VITALS (7 sets, daily range): BP systolic 105–155; BP diastolic 84–94
[2019-06-28] MEDS: IPRATROPIUM NEB FS 0.5 MG/2.5 ML AMPUL.NEB NEB SCH ×5 (03:32→19:39)
--- NOTE | 2019-06-28 03:33 | NUR ---
RT rn asked to have pt placed back on bipap. per rn, pt's took off the bipap mask. when asked why she took the mask off, she said he was hungry and gave him a cookie 1.5 hrs ago. Addendum: 06/28/19 at 0512 by TRI WOOD RT Amended: Links added.
--- NOTE | 2019-06-28 06:29 | NUR ---
FILLER SHREDDER HELPER NOTES PATIENT ASLEEP IN BED WITH NO DISTRESS NOTED. CALL LIGHT WITHIN REACH. AT BEDSIDE. BIPAP ON AND FUNCTIONING PROPERLY. NPO STATUS OBSERVED AND MAINTAINED. PERIPHERAL LINE INTACT AND PATENT. RUC PERMA CATH INTACT WITH NO REDNESS, SWELLING, OR BLEEDING NOTED. BED IN LOW LOCK SETTING WITH BED ALARM ON AND FUNCTIONING PROPERLY. ROOM FREE OF CLUTTER AND BELONGINGS KEPT NEAR BEDSIDE. WILL ENDORSE TO ONCOMING SHIFT.
[2019-06-28 07:04] LABS: BASOPHILS % (AUTO) 0.6 % (0.0-2.0); EOSINOPHILS % (AUTO) 0.6 % (0.0-6.0); HEMATOCRIT 25 % (39-51); HEMOGLOBIN 8.3 g/dL (13.5-17.5); LYMPHOCYTES # (AUTO) 0.7 /CMM (0.8-4.8); LYMPHOCYTES % (AUTO) 13.4 % (20.0-44.0); MEAN CORPUSCULAR HGB CONC 34 g/dl (31.0-36.0); MEAN CORPUSCULAR VOLUME 94 fL (80-96); MONOCYTES # (AUTO) 0.5 /CMM (0.1-1.30); MONOCYTES % (AUTO) 9.5 % (2.0-12.0); NEUTROPHILS # (AUTO) 3.8 /CMM (1.8-8.9); NEUTROPHILS % (AUTO) 75.9 % (43.0-81.0); PLATELET COUNT (AUTO) 105 /CMM (150-450); RED BLOOD CELL COUNT(AUTO) 2.63 MIL/uL (4.5-6.0); WHITE BLOOD COUNT (AUTO) 5.1 K/uL (4.3-11.0)
[2019-06-28 07:10] LABS: CALCIUM, SERUM 7.7 mg/dL (8.5-10.1); CARBON DIOXIDE 22 mmol/L (21-32); CHLORIDE 101 mmol/L (98-107); CREATININE 5.7 mg/dL (0.6-1.3); GLUCOSE 85 mg/dL (74-106); MAGNESIUM 2.5 mg/dL (1.8-2.4); PHOSPHORUS 5.6 mg/dL (2.5-4.9); POTASSIUM 4.2 mmol/L (3.5-5.1); SODIUM SERUM 137 mmol/L (136-145)
[2019-06-28 07:31] LABS: UREA NITROGEN, BLOOD 86 mg/dL (7-18)
[2019-06-28] MEDS: ALBUTEROL HALF STRENGTH 1.25 MG/3 ML VIAL.NEB NEB SCH ×4 (07:32→19:39)
[2019-06-28] MEDS: CARVEDILOL 6.25 MG TABLET PO SCH ×2 (09:00→17:26)
[2019-06-28] MEDS: NIFEdipine XL (30MG) 30 MG TAB PO SCH (09:00)
[2019-06-28 09:12] LABS: BAND % (MANUAL) 9 % (0.0-5.0); EOSINOPHILS % (MANUAL) 1 % (0-4); LYMPHOCYTES % (MANUAL) 9 % (16-48); MONOCYTES % (MANUAL) 14 % (0-11.0); MYELOCYTES % 1 % (0-0); NEUTROPHILS % (MANUAL) 66 (42-76)
--- NOTE | 2019-06-28 09:30 | NUR ---
RN NOTE HELD MORNING B/P MEDICATIONS BECAUSE PATIENT IS HAVING HD TODAY
[2019-06-28] MEDS: VIT B CMPLX 3/FA/VIT C/BIOTIN 1 TAB TABLET PO SCH (09:42)
[2019-06-28] MEDS: ISOSORBIDE MONONITRATE (30MG) 30 MG TAB.SR.24H PO SCH (09:42)
[2019-06-28] MEDS: DAKINS QUARTER STRENGTH (0.125%) 480 ML BOTTLE TOP SCH ×3 (09:42→17:26)
[2019-06-28] MEDS: PAROXETINE HCL 10 MG TABLET PO SCH (09:42)
[2019-06-28] MEDS: DOCUSATE SODIUM 250 MG CAPSULE PO SCH (09:42)
[2019-06-28] MEDS: predniSONE 20 MG TABLET PO SCH (09:42)
[2019-06-28] MEDS: ALPRAZOLAM 0.25 MG TABLET PO PRN ×2 (12:00→22:01)
--- NOTE | 2019-06-28 19:38 | NUR ---
MS RN OPENING NOTES, RECEIVED PATIENT IN BED AWAKE. A/O X3. PATIENT ON 3L O2. TOLERATING WELL. NO SOB OR ACUTE DISTRESS NOTED AT THIS TIME. IV ON R WRIST #24 FLUSHING WELL. RIGHT CHEST WALL HD CATH. NO COMPLAINING OF PAIN. AT BED SIDE. BED IN LOW/LOCKED POSITION. CALL LIGHT WITHIN REACH. WILL CONTINUE TO MONITOR DURING DIRECTOR BIOSTATISTICS.
--- NOTE | 2019-06-28 20:30 | NUR ---
RN NOTE, TALKED TO DR MCCOLLUM ON THE PHONE. HE WILL DO COLONOSCOPY ON PATIENT TOMORROW AROUND NOON TO FIND OUT THE REASON FOR BLOOD IN THE STOOL WHICH WAS MENTIONED BY PATIENT'S AT SHIFT CHANGE TODAY. WILL FOLLOW THE PROTOCOL FOR THE PROCEDURE.
--- NOTE | 2019-06-28 20:33 | NUR ---
RN NOTE, INFORMED THE PATIENT AND HIS ABOUT THE COLONOSCOPY PROCEDURE FOR NEXT DAY BECAUSE OF BLOOD IN THE STOOL. PATIENT'S STATED SHE HASN'T SEEN ANY BLOOD IN THE STOOL FOR THE LAST 2 DAYS AND ALSO THE PATIENT WILL NOT TOLERATE THE BOWL PREP FOR THE PROCEDURE. THEY REFUSE THE COLONOSCOPY FOR TOMORROW. WILL CONTACT DR MCCOLLUM.
--- NOTE | 2019-06-28 20:36 | NUR ---
RN NOTE, CALLED DR MARSH OFFICE, COULD NOT LEAVE MESSAGE. INFORMED HIM BY TEXT. WAITING FOR RESPOND. CHARGE NURSE IS AWARE OF PATIENTS REFUSAL.
[2019-06-28] MEDS: POLYETHYLENE GLYCOL 3350 17 GM POWD.PACK PO SCH (22:00)
[2019-06-29] MEDS: IPRATROPIUM NEB FS 0.5 MG/2.5 ML AMPUL.NEB NEB SCH ×7 (00:03→23:43)
[2019-06-29 04:00] VITALS: BP 112/76
[2019-06-29 07:04] LABS: BASOPHILS % (AUTO) 0.7 % (0.0-2.0); EOSINOPHILS % (AUTO) 0.6 % (0.0-6.0); HEMATOCRIT 25 % (39-51); HEMOGLOBIN 8.1 g/dL (13.5-17.5); LYMPHOCYTES # (AUTO) 0.6 /CMM (0.8-4.8); LYMPHOCYTES % (AUTO) 12.3 % (20.0-44.0); MEAN CORPUSCULAR HGB CONC 33 g/dl (31.0-36.0); MEAN CORPUSCULAR VOLUME 94 fL (80-96); MONOCYTES # (AUTO) 0.3 /CMM (0.1-1.30); MONOCYTES % (AUTO) 7.3 % (2.0-12.0); NEUTROPHILS # (AUTO) 3.8 /CMM (1.8-8.9); NEUTROPHILS % (AUTO) 79.1 % (43.0-81.0); PLATELET COUNT (AUTO) 91 /CMM (150-450); RED BLOOD CELL COUNT(AUTO) 2.61 MIL/uL (4.5-6.0); WHITE BLOOD COUNT (AUTO) 4.8 K/uL (4.3-11.0)
--- NOTE | 2019-06-29 07:04 | NUR ---
MS RN CLOSING NOTES, PATIENT IN BED AWAKE. A/O X3. PATIENT ON BIPAP. TOLERATING WELL. NO SOB OR ACUTE DISTRESS NOTED AT THIS TIME. IS REQUESTING XANAX DUE TO PATIENTS ANXIETY AND PANIC. IV ON R WRIST #24 FLUSHING WELL. RIGHT CHEST WALL HD CATH. NO COMPLAINING OF PAIN. AT BED SIDE. BED IN LOW/LOCKED POSITION. CALL LIGHT WITHIN REACH. WILL ENDORSE THE PATIENT TO AM RN FOR JONATAN
[2019-06-29] MEDS: ALPRAZOLAM 0.25 MG TABLET PO PRN (07:08)
--- NOTE | 2019-06-29 07:15 | NUR ---
MS RN OPENING NOTE PATIENT IN BED AWAKE. A/O X3. PATIENT ON BIPAP. TOLERATING WELL. NO SOB OR ACUTE DISTRESS NOTED AT THIS TIME. IV SITE ON RIGHT WRIST #24 FLUSHING WELL, PATENT, INTACT, WITH HEP LOCK IN PLACE. RIGHT CHEST WALL HD CATH. AT BED SIDE. BED IN LOW/LOCKED POSITION. CALL LIGHT WITHIN REACH.
[2019-06-29 07:22] LABS: CARBON DIOXIDE 24 mmol/L (21-32); CHLORIDE 104 mmol/L (98-107); CREATININE 4.5 mg/dL (0.6-1.3); GLUCOSE 91 mg/dL (74-106); MAGNESIUM 2.3 mg/dL (1.8-2.4); PHOSPHORUS 5.5 mg/dL (2.5-4.9); POTASSIUM 3.9 mmol/L (3.5-5.1); SODIUM SERUM 140 mmol/L (136-145); UREA NITROGEN, BLOOD 63 mg/dL (7-18)
[2019-06-29 08:00] VITALS: BP 118/81
[2019-06-29] MEDS: ALBUTEROL HALF STRENGTH 1.25 MG/3 ML VIAL.NEB NEB SCH ×4 (08:07→19:37)
[2019-06-29 08:08] LABS: BAND % (MANUAL) 9 % (0.0-5.0); EOSINOPHILS % (MANUAL) 2 % (0-4); LYMPHOCYTES % (MANUAL) 14 % (16-48); MONOCYTES % (MANUAL) 4 % (0-11.0); NEUTROPHILS % (MANUAL) 71 (42-76)
[2019-06-29] MEDS: VIT B CMPLX 3/FA/VIT C/BIOTIN 1 TAB TABLET PO SCH (08:18)
[2019-06-29] MEDS: DOCUSATE SODIUM 250 MG CAPSULE PO SCH (08:19)
[2019-06-29] MEDS: NIFEdipine XL (30MG) 30 MG TAB PO SCH (08:20)
[2019-06-29] MEDS: ISOSORBIDE MONONITRATE (30MG) 30 MG TAB.SR.24H PO SCH (08:20)
[2019-06-29] MEDS: predniSONE 20 MG TABLET PO SCH (08:21)
[2019-06-29] MEDS: PAROXETINE HCL 10 MG TABLET PO SCH (08:21)
[2019-06-29] MEDS: CARVEDILOL 6.25 MG TABLET PO SCH ×2 (08:21→16:16)
[2019-06-29] MEDS: DAKINS QUARTER STRENGTH (0.125%) 480 ML BOTTLE TOP SCH ×3 (09:00→18:07)
--- NOTE | 2019-06-29 09:40 | NUR ---
SPOKE WITH DR. MCCOLLUM, NOTIFIED HIM THAT PT'S IS REFUSING COLONOSCOPY PROCEDURE.
[2019-06-29] MEDS ORDERED: NITR12SP7 TL (11:17)
[2019-06-29 16:00] VITALS: BP 84/59
--- NOTE | 2019-06-29 18:32 | NUR ---
MS RN CLOSING NOTE PATIENT IN BED AWAKE, ALERT AND ORIENTED X 3, ON BIPAP, TOLERATING SETTINGS WELL, RESPIRATIONS EVEN UNLABORED, NO SIGNS OF RESPIRATORY DISTRESS NOTED. IV SITE ON RIGHT WRIST #24 FLUSHING WELL, PATENT, INTACT, WITH HEP LOCK IN PLACE. RIGHT CHEST WALL HD CATH INTACT. 1.2L REMOVED WITH DIALYSIS TODAY. PROVIDED SAFETY AND COMFORT TO PT THROUGHOUT SHIFT, TURNED AND REPOSITIONED EVERY 2 HOURS, BED IN LOW/LOCKED POSITION, CALL LIGHT WITHIN REACH. WILL ENDORSE TO NOC SHIFT NURSE.
[2019-06-29 18:50] VITALS: BP 121/80
--- NOTE | 2019-06-29 20:03 | NUR ---
MS RN OPENING NOTE RECEIVED PATIENT IN BED A/O X3 WITH NO SIGN OF DISTRESS. PATIENT IS ON 5L OF O2 NO SIGN OF SOB PATIENT WAS JUST PUT ON BIPAP FOR THE NIGHT. HAS A JEWEL MIDLINE S/L PATENT AND FLUSHING WELL. FAMILY IS AT BEDSIDE. WILL CONTINUE TO MONITOR PATIENT THROUGHOUT THE SHIFT.
--- NOTE | 2019-06-29 20:03 | NUR ---
RT PT TOOK SELF OFF OF BIPAP. NOTIFIED DEANNA CHARGE NURSE
[2019-06-29] MEDS: POLYETHYLENE GLYCOL 3350 17 GM POWD.PACK PO SCH (22:00)
--- NOTE | 2019-06-29 22:10 | NUR ---
RN NOTE NON ADMINISTERED POLYETHYLENE. PATIENT REFUSED.
[2019-06-30] MEDS: IPRATROPIUM NEB FS 0.5 MG/2.5 ML AMPUL.NEB NEB SCH ×6 (03:36→22:43)
[2019-06-30 07:07] LABS: BASOPHILS % (AUTO) 0.8 % (0.0-2.0); HEMATOCRIT 23 % (39-51); HEMOGLOBIN 7.6 g/dL (13.5-17.5); LYMPHOCYTES # (AUTO) 0.6 /CMM (0.8-4.8); MEAN CORPUSCULAR HGB CONC 33 g/dl (31.0-36.0); MEAN CORPUSCULAR VOLUME 95 fL (80-96); MONOCYTES # (AUTO) 0.3 /CMM (0.1-1.30); NEUTROPHILS # (AUTO) 3.4 /CMM (1.8-8.9); NEUTROPHILS % (AUTO) 78.2 % (43.0-81.0); PLATELET COUNT (AUTO) 83 /CMM (150-450); RED BLOOD CELL COUNT(AUTO) 2.43 MIL/uL (4.5-6.0); WHITE BLOOD COUNT (AUTO) 4.3 K/uL (4.3-11.0)
[2019-06-30 07:17] LABS: CARBON DIOXIDE 25 mmol/L (21-32); CHLORIDE 105 mmol/L (98-107); CREATININE 4.2 mg/dL (0.6-1.3); GLUCOSE 86 mg/dL (74-106); MAGNESIUM 2.2 mg/dL (1.8-2.4); PHOSPHORUS 5.2 mg/dL (2.5-4.9); POTASSIUM 3.9 mmol/L (3.5-5.1); SODIUM SERUM 142 mmol/L (136-145); UREA NITROGEN, BLOOD 52 mg/dL (7-18)
[2019-06-30] MEDS: ALBUTEROL HALF STRENGTH 1.25 MG/3 ML VIAL.NEB NEB SCH ×4 (07:21→19:48)
--- NOTE | 2019-06-30 07:54 | NUR ---
RN OPENING NOTES RECEIVED PATIENT RESTING COMFORTABLY IN BED WITH NOCTURNAL BIPAP. HE IS AOX3, VERBAL, AND ON BEDREST. HE IS NOW ON 4L OF OXYGEN VIA NC, TOLERATING WELL. HE HAS GENERALIZED EDEMA THROUGHOUT. JEWEL MIDLINE IS PATENT AND INTACT, NO IVF AT THIS TIME. HE IS ON CARDIAC DIET, TOLERATING WELL. PERIRECTAL ABSCESS IS DRAINING SEROSANGUINEOUS DRAINAGE. PER DR. CRYSTAL, PT WILL NOT REQUIRE HD TODAY. SAFETY MEASURES HAVE BEEN IMPLEMENTED, CALL LIGHT IS WITHIN REACH, BED IS IN LOWEST AND LOCKED POSITION, SIDE RAILS UP X2, WILL CONTINUE TO MONITOR FOR ANY CHANGES.
[2019-06-30 08:00] VITALS: BP 123/76
[2019-06-30 08:51] LABS: EOSINOPHILS % (MANUAL) 1 % (0-4); LYMPHOCYTES % (MANUAL) 16 % (16-48); MONOCYTES % (MANUAL) 4 % (0-11.0); NEUTROPHILS % (MANUAL) 79 (42-76)
[2019-06-30] MEDS: CARVEDILOL 6.25 MG TABLET PO SCH ×2 (09:31→17:14)
[2019-06-30] MEDS: NIFEdipine XL (30MG) 30 MG TAB PO SCH (09:31)
[2019-06-30] MEDS: DOCUSATE SODIUM 250 MG CAPSULE PO SCH (09:31)
[2019-06-30] MEDS: VIT B CMPLX 3/FA/VIT C/BIOTIN 1 TAB TABLET PO SCH (09:31)
[2019-06-30] MEDS: PAROXETINE HCL 10 MG TABLET PO SCH (09:31)
[2019-06-30] MEDS: ISOSORBIDE MONONITRATE (30MG) 30 MG TAB.SR.24H PO SCH (09:32)
[2019-06-30] MEDS: predniSONE 20 MG TABLET PO SCH (09:32)
[2019-06-30] MEDS: DAKINS QUARTER STRENGTH (0.125%) 480 ML BOTTLE TOP SCH ×3 (09:32→17:14)
--- NOTE | 2019-06-30 14:14 | NUR ---
RN NOTES UNABLE TO REACH PT REGARDING HIS DC. TRIED MULTIPLE ATTEMPTS TO NO SUCCESS, WILL TRY AGAIN
[2019-06-30] MEDS: ALPRAZOLAM 0.25 MG TABLET PO PRN ×2 (14:21→23:09)
[2019-06-30] MEDS: HYDROCODONE/APAP 5/325MG 1 EACH TABLET PO PRN (14:25)
--- NOTE | 2019-06-30 15:53 | NUR ---
SON SPOKE WITH VINCE CARLOS, PER SON MOTHER IS SICK AND THEY NEED HELP,LOOKING FOR CAREGIVER FOR HIS DAD,AWAITS DECISION FROM FAMILY.
--- NOTE | 2019-06-30 15:54 | NUR ---
ADDENDUM [employer] IRON WORKER FOREMAN PROVIDED CONTACT NUMBER FOR CAREGIVER [employer]OURCE.
--- NOTE | 2019-06-30 15:55 | NUR ---
SON NOT READY TO TAKE PATIENT HOME,CM AWARE.
[2019-06-30 16:00] VITALS: BP 144/65
--- NOTE | 2019-06-30 16:23 | NUR ---
VINCE SIMON ARRANGED DISCHARGE FOR 10AM TOMMOROW,HD NURSE KATHLEEN NOTIFIED.
--- NOTE | 2019-06-30 17:24 | NUR ---
RT PT ON/OFF BIPAP T/O SHIFT. PER DR PERSON ORDERS, PT OK TO BE ON BIPAP. BREATHING TX GIVEN T/O SHIFT. NO ADVERSE REACTION. PT ON CONTINUOUS PULSE OX. NO SOB OR RESP DISTRESS NOTED.
--- NOTE | 2019-06-30 19:00 | NUR ---
RN OPENING NOTES RECEIVED PATIENT IN BED, AWAKE, A/OX3, FOLLOWS COMMANDS. ON BIPAP (FIO2 30%), TOLERATING WELL, SATURATING 99% AT THE MOMENT. PATIENT DENIES SOB/PAIN AT THE MOMENT. NO RESPIRATORY DISTRESS NOTED. IV SITE RIGHT UPPER ARM MIDLINE, FLUSHING AND PATENT, S/L, SITE C/D/I. RIGHT CHEST WALL HD CATH NOTED, SITE C/D/I. SAFETY MEASURES IN PLACE; BED IS LOCKED AND IN LOWEST POSITION, CALL LIGHT IN REACH, SIDE RAILS UP X2, URINAL WITHIN PT REACH. WILL CONTINUE TO MONITOR PT.
--- NOTE | 2019-06-30 19:28 | NUR ---
RN CLOSING NOTES PATIENT IS RESTING COMFORTABLY AT THIS TIME, HE IS CURRENTLY ON BIPAP, TOLERATING WELL. PT TO BE DC'D TOMORROW AM. PT NEEDS HAVE BEEN MET, VITAL SIGNS ARE STABLE, NO ACUTE CHANGES OCCURRED THROUGHOUT THE SHIFT. SAFETY MEASURES HAVE BEEN IMPLEMENTED, CALL LIGHT IS WITHIN REACH, BED IS IN LOWEST AND LOCKED POSITION, SIDE RAILS UP X2, PT HAS BEEN ENDORSED TO NIGHTSHIFT RN FOR CONTINUITY OF CARE.
[2019-06-30 20:00] VITALS: BP 115/79
[2019-06-30] MEDS: POLYETHYLENE GLYCOL 3350 17 GM POWD.PACK PO SCH (22:00)
[2019-06-30] MEDS: HYDROMORPHONE HCL 2 MG TABLET PO PRN (23:59)
--- NOTE | 2019-07-01 01:30 | NUR ---
RN NOTES PATIENT NOTED VERY AGITATED AND MOANING WITH SOB, SATURATING 97% AT THE MOMENT. ASKED IF HE WANTS BREATHING TX, NODDED YES. PAGED RT FOR PRN BREATHING TX. AWAITING FOR RESPONSE.
[2019-07-01] MEDS ORDERED: LORAZEPAM INJ 2 MG/ML VIAL IV STA (01:43)
--- NOTE | 2019-07-01 01:45 | NUR ---
RN NOTES PATIENT CURRENTLY RECEIVING BREATHING TX, HOWEVER STILL VERY ANXIOUS AND YELLING "HELP ME" AND REQUESTING XANAX. HOWEVER, XANAX ADMINISTERED 2 HRS AGO. PATIENT SATURATING 99-100% AT THE MOMENT. SOB STILL NOTED, HEART RATE 100'S-150'S. PAGED HOSPITALIST REGARDING PATIENT CHANGE OF CONDITION; ORDERED ATIVAN 1MG IV ONCE AND STAT CHEST XRAY. WILL ATTEND TO ORDERS AND CONT TO MONITOR PT CLOSELY.
--- NOTE | 2019-07-01 03:09 | NUR ---
received a phone call from the RN to check the patient, per pt felt anxious and wanted anxiety medication from the RN, per RN was waiting for the secretary to board of commissioners MD to respond to her phone call for the PRN medication. I gave one prn breathing treatment to the patient. Addendum: 07/01/19 at 0312 by AMANDO NUNEZ RT Amended: Links added.
--- NOTE | 2019-07-01 03:19 | NUR ---
pt is filling better, no SOB, Respiratory distress or anxiety reported. Addendum: 07/01/19 at 0320 by AMANDO NUNEZ RT Amended: Links added.
[2019-07-01] MEDS: IPRATROPIUM NEB FS 0.5 MG/2.5 ML AMPUL.NEB NEB SCH ×3 (03:20→11:22)
[2019-07-01 04:00] VITALS: BP 156/89
--- NOTE | 2019-07-01 06:56 | NUR ---
RN CLOSING NOTES PATIENT NOW SLEEPING IN BED, BUT EASY TO AROUSE. ON BIPAP (FIO2 30%), TOLERATING WELL, SATURATING 100% AT THE MOMENT. NO SOB OR RESPIRATORY DISTRESS NOTED. IV SITE RIGHT UPPER ARM MIDLINE, FLUSHING AND PATENT, S/L, SITE C/D/I. RIGHT CHEST WALL HD CATH NOTED, SITE C/D/I. SAFETY MEASURES IN PLACE; BED IS LOCKED AND IN LOWEST POSITION, CALL LIGHT IN REACH, SIDE RAILS UP X2, URINAL WITHIN PT REACH. WILL CONTINUE TO MONITOR PT. WILL ENDORSE TO AM RN FOR JONATAN.
[2019-07-01 08:00] VITALS: BP 126/90
[2019-07-01] MEDS: ALBUTEROL HALF STRENGTH 1.25 MG/3 ML VIAL.NEB NEB SCH ×2 (08:00→11:22)
--- NOTE | 2019-07-01 08:21 | NUR ---
ENROBING MACHINE CORDER NOTES PATIENT A/OX 4 ON BIPAP. SCHEDULED FOR DC AT 1000. NO SOB AND DISCOMFORT NOTED AT THIS TIME. CALL LIGHT WITHIN REACH. BED AT THE LOWEST POSITION LOCKED. WILL CONTINUE TO MONITOR.
[2019-07-01] MEDS: DOCUSATE SODIUM 250 MG CAPSULE PO SCH (09:00)
--- NOTE | 2019-07-01 09:00 | NUR ---
FARM EQUIPMENT ENGINEER NOTES PATIENT REFUSED DOCUSATE.
--- NOTE | 2019-07-01 09:00 | NUR ---
patient refused to have photo taken,verbalized he need to sleep.
[2019-07-01] MEDS: ISOSORBIDE MONONITRATE (30MG) 30 MG TAB.SR.24H PO SCH (09:26)
[2019-07-01] MEDS: VIT B CMPLX 3/FA/VIT C/BIOTIN 1 TAB TABLET PO SCH (09:26)
[2019-07-01] MEDS: PAROXETINE HCL 10 MG TABLET PO SCH (09:27)
[2019-07-01] MEDS: predniSONE 20 MG TABLET PO SCH (09:28)
[2019-07-01] MEDS: CARVEDILOL 6.25 MG TABLET PO SCH (09:28)
[2019-07-01] MEDS: NIFEdipine XL (30MG) 30 MG TAB PO SCH (09:29)
[2019-07-01] MEDS: DAKINS QUARTER STRENGTH (0.125%) 480 ML BOTTLE TOP SCH ×2 (09:31)
--- NOTE | 2019-07-01 09:54 | NUR ---
DR. BOYLE UPDATED WITH PATIENT CHANGE CONDITION LAST NIGHT,CURRENT VSS.SEEN AND EXAMINED BR DR. BOYLE STILL OK TO DISCHARGE HOME,PER CM FAMILY AWARE AND CAREGIVER WAITING AT HOME.
[2019-07-01] MEDS: HYDROCODONE/APAP 5/325MG 1 EACH TABLET PO PRN (10:00)
--- NOTE | 2019-07-01 11:40 | NUR ---
RT PT RECEIVED ON BIPAP. STANDING ORDERS FROM DR PERSON. PT OK TO BE ON BIPAP DURING THE DAY NEEDED. T/O SHIFT, PT IS ON/OFF BIPAP. BREATHING TX GIVEN NO ADV REACTION. PT ON CONTINUOUS PULSE OX. SP02 & HR WITHIN NORMAL LIMITS T/O SHIFT. NO SOB OR RESP DISTRESS NOTED.
--- NOTE | 2019-07-01 11:42 | NUR ---
RT PT ON 3L VIA NC. SPO2 AND HR WITHIN NORMAL LIMITS. NO SOB OR RESP DISTRESS NOTED.
[2019-07-01 12:00] VITALS: BP 123/78
[2019-07-01] MEDS: ALPRAZOLAM 0.25 MG TABLET PO PRN (12:11)
--- NOTE | 2019-07-01 13:00 | NUR ---
ORACLE R12 DEVELOPER NOTES PATIENT DISCHARGED HOME AND TRANSFERRED BY AMBULANCE. SON AND BROTHER AT BED SIDE. SON TOOK ALL THE `S BELONGINGS. MIDLINE REMOVED,IV BAND REMOVED.PATIENT IS IN STABLE CONDITION.
== END 2019-07-01 13:00 | disposition home or self-care (01) | DRG 280 ==
LOC: ER 04:30 → ICU 05:07 → TELE-TD 06-16 06:44 → TELE1 06-16 14:25 → MEDSG1 06-18 12:14 → TELE1 06-20 07:29 → MEDSG1 06-20 10:20 → TELE1 06-23 13:18 → MEDSG1 06-28 09:36 → TELE1 07-01 04:09
PROVIDERS: ADMIT Family Medicine; ATTEND Internal Medicine
PROC: 5A09557 Assistance with Respiratory Ventilation, Greater than 96 Consecutive Hours, Continuous Positive Airway Pressure (ICD-10-PCS; principal; 2019-06-14)
PROC: 5A1D70Z Performance of Urinary Filtration, Intermittent, Less than 6 Hours Per Day (ICD-10-PCS; principal; 2019-06-14)
PROC: 05H933Z Insertion of Infusion Device into Right Brachial Vein, Percutaneous Approach (ICD-10-PCS; 2019-06-15)
PROC: 0W993ZZ Drainage of Right Pleural Cavity, Percutaneous Approach (ICD-10-PCS; 2019-06-16)
PROC: 5A09557 Assistance with Respiratory Ventilation, Greater than 96 Consecutive Hours, Continuous Positive Airway Pressure (ICD-10-PCS; 2019-06-20)
PROC: 30233N1 Transfusion of Nonautologous Red Blood Cells into Peripheral Vein, Percutaneous Approach (ICD-10-PCS; 2019-06-20)
DX: I13.2 Hypertensive heart and chronic kidney disease with heart failure and with stage 5 chronic kidney disease, or end stage renal disease (principal); I50.33 Acute on chronic diastolic (congestive) heart failure; I21.A1 Myocardial infarction type 2; J96.01 Acute respiratory failure with hypoxia; N18.6 End stage renal disease; E43 Unspecified severe protein-calorie malnutrition; I82.612 Acute embolism and thrombosis of superficial veins of left upper extremity; I82.629 Acute embolism and thrombosis of deep veins of unspecified upper extremity; J44.1 Chronic obstructive pulmonary disease with (acute) exacerbation; L02.31 Cutaneous abscess of buttock; K61.2 Anorectal abscess; J98.11 Atelectasis; I25.2 Old myocardial infarction; Z99.2 Dependence on renal dialysis; Z99.81 Dependence on supplemental oxygen; Z86.73 Personal history of transient ischemic attack (TIA), and cerebral infarction without residual deficits; Z85.51 Personal history of malignant neoplasm of bladder; Z87.891 Personal history of nicotine dependence; Z79.899 Other long term (current) drug therapy; Z79.82 Long term (current) use of aspirin; Z79.01 Long term (current) use of anticoagulants; N40.0 Benign prostatic hyperplasia without lower urinary tract symptoms; D63.8 Anemia in other chronic diseases classified elsewhere; I48.91 Unspecified atrial fibrillation; F41.9 Anxiety disorder, unspecified; Z88.8 Allergy status to other drugs, medicaments and biological substances; Z79.51 Long term (current) use of inhaled steroids; I71.4 Abdominal aortic aneurysm, without rupture; K62.89 Other specified diseases of anus and rectum; K59.00 Constipation, unspecified
CPT/HCPCS: 31720; 36415; 36600; 71045-TC; 74018; 76942-TC; 80048-TC; 80061-TC; 80076-TC; 82272-TC; 82803-TC; 83735-TC; 83880; 84100-TC; 84155-TC; 84484-TC; 85025-TC; 85027-TC; 85730-TC; 86706; 86850-TC; 86921-TC; 87070-TC; 87075-TC; 87081-TC; 87102-TC; 87340; 88112-TC; 88305-TC; 89051-TC; 90935-TC; 94660; 94760-TC; 94762-TC; 94799-TC; 97110-TC; 97530-TC; A6253; A6403; G0378; J0885; J1170; J1940; J2060; J2930; J3490; J7030; J7050; P9016-BL